=== PATIENT | male | born 1940 | race Caucasian/White ===

== ENCOUNTER → 2017-08-23 | Outpatient (CLI) | payer MEDICARE, BC, OTHER ==
[2017-08-23 17:31] LABS: BASO % 0.5 % (0.0-1.0); EOS # 0.1 10^3/uL (0.0-0.50); EOS % 1.2 % (0.0-3.0); HEMATOCRIT 49.2 % (42.0-52.0); IMMATURE GRANULOCYTE % 1.6 % (0-3.0); LYMPH # 1.9 10^3/uL (1.5-4.5); LYMPH % 25.8 % (24.0-44.0); MEAN CORPUSCULAR HEMOGLOBIN 31.6 pg (27.0-33.0); MEAN CORPUSCULAR HGB CONC 34.6 g/dl (32.0-36.5); MEAN CORPUSCULAR VOLUME 91.4 fl (80.0-96.0); MONO # 0.6 10^3/uL (0.0-0.8); MONO % 8.4 % (0.0-5.0); NEUTROPHILS # 4.7 10^3/uL (1.8-7.7); NEUTROPHILS % 62.5 % (36.0-66.0); PLATELET COUNT, AUTOMATED 197 10^3/uL (150-450); RED BLOOD COUNT 5.38 10^6/uL (4.30-6.10); RED CELL DISTRIBUTION WIDTH 14.2 % (11.5-14.5); WHITE BLOOD COUNT 7.5 10^3/uL (4.0-10.0)
[2017-08-23 18:49] LABS: ALBUMIN/GLOBULIN RATIO 1.43 (1.00-1.93); ALKALINE PHOSPHATASE 75 U/L (45-117); ALT/SGPT 20 U/L (12-78); ANION GAP 10 MEQ/L (8-16); AST/SGOT 10 U/L (7-37); BILIRUBIN,TOTAL 0.6 MG/DL (0.2-1.0); BLOOD UREA NITROGEN 17 MG/DL (7-18); CALCIUM LEVEL 9.1 MG/DL (8.8-10.2); CARBON DIOXIDE LEVEL 25 MEQ/L (21-32); CHLORIDE LEVEL 108 MEQ/L (98-107); CREATININE FOR GFR 1.22 MG/DL (0.70-1.30); FREE T4 1.45 NG/DL (0.76-1.46); GLOMERULAR FILTRATION RATE > 60.0 (>42); GLUCOSE, FASTING 88 MG/DL (70-100); POTASSIUM SERUM 4.5 MEQ/L (3.5-5.1); SODIUM LEVEL 143 MEQ/L (136-145); THYROID STIMULATING HORMONE 0.709 uIU/ML (0.358-3.740); TOTAL PROTEIN 6.8 GM/DL (6.4-8.2)
[2017-08-27 00:10] LABS: Lyme Disease IgG/IgM Antibodie <0.91 ISR (0.00-0.90); Lyme Disease IgM Ab Quantitati <0.80 index (0.00-0.79)
== END ==
LOC: M WUC 10:51
DX: J01.90 Acute sinusitis, unspecified (principal); R53.83 Other fatigue
CPT/HCPCS: 84443

== ENCOUNTER 2018-04-10 08:10 | Emergency (ER) | payer MEDICARE, BC, OTHER ==
[~2018-04-10] VITALS: Ht 188 cm; Wt 86.4 kg
[2018-04-10] MEDS ORDERED: NS 1,000 ML IV SCH (08:34)
[2018-04-10] MEDS ORDERED: ACETAMINOPHEN TAB 650MG DOSE (2X325MG) PO ONE (08:45)
[2018-04-10 09:21] LABS: BASO % 0.2 % (0.0-1.0); EOS % 0.1 % (0.0-3.0); HEMATOCRIT 48.1 % (42.0-52.0); HEMOGLOBIN 16.7 g/dl (13.5-17.5); LYMPH # 0.5 10^3/uL (1.5-4.5); LYMPH % 2.8 % (24.0-44.0); MEAN CORPUSCULAR HEMOGLOBIN 31.5 pg (27.0-33.0); MEAN CORPUSCULAR HGB CONC 34.7 g/dl (32.0-36.5); MEAN CORPUSCULAR VOLUME 90.6 fl (80.0-96.0); MONO # 1.3 10^3/uL (0.0-0.8); MONO % 7.3 % (0.0-5.0); NEUTROPHILS # 15.4 10^3/uL (1.8-7.7); NEUTROPHILS % 89.1 % (36.0-66.0); PLATELET COUNT, AUTOMATED 167 10^3/uL (150-450); RED BLOOD COUNT 5.31 10^6/uL (4.30-6.10); WHITE BLOOD COUNT 17.3 10^3/uL (4.0-10.0)
[2018-04-10 09:48] LABS: ALBUMIN 4.1 GM/DL (3.2-5.2); ALT/SGPT 17 U/L (12-78); BILIRUBIN,DIRECT 0.2 MG/DL (0.0-0.2); BILIRUBIN,TOTAL 0.8 MG/DL (0.2-1.0); BLOOD UREA NITROGEN 18 MG/DL (7-18); CALCIUM LEVEL 8.8 MG/DL (8.8-10.2); CARBON DIOXIDE LEVEL 25 MEQ/L (21-32); CHLORIDE LEVEL 109 MEQ/L (98-107); CK-MB VALUE MASS < 1.0 NG/ML (<3.6); CPK CREATINE PHOSPHOKINASE 58 U/L (39-308); GLOMERULAR FILTRATION RATE > 60.0 (>42); GLUCOSE, FASTING 118 MG/DL (70-100); MB/CK RELATIVE INDEX 1.72 (< OR =4); POTASSIUM SERUM 3.9 MEQ/L (3.5-5.1); SODIUM LEVEL 142 MEQ/L (136-145); THYROID STIMULATING HORMONE 0.561 uIU/ML (0.358-3.740); TOTAL PROTEIN 6.9 GM/DL (6.4-8.2); TROPONIN I < 0.02 NG/ML (< 0.10)
[2018-04-10] MEDS ORDERED: IBUPROFEN 600 MG TAB PO ONE (10:30)
--- NOTE | 2018-04-10 11:26 | REP ---
CT BRAIN WITHOUT CONTRAST: 04/10/2018. CLINICAL HISTORY: Altered mental status. FINDINGS: Noncontrast soft tissue and bone windows are reviewed for each slice level. There are no prior studies. Lateral ventricles are midline, symmetric, and proportionate to the mild diffuse cerebral atrophy. All of this is age appropriate. Third and fourth ventricles also proportionate. Basal ganglia symmetric. There is some heterogeneous low attenuation white matter change in the periventricular and deep subcortical white matter, consistent with chronic small vessel white matter ischemic change. The fuentes-white junction differentiation is maintained. The cortical stripe is preserved though somewhat atrophic. There is no vascular territory infarct, intracranial hemorrhage, mass, mass effect, or edema. No extra-axial fluid collection. Brainstem intact. Cerebellum shows atrophy. Basal cisterns intact. Mastoids are clear. Visualized sinuses show some minor mucosal thickening in some of the ethmoid air cells. The other visualized sinuses portions included are unremarkable. Skull base and calvarium without fracture or focal lesion. There are some minor calcifications in the carotid siphons, normal for age. IMPRESSION: 1. Some mild ventriculomegaly with proportionate atrophy, age appropriate. 2. Chronic small vessel white matter ischemic changes bilaterally with no acute infarct, hemorrhage, mass, or edema. No extra-axial fluid collection. 3. Minor ethmoid sinus mucosal thickening with remainder of sinuses, mastoids, skull base, and calvarium unremarkable. Electronically Signed by Keith Tovar MD 04/10/2018 11:29 A
--- NOTE | 2018-04-10 11:27 | REP ---
CHEST PA/LATERAL: 04/10/2018. COMPARISON: 08/23/2017 CLINICAL HISTORY: Weakness. The two views show the lung overton well inflated. Some fibrotic scarring infrahilar regions bilaterally, similar to previous study. The heart is not grossly enlarged, but the aorta is ectatic and tortuous, stable. Pulmonary artery symmetric. I see no effusion or dense consolidation. Airway intact. No widening of the mediastinum. There is no free air under the diaphragm. There is no compression deformity in the spine. Degenerative changes of the AC joints present. IMPRESSION: 1. Some basilar fibrotic changes bilaterally without definite dense consolidation pleural effusion, cardiomegaly, or edema. 2. Tortuous ectatic aorta, unchanged. No widened of mediastinum. Electronically Signed by Keith Tovar MD 04/10/2018 11:29 A
[2018-04-10] MEDS ORDERED: AZITHROMYCIN INJ 500 MG, VIAL MATE ADAPTER 1 EACH in D5W 250 ML IV ONE (11:30)
[2018-04-10] MEDS ORDERED: cefTRIAXone SOD 1 GM in D5W MINI-BAG PLUS 50 ML IV ONE (11:30)
[2018-04-10] MEDS ORDERED: AZIT-12 PO (12:06)
--- NOTE | 2018-04-10 12:11 | REP ---
CT CHEST WITHOUT CONTRAST: 04/10/2018. COMPARISON: Chest x-ray 04/10/2018, 08/23/2017. CLINICAL HISTORY: Fever, leukocytosis. FINDINGS: Noncontrast images with coronal and sagittal reconstructions provided. There are patchy nodular infiltrates in the perihilar left and right mid lung zone. These are poorly depicted on the radiograph in the areas of previous fibrosis. There is dependent atelectatic change. No pleural effusion. No dense consolidation with air bronchograms. I see no pleural thickening, calcified pleural plaque, apical scar, or pneumothorax. Heart not enlarged. Trace pericardial fluid or thickening. There are coronary artery calcifications evident. The aorta has a few calcifications at the arch but no aneurysm. No pathologic-sized mediastinal or hilar adenopathy. Small amount of fluid in the superior pericardial recess. No hilar, axillary, or supraclavicular mass. The bone windows show sternum, manubrium, clavicles, AC joints, scapula, and glenohumeral joints without fracture or destructive lesion. There is some arthritis in both AC joints. Visualized ribs and spine are without acute findings. Upper abdomen shows the liver grossly intact and without biliary dilatation or mass. There is no ascites. A calcified gallstone seen in the dependent gallbladder up to 2.8 cm. The spleen is unremarkable. There is no hiatal hernia. Adrenal glands show an 18 mm nodule on the left with negative CT attenuation values, consistent with benign adrenal adenoma. Left adrenal gland unremarkable. Upper poles kidneys intact. That portion of pancreas included also intact. Bowel loops unremarkable. IMPRESSION: 1. Patchy and nodular infiltrates perihilar left and right mid lung zone with a few other scattered nodules. These are not visible on the radiograph and are in areas of fibrotic change noted on previous radiographs. No effusion or dense consolidation with air bronchograms. Recommend followup after completion of treatment to evaluate the nodular components. 2. Tortuous calcified aorta. Some coronary calcifications, and a 2.8 cm gallstone visible. Electronically Signed by Keith Tovar MD 04/10/2018 01:45 P
[2018-04-10 13:51] VITALS: BP 111/62
--- NOTE | 2018-04-12 05:44 | ECGEPIP ---
Stationary ECG Study 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
== END 2018-04-10 13:53 | disposition left against medical advice (07) ==
LOC: EDBD 08:10 → M ED 08:10
DX: J18.9 Pneumonia, unspecified organism (principal); Z53.21 Procedure and treatment not carried out due to patient leaving prior to being seen by health care provider; H91.90 Unspecified hearing loss, unspecified ear; H26.9 Unspecified cataract; Q25.46 Tortuous aortic arch; I25.84 Coronary atherosclerosis due to calcified coronary lesion; K80.20 Calculus of gallbladder without cholecystitis without obstruction; R91.8 Other nonspecific abnormal finding of lung field
CPT/HCPCS: 70450; 71046; 71250; 80048; 80076; 81001; 82550; 82553; 84443; 84484; 85025; 87040; 87486; 87581; 87633; 87798; 93005; 93041; 94760; 96361; 96365; 96366; 96374; 99285; J0456; J0696

== ENCOUNTER → 2018-10-28 | Outpatient (CLI) | payer MEDICARE, BC, OTHER ==
[~2018-10-28] MED LIST: AZIT-12 PO
[2018-10-28 13:11] LABS: BASO # 0.1 10^3/uL (0.0-0.2); BASO % 0.6 % (0.0-1.0); EOS # 0.2 10^3/uL (0.0-0.5); EOS % 1.7 % (0.0-3.0); HEMOGLOBIN 16.4 g/dl (13.5-17.5); LYMPH # 1.2 10^3/uL (1.5-5.0); LYMPH % 12.9 % (24.0-44.0); MEAN CORPUSCULAR HEMOGLOBIN 31.1 pg (27.0-33.0); MEAN CORPUSCULAR HGB CONC 33.5 g/dl (32.0-36.5); MONO # 0.8 10^3/uL (0.0-0.8); MONO % 8.5 % (0.0-5.0); NEUTROPHILS # 7.1 10^3/uL (1.5-8.5); NEUTROPHILS % 75.9 % (36.0-66.0); PLATELET COUNT, AUTOMATED 196 10^3/uL (150-450); RED BLOOD COUNT 5.27 10^6/uL (4.30-6.10); WHITE BLOOD COUNT 9.4 10^3/uL (4.0-10.0)
[2018-10-28 13:16] LABS: ALT/SGPT 32 U/L (12-78); BILIRUBIN,TOTAL 0.7 MG/DL (0.2-1.0); BLOOD UREA NITROGEN 23 MG/DL (7-18); CALCIUM LEVEL 9.7 MG/DL (8.8-10.2); CARBON DIOXIDE LEVEL 26 MEQ/L (21-32); CHLORIDE LEVEL 111 MEQ/L (98-107); GLOMERULAR FILTRATION RATE > 60.0 (>42); GLUCOSE, FASTING 95 MG/DL (70-100); POTASSIUM SERUM 4.3 MEQ/L (3.5-5.1); SODIUM LEVEL 145 MEQ/L (136-145); TOTAL PROTEIN 6.3 GM/DL (6.4-8.2)
== END ==
LOC: M WUC 08:54
PROVIDERS: ATTEND Nurse Practitioner Family
DX: R30.0 Dysuria (principal)

== ENCOUNTER 2020-09-08 19:17 | Emergency (ER) | payer MEDICARE, BC, OTHER ==
[~2020-09-08] VITALS: Ht 182.9 cm; Wt 90.9 kg
[2020-09-08] MEDS ORDERED: PANTOPRAZOLE 40MG VIAL (C9113 PER 1) IV ONE (20:10)
[2020-09-08] MEDS ORDERED: ONDANSETRON 4MG/2ML VIAL IV ONE (20:10)
[2020-09-08 20:19] LABS: BASO % 0.4 % (0.0-1.0); EOS % 0.2 % (0.0-3.0); HEMATOCRIT 47.8 % (42.0-52.0); HEMOGLOBIN 16.3 g/dl (13.5-17.5); LYMPH # 1.4 10^3/uL (1.5-5.0); LYMPH % 14.9 % (24.0-44.0); MEAN CORPUSCULAR HEMOGLOBIN 32.5 pg (27.0-33.0); MEAN CORPUSCULAR HGB CONC 34.1 g/dl (32.0-36.5); MEAN CORPUSCULAR VOLUME 95.2 fl (80.0-96.0); MONO # 0.9 10^3/uL (0.0-0.8); MONO % 9.2 % (2.0-8.0); NEUTROPHILS # 6.9 10^3/uL (1.5-8.5); NEUTROPHILS % 74.7 % (36.0-66.0); PLATELET COUNT, AUTOMATED 183 10^3/uL (150-450); RED BLOOD COUNT 5.02 10^6/uL (4.30-6.10); WHITE BLOOD COUNT 9.2 10^3/uL (4.0-10.0)
[2020-09-08 20:44] LABS: ALBUMIN 4.4 GM/DL (3.2-5.2); BILIRUBIN,DIRECT 0.3 MG/DL (0.0-0.2); TOTAL PROTEIN 6.8 GM/DL (6.4-8.2)
[2020-09-08 21:14] LABS: RSV AMPLIFICATION NEGATIVE (NEGATIVE)
--- NOTE | 2020-09-08 21:41 | REPVR ---
PROCEDURE INFORMATION: Exam: XR Chest Exam date and time: 09/08/2020 8:51 PM Age: 79 years old Clinical indication: Cough TECHNIQUE: Imaging protocol: XR of the chest. Views: 1 view. COMPARISON: 1. CT Chest without contrast 04/10/2018 10:14 AM 2. CR Chest, 2 view PA, Lat 04/10/2018 8:45:34 AM 3. CR CHEST 2 VIEW 08/23/2017 11:08:56 AM FINDINGS: Lungs: There are linear densities in the lung bases, which are compatible with bibasilar atelectasis. No lung consolidation or pulmonary edema is noted. Pleural spaces: Unremarkable. No pleural effusion. No pneumothorax. Heart/Mediastinum: Unremarkable. No cardiomegaly. 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 IMPRESSION: No radiographic evidence for an acute cardiopulmonary process. Electronically signed by: Curt Hernandez On 09/08/2020 21:40:11 PM
[2020-09-08 22:00] VITALS: BP 157/92
--- NOTE | 2020-09-08 22:18 | ECGEPIP ---
[facility] - ED Test Date: 2020-09-08 Pat Name: ANGEL HANKINS Department: Room: - Gender: Male Location Man: EMILY : 1940 Requested By: STACEY Marti Order Number: [id number] Reading MD: Rachana Zhang Measurements Intervals [place] Rate: 78 P: 29 AK: 186 QRS: 38 QRSD: 90 T: 51 QT: 386 QTc: 440 Interpretive Statements Normal sinus rhythm ST & T wave abnormality, consider anterior ischemia Electronically Signed on 09-08-2020 22:17:54 EDT by Rachana Zhang
[2020-09-08] MEDS ORDERED: ONDA4TAB6 PO (22:37)
== END 2020-09-08 23:45 | disposition home or self-care (01) ==
LOC: M ED 19:17
DX: R11.10 Vomiting, unspecified (principal)
CPT/HCPCS: 71045; 80047; 80076; 83690; 84484; 85025; 87631; 93005; 93041; 96374; 96375; 99285; C9113; J2405

== ENCOUNTER 2020-12-14 14:02 | Emergency (ER) | payer MEDICARE, BC, OTHER ==
[~2020-12-14 14:02] MED LIST changes: +ONDA4TAB6 PO
[2020-12-14 14:04] VITALS: BP 106/80
--- OUTSIDE RECORDS SUMMARY | 2020-12-14 14:29 | CCD ---
Author Author [facility] Organization [facility] Address Unknown Phone Unavailable Support Name Relationship Address Phone NHI, (HCP) NOEL Next Of Kin [address] [place] [address] RE Next Of Kin Unknown Unavailable [employer] Next Of Kin [address] [place] [address] Kaia HANKINS Next Of Kin [address] [place] [address] Kaia HANKINS ECON [address] [place] [address] Unavailable Re-disclosure Warning The records that you are about to access may contain information from federally-assisted alcohol or drug abuse programs. If such information is present, then the following federally mandated warning applies: This information has been disclosed to you from records protected by federal confidentiality rules (42 CFR part 2). The federal rules prohibit you from making any further disclosure of this information unless further disclosure is expressly permitted by the written consent of the person to whom it pertains or as otherwise permitted by 42 CFR part 2. A general authorization for the release of medical or other information is NOT sufficient for this purpose. The Federal rules restrict any use of the information to criminally investigate or prosecute any alcohol or drug abuse patient.The records that you are about to access may contain highly sensitive health information, the redisclosure of which is protected by Article 27-F of the [facility] Public [facility] law. If you continue you may have access to information: Regarding HIV / AIDS; Provided by facilities licensed or operated by the [facility] Office of Mental Health; or Provided by the [facility] Office for People With Developmental Disabilities. If such information is present, then the following [facility] mandated warning applies: This information has been disclosed to you from confidential records which are protected by state law. State law prohibits you from making any further disclosure of this information without the specific written consent of the person to whom it pertains, or as otherwise permitted by law. Any unauthorized further disclosure in violation of state law may result in a fine or fpc sentence or both. A general authorization for the release of medical or other information is NOT sufficient authorization for further disc losure. Family History Family Member Name Family Member Gender Family Member Status Date o f Status Description Data Source(s) Unknown Unknown Problem MEDENT ([facility]) Unknown Unknown Problem [facility] ([facility] Unknown Unknown Problem [facility] ([facility] Immunizations Vaccine Date Status Description Data Source(s) COVID-19 VACCINE Moderna 04/29/2020 12:00:00 AM EST completed [facility] Vaccine Series Complete: YESThis Data wa s Submitted to [facility] Via [employer] COVID-19 VACCINE, MRNA-1273, LNP-S (MODERNA)/PF 04/29/2020 1 2:00:00 AM EST completed [facility] COVID-19 VACCINE Moderna 04/01/2020 12:00:00 AM EST completed [facility] Vaccine Series Complete: NOThis Data was Submitted to [facility] [employer] ([employer] COVID-19 VACCINE, MRNA-1273, LNP-S (MODERNA)/PF 04/01/2020 1 2:00:00 AM EST completed [facility] INFLUENZA VIRUS VACCINE QUADRIVALENT 2019- (6 MOS AN D UP) 11/14/2019 12:00:00 AM EDT completed [facility] Medications Medication Brand Name Start Date Product Form Dose Route Admi nistrative Instructions Pharmacy Instructions Status Indications Reaction Description Data Source(s) Ondansetron 4 MG Disintegrating Oral Tablet ONDANSETRON 09/09/2020 12:00:00 AM EDT tablet,disintegrating 16 DISSOLVE O NE TABLET ON TONGUE EVERY 6 TO 8 HOURS NEEDED FOR NAUSEA AND VOMITING DISSOLVE ONE TABLET ON TONGUE EVERY 6 TO 8 HOURS NEEDED FOR NAUSEA AND VOMITING SOLD: 09/09/2020 [facility] Insurance Providers Payer name Policy type / Coverage type Policy ID Covered republican ID Covered republican's relationship to delatorre Policy Delatorre Plan Information MEDICARE [id number] SP [id number] A [facility] [id number] SP [id number] MEDICARE [id number] SP [id number] A MEDICARE [id number] SP [id number] MEDICARE [id number] SP [id number] A UNITED HEALTHCARE [id number] SP [id number] [facility] EMPIRE [place] DIV [id number] SP [id number] UNITED HEALTHCARE [id number] SP [id number] [facility] [place] Medigap Part B [id number] Self [id number] Medicare Natl Gov't Servi Medicare Primary [id number] Self [id number] [facility] [place] Medigap Part B [id number] Self [id number] Medicare Natl Gov't Servi Medicare Primary [id number] Self [id number] Emp/United Healthcare Medigap Part B [id number] Self [id number] Medicare [place] Medicare Primary [id number] Self [id number] Emp/United Healthcare Medigap Part B [id number] Self [id number] Medicare [place]state Medicare Primary [id number] Self [id number] UNITED HEALTHCARE O [id number] S [id number] Emp/United Healthcare Medigap Part B [id number] [facility] Medicare Primary [id number] Self United [facility] Medigap Part B [id number] [facility] Medicare Primary [id number] Self UNITED HEALTHCARE [id number] SP [id number] Emp/United Healthcare Medigap Part B [id number] Self Self Pay P UNAVAILABLE S UNAVAILA BLE Emp/United Healthcare Medigap Part B [id number] Self [id number] Medicare [place] Medicare Primary [id number] Self [id number] Emp/United Healthcare Medigap Part B [id number] Self [id number] Medicare Upstate Medicare Primary [id number] Self [id number] [facility] O [id number] S [id number] MEDICARE C [id number] S [id number] A Problems, Conditions, and Diagnoses No Information Surgeries/Procedures No Information Results ID Date Data Source [id number] 09/08/2020 08:16:00 PM EDT [facility] Name Value Range Interpretation Code Description Data Nathalia rce(s) Supporting Document(s) SARS coronavirus 2 RNA [Presence] in Res piratory specimen by ERICA with probe detection NEGATIVE [facility] This lab was ordered by [facility] a nd reported by [facility]. Procedure Social History No Information
--- OUTSIDE RECORDS SUMMARY | 2020-12-14 15:31 | CCD ---
Author Author [facility] Organization [facility] Address Unknown Phone Unavailable Support Name Relationship Address Phone NHI, (HCP) NOEL Next Of Kin [address] [place] [address] RE Next Of Kin Unknown Unavailable [employer] Next Of Kin [address] [place] [address] Kaia HANKINS Next Of Kin [address] [place] [address] Kaia HANKINS ECON [address] [place] [address] Unavailable Re-disclosure Warning The records that you [...] is protected by Article 27-F of the [facility] Public [facility] law. If you continue you may have access to information: Regarding HIV / AIDS; Provided by facilities licensed or operated by the [facility] Office of Mental Health; or Provided by the [facility] Office for People With Developmental Disabilities. If such information is present, then the following [facility] mandated warning applies: This information has been [...] law may result in a fine or assisted sentence or both. A general authorization for [...] Complete: YESThis Data wa s Submitted to [facility] Via [employer]. COVID-19 VACCINE, MRNA-1273, LNP-S (MODERNA)/PF 04/29/2020 1 2:00:00 AM EST completed [facility] COVID-19 VACCINE Moderna 04/01/2020 12:00:00 AM EST completed [facility] Vaccine Series Complete: NOThis Data was Submitted to [facility] [employer]. COVID-19 VACCINE, MRNA-1273, LNP-S (MODERNA)/PF 04/01/2020 1 [...] to delatorre Policy Delatorre Plan Information MEDICARE [id number] SP [id number] A [facility] [id number] SP [id number] MEDICARE [id number] SP [id number] A MEDICARE [id number] SP [id number] MEDICARE [id number] SP [id number] A UNITED HEALTHCARE [id number] SP [id number] [facility] EMPIRE [place] DIV [id number] SP [id number] UNITED HEALTHCARE [id number] SP [id number] [facility] [place] Medigap Part B [id number] Self [id number] Medicare Natl Gov't Servi Medicare Primary [id number] Self [id number] [facility] Medigap Part B [id number] Self [id number] Medicare Natl Gov't Servi Medicare Primary [id number] Self [id number] Emp/United Healthcare Medigap Part B [id number] Self [id number] Medicare Upstate Medicare Primary [id number] Self [id number] Emp/United Healthcare Medigap Part B [id number] Self [id number] Medicare Upstate Medicare Primary [id number] Self [id number] UNITED HEALTHCARE O [id number] S [id number] Emp/United Healthcare Medigap Part B [id number] Self Medicare [facility] Medicare Primary [id number] Self [facility] Medigap Part B [id number] Self Medicare [facility] Medicare Primary [id number] Self UNITED HEALTHCARE [id number] SP [id number] Emp/United Healthcare Medigap Part B [id number] Self Self Pay P UNAVAILABLE S UNAVAILA BLE Emp/United Healthcare Medigap Part B [id number] Self [id number] Medicare [place] Medicare Primary [id number] Self [id number] Emp/United Healthcare Medigap Part B [id number] Self [id number] Medicare Upstate Medicare Primary [id number] Self [id number] [facility] O [id number] S [id number] MEDICARE C [id number] S [id number] A Problems, Conditions, and Diagnoses No Information Surgeries/Procedures No Information Results ID Date Data Source [id number] 09/08/2020 08:16:00 PM EDT [facility] Name Value Range Interpretation Code Description Data Nathalia rce(s) Supporting Document(s) SARS coronavirus 2 RNA [Presence] in Res piratory specimen by ERICA with probe detection NEGATIVE [facility]SD This lab was ordered by [facility] a nd reported by [facility]. Procedure Social History No Information
== END 2020-12-14 14:30 | disposition left against medical advice (07) ==
LOC: M ED 14:02
DX: Z53.21 Procedure and treatment not carried out due to patient leaving prior to being seen by health care provider (principal)

== ENCOUNTER 2020-12-20 09:11 | Inpatient (IN) | payer MEDICARE, BC, OTHER ==
[~2020-12-20] VITALS: Ht 188 cm; Wt 63.5 kg
[2020-12-20] MEDS: HEPARIN SOD (PORCINE) 5000UNITS/ML 1ML VIAL/SYRINGE SC SCH (01:06)
[2020-12-20] MEDS: NS 1,000 ML IV SCH (01:39)
[2020-12-20] MEDS ORDERED: NS 500 ML IV ONE ×2 (09:20→21:05)
[2020-12-20] MEDS ORDERED: ISOVUE-370 76% 100ML VIAL As Ordered ONE (09:27)
--- OUTSIDE RECORDS SUMMARY | 2020-12-20 09:39 | CCD ---
Author Author [facility] Organization [facility] Address Unknown Phone Unavailable Support Name Relationship Address Phone NHI, (HCP) NOEL Next Of Kin [address] [place] [address] RE Next Of Kin Unknown Unavailable [employer] Next Of Kin [address] [place] [address] Kaia HANKINS Next Of Kin [address] [place] [address] Kaia HANKINS ECON [address] [place] [address] Unavailable Re-disclosure Warning The records that you [...] by Article 27-F of the [facility] Public Health law. If you continue you may have access to information: Regarding HIV / AIDS; Provided by facilities licensed or operated by the [facility] Office of Mental Health; or Provided by the [facility] Office for People With Developmental Disabilities. If such information is present, then the following [facility] mandated warning applies: This information has [...] law may result in a fine or half-way sentence or both. A general authorization for [...] Data wa s Submitted to [facility] Via [employer] COVID-19 VACCINE, MRNA-1273, LNP-S (MODERNA)/PF 04/29/2020 1 2:00:00 AM EST completed [facility] COVID-19 VACCINE Moderna 04/01/2020 12:00:00 AM EST completed [facility] Vaccine Series Complete: NOThis Data was Submitted to [facility] [employer] COVID-19 VACCINE, MRNA-1273, LNP-S (MODERNA)/PF 04/01/2020 1 [...] type / Coverage type Policy ID Covered constitution party ID Covered constitution party's relationship to delatorre Policy Delatorre Plan Information MEDICARE [id number] SP [id number] A [facility] [id number] SP [id number] MEDICARE [id number] SP [id number] A MEDICARE [id number] SP [id number] MEDICARE [id number] SP [id number] A UNITED HEALTHCARE [id number] SP [id number] [facility] EMPIRE [place] DIV [id number] SP [id number] UNITED HEALTHCARE [id number] SP [id number] [facility] [place] Medigap Part B [id number] Self [id number] Medicare Natl Gov't Servi Medicare Primary [id number] .[id number] Self [id number] [facility] [place] Medigap Part B [id number] Self [id number] Medicare Natl Gov't Servi Medicare Primary [id number] Self [id number] Emp/United Healthcare Medigap Part B [id number] Self [id number] Medicare Upstate Medicare Primary [id number] Self [id number] Emp/United Healthcare Medigap Part B [id number] Self [id number] Medicare Upstate Medicare Primary [id number] Self [id number] UNITED HEALTHCARE O [id number] S [id number] Emp/United Healthcare Medigap Part B [id number] Self Medicare [facility] Medicare Primary [id number] Self [facility] Medigap Part B [id number] Self Medicare [facility] Medicare Primary [id number] Self UNITED HEALTHCARE [id number] SP [id number] Emp/United Healthcare Medigap Part B [id number] Self Self Pay P UNAVAILABLE S UNAVAILA BLE Emp/United Healthcare Medigap Part B [id number] Self [id number] Medicare [place] Medicare Primary [id number] Self [id number] Emp/United Healthcare Medigap Part B [id number] Self [id number] Medicare [place] Medicare Primary [id number] [facility] O [id number] S [id number] MEDICARE C [id number] S [id number] A Problems, Conditions, and Diagnoses No Information Surgeries/Procedures No Information Results ID Date Data Source [id number] 09/08/2020 08:16:00 PM EDT [facility] Name Value Range Interpretation Code Description Data Nathalia rce(s) Supporting Document(s) SARS coronavirus 2 RNA [Presence] in Res piratory specimen by ERICA with probe detection NEGATIVE [facility]MD This lab was ordered by [facility] a nd reported by [facility]. Procedure Social History No Information
[2020-12-20 09:51] LABS: BASO % 0.5 % (0.0-1.0); EOS % 0.1 % (0.0-3.0); HEMATOCRIT 47.3 % (42.0-52.0); HEMOGLOBIN 16.4 g/dl (13.5-17.5); LYMPH # 1.3 10^3/uL (1.5-5.0); LYMPH % 15.1 % (24.0-44.0); MEAN CORPUSCULAR HEMOGLOBIN 32.9 pg (27.0-33.0); MEAN CORPUSCULAR HGB CONC 34.7 g/dl (32.0-36.5); MEAN CORPUSCULAR VOLUME 94.8 fl (80.0-96.0); MONO # 0.8 10^3/uL (0.0-0.8); NEUTROPHILS # 6.6 10^3/uL (1.5-8.5); NEUTROPHILS % 73.8 % (36.0-66.0); PLATELET COUNT, AUTOMATED 185 10^3/uL (150-450); RED BLOOD COUNT 4.99 10^6/uL (4.30-6.10); WHITE BLOOD COUNT 8.9 10^3/uL (4.0-10.0)
[2020-12-20 10:02] LABS: INR 1.07; PARTIAL THROMBOPLASTIN TIME 27.3 SECONDS (25.9-37.0); PROTHROMBIN TIME 14.3 SECONDS (12.7-14.5)
--- NOTE | 2020-12-20 10:10 | REPVR ---
PROCEDURE INFORMATION: Exam: CT Head Without Contrast Exam date and time: 12/20/2020 9:27 AM Age: 80 years old Clinical indication: Speech disturbance; Additional info: CVA TECHNIQUE: Imaging protocol: Computed tomography of the head without contrast. Radiation optimization: All CT scans at this facility use at least one of these dose optimization techniques: automated exposure control; mA and/or kV adjustment per patient size (includes targeted exams where dose is matched to clinical indication); or iterative reconstruction. Other technique: STROKE PROTOCOL was implemented. COMPARISON: CT Head without contrast 04/10/2018 8:29 AM FINDINGS: Brain: There is no acute intracranial hemorrhage or mass effect. Mild diffuse volume loss is within the range of normal for patient age. There are small vessel ischemic changes within the periventricular and subcortical white matter, but the normal fuentes/white matter delineation is maintained. Cerebral ventricles: No ventriculomegaly. Paranasal sinuses: Visualized sinuses are unremarkable. No fluid levels. Mastoid air cells: Visualized mastoid air cells are well aerated. Bones/joints: Unremarkable. No acute fracture. Soft tissues: Unremarkable. IMPRESSION: No acute hemorrhage or edema. ASSESSMENT: ASPECTS ([place] Stroke Program Early CT Score) is 10. Electronically signed by: Cassi Parrish On 12/20/2020 10:09:42 AM
--- NOTE | 2020-12-20 10:13 | REPVR ---
PROCEDURE INFORMATION: Exam: CT Angiography Neck With Contrast Exam date and time: 12/20/2020 9:20 AM Age: 80 years old Clinical indication: Speech disturbance; Additional info: CVA - nursing interventions must not delay CT TECHNIQUE: Imaging protocol: Computed tomography angiography of the neck with contrast. 3D rendering (Not supervised by radiologist): MIP and/or 3D reconstructed images were created by the technologist. Radiation optimization: All CT scans at this facility use at least one of these dose optimization techniques: automated exposure control; mA and/or kV adjustment per patient size (includes targeted exams where dose is matched to clinical indication); or iterative reconstruction. Contrast material: ISOVUE 370; Contrast volume: 100 ml; Contrast route: INTRAVENOUS (IV); COMPARISON: CT Chest without contrast 04/10/2018 10:14 AM FINDINGS: Image quality is degraded by motion. Right common carotid artery: No stenosis. No dissection or occlusion. Right internal carotid artery: No stenosis of the extracranial segment. No dissection or occlusion. Right external carotid artery: No occlusion or stenosis of the origin. Left common carotid artery: No stenosis. No dissection or occlusion. Left internal carotid artery: No stenosis of the extracranial segment. No dissection or occlusion. Left external carotid artery: No occlusion or stenosis of the origin. Right vertebral artery: No stenosis. No dissection or occlusion. Left vertebral artery: No stenosis. No dissection or occlusion. Thyroid: There are hypodensities within the thyroid measuring up to 1.6 cm within the right lobe. Soft tissues: Normal. No significant soft tissue swelling. Bones/joints: No acute fracture. IMPRESSION: Motion degraded examination. No significant cervical arterial stenosis. COMMENTS: Consistent with the [employer] [place] [employer]'s Incidental Findings Committee white paper (J Am Kathy Radiol 2015): In patients aged 35 years and older with an incidental thyroid nodule equal to or greater than 1.[address], MRI or extrathyroidal US, further evaluation with dedicated thyroid US is recommended for patients with normal life expectancy and without comorbidities. For smaller nodules without suspicious features, no further evaluation or follow up is recommended. REFERENCES: NASCET CRITERIA. The degree of internal carotid artery stenosis is based on NASCET criteria. Normal is no stenosis. Mild is less than 50% stenosis. Moderate is 50-69% stenosis. Severe is 70% to 99% stenosis. Total occlusion is no detectable patent lumen. Electronically signed by: Cassi Parrish On 12/20/2020 10:13:03 AM
--- NOTE | 2020-12-20 10:17 | REP ---
INDICATION: Altered Mental Status. COMPARISON: None. TECHNIQUE: Single portable AP view of the chest was performed. FINDINGS: There is no acute infiltrate or pulmonary edema. Lungs are clear. The heart is not significantly enlarged. There is tortuosity of the thoracic aorta. The mediastinal silhouette is unchanged. The visualized osseous structures are intact. IMPRESSION: No acute pulmonary disease. <Electronically signed by Tj Caba > 12/20/20 1014
--- NOTE | 2020-12-20 10:18 | REPVR ---
PROCEDURE INFORMATION: Exam: CT Angiography Head With Contrast, Arteriography Exam date and time: 12/20/2020 9:20 AM Age: 80 years old Clinical indication: Speech disturbance; Additional info: CVA - nursing interventions must not delay CT TECHNIQUE: Imaging protocol: Computed tomography angiography of the head with contrast. Exam focused on the arteries. 3D rendering (Not supervised by radiologist): MIP and/or 3D reconstructed images were created by the technologist. Radiation optimization: All CT scans at this facility use at least one of these dose optimization techniques: automated exposure control; mA and/or kV adjustment per patient size (includes targeted exams where dose is matched to clinical indication); or iterative reconstruction. Contrast material: ISOVUE 370; Contrast volume: 100 ml; Contrast route: INTRAVENOUS (IV); COMPARISON: CT Head without contrast 04/10/2018 8:29 AM FINDINGS: ANTERIOR CIRCULATION: Right internal carotid artery: Unremarkable. Intracranial segment is patent with no significant stenosis. No aneurysm. Right middle cerebral artery: Unremarkable. No occlusion or significant stenosis. No aneurysm. Right anterior cerebral artery: Unremarkable. No occlusion or significant stenosis. No aneurysm. Left internal carotid artery: Unremarkable. Intracranial segment is patent with no significant stenosis. No aneurysm. Left middle cerebral artery: Unremarkable. No occlusion or significant stenosis. No aneurysm. Left anterior cerebral artery: Unremarkable. No occlusion or significant stenosis. No aneurysm. POSTERIOR CIRCULATION: Right vertebral artery: Unremarkable. No occlusion or significant stenosis. No aneurysm. Left vertebral artery: Unremarkable. No occlusion or significant stenosis. No aneurysm. Basilar artery: There is an incidental persistent primitive trigeminal artery, a normal anatomic variant. This is associated with a diminutive basilar artery proximally. Right posterior cerebral artery: Unremarkable. No occlusion or significant stenosis. No aneurysm. Left posterior cerebral artery: Unremarkable. No occlusion or significant stenosis. No aneurysm. Brain: No definite mass, mass effect, or midline shift. Cerebral ventricles: No ventriculomegaly. Bones/joints: Unremarkable. No acute fracture. Soft tissues: Unremarkable. IMPRESSION: No large vessel stenosis or occlusion. Electronically signed by: Cassi Parrish On 12/20/2020 10:18:27 AM
[2020-12-20 10:25] LABS: ACETAMINOPHEN LEVEL < 2.0 UG/ML (10.0-30.0); ALBUMIN 3.5 GM/DL (3.2-5.2); ALT/SGPT 30 U/L (12-78); BILIRUBIN,DIRECT 2.3 MG/DL (0.0-0.2); BLOOD UREA NITROGEN 33 MG/DL (7-18); CALCIUM LEVEL 9.7 MG/DL (8.8-10.2); CARBON DIOXIDE LEVEL 27 MEQ/L (21-32); CHLORIDE LEVEL 104 MEQ/L (98-107); CREATININE FOR GFR 1.22 MG/DL (0.70-1.30); ETHYL ALCOHOL (ETHANOL) < 0.003 % (0.000-0.010); GLOMERULAR FILTRATION RATE > 60.0 (>42); GLUCOSE, FASTING 125 MG/DL (70-100); POTASSIUM SERUM 3.2 MEQ/L (3.5-5.1); SALICYLATE LEVEL < 1.7 MG/DL (5.0-30.0); SODIUM LEVEL 142 MEQ/L (136-145); THYROID STIMULATING HORMONE 0.341 uIU/ML (0.358-3.740); TOTAL PROTEIN 6.3 GM/DL (6.4-8.2)
[2020-12-20] MEDS ORDERED: HOME MED LIST COMPLETE! XX SCH (10:30)
[2020-12-20] MEDS ORDERED: LIDOCAINE 2% 5ML JELLY UROJET TOP ONE (10:40)
[2020-12-20 10:50] LABS: MAGNESIUM LEVEL 2.6 MG/DL (1.8-2.4)
[2020-12-20 11:24] LABS: RSV AMPLIFICATION NEGATIVE (NEGATIVE)
[2020-12-20] MEDS ORDERED: NS 1,000 ML IV ONE (11:40)
--- NOTE | 2020-12-20 12:26 | REP ---
INDICATION: elev lfts. COMPARISON: None. TECHNIQUE: Standard helical technique after the intravenous administration of 100 cc Isovue 370 FINDINGS: Mild fibrotic changes are seen in the lung bases. There are no pleural or pericardial effusions. The liver, spleen, pancreas, adrenal glands, and kidneys are within normal limits. There is a stable nodule in each adrenal gland seen on prior CT of the chest of 04/10/2018. There is cholelithiasis also seen on that prior CT. The abdominal aorta and para-aortic regions are within normal limits. There is minimal calcific atherosclerotic change. There is no para-aortic adenopathy. The bowel loops and the mesenteries are within normal limits. There is no free fluid or free air. There is no mass or adenopathy. There is colonic diverticulosis. The urinary bladder is distended. Bone window technique throughout the examination shows spinal degenerative changes. IMPRESSION: There is no evidence of acute disease. There is a stable nodule in each adrenal gland and there is cholelithiasis status quo. There is colonic diverticulosis without evidence of diverticulitis. There is urinary bladder distension the etiology of which is uncertain. Other findings as described above. <Electronically signed by Porter Brice > 12/20/20 1528
--- NOTE | 2020-12-20 13:14 | REP ---
INDICATION: eelv lfts. COMPARISON: No prior right upper quadrant ultrasound examinations for comparison TECHNIQUE: Real-time sonographic evaluation of the right upper quadrant with Doppler FINDINGS: Multiple ultrasonographic images of the liver show the hepatic parenchymal echo texture to appear unremarkable. There are no definite focal masses. There is no intrahepatic ductal dilatation. The common bile duct measures between 4 and 5 mm in its greatest transverse dimension. Multiple ultrasonographic images of the gallbladder show multiple echogenic foci within the gallbladder lumen which casts acoustic shadows. There is no gallbladder wall thickening or pericholecystic edema. Images of the pancreatic region show no gross abnormality. The right kidney measures 11.2 x 5.4 x 5.6 cm.. IMPRESSION: Cholelithiasis and a sludge filled gallbladder Accredited by the [place] [employer] in General Ultrasound. <Electronically signed by Porter Brice > 12/20/20 0535
--- OUTSIDE RECORDS SUMMARY | 2020-12-20 14:42 | CCD ---
Author Author [facility] Organization [facility] Address Unknown Phone Unavailable Support Name Relationship Address Phone NHI, (HCP) NOEL Next Of Kin [address] [place] [address] RE Next Of Kin Unknown Unavailable [employer] Next Of Kin [address] [place] [address] Kaia HANKINS Next Of Kin [address] [place] [address] Kaia HANKINS ECON [address] [place] [address] Unavailable Re-disclosure Warning The records that you [...] is protected by Article 27-F of the [facility] Public Health law. If you continue you may have access to information: Regarding HIV / AIDS; Provided by facilities licensed or operated by the [facility] Office of Mental Health; or Provided by the [facility] Office for People With Developmental Disabilities. If such information is present, then the following [facility] mandated warning applies: This information has [...] law may result in a fine or longterm sentence or both. A general authorization for [...] Complete: YESThis Data wa s Submitted to [facility] [employer]. COVID-19 VACCINE, MRNA-1273, LNP-S (MODERNA)/PF 04/29/2020 1 2:00:00 AM EST completed [facility] COVID-19 VACCINE Moderna 04/01/2020 12:00:00 AM EST completed [facility] Vaccine Series Complete: NOThis Data was Submitted to [facility] [employer]. COVID-19 VACCINE, MRNA-1273, LNP-S (MODERNA)/PF 04/01/2020 1 [...] type / Coverage type Policy ID Covered libertarian ID Covered libertarian's relationship to delatorre Policy Delatorre Plan Information MEDICARE [id number] SP [id number] A [facility] [id number] SP [id number] MEDICARE [id number] SP [id number] A MEDICARE [id number] SP [id number] MEDICARE [id number] SP [id number] A UNITED HEALTHCARE [id number] SP [id number] [facility] EMPIRE [place] DIV [id number] SP [id number] UNITED HEALTHCARE [id number] SP [id number] United [employer] [place] Medigap Part B [id number] Self [id number] Medicare Natl Gov't Servi Medicare Primary [id number] Self [id number] United [employer] [place] Medigap Part B [id number] Self [id number] Medicare Natl Gov't Servi Medicare Primary [id number] Self [id number] Emp/United Healthcare Medigap Part B [id number] Self [id number] Medicare [place] Medicare Primary [id number] Self [id number] Emp/United Healthcare Medigap Part B [id number] Self [id number] Medicare [place] Medicare Primary [id number] Self [id number] UNITED HEALTHCARE O [id number] S [id number] Emp/United Healthcare Medigap Part B [id number] Self Medicare [facility] Medicare Primary [id number] Self United Healthcare/[place]amer Medigap Part B [id number] Self Medicare [facility] Medicare Primary [id number] Self UNITED HEALTHCARE [id number] SP [id number] Emp/United Healthcare Medigap Part B [id number] Self Self Pay P UNAVAILABLE S UNAVAILA BLE Emp/United Healthcare Medigap Part B [id number] Self [id number] Medicare [place] Medicare Primary [id number] Self [id number] Emp/United Healthcare Medigap Part B [id number] Self [id number] Medicare [place] Medicare Primary [id number] Self [id number] [facility] O [id number] S [id number] MEDICARE C [id number] S [id number] A Problems, Conditions, and Diagnoses No Information Surgeries/Procedures No Information Results ID Date Data Source [id number] 09/08/2020 08:16:00 PM EDT [facility] Name Value Range Interpretation Code Description Data Nathalia rce(s) Supporting Document(s) SARS coronavirus 2 RNA [Presence] in Res piratory specimen by ERICA with probe detection NEGATIVE [facility] This lab was ordered by [facility] a nd reported by [facility]. Procedure Social History No Information
[2020-12-20] MEDS ORDERED: POTASSIUM CHLORIDE 10MEQ SR TABLET PO ONE (15:00)
[2020-12-20] MEDS ORDERED: hydrOXYzine 10 MG TAB PO ONE ×2 (15:00→17:30)
--- NOTE | 2020-12-20 15:02 | HPEPDOC ---
[facility] Medical History & Physical Date of Admission Dec 20, 2020 Date of Service: Dec 20, 2020 Attending Physician: JAIME CANO DO History and Physical CHIEF COMPLAINT: Altered mental status HISTORY OF PRESENT ILLNESS: Patient is a 80-year-old male came into the emergency department altered mental status. Patient has apparently been confused since this morning. All the history is given to me by the patient's niece who was at bedside. Patient's niece states the patient has been becoming weaker and having difficulty getting around for the past week and a half. About 2 weeks ago, patient was in his usual state of health and was able to take care of his pushing her wheelchair. Over the past 1 and a 1/2 to 2 weeks he has been having difficulty getting around and has not been eating very much. Patient has lost about 20 pounds over the past month. Patient did stub his toe causing his toenail to be ripped off about 2 weeks ago according to the patient's niece. Patient this morning woke up and was confused and not able to answer questions. This caused the patient's niece to bring him into the emergency department. Patient did come into the emergency department a few days ago however, the wait was too long so they decided to leave without being seen as the patient could not sit in the waiting room for that long. Patient denies having any pain but was pointing to his abdomen later on in the interview stating that his abdomen hurt. Patient had not been complaining of any issues at home prior to this. Patient apparently been having diarrhea but we are unsure whether or not bloody or brown water. PAST MEDICAL HISTORY: Patient's niece denies any past medical history. Patient was going to see a primary medical doctor but was unable to make this appointment. PAST SURGICAL HISTORY: Denies any past surgical history SOCIAL HISTORY: According to the niece, patient used to smoke and used to drink alcohol but no longer does. Patient does not use illicit drugs. FAMILY HISTORY: Unaware of any family history. Unable to obtain from patient ALLERGIES: Please see below. REVIEW OF SYSTEMS: Unable to reliably obtain from the patient due to the patient's altered mental status. Patient did complain of abdominal pain all over but that was the only question the patient would answer when asked. HOME MEDICATIONS: Please see below. PHYSICAL EXAMINATION: VITAL SIGNS: Temperature 97.7, pulse 61, respiratory rate 20, blood pressure 135/91, pulse oximetry 97% on room air. General: Alert but not oriented male patient who was laying in bed with his niece at bedside. Patient was very weak and tired appearing. Patient was unable to answer questions appropriately. Patient did not appear to be in any acute distress Initially however, towards the end of the interview and examination, patient did become in acute distress pointing to his lower abdomen saying he needed to use the bathroom. Patient was unable to use the bathroom and patient's heart rate spiked up into the 150s before a Thurston catheter was placed which relieved the obstruction. HEENT: Normocephalic, atraumatic, moist mucous membranes. Neck: No lymphadenopathy or thyromegaly Cardiac: Regular rate and rhythm, no murmurs, normal S1, normal S2 Pulm: Clear to auscultation bilaterally. No wheezes, rhonchi, rales Abd: Nondistended, tender throughout the abdomen especially in the suprapubic area. Bladder can be palpated above the pubic symphysis. No rebound tenderness Ext: No edema bilateral lower extremities Neuro: Difficult to fully assess as the patient was having difficulty following commands however, the patient could move his extremities while I was examining him and the patient was trying to use the bathroom. Skin: Skin of the head, neck, upper and lower extremities was examined did not show any evidence of rash or wounds. LABORATORY DATA: See below. IMAGING: Chest x-ray performed on 12/20/2020 is reported to show no acute pulmonary disease. CT angio of the head performed with contrast on 12/20/2020 was reported to show no large vessel stenosis or occlusion. CT angio of the neck performed on 12/20/2020 was reported to show motion degraded examination. No significant cervical arterial stenosis. CT of the head performed without contrast on 12/20/2020 was reported to show no acute hemorrhage or edema. Gallbladder ultrasound from 12/20/2020 was reported to show cholelithiasis and a sludge-filled gallbladder. CT of the abdomen pelvis performed without contrast on 12/20/2020 was reported to show no evidence of acute disease. There is a stable nodule in each adrenal gland and there is cholelithiasis status quo. There is colonic diverticulosis without evidence of diverticulitis. There is urinary bladder distention the etiology of which is uncertain. MICROBIOLOGY: Please see below. ASSESSMENT: 80-year-old male who presented to the hospital with altered mental status that started today with progressive weakness and failure to thrive over the past 2 weeks. . PLAN: 1. Altered mental status. Etiology uncertain at this time. CT of the head CT angio of the head CT angio of the neck did not show any cause for the patient's altered mental status. Patient does appear to have either sinus arrhythmia or sinus rhythm with PVCs on his EKG that was performed in the emergency department. Patient has not been to a primary medical doctor in some time and the patient may have underlying atrial fibrillation as when the patient had his acute episode of tachycardia prior to his urinary bladder being drained, it appeared to be irregular however, it was difficult to discern the presence or absence of P waves due to the patient motion. MRI of the brain will be performed. Patient was much more comfortable after urinary bladder was relieved through a Thurston catheter. Patient's urine did appear dark and will be tested for possible urinary tract infection. Patient will receive a dose of IV Rocephin at this time. 2. Acute urinary retention. Patient's kidney function is within normal limits at this time. Patient had a distended bladder that drained 800 cc of dark urine once a Thurston catheter had been placed. An attempt was made to straight cath the patient however, this was unsuccessful. When the patient became acutely tachycardic and acutely in pain, Thurston catheter was easily placed by nursing staff. Patient was much more comfortable after urinary bladder was emptied. 3. Hypokalemia. Patient has received repletion for this and we will continue to monitor throughout the patient's hospitalization. 4. Hyperbilirubinemia. Patient had CT of the abdomen and pelvis and gallbladder ultrasound which is not suspicious of a stone or bile duct enlargement. We will continue to monitor the patient's bilirubin throughout his hospitalization. This may be contributing to his altered mental status however, the patient's ammonia level is within normal limits. 5. DVT prophylaxis: Heparin 6. CODE STATUS: Full code Disposition: Patient will be admitted to the PCU on telemetry. I expect the patient to be discharged after greater than or equal to 2 midnight stay. Vital Signs Vital Signs Date Time Temp Pulse Resp B/P (MAP) Pulse Ox O2 Delivery O2 Flow Rate FiO2 12/20/20 11:16 61 97 10/29/21 11:15 135/91 (106) 12/20/20 09:56 97.7 20 Room Air Laboratory Data Labs 24H Laboratory Tests 2 12/20/20 09:38: Immature Granulocyte % (Auto) 1.5, Neutrophils (%) (Auto) 73.8H, Lymphocytes (%) (Auto) 15.1L, Monocytes (%) (Auto) 9.0H, Eosinophils (%) (Auto) 0.1, Basophils (%) (Auto) 0.5, Neutrophils # (Auto) 6.6, Lymphocytes # (Auto) 1.3L, Monocytes # (Auto) 0.8, Eosinophils # (Auto) 0.0, Basophils # (Auto) 0.0, Nucleated Red Blood Cells % (auto) 0.2H, Prothrombin Time 14.3H, Prothromb Time International Ratio 1.07, Activated Partial Thromboplast Time 27.3, Anion Gap 11, Glomerular Filtration Rate > 60.0, Lactic Acid Level 2.3*H, Calcium Level 9.7, Magnesium Level 2.6H, Total Bilirubin 4.0H, Direct Bilirubin 2.3H, Aspartate Amino Transf (AST/SGOT) 18, Alanine Aminotransferase (ALT/SGPT) 30, Alkaline Phosphatase 120H, Ammonia < 10, Total Protein 6.3L, Albumin 3.5, Albumin/Globulin Ratio 1.3, Thyroid Stimulating Hormone (TSH) 0.341L, Salicylates Level < 1.7L, Acetaminophen Level < 2.0L, Ethyl Alcohol Level < 0.003, Coronavirus (COVID- 19)(PCR) NEGATIVE, Influenza Type A (RT-PCR) NEGATIVE, Influenza Type B (RT-PCR) NEGATIVE, Respiratory Syncytial Virus (PCR) NEGATIVE 12/20/20 09:39: POC Glucose (Misc Panel) 125H, POC Sodium (Misc Panel) 141, POC Potassium (Misc Panel) 2.9*L, POC Chloride (Misc Panel) 104, POC Total CO2 (Misc Panel) 24.0, POC Blood Urea Nitrogen (Misc Panel 31H, POC Ionized Calcium (Misc Panel) 4.4L, POC Creatinine (Misc Panel) 1.2, POC Hematocrit (Misc Panel) 45.0 12/20/20 10:31: POC Troponin I (Misc) 0.02 12/20/20 14:35: CBC/BMP Laboratory Tests 12/20/20 09:38 Microbiology Microbiology 12/20/20 Blood Culture, Received Pending 12/20/20 Blood Culture, Received Pending Home Medications No Active Prescriptions or Reported Meds Allergies Coded Allergies: No Known Allergies (Unverified , 12/19/14) A-FIB/CHADSVASC A-FIB History Current/History of A-Fib/PAF?: No JAIME CANO DO Dec 20, 2020 15:02
[2020-12-20] MEDS: cefTRIAXone SOD 1 GM in D5W MINI-BAG PLUS 50 ML IV SCH (15:05)
[2020-12-20 15:15] LABS: AMPHETAMINES LEVEL URINE NEGATIVE (NEGATIVE); BARBITURATES URINE NEGATIVE (NEGATIVE); BENZODIAZEPINES URINE NEGATIVE (NEGATIVE); CANNABINOIDS URINE NEGATIVE (NEGATIVE); COCAINE METABOLITE URINE NEGATIVE (NEGATIVE); METHADONE URINE NEGATIVE (NEGATIVE); OPIATES URINE NEGATIVE (NEGATIVE); PHENCYCLIDINE URINE NEGATIVE (NEGATIVE)
[2020-12-20 15:32] LABS: ALBUMIN 3.2 GM/DL (3.2-5.2); ALT/SGPT 28 U/L (12-78); BILIRUBIN,TOTAL 3.7 MG/DL (0.2-1.0); BLOOD UREA NITROGEN 31 MG/DL (7-18); CALCIUM LEVEL 9.4 MG/DL (8.8-10.2); CARBON DIOXIDE LEVEL 23 MEQ/L (21-32); CHLORIDE LEVEL 107 MEQ/L (98-107); CK-MB VALUE MASS < 1.0 NG/ML (<3.6); CPK CREATINE PHOSPHOKINASE 39 U/L (39-308); CREATININE FOR GFR 1.21 MG/DL (0.70-1.30); GLOMERULAR FILTRATION RATE > 60.0 (>42); GLUCOSE, FASTING 111 MG/DL (70-100); MAGNESIUM LEVEL 2.5 MG/DL (1.8-2.4); MB/CK RELATIVE INDEX 2.56 (< OR =4); POTASSIUM SERUM 3.4 MEQ/L (3.5-5.1); SODIUM LEVEL 144 MEQ/L (136-145); TROPONIN I < 0.02 NG/ML (< 0.10)
--- NOTE | 2020-12-20 18:01 | ECHO ---
ECHOCARDIOGRAM DATE OF PROCEDURE: 12/20/2020 Age: 80 Gender: Male Height: 75 inches Weight: 200 pounds Body Surface Area: 2.2 m2 PATIENT LOCATION: Inpatient, currently in the emergency room. REFERRING PROVIDER: Damaso Murrieta D.O. INDICATION: Abnormal EKG. MEASUREMENTS: 2D Measurements: RV - 3.8 cm LV - 4.2 cm Septum 0.9 cm Posterior wall 0.9 cm Aortic root 4.0 cm LA - 3.8 cm LVEF 70% Doppler Measurements: AV - Off angle by more than 10% LVOT - Off angle by more than 10% LVOT diameter - 2.2 cm MV-E 62, A 48, EA ratio 1.3 Early mitral deceleration time 180 msec PV - could not be visualized IVC - 2.0 cm COMMENTS: Normal sinus rhythm without intraventricular conduction disturbance. Occasional premature ventricular contractions (PVCs). Technically difficult study in light of the patient's body habitus and limited cooperation; however, some diagnostic information was still obtained. We were unable to image well from the parasternal projections. Imaging was chiefly performed from the apical and slightly from the subcostal projections. Pulse and continuous wave Doppler along with color flow Doppler was attempted. Normal left ventricular size, wall thickness and hyperkinetic wall motion. Normal appearing right heart chamber sizes and motion. Normal inferior vena cava (IVC) and collapse against an elevated central venous pressure. Mildly dilated aortic root. Very mild aortic valvular sclerosis without functional abnormality. Normal appearing mitral valvular apparatus without functional valvular abnormality. Image quality was limited, but no intracardiac mass was identified. No pericardial effusion.
--- NOTE | 2020-12-20 18:49 | REPVR ---
PROCEDURE INFORMATION: Exam: MR Head Without Contrast Exam date and time: 12/20/2020 6:09 PM Age: 80 years old Clinical indication: Altered mental status/memory loss TECHNIQUE: Imaging protocol: MR of the head without contrast. 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 Confluent foci of T2 lengthening are demonstrated in the periventricular and centrum semiovale white matter consistent with age-related small vessel gliosis. Age related rudl-ro-nutparbk parenchymal atrophy. There is iugv-hy-nvboonga diffuse cerebellar atrophy. No evidence of acute ischemia. Cerebral ventricles: Normal. No ventriculomegaly. Bones/joints: Unremarkable. Paranasal sinuses: Normal as visualized. No acute sinusitis. Mastoid air cells: Normal as visualized. No mastoid effusion. Orbital cavity: Unremarkable. Soft tissues: Unremarkable. IMPRESSION: 1. 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 2. Confluent foci of T2 lengthening are demonstrated in the periventricular and centrum semiovale white matter consistent with age-related small vessel gliosis. 3. Age related msdf-rg-xtmwztct parenchymal atrophy. 4. There is twbp-ps-tgymkqec diffuse cerebellar atrophy. 5. No acute intracranial findings. Electronically signed by: Vikram Cardenas On 12/20/2020 18:49:07 PM
--- NOTE | 2020-12-20 19:05 | ECGEPIP ---
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
[2020-12-20 22:34] LABS: MAGNESIUM LEVEL 2.5 MG/DL (1.8-2.4); POTASSIUM SERUM 3.2 MEQ/L (3.5-5.1); TROPONIN I < 0.02 NG/ML (< 0.10)
[2020-12-21] VITALS (16 sets, daily range): BP systolic 114–147; BP diastolic 68–89; O2SAT 96–98
[2020-12-21] MEDS: NS 1,000 ML IV SCH (00:35)
[2020-12-21] MEDS ORDERED: KCL 10MEQ/100ML SWI (KRUN) 10 MEQ in IV 1 EA IV ONE (05:35)
[2020-12-21] MEDS ORDERED: POTASSIUM CHLORIDE 10% LIQ 20 MEQ/15 ML UDC PO ONE (05:35)
[2020-12-21 06:25] LABS: HEMATOCRIT 38.3 % (42.0-52.0); MEAN CORPUSCULAR HGB CONC 34.5 g/dl (32.0-36.5); MEAN CORPUSCULAR VOLUME 95.8 fl (80.0-96.0); PLATELET COUNT, AUTOMATED 136 10^3/uL (150-450); WHITE BLOOD COUNT 9.2 10^3/uL (4.0-10.0)
[2020-12-21 06:41] LABS: HEMOGLOBIN 13.2 g/dl (13.5-17.5)
[2020-12-21 06:49] LABS: ALBUMIN 2.7 GM/DL (3.2-5.2); ALT/SGPT 23 U/L (12-78); BILIRUBIN,TOTAL 2.3 MG/DL (0.2-1.0); BLOOD UREA NITROGEN 25 MG/DL (7-18); CALCIUM LEVEL 8.4 MG/DL (8.8-10.2); CARBON DIOXIDE LEVEL 26 MEQ/L (21-32); CHLORIDE LEVEL 112 MEQ/L (98-107); CREATININE FOR GFR 0.92 MG/DL (0.70-1.30); GLOMERULAR FILTRATION RATE > 60.0 (>42); GLUCOSE, FASTING 90 MG/DL (70-100); MAGNESIUM LEVEL 2.5 MG/DL (1.8-2.4); POTASSIUM SERUM 2.9 MEQ/L (3.5-5.1); SODIUM LEVEL 146 MEQ/L (136-145); TOTAL PROTEIN 5.1 GM/DL (6.4-8.2)
[2020-12-21] MEDS: HEPARIN SOD (PORCINE) 5000UNITS/ML 1ML VIAL/SYRINGE SC SCH ×2 (09:45→21:44)
[2020-12-21] MEDS: KCL 20MEQ IN D5/0.45NS 1000ML 1,000 ML IV SCH ×2 (09:45→18:11)
--- NOTE | 2020-12-21 11:35 | IPNPDOC ---
Text Note Date of Service The patient was seen on 12/21/20. NOTE Subjective: Patient is a 80-year-old male who came to the emergency department with altered mental status. Patient began to be more confused on the morning that he came in but apparently has been decompensating over the past 1-1/2 to 2 weeks. Patient had MRI of the brain which not show any acute cause of the altered mental status. Patient does have urinary myoglobin but does not appear to have rhabdomyolysis based on creatinine kinase being normal. Patient is still altered this morning and is not really able to provide me much of a history. Patient does complain of some abdominal pain and does not want me palpating the area and did get upset when I was palpating his abdomen. Thurston catheter still draining dark urine. Review of systems: Unable to fully obtain due to the patient's confusion Physical exam: Vitals: See below General: Alert but not oriented male patient who was laying in bed when I walked in the room. Patient did not appear to be in any acute distress. HEENT: Normocephalic, atraumatic, moist mucous membranes. Neck: No lymphadenopathy or thyromegaly Cardiac: Regular rate and rhythm, no murmurs, normal S1, normal S2 Pulm: Clear to auscultation bilaterally. No wheezes, rhonchi, rales Abd: Nondistended, tender to palpation throughout the abdomen, normal bowel sounds Ext: No edema bilateral lower extremities Neuro: Difficult to assess as the patient had difficulty following commands. Patient was able to move all of his extremities. Labs: See below Imaging: MRI of the brain performed without contrast on 12/20/2020 was reported to show chronic infarct redemonstrated in the left cerebellar hemisphere. Confluent foci of T2 lengthening are demonstrated in the periventricular and centrum semiovale white matter consistent with age-related small vessel gliosis. Age-related mild to moderate parenchymal atrophy. There is mild to moderate diffuse cerebellar atrophy. No acute intracranial findings. Assessment/plan: 80-year-old male who presented to the hospital with altered mental status that became worse today with progressive weakness and failure to thrive over the past 2 weeks. 1. Altered mental status. Etiology uncertain at this time. CT of the head, CT angio of the head, CT angio of the neck, and brain MRI has not pinpointed a cause of the patient's altered mental status. Patient does have a urinary myoglobin but patient does not have evidence of rhabdomyolysis as the patient's creatinine kinase is within normal limits. I have contacted Dr. Landaverde of neurology who will see the patient. He recommended adding serum and urine porphyrins as the patient may have acute intermittent porphyria. These have been added. Dr. Landaverde will see the patient I appreciate his help treating the patient. 2. Acute urinary retention. Patient's kidney functions within normal limits. Patient had a distended bladder that drained 800 cc of dark urine once a Thurston catheter been placed. We will keep the Thurston catheter in for now. Patient was much more comfortable. Dark urine is still being drained into the Thurston bag. 3. Weight loss. Patient has he was abdomen pelvis did not show any mass. CT of the chest will be ordered as patient does have a history of smoking which may explain the patient's weight loss if he has a malignancy. We will continue to monitor. 4. Hypokalemia. Patient has received repletion for this and we will continue with IV fluids with potassium in it. 5. Hyperbilirubinemia. Patient had isolated hyperbilirubinemia which has improved with IV fluids. We will continue to monitor. DVT Prophylaxis: Heparin Disposition: Pending clinical improvement VSAnila, I+O VSAnila I+O Laboratory Tests 12/20/20 14:35 12/20/20 21:29 12/21/20 05:39 Vital Signs Date Time Temp Pulse Resp B/P (MAP) Pulse Ox O2 Delivery O2 Flow Rate FiO2 12/21/20 08:00 96.9 63 19 126/89 (101) 97 Room Air I&O- Last 24 Hours up to 6 AM 12/21/20 06:00 Intake Total 1720 ml Output Total 850 ml Balance 870 ml JEROME,ADAM Dec 21, 2020 11:35
[2020-12-21 14:03] LABS: BLOOD UREA NITROGEN 24 MG/DL (7-18); CALCIUM LEVEL 8.6 MG/DL (8.8-10.2); CARBON DIOXIDE LEVEL 28 MEQ/L (21-32); CHLORIDE LEVEL 113 MEQ/L (98-107); CREATININE FOR GFR 0.99 MG/DL (0.70-1.30); GLOMERULAR FILTRATION RATE > 60.0 (>42); GLUCOSE, FASTING 123 MG/DL (70-100); POTASSIUM SERUM 3.2 MEQ/L (3.5-5.1); SODIUM LEVEL 145 MEQ/L (136-145)
[2020-12-21 14:08] LABS: TOTAL PROTEIN 5.1 GM/DL (6.4-8.2)
[2020-12-21] MEDS ORDERED: ISOVUE-370 76% 100ML VIAL As Ordered ONE (14:08)
--- NOTE | 2020-12-21 15:24 | REP ---
INDICATION: altered mental status, weight loss. COMPARISON: CT chest without contrast, 04/10/2018. TECHNIQUE: Imaging protocol: Computed tomography of the chest with IV contrast. Contiguous 3 mm thick axial projection images were obtained through the chest. 2D sagittal and coronal reconstructions were performed. Radiation optimization: All CT scans at this facility use at least one of these dose optimization techniques: automated exposure control; mA and/or kV adjustment per patient size (includes targeted exams where dose is matched to clinical indication); or iterative reconstruction. CONTRAST: 75 cc Isovue 370 intravenous FINDINGS: Lower neck: Thyroid gland is normal. There is no supraclavicular lymphadenopathy. Mediastinum: No abnormal masses or lymphadenopathy. Heart/thoracic aorta/pulmonary arterial tree: The heart is enlarged. There is no pericardial effusion. There is calcific vascular disease of the thoracic aorta and coronary arteries. There is aneurysmal dilatation of the ascending thoracic aorta, measuring 4.2 cm in diameter (upper normal 4.0 cm). There is no evidence of thoracic aortic dissection. There is tortuosity of the descending thoracic aorta. There are no filling defects in the pulmonary arterial tree. Upper abdomen: There is calcific vascular disease of the abdominal aorta. There is a 12 mm in diameter gallstone. Thoracic esophagus: Normal. Chest wall and axilla: The breasts and soft tissues of the chest wall are unremarkable. There is no axillary lymphadenopathy. There is mild multilevel degenerative disc disease of the thoracic spine with mild dextroscoliosis. Lung parenchyma: There is mild posterior basilar subpleural reticulation and pleural thickening. The lungs are otherwise clear. There are no pulmonary nodules or masses. IMPRESSION: 1. Ascending thoracic aortic aneurysm. 2. Tortuosity of descending thoracic aorta. 3. Cardiomegaly. 4. There is no evidence of pulmonary emboli. 5. Calcific vascular disease of the thoracoabdominal aorta and coronary arteries. 6. Cholelithiasis. 7. Minimal posterior basilar chronic interstitial lung disease with associated pleural thickening. <Electronically signed by Darrick Vann > 12/21/20 [id number]
[2020-12-21] MEDS: cefTRIAXone SOD 1 GM in D5W MINI-BAG PLUS 50 ML IV SCH (15:47)
--- NOTE | 2020-12-21 19:58 | ECGEPIP ---
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
[2020-12-22 06:00] VITALS: BP 126/72
[2020-12-22 06:58] LABS: HEMATOCRIT 37.6 % (42.0-52.0); HEMOGLOBIN 12.9 g/dl (13.5-17.5); MEAN CORPUSCULAR HEMOGLOBIN 32.7 pg (27.0-33.0); MEAN CORPUSCULAR HGB CONC 34.3 g/dl (32.0-36.5); MEAN CORPUSCULAR VOLUME 95.4 fl (80.0-96.0); PLATELET COUNT, AUTOMATED 104 10^3/uL (150-450); RED BLOOD COUNT 3.94 10^6/uL (4.30-6.10)
[2020-12-22 07:30] LABS: ALBUMIN 2.5 GM/DL (3.2-5.2); ALT/SGPT 19 U/L (12-78); BILIRUBIN,TOTAL 1.6 MG/DL (0.2-1.0); BLOOD UREA NITROGEN 14 MG/DL (7-18); CALCIUM LEVEL 8.3 MG/DL (8.8-10.2); CARBON DIOXIDE LEVEL 27 MEQ/L (21-32); CHLORIDE LEVEL 110 MEQ/L (98-107); CREATININE FOR GFR 0.76 MG/DL (0.70-1.30); GLOMERULAR FILTRATION RATE > 60.0 (>42); GLUCOSE, FASTING 89 MG/DL (70-100); MAGNESIUM LEVEL 2.2 MG/DL (1.8-2.4); SODIUM LEVEL 142 MEQ/L (136-145); TOTAL PROTEIN 5.4 GM/DL (6.4-8.2)
[2020-12-22] MEDS ORDERED: MAG SULF 1GM/100ML (MAG RUN) 1 GM in IV 1 EA IV ONE (08:45)
[2020-12-22] MEDS: HEPARIN SOD (PORCINE) 5000UNITS/ML 1ML VIAL/SYRINGE SC SCH ×2 (10:45→21:19)
[2020-12-22] MEDS: POTASSIUM CHLORIDE 10MEQ SR TABLET PO SCH ×3 (10:45→14:36)
--- NOTE | 2020-12-22 10:46 | IPNPDOC ---
Text Note Date of Service The patient was seen on 12/22/20. NOTE Subjective: Patient is a 80-year-old male came to the emergency department a ltered mental status. Patient began to become more confused the morning that he came in but apparently have decompensated over the past 2 weeks prior to his admission. Patient had MRI of the brain which did not show any acute cause of his altered mental status. Patient does have urinary myoglobin but does not appear to have rhabdomyolysis based on creatinine kinase being normal. Patient is still altered this morning but is able to tell me his full name but is unable to tell me where he is and when I asked him the year he keeps repeating 1998. Patient is not really able to answer many more questions at this time. Patient's Thurston catheter is still draining urine but the urine color has become more yellow. Patient does complain of some pain in his belly. Review of systems: Unable to fully obtain due to patient's confusion Physical exam: Vitals: See below General: Alert and oriented to person but not place or time who was laying in bed when I walked in. Patient not appear to be in any acute distress. HEENT: Normocephalic, atraumatic, moist mucous membranes. Neck: No lymphadenopathy or thyromegaly Cardiac: Regular rate and rhythm, no murmurs, normal S1, normal S2 Pulm: Clear to auscultation bilaterally. No wheezes, rhonchi, rales Abd: Nondistended, patient was tender to palpation throughout the abdomen, normal bowel sounds Ext: No edema bilateral lower extremities Neuro: Difficult to assess as the patient with difficulty following commands. Patient was able to move all 4 extremities. Labs: See below Imaging: CT of the chest performed with contrast on 12/21/2020 was reported to show ascending thoracic aortic aneurysm. Tortuosity of descending thoracic aorta. Cardiomegaly. There is no evidence of pulmonary emboli. Calcific vascular disease in thoracoabdominal aorta and coronary arteries. Cholelithiasis. Minimal posterior basilar chronic interstitial lung disease with associated pleural thickening Assessment/plan: 80-year-old male presented to hospital with altered mental status that became worse with progressive weakness and failure to thrive for the past 2 weeks 1. Altered mental status. Etiology still uncertain at this time. CT of the head, CT angio of the head, CT Meera of the neck, and brain MRI have not pinpointed the cause of the patient's altered mental status. Patient does have urinary myoglobin but the patient does not have evidence of rhabdomyolysis as the patient's creatinine kinase is within normal limits. Dr. Landaverde of neurology will see the patient today. We are still awaiting urine porphyrins which may be the cause of the patient's altered mental status. 2. Acute urinary retention. Patient had Thurston catheter placed. Patient's kidney function is within normal limits. Patient did have 800 cc of dark urine drained once the Thurston catheter was placed. Keep Thurston catheter in place at this time. Urine has began to lighten up. 3. Weight loss. Patient had CT of abdomen and pelvis that did not show any mass. CT of the chest did not show any mass. We will continue to monitor the patient's weight and ensure has been added to the patient's tray. 4. Hypokalemia. We will continue to replete. 5. Hyperbilirubinemia. This continues to improve with IV fluid hydration. 6. Hypomagnesemia. Mag run ordered for today. DVT Prophylaxis: Heparin Disposition: Pending clinical improvement VS,Anila, I+O VSAnila, I+O Laboratory Tests 12/21/20 13:16 12/22/20 06:24 Vital Signs Date Time Temp Pulse Resp B/P (MAP) Pulse Ox O2 Delivery O2 Flow Rate FiO2 12/22/20 06:00 97.1 55 16 126/72 (90) 96 Room Air I&O- Last 24 Hours up to 6 AM 12/22/20 05:59 Intake Total 1835 ml Output Total 1125 ml Balance 710 ml JAIME CANO DO Dec 22, 2020 10:46
[2020-12-22 14:00] VITALS: BP 78/48
[2020-12-22] MEDS ORDERED: NS 1,000 ML IV ONE (14:10)
[2020-12-22] MEDS: cefTRIAXone SOD 1 GM in D5W MINI-BAG PLUS 50 ML IV SCH (14:37)
[2020-12-22 18:56] VITALS: BP 94/68
[2020-12-22] MEDS ORDERED: KCL 20MEQ in NS 1000ML 1,000 ML IV SCH (20:05)
[2020-12-22 22:00] VITALS: BP 114/76
[2020-12-23 06:00] VITALS: BP 131/85
[2020-12-23 06:24] LABS: HEMOGLOBIN 11.9 g/dl (13.5-17.5); MEAN CORPUSCULAR HEMOGLOBIN 33.1 pg (27.0-33.0); MEAN CORPUSCULAR VOLUME 94.7 fl (80.0-96.0); PLATELET COUNT, AUTOMATED 101 10^3/uL (150-450); RED BLOOD COUNT 3.59 10^6/uL (4.30-6.10); WHITE BLOOD COUNT 7.3 10^3/uL (4.0-10.0)
[2020-12-23 06:52] LABS: ALBUMIN 2.2 GM/DL (3.2-5.2); ALT/SGPT 14 U/L (12-78); BLOOD UREA NITROGEN 12 MG/DL (7-18); CALCIUM LEVEL 7.6 MG/DL (8.8-10.2); CARBON DIOXIDE LEVEL 23 MEQ/L (21-32); CHLORIDE LEVEL 115 MEQ/L (98-107); CREATININE FOR GFR 0.66 MG/DL (0.70-1.30); GLOMERULAR FILTRATION RATE > 60.0 (>42); GLUCOSE, FASTING 93 MG/DL (70-100); MAGNESIUM LEVEL 2.1 MG/DL (1.8-2.4); POTASSIUM SERUM 4.2 MEQ/L (3.5-5.1); SODIUM LEVEL 144 MEQ/L (136-145); TOTAL PROTEIN 4.6 GM/DL (6.4-8.2)
--- NOTE | 2020-12-23 07:20 | CR ---
CONSULTATION DATE: 12/22/2020 REFERRING PHYSICIAN: Damaso Shultz DO REASON FOR CONSULTATION: Altered mental status. HISTORY OF PRESENT ILLNESS: John Mccallum is a 80-year-old man who was brought to the emergency department for altered mental status. He became confused in the morning of admission. The patient's niece provided a history in the emergency department. The patient had been becoming weaker and difficulty getting around for the last 1-1/2 weeks. He was in his usual state of health until two weeks ago. He was able to take care of his pushing her wheelchair. Over the last 1-1/2 to 2 weeks, he had more difficulty getting around and was not eating much. He lost 20 lb over the last one month. He had an injury to his toenail two weeks ago. The patient himself is unable to provide any meaningful history when I saw him. He was lying in bed drowsy. He would wake up minimally and mumble a few things which I was completely unable to understand. There are no reports of seizures, headaches, falls, loss of consciousness, head injuries. DIAGNOSTIC STUDIES: MRI of brain showed moderate atrophy, mild small vessel ischemic disease of brain and old left cerebellar stroke without acute disease. CTA of head and neck were unremarkable. CT scan of chest showed 4.2 cm ascending aorta, mild cardiomegaly. CT scan of abdomen and pelvis showed bilateral adrenal nodules which are stable. CK was 39 with AST 13 and ALT 19. Urine testing showed positive myoglobin in urine and raised WBCs with negative esterase. PAST MEDICAL HISTORY: Family denies any past medical problems. He has not seen a physician recently. SOCIAL HISTORY: He is a former smoker. He does not drink alcohol anymore. There are no reports of illicit drugs. FAMILY HISTORY: Could not be obtained. REVIEW OF SYSTEMS: Could not be obtained. ALLERGIES: None. HOME MEDICATIONS: None. PHYSICAL EXAMINATION: VITAL SIGNS: Temperature 97.1, pulse 55, respiratory rate 16, blood pressure 126/72, 96% saturation on room air. HEART: Regular rate and rhythm. LUNGS: Clear to auscultation. ABDOMEN: Soft, nontender, nondistended. EXTREMITIES: No pedal edema. MUSCULOSKELETAL: No abnormalities. SKIN: No rash. NEUROLOGICAL: No signs of meningeal irritation. There is no tremor. Patient is drowsy and barely arousable. He hardly opens his eyes and tries to mumble a few words which are incomprehensible. He withdraws equally on both sides. Plantars downgoing. There is no Cierra sign in either arm. Sensory, cerebellar and gait testing could not be performed. ASSESSMENT: 1. Altered mental status due to unclear etiology. 2. There is concern for delirium and dementia. PLAN: 1. Check vitamin B1, vitamin B12, serum copper, serum and urinary porphyrins. His CK, AST and ALT are normal but his urine has tested for myoglobin. This should be retested as well to rule out a false positive. 2. Check thyroid microsomal and thyroglobulin antibodies to rule out Sasha's encephalopathy although his TSH is 0.34. 3. Avoid sedatives and hypnotics. 4. EEG to assess degree of encephalopathy.
[2020-12-23] MEDS: HEPARIN SOD (PORCINE) 5000UNITS/ML 1ML VIAL/SYRINGE SC SCH ×2 (08:57→20:27)
--- NOTE | 2020-12-23 11:39 | IPNPDOC ---
Text Note Date of Service The patient was seen on 12/23/20. NOTE Subjective: Patient is a 80-year-old male came to the emergency department al tered mental status. Patient apparently had become more confused in the morning of admission but had been decompensating over the past 2 weeks prior to his admission. MRI of the brain did not show any acute cause the altered mental status. Patient does have a urinary myoglobin but does not appear to have evidence of rhabdomyolysis as the patient's creatinine kinase has been normal. Patient is still altered this morning but is still able to tell me his full name but is unable to answer any other questions. Thurston catheter still draining dark urine. Patient's pain in his belly has mildly improved. Review of systems: Unable to fully obtain due to patient's confusion Physical exam: Vitals: See below General: Alert but not oriented to place or time patient who was laying in bed when I walked in. Patient not appear to be in any acute distress. HEENT: Normocephalic, atraumatic, moist mucous membranes. Neck: No lymphadenopathy or thyromegaly Cardiac: Regular rate and rhythm, no murmurs, normal S1, normal S2 Pulm: Clear to auscultation bilaterally. No wheezes, rhonchi, rales Abd: Nondistended, minimal tenderness to palpation throughout the abdomen, normal bowel sounds Ext: No edema bilateral lower extremities Neuro: Difficult to assess as the patient had difficulty following commands. Patient is able to move all 4 extremities. Labs: See below Imaging: No new imaging is been performed Assessment/plan: 80-year-old male presented to hospital with altered mental status that became w orse with progressive weakness and failure to thrive for the past 2 weeks. 1. Altered mental status. Etiology still uncertain at this time. Neurology saw the patient and stated that this may be worsening of delirium on top of dementia. Further testing has been ordered to include thyroid studies for possible Sasha's encephalopathy. Urinary myoglobin has been repeated and still positive. We are still awaiting perforin's to come back as this may be the cause of altered mental status. We will continue to monitor. 2. Acute urinary retention. Thurston catheter is placed. Kidney functions normal l imits. 800 cc of dark urine drained once Thurston catheter was placed. Keep Thurston in place at this time. Continue to monitor the urine. 3. Weight loss. CT of chest, abdomen, and pelvis did not show any mass. Continue to monitor and try to push the patient to eat. Ensure has been added the patient's tray. 4. Hypokalemia, resolved. Continue to monitor. 5. Hyperbilirubinemia, resolved. Continue to monitor. 6. Hypomagnesemia, resolved. Continue to monitor DVT Prophylaxis: Heparin Disposition: Pending clinical improvement, patient may need placement Late entry: I went up to speak with the patient's healthcare proxy who is the patient's niece. Patient's niece states that the patient was a heavy drinker and used to drink 100 proof vodka up until about 3 months ago. Patient appeared to be hallucinating while was in the room. Because of this, patient may have Warnicke's encephalopathy causing the patient altered mental status. Patient will be treated with IM thiamine at this time. VS,Fishbone, I+O VS, Fishbone, I+O Laboratory Tests 12/23/20 05:50 Vital Signs Date Time Temp Pulse Resp B/P (MAP) Pulse Ox O2 Delivery O2 Flow Rate FiO2 12/23/20 06:00 97.5 56 16 131/85 (100) 97 Room Air I&O- Last 24 Hours up to 6 AM 12/23/20 06:00 Intake Total 485 ml Output Total 675 ml Balance -190 ml JAIME CANO DO Dec 23, 2020 11:39
[2020-12-23 12:39] LABS: VITAMIN B12 LEVEL 616 PG/ML (247-911)
[2020-12-23 12:50] LABS: HEPATITIS B SURFACE ANTIGEN NEGATIVE (NEGATIVE)
[2020-12-23 12:52] LABS: THYROID PEROXIDASE ANTIBODY 37.9 U/ML (<60.0)
[2020-12-23 12:53] LABS: THYROGLOBULIN ANTIBODY < 15.0 U/ML (<60.0)
[2020-12-23 13:18] LABS: HEPATITIS C VIRUS ABY INDEX < 0.0 INDEX (<0.8)
[2020-12-23 14:00] VITALS: BP 121/85
[2020-12-23] MEDS: THIAMINE 200MG 2ML VIAL IM SCH (17:56)
[2020-12-23 22:00] VITALS: BP 156/107
[2020-12-24 07:15] LABS: HEMATOCRIT 32.5 % (42.0-52.0); HEMOGLOBIN 11.3 g/dl (13.5-17.5); MEAN CORPUSCULAR HEMOGLOBIN 33.2 pg (27.0-33.0); MEAN CORPUSCULAR HGB CONC 34.8 g/dl (32.0-36.5); MEAN CORPUSCULAR VOLUME 95.6 fl (80.0-96.0); PLATELET COUNT, AUTOMATED 107 10^3/uL (150-450); WHITE BLOOD COUNT 8.4 10^3/uL (4.0-10.0)
[2020-12-24 07:37] LABS: ALBUMIN 2.3 GM/DL (3.2-5.2); ALT/SGPT 16 U/L (12-78); BILIRUBIN,TOTAL 1.1 MG/DL (0.2-1.0); BLOOD UREA NITROGEN 12 MG/DL (7-18); CALCIUM LEVEL 8.1 MG/DL (8.8-10.2); CARBON DIOXIDE LEVEL 23 MEQ/L (21-32); CHLORIDE LEVEL 114 MEQ/L (98-107); CREATININE FOR GFR 0.75 MG/DL (0.70-1.30); GLOMERULAR FILTRATION RATE > 60.0 (>42); GLUCOSE, FASTING 71 MG/DL (70-100); MAGNESIUM LEVEL 1.9 MG/DL (1.8-2.4); POTASSIUM SERUM 4.2 MEQ/L (3.5-5.1); SODIUM LEVEL 144 MEQ/L (136-145); TOTAL PROTEIN 4.6 GM/DL (6.4-8.2)
[2020-12-24] MEDS: HEPARIN SOD (PORCINE) 5000UNITS/ML 1ML VIAL/SYRINGE SC SCH ×2 (09:00→22:09)
[2020-12-24] MEDS: THIAMINE 200MG 2ML VIAL IM SCH (09:40)
[2020-12-24 10:43] LABS: ALBUMIN 3.14 GM/DL (3.29-5.55); ALBUMIN % 61.5 % (55.8-66.1); ALPHA-1-GLOBULIN % 8.1 % (2.9-4.9); ALPHA-1-GLOBULINS 0.41 GM/DL (0.17-0.41); ALPHA-2-GLOBULINS 0.69 GM/DL (0.42-0.99); ALPHA-2-GLOBULINS % 13.6 % (7.1-11.8); BETA-1-GLOBULINS 0.24 GM/DL (0.28-0.60); BETA-1-GLOBULINS % 4.7 % (4.7-7.2); BETA-2-GLOBULINS 0.27 GM/DL (0.19-0.55); BETA-2-GLOBULINS % 5.2 % (3.2-6.5); GAMMA GLOBULIN % 6.9 % (11.1-18.8); GAMMA GLOBULINS 0.35 GM/DL (0.65-1.58)
[2020-12-24 14:00] VITALS: BP 91/63
[2020-12-24] MEDS ORDERED: TAMSULOSIN 0.4 MG CAP PO ONE (17:40)
--- NOTE | 2020-12-24 18:01 | IPNPDOC ---
Text Note Date of Service The patient was seen on 12/24/20. NOTE Subjective: Patient removed the Thurston catheter yesterday evening when he was agitated. In the morning patient somnolent not oriented in place or time. Objective: GENERAL APPEARANCE: Somnolent male HEENT: no scleral icterus, no JVD, EOMI CARDIOVASCULAR: S1S2 LUNGS: Diminished lung sounds bilaterally ABDOMEN: soft & not tender w palpation MUSCULOSKELETAL: no cyanosis, no swelling INTEGUMENT: no generalized pallor NEUROLOGICAL: cranial nerve function from 2-12 intact, speech not dysarthric Assessment and plan Patient is a 80-year-old male came to the emergency department altered mental status. Patient apparently had become more confused in the morning of admission but had been decompensating over the past 2 weeks prior to his admission. 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 Continue to monitor residual volume We will try to reinsert Thurston catheter Hypokalemia, resolved. Continue to monitor. Hyperbilirubinemia, resolved. Continue to monitor. Hypomagnesemia, resolved. Continue to monitor Deconditioning/failure to thrive/cachexia BMI 19, muscle wasting PT/OT Prognosis is poor. Will discuss with healthcare proxy the goal of treatment DVT Prophylaxis: Heparin VS,Fishbone, I+O VS, Fishbone, I+O Laboratory Tests 12/24/20 06:45 Vital Signs Date Time Temp Pulse Resp B/P (MAP) Pulse Ox O2 Delivery O2 Flow Rate FiO2 12/24/20 14:00 98.7 75 18 91/63 (72) 99 Room Air I&O- Last 24 Hours up to 6 AM 12/24/20 06:00 Intake Total 315 ml Output Total 650 ml Balance -335 ml LELE SONG DO Dec 24, 2020 18:01
[2020-12-24 22:00] VITALS: BP 78/49
[2020-12-25 06:00] VITALS: BP 83/47
[2020-12-25 06:34] LABS: HEMATOCRIT 32.3 % (42.0-52.0); MEAN CORPUSCULAR HEMOGLOBIN 32.6 pg (27.0-33.0); MEAN CORPUSCULAR HGB CONC 34.1 g/dl (32.0-36.5); MEAN CORPUSCULAR VOLUME 95.8 fl (80.0-96.0); PLATELET COUNT, AUTOMATED 103 10^3/uL (150-450); RED BLOOD COUNT 3.37 10^6/uL (4.30-6.10)
[2020-12-25 06:50] LABS: ALBUMIN 2.3 GM/DL (3.2-5.2); ALT/SGPT 20 U/L (12-78); BLOOD UREA NITROGEN 12 MG/DL (7-18); CALCIUM LEVEL 8.2 MG/DL (8.8-10.2); CARBON DIOXIDE LEVEL 26 MEQ/L (21-32); CHLORIDE LEVEL 113 MEQ/L (98-107); CREATININE FOR GFR 0.71 MG/DL (0.70-1.30); GLOMERULAR FILTRATION RATE > 60.0 (>42); GLUCOSE, FASTING 77 MG/DL (70-100); MAGNESIUM LEVEL 2.1 MG/DL (1.8-2.4); POTASSIUM SERUM 3.9 MEQ/L (3.5-5.1); SODIUM LEVEL 144 MEQ/L (136-145); TOTAL PROTEIN 4.6 GM/DL (6.4-8.2)
[2020-12-25] MEDS ORDERED: NS 1,000 ML IV ONE (08:25)
[2020-12-25] MEDS: MULTIVITAMINS/MINERALS THERAP 1 TAB PO SCH (08:49)
[2020-12-25] MEDS: THIAMINE 200MG 2ML VIAL IM SCH (08:49)
[2020-12-25] MEDS: FOLIC ACID 1 MG TAB PO SCH (08:49)
[2020-12-25] MEDS: HEPARIN SOD (PORCINE) 5000UNITS/ML 1ML VIAL/SYRINGE SC SCH ×2 (08:50→22:40)
[2020-12-25] MEDS ORDERED: TAMSULOSIN 0.4 MG CAP PO SCH (09:00)
--- NOTE | 2020-12-25 10:00 | EEG ---
ELECTROENCEPHALOGRAM DATE: 12/24/2020 REFERRING PHYSICIAN: Damaso Shultz DO DIAGNOSIS: Altered mental status. EEG#: [id number] HISTORY: The patient is a 80-year-old man who was admitted to [facility] due to altered mental status. This EEG was done to rule out epileptic potential and assess ____ of encephalopathy. He is currently on thiamine, Heparin, Tylenol, etc. TECHNICAL DESCRIPTION: This digital electroencephalogram (EEG) was recorded by 21 scalp, ear, and two electrocardiogram (EKG) electrodes and was reviewed in bipolar and referential montages following reformatting in 10-20 international electrode placement system. INTERPRETATION: The patient was noted to be in awake and drowsy states during this EEG. Resting and awake background rhythm consisted of 6-7 Hz theta activity measuring 15-40 microvolts in amplitude which was symmetric bilaterally. The patient remained drowsy throughout this EEG. Stage III sleep was identified throughout this recording which was symmetric bilaterally. Hyperventilation could not be performed. Photic stimulation remained unremarkable. EKG revealed normal sinus rhythm. No focal, lateralizing, or epileptiform abnormalities were seen. No relevant clinical activity was noted. CONCLUSION: This EEG in awake, drowsy and asleep states is abnormal due to presence of mild generalized slowing and disorganization of background consistent with mild nonspecific diffuse cerebral dysfunction such as seen in encephalopathy due to multiple potential causes including toxic, metabolic, medication related, infectious or multifocal structural brain abnormalities. No epileptiform abnormalities were seen. Clinical correlation is recommended.
[2020-12-25 14:00] VITALS: BP 86/57
[2020-12-25] MEDS ORDERED: MIRALAX *UNIT DOSE* 17GM PACKET PO PRN (14:50)
[2020-12-25] MEDS ORDERED: BISACODYL 5 MG TAB PO ONE (14:50)
[2020-12-25] MEDS ORDERED: D5W/0.45% SODIUM CHLORIDE 1,000 ML IV SCH (14:50)
[2020-12-25] MEDS ORDERED: D5W/0.45% SODIUM CHLORIDE 1,000 ML IV ONE ×4 (14:50→17:15)
--- NOTE | 2020-12-25 17:22 | IPNPDOC ---
Text Note Date of Service The patient was seen on 12/25/20. NOTE Subjective: Patient more alert in the morning, but not oriented in place and in time. He follows simple commands Objective: GENERAL APPEARANCE: Somnolent male HEENT: no scleral icterus, no JVD, EOMI CARDIOVASCULAR: S1S2 LUNGS: Diminished lung sounds bilaterally ABDOMEN: soft & not tender w palpation MUSCULOSKELETAL: no cyanosis, no swelling INTEGUMENT: no generalized pallor NEUROLOGICAL: cranial nerve function from 2-12 intact, speech not dysarthric Assessment and plan Patient is a 80-year-old male came to the emergency department altered mental status. Patient apparently had become more confused in the morning of admission but had been decompensating over the past 2 weeks prior to his admission. 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 Continue IV fluid Hypokalemia, resolved. Continue to monitor. Hyperbilirubinemia, resolved. Continue to monitor. Hypomagnesemia, resolved. Continue to monitor Deconditioning/failure to thrive/cachexia BMI 19, muscle wasting PT/OT Prognosis is poor. Will discuss with healthcare proxy the goal of treatment DVT Prophylaxis: Heparin VS,Fishbone, I+O VS, Fishbone, I+O Laboratory Tests 12/25/20 05:57 Vital Signs Date Time Temp Pulse Resp B/P (MAP) Pulse Ox O2 Delivery O2 Flow Rate FiO2 12/25/20 14:00 97.5 87 18 86/57 (67) 98 Room Air I&O- Last 24 Hours up to 6 AM 12/25/20 06:00 Intake Total 85 ml Output Total 650 ml Balance -565 ml LELE SONG DO Dec 25, 2020 17:22
[2020-12-25 18:44] LABS: BLOOD UREA NITROGEN 13 MG/DL (7-18); CALCIUM LEVEL 7.4 MG/DL (8.8-10.2); CARBON DIOXIDE LEVEL 21 MEQ/L (21-32); CHLORIDE LEVEL 112 MEQ/L (98-107); CREATININE FOR GFR 0.92 MG/DL (0.70-1.30); GLOMERULAR FILTRATION RATE > 60.0 (>42); GLUCOSE, FASTING 283 MG/DL (70-100); POTASSIUM SERUM 3.8 MEQ/L (3.5-5.1); SODIUM LEVEL 141 MEQ/L (136-145)
[2020-12-25] MEDS ORDERED: NS 0.45% 1,000 ML IV ONE (18:55)
--- NOTE | 2020-12-25 20:36 | REPVR ---
PROCEDURE INFORMATION: Exam: CT Abdomen And Pelvis Without Contrast Exam date and time: 12/25/2020 7:16 PM Age: 80 years old Clinical indication: Other: Oliguria TECHNIQUE: Imaging protocol: Computed tomography of the abdomen and pelvis without contrast. Radiation optimization: All CT scans at this facility use at least one of these dose optimization techniques: automated exposure control; mA and/or kV adjustment per patient size (includes targeted exams where dose is matched to clinical indication); or iterative reconstruction. COMPARISON: CT ABD PELVIS W/O CONTRAST 12/20/2020 11:51 AM FINDINGS: Lungs: Bibasilar atelectasis. Pleural spaces: Small bilateral pleural effusions versus pleural thickening. Heart: There is a pericardial effusion which measures 9 mm posteriorly. Liver: Calcified granulomata in the liver. Gallbladder and bile ducts: Cholelithiasis is noted. No gallbladder wall thickening or pericholecystic edema is seen. Pancreas: Normal. No ductal dilation. Spleen: The spleen is normal. The spleen is normal. Adrenal glands: Bilateral adrenal nodules are stable, as previously described. Kidneys and ureters: The kidneys are normal. Stomach and bowel: The stomach is normal. Diverticulosis coli is noted, with no inflammatory changes to indicate diverticulitis. No bowel obstruction. Appendix: A normal appendix is identified. Intraperitoneal space: There is no free intraperitoneal air visualized. There is no evidence of free intraperitoneal or pelvic fluid. Vasculature: There is a partially visualized 4.1 cm ascending aortic aneurysm again noted. Atherosclerotic vascular disease is noted. There is no evidence of an abdominal aortic aneurysm. Lymph nodes: No lymphadenopathy. Urinary bladder: The bladder is decompressed by a Thurston catheter but is otherwise normal. There is a small amount of intraluminal air consistent with instrumentation. Reproductive: Prostatomegaly. The prostate gland measures 5.3 cm in diameter. Bones/joints: Spinal and hip degenerative changes. IMPRESSION: 1. No renal calculi or obstruction. 2. Cholelithiasis, with no findings to indicate acute cholecystitis. 3. Diverticulosis coli. 4. Prostatomegaly. 5. Stable adrenal nodules. 6. Bibasilar atelectasis. 7. Small bilateral pleural effusions versus pleural thickening. 8. Pericardial effusion. Electronically signed by: Genesis Fernandez On 12/25/2020 20:35:31 PM
[2020-12-25 21:08] LABS: NT-PRO BNP 8745 PG/ML (<450)
[2020-12-25] MEDS: RAMELTEON 8 MG TAB (ROZEREM) PO PRN (22:10)
[2020-12-25 23:20] VITALS: BP 90/60
[2020-12-25 23:25] VITALS: BP 89/58
[2020-12-26] VITALS (11 sets, daily range): BP systolic 82–120; BP diastolic 50–70
--- NOTE | 2020-12-26 01:39 | IPNPDOC ---
Text Note Date of Service The patient was seen on 12/25/20. NOTE Notified patient with borderline blood pressure and CT abdomen/pelvis completed. BP 90/59, heart rate 81, temp 97.2. Patient to get D5 half-normal saline bolus due to an elevated lactic 4.[address] abdomen pelvis reviewed with bilateral pleural effusions and 9 mm posterior pericardial effusion which is new compared to echo of 12/[address] abdomen pelvis that was completed on 12/21. Patient seen at bedside in no distress. He is somewhat hyperactive with move ment and requires some redirection. Patient with reddish orange-colored urine to Thurston bag, staff reports patient has tugged on the catheter prior to mitten placement. He is on high level thiamine related to Wernicke's encephalopathy treatment. BNP elevated 8745. He does sound diminished but tolerating room air comfortably 94%. He does have 1+ pitting edema. Patient is not tachycardic RRR. Given CT findings will hold off on further IV fluids presently and give patient some time. Next of kin contacted and discussed care plan. Offered option for albumin given patient does have malnutrition and low protein and concern with further overload with further infusion. Patient's next of kin in agreement for albumin trial if needed. She did report that she had seen patient today and he had improved interaction compared to when she had brought him in for admission and the subjectively she reports improvement in his interaction. She was made aware patient is in guarded state as he has had some decompensation during this admission. At present, he remains full code. Patient has had improved urine output after the fluid boluses that were given today. 450 mL output. Since there is some evidence of developing hypervolemia and patient has had good output without elevated creatinine will give 25 g albumin and monitor. Recheck lactic. There was a question whether or not patient had UTI but urine culture with no growth. Patient has been afebrile without leukocytosis. Elevated lactic could be due to overload. During course of evening, nursing staff is able to sit patient up and he has been able to comfortably drink and eat tonight. Consider further interventions accordingly. WCTM VS,Fishbone, I+O VS, Fishbone, I+O Laboratory Tests 12/25/20 05:57 12/25/20 17:59 Vital Signs Date Time Temp Pulse Resp B/P (MAP) Pulse Ox O2 Delivery O2 Flow Rate FiO2 12/25/20 23:25 98.0 84 19 89/58 Room Air 12/25/20 23:20 94 I&O- Last 24 Hours up to 6 AM 12/26/20 06:00 Intake Total 6560 ml Output Total 1175 ml Balance 5385 ml HOME WANG NP Dec 26, 2020 01:39
[2020-12-26 07:22] LABS: HEMATOCRIT 27.6 % (42.0-52.0); HEMOGLOBIN 9.3 g/dl (13.5-17.5); MEAN CORPUSCULAR HEMOGLOBIN 32.9 pg (27.0-33.0); MEAN CORPUSCULAR HGB CONC 33.7 g/dl (32.0-36.5); MEAN CORPUSCULAR VOLUME 97.5 fl (80.0-96.0); RED BLOOD COUNT 2.83 10^6/uL (4.30-6.10); WHITE BLOOD COUNT 5.5 10^3/uL (4.0-10.0)
[2020-12-26 07:49] LABS: ALBUMIN 2.3 GM/DL (3.2-5.2); ALT/SGPT 20 U/L (12-78); BILIRUBIN,TOTAL 0.7 MG/DL (0.2-1.0); BLOOD UREA NITROGEN 8 MG/DL (7-18); CALCIUM LEVEL 7.9 MG/DL (8.8-10.2); CARBON DIOXIDE LEVEL 25 MEQ/L (21-32); CHLORIDE LEVEL 115 MEQ/L (98-107); CREATININE FOR GFR 0.88 MG/DL (0.70-1.30); GLOMERULAR FILTRATION RATE > 60.0 (>42); GLUCOSE, FASTING 86 MG/DL (70-100); MAGNESIUM LEVEL 2.2 MG/DL (1.8-2.4); POTASSIUM SERUM 4.1 MEQ/L (3.5-5.1); SODIUM LEVEL 146 MEQ/L (136-145); TOTAL PROTEIN 4.2 GM/DL (6.4-8.2)
[2020-12-26 08:30] LABS: PLATELET COUNT, AUTOMATED 92 10^3/uL (150-450)
[2020-12-26] MEDS ORDERED: FUROSEMIDE 40MG/4ML VIAL (J1940) IV SCH (09:00)
[2020-12-26] MEDS: HEPARIN SOD (PORCINE) 5000UNITS/ML 1ML VIAL/SYRINGE SC SCH ×2 (09:00→21:00)
[2020-12-26] MEDS: THIAMINE 200MG 2ML VIAL IM SCH (09:30)
[2020-12-26] MEDS: FOLIC ACID 1 MG TAB PO SCH (09:30)
[2020-12-26] MEDS: MULTIVITAMINS/MINERALS THERAP 1 TAB PO SCH (09:30)
[2020-12-26] MEDS: BISACODYL 5 MG TAB PO SCH (09:30)
[2020-12-26] MEDS: FUROSEMIDE 40MG/4ML VIAL (J1940) IV SCH ×3 (10:45→18:55)
[2020-12-26 14:09] LABS: COPROPORPHYRIN I URINE 90 ug/L (0-15); COPROPORPHYRIN III URINE 45 ug/L (0-49); HEPTACARBOXYLPORPHYRIN URINE <1 ug/L (0-2); HEXACARBOXYLPORPHYRIN URINE <1 ug/L (0-1); PENTACARBOXYLPORPHYRIN URINE 3 ug/L (0-2); UROPORPHYRIN URINE 11 ug/L (0-20)
[2020-12-26] MEDS: PIPERACILLIN/TAZOBACTAM SOD 4.5 GM in D5W MINI-BAG PLUS 50 ML IV SCH ×2 (14:31→21:16)
--- NOTE | 2020-12-26 18:33 | IPNPDOC ---
Text Note Date of Service The patient was seen on 12/26/20. NOTE Subjective: Patient alert in the morning, but not oriented in place and in t aurea. He continues to have low blood pressure around 90/60 Objective: GENERAL APPEARANCE: Somnolent male HEENT: no scleral icterus, no JVD, EOMI CARDIOVASCULAR: S1S2 LUNGS: Diminished lung sounds bilaterally ABDOMEN: soft & not tender w palpation MUSCULOSKELETAL: no cyanosis, no swelling INTEGUMENT: no generalized pallor NEUROLOGICAL: cranial nerve function from 2-12 intact, speech not dysarthric Assessment and plan Patient is a 80-year-old male came to the emergency department altered mental status. Patient apparently had become more confused in the morning of admission but had been decompensating over the past 2 weeks prior to his admission. Metabolic encephalopathy Most likely secondary to alcoholic encephalopathy/Wernicke's encephalopathy EEG was done, no epileptogenic activities Neurology team recommended to check vitamin B1 pending, vitamin B12 within normal limit, serum copper, serum and urinary porphyrins pending Thyroid peroxidase antibody negative Urinary retention/dehydration/hypotension Thurston placed Patient received IV hydration, oliguria resolved Hypotension Patient developed hypotension since yesterday patient does not have leukocytosis, procalcitonin negative, a.m. cortisol within normal limit, no fever Despite of IV fluid he has low blood pressure. I will start Zosyn IV empirically Await blood culture results Hypokalemia, resolved. Continue to monitor. Hyperbilirubinemia, resolved. Continue to monitor. Hypomagnesemia, resolved. Continue to monitor Deconditioning/failure to thrive/cachexia BMI 19, muscle wasting PT/OT Prognosis is poor. Will discuss with healthcare proxy the goal of treatment DVT Prophylaxis: Heparin VS,Fishbone, I+O VS, Fishbone, I+O Laboratory Tests 12/26/20 07:08 Vital Signs Date Time Temp Pulse Resp B/P (MAP) Pulse Ox O2 Delivery O2 Flow Rate FiO2 12/26/20 17:54 92/62 (72) 12/26/20 14:00 97.3 71 18 97 Room Air I&O- Last 24 Hours up to 6 AM 12/26/20 06:00 Intake Total 6610.0 ml Output Total 1375 ml Balance 5235.0 ml LELE SONG DO Dec 26, 2020 18:33
[2020-12-26] MEDS: RAMELTEON 8 MG TAB (ROZEREM) PO PRN (21:16)
[2020-12-27] MEDS: PIPERACILLIN/TAZOBACTAM SOD 4.5 GM in D5W MINI-BAG PLUS 50 ML IV SCH ×4 (01:50→20:25)
[2020-12-27 04:58] LABS: HEMATOCRIT 27.9 % (42.0-52.0); HEMOGLOBIN 9.4 g/dl (13.5-17.5); MEAN CORPUSCULAR HEMOGLOBIN 33.1 pg (27.0-33.0); MEAN CORPUSCULAR HGB CONC 33.7 g/dl (32.0-36.5); MEAN CORPUSCULAR VOLUME 98.2 fl (80.0-96.0); PLATELET COUNT, AUTOMATED 107 10^3/uL (150-450); RED BLOOD COUNT 2.84 10^6/uL (4.30-6.10); WHITE BLOOD COUNT 6.2 10^3/uL (4.0-10.0)
[2020-12-27 05:21] LABS: ALBUMIN 2.2 GM/DL (3.2-5.2); ALT/SGPT 21 U/L (12-78); BILIRUBIN,TOTAL 0.8 MG/DL (0.2-1.0); BLOOD UREA NITROGEN 8 MG/DL (7-18); CALCIUM LEVEL 8.1 MG/DL (8.8-10.2); CARBON DIOXIDE LEVEL 26 MEQ/L (21-32); CHLORIDE LEVEL 114 MEQ/L (98-107); CREATININE FOR GFR 1.04 MG/DL (0.70-1.30); GLOMERULAR FILTRATION RATE > 60.0 (>42); GLUCOSE, FASTING 86 MG/DL (70-100); MAGNESIUM LEVEL 2.1 MG/DL (1.8-2.4); POTASSIUM SERUM 3.6 MEQ/L (3.5-5.1); SODIUM LEVEL 145 MEQ/L (136-145); TOTAL PROTEIN 4.8 GM/DL (6.4-8.2)
[2020-12-27 06:00] VITALS: BP 99/60
[2020-12-27] MEDS: FUROSEMIDE 40MG/4ML VIAL (J1940) IV SCH ×2 (10:16→17:00)
[2020-12-27] MEDS: THIAMINE 200MG 2ML VIAL IM SCH (10:23)
[2020-12-27] MEDS: FOLIC ACID 1 MG TAB PO SCH (10:23)
[2020-12-27] MEDS: MULTIVITAMINS/MINERALS THERAP 1 TAB PO SCH (10:23)
[2020-12-27] MEDS: HEPARIN SOD (PORCINE) 5000UNITS/ML 1ML VIAL/SYRINGE SC SCH ×2 (10:23→20:27)
[2020-12-27] MEDS: BISACODYL 5 MG TAB PO SCH (10:23)
[2020-12-27] MEDS: ACETAMINOPHEN TAB 650MG DOSE (2X325MG) PO PRN (10:31)
[2020-12-27 14:00] VITALS: BP 100/74
--- NOTE | 2020-12-27 15:46 | IPNPDOC ---
Text Note Date of Service The patient was seen on 12/27/20. NOTE Subjective: Patient more alert in the morning, but not oriented in place and in time. Blood pressure improved Objective: GENERAL APPEARANCE: Somnolent male HEENT: no scleral icterus, no JVD, EOMI CARDIOVASCULAR: S1S2 LUNGS: Diminished lung sounds bilaterally ABDOMEN: soft & not tender w palpation MUSCULOSKELETAL: no cyanosis, no swelling INTEGUMENT: no generalized pallor NEUROLOGICAL: cranial nerve function from 2-12 intact, speech not dysarthric Assessment and plan Patient is a 80-year-old male came to the emergency department altered mental status. Patient apparently had become more confused in the morning of admission but had been decompensating over the past 2 weeks prior to his admission. Metabolic encephalopathy Most likely secondary to alcoholic encephalopathy/Wernicke's encephalopathy EEG was done, no epileptogenic activities Neurology team recommended to check vitamin B1 pending, vitamin B12 within normal limit, serum copper, serum and urinary porphyrins pending Thyroid peroxidase antibody negative Urinary retention/dehydration/hypotension Thurston placed Patient received IV hydration, oliguria resolved Hypotension Improved after I started Zosyn IV empirically patient does not have leukocytosis, procalcitonin negative, a.m. cortisol within normal limit, no fever Blood culture negative Hypokalemia, resolved. Continue to monitor. Hyperbilirubinemia, resolved. Continue to monitor. Hypomagnesemia, resolved. Continue to monitor Deconditioning/failure to thrive/cachexia BMI 19, muscle wasting PT/OT Family wants to take him home and they will provide 24/7 care DVT Prophylaxis: Heparin VS,Fishbone, I+O VS, Fishbone, I+O Laboratory Tests 12/27/20 04:33 Vital Signs Date Time Temp Pulse Resp B/P (MAP) Pulse Ox O2 Delivery O2 Flow Rate FiO2 12/27/20 14:00 97.6 71 18 100/74 (83) 97 Room Air I&O- Last 24 Hours up to 6 AM 12/27/20 06:00 Intake Total 650 ml Output Total 3450 ml Balance -2800 ml LELE SONG DO Dec 27, 2020 15:46
[2020-12-27 21:11] VITALS: BP 70/52
[2020-12-27] MEDS ORDERED: NS 1,000 ML IV ONE (21:30)
[2020-12-27 23:00] VITALS: BP 70/54
[2020-12-27] MEDS ORDERED: MIDODRINE 5 MG TAB PO ONE (23:55)
[2020-12-28] VITALS (7 sets, daily range): BP systolic 95–113; BP diastolic 58–70
[2020-12-28] MEDS ORDERED: NS 500 ML IV ONE
[2020-12-28 02:40] LABS: BASO % 0.3 % (0.0-1.0); EOS # 0.1 10^3/uL (0.0-0.5); EOS % 1.8 % (0.0-3.0); HEMATOCRIT 28.5 % (42.0-52.0); HEMOGLOBIN 9.6 g/dl (13.5-17.5); LYMPH % 14.7 % (24.0-44.0); MEAN CORPUSCULAR HEMOGLOBIN 32.9 pg (27.0-33.0); MEAN CORPUSCULAR HGB CONC 33.7 g/dl (32.0-36.5); MEAN CORPUSCULAR VOLUME 97.6 fl (80.0-96.0); MONO # 0.6 10^3/uL (0.0-0.8); MONO % 9.4 % (2.0-8.0); NEUTROPHILS # 4.6 10^3/uL (1.5-8.5); NEUTROPHILS % 71.3 % (36.0-66.0); PLATELET COUNT, AUTOMATED 118 10^3/uL (150-450); RED BLOOD COUNT 2.92 10^6/uL (4.30-6.10); WHITE BLOOD COUNT 6.5 10^3/uL (4.0-10.0)
[2020-12-28] MEDS: PIPERACILLIN/TAZOBACTAM SOD 4.5 GM in D5W MINI-BAG PLUS 50 ML IV SCH ×4 (02:57→20:27)
[2020-12-28 03:07] LABS: ALBUMIN 2.3 GM/DL (3.2-5.2); ALT/SGPT 22 U/L (12-78); BILIRUBIN,TOTAL 0.7 MG/DL (0.2-1.0); BLOOD UREA NITROGEN 11 MG/DL (7-18); CALCIUM LEVEL 7.9 MG/DL (8.8-10.2); CARBON DIOXIDE LEVEL 24 MEQ/L (21-32); CHLORIDE LEVEL 113 MEQ/L (98-107); CREATININE FOR GFR 1.09 MG/DL (0.70-1.30); FERRITIN 1020 NG/ML (26-388); GLOMERULAR FILTRATION RATE > 60.0 (>42); GLUCOSE, FASTING 95 MG/DL (70-100); IRON (FE) 34 UG/DL (65-175); PERCENT SATURATION 32.4 % (19.7-50.0); POTASSIUM SERUM 3.4 MEQ/L (3.5-5.1); SODIUM LEVEL 146 MEQ/L (136-145); TOTAL IRON BINDING CAPACITY 105 UG/DL (250-450); TOTAL PROTEIN 4.7 GM/DL (6.4-8.2)
--- NOTE | 2020-12-28 05:13 | IPNPDOC ---
Text Note Date of Service The patient was seen on 12/28/20. NOTE Pt seen after episode of hypotension. manual BP 70/52. Pt afebrile, no tachycardic. Denies complaints. Bolus, lactic ordered. Recheck Bp still low manually at 70/54. Lactic 2.1, Additional 500ml Bolus ordered. Pt at risk for overload. He is already on zosyn and has been having labile lower BPs passed few days. He does have 1+BLE. Upon exam in room pt alert, Ox1; he is pleasantly confused. He does appear improved clinically compared to last visit as far as interaction and following directions. He does not appear symptomatic of blood pressure. RN does endorse patient had 3 episodes of diarrhea today. Clear to auscultation, RRR, benign abdominal exam, 1+ bilateral lower extremity edema. Superficial bruising to arms Possible hypertension related to fluid losses today, however patient has been having notable labile pressures. Will send lab work given differential. Of note, patient has had hemoglobin drop 16.4 December 20 two 9.6 today. No overt bleeding. Occult stool negative. Will send anemia panel. ? Possibly dilutional given the fluids. Blood pressure improved 102/70 during exam. Continue to monitor. Adjust care plan accordingly. VS,Fishbone, I+O VS, Fishbone, I+O Laboratory Tests 12/27/20 04:33 Vital Signs Date Time Temp Pulse Resp B/P (MAP) Pulse Ox O2 Delivery O2 Flow Rate FiO2 12/27/20 23:00 70/54 (59) 12/27/20 22:00 97.0 77 17 95 Room Air I&O- Last 24 Hours up to 6 AM 12/28/20 06:00 Intake Total 690 ml Output Total 425 ml Balance 265 ml HOME WANG NP Dec 28, 2020 00:45
[2020-12-28] MEDS ORDERED: HYOSCYAMINE SULFATE 0.125 MG SUBL TABLET PO ONE (05:25)
[2020-12-28] MEDS ORDERED: POTASSIUM CHLORIDE 10MEQ SR TABLET PO ONE (08:00)
[2020-12-28] MEDS: MULTIVITAMINS/MINERALS THERAP 1 TAB PO SCH (08:39)
[2020-12-28] MEDS: FOLIC ACID 1 MG TAB PO SCH (08:39)
[2020-12-28] MEDS: HEPARIN SOD (PORCINE) 5000UNITS/ML 1ML VIAL/SYRINGE SC SCH ×2 (08:40→20:27)
[2020-12-28] MEDS: BISACODYL 5 MG TAB PO SCH (08:40)
[2020-12-28] MEDS: FUROSEMIDE 40MG/4ML VIAL (J1940) IV SCH ×2 (08:41→17:37)
[2020-12-28] MEDS ORDERED: PIPERACILLIN/TAZOBACTAM SOD 4.5 GM in D5W MINI-BAG PLUS 50 ML IV ONE (10:45)
[2020-12-28] MEDS: MIDODRINE 5 MG TAB PO SCH ×2 (11:19→17:37)
--- NOTE | 2020-12-28 14:19 | IPNPDOC ---
Text Note Date of Service The patient was seen on 12/28/20. NOTE Subjective: Patient developed hypotension overnight, he received 50 cc bolus. In the morning his blood pressure became stable. The nurse told me that most likely patient did not received Zosyn IV because of problem with port catheter connection. Objective: GENERAL APPEARANCE: NAD HEENT: no scleral icterus, no JVD, EOMI CARDIOVASCULAR: S1S2 LUNGS: Diminished lung sounds bilaterally ABDOMEN: soft & not tender w palpation MUSCULOSKELETAL: no cyanosis, no swelling INTEGUMENT: no generalized pallor NEUROLOGICAL: cranial nerve function from 2-12 intact, speech not dysarthric, not oriented in place and time Assessment and plan Patient is a 80-year-old male came to the emergency department altered mental status. Patient apparently had become more confused in the morning of admission but had been decompensating over the past 2 weeks prior to his admission. Metabolic encephalopathy Most likely secondary to alcoholic encephalopathy/Wernicke's encephalopathy EEG was done, no epileptogenic activities Neurology team recommended to check vitamin B1 pending, vitamin B12 within normal limit, serum copper pending, serum pending and urinary porphyrins elevated to 90. Urine porphyrins can be elevated due to toxicity of arsenic. I will check serum level of arsenic Thyroid peroxidase antibody negative Urinary retention/dehydration/hypotension Thurston placed Patient received IV hydration, oliguria resolved Hypotension Patient became normotensive today when we restarted Zosyn patient does not have leukocytosis, procalcitonin negative, a.m. cortisol within normal limit, no fever Blood culture negative Hypokalemia, resolved. Continue to monitor. Hyperbilirubinemia, resolved. Continue to monitor. Hypomagnesemia, resolved. Continue to monitor Deconditioning/failure to thrive/cachexia BMI 19, muscle wasting PT/OT Family wants to take him home and they will provide 24/7 care DVT Prophylaxis: Heparin VS,Fishbone, I+O VS, Fishbone, I+O Laboratory Tests 12/28/20 02:30 Vital Signs Date Time Temp Pulse Resp B/P (MAP) Pulse Ox O2 Delivery O2 Flow Rate FiO2 12/28/20 08:49 113/68 (83) 12/28/20 06:00 97.1 64 16 98 Room Air I&O- Last 24 Hours up to 6 AM 12/28/20 06:00 Intake Total 2190 ml Output Total 425 ml Balance 1765 ml LELE SONG DO Dec 28, 2020 14:19
[2020-12-28] MEDS: RAMELTEON 8 MG TAB (ROZEREM) PO PRN (20:27)
[2020-12-28] MEDS: HYOSCYAMINE SULFATE 0.125 MG SUBL TABLET PO PRN (20:28)
[2020-12-28] MEDS: ACETAMINOPHEN TAB 650MG DOSE (2X325MG) PO PRN (20:28)
[2020-12-29] MEDS: PIPERACILLIN/TAZOBACTAM SOD 4.5 GM in D5W MINI-BAG PLUS 50 ML IV SCH ×2 (02:23→07:57)
[2020-12-29 06:00] VITALS: BP 106/65
[2020-12-29 06:50] LABS: BASO % 0.5 % (0.0-1.0); EOS # 0.1 10^3/uL (0.0-0.5); EOS % 2.1 % (0.0-3.0); HEMATOCRIT 30.3 % (42.0-52.0); HEMOGLOBIN 10.2 g/dl (13.5-17.5); LYMPH # 1.1 10^3/uL (1.5-5.0); LYMPH % 18.8 % (24.0-44.0); MEAN CORPUSCULAR HEMOGLOBIN 32.6 pg (27.0-33.0); MEAN CORPUSCULAR HGB CONC 33.7 g/dl (32.0-36.5); MEAN CORPUSCULAR VOLUME 96.8 fl (80.0-96.0); MONO # 0.6 10^3/uL (0.0-0.8); MONO % 9.7 % (2.0-8.0); NEUTROPHILS # 3.8 10^3/uL (1.5-8.5); NEUTROPHILS % 65.6 % (36.0-66.0); PLATELET COUNT, AUTOMATED 172 10^3/uL (150-450); RED BLOOD COUNT 3.13 10^6/uL (4.30-6.10); WHITE BLOOD COUNT 5.8 10^3/uL (4.0-10.0)
[2020-12-29 07:27] LABS: CALCIUM LEVEL 8.1 MG/DL (8.8-10.2); CREATININE FOR GFR 1.28 MG/DL (0.70-1.30); GLOMERULAR FILTRATION RATE 57.9 (>42); POTASSIUM SERUM 3.8 MEQ/L (3.5-5.1)
[2020-12-29] MEDS: HEPARIN SOD (PORCINE) 5000UNITS/ML 1ML VIAL/SYRINGE SC SCH ×2 (07:56→21:27)
[2020-12-29] MEDS: MULTIVITAMINS/MINERALS THERAP 1 TAB PO SCH (07:57)
[2020-12-29] MEDS: FOLIC ACID 1 MG TAB PO SCH (07:57)
[2020-12-29] MEDS: MIDODRINE 5 MG TAB PO SCH ×3 (07:57→17:26)
[2020-12-29] MEDS: BISACODYL 5 MG TAB PO SCH (07:58)
[2020-12-29] MEDS: FUROSEMIDE 40MG/4ML VIAL (J1940) IV SCH ×2 (07:58→17:27)
[2020-12-29 07:59] VITALS: BP 108/66
[2020-12-29] MEDS ORDERED: LevoFLOXacin 500 MG TABLET PO ONE (11:00)
[2020-12-29] MEDS ORDERED: QUEtiapine FUMARATE 12.5 MG HALF-TAB PO ONE (12:45)
[2020-12-29] MEDS ORDERED: BISACODYL 5 MG TAB PO PRN (13:10)
[2020-12-29] MEDS: HYOSCYAMINE SULFATE 0.125 MG SUBL TABLET PO PRN (13:23)
[2020-12-29] MEDS: ACETAMINOPHEN TAB 650MG DOSE (2X325MG) PO PRN (13:25)
[2020-12-29 14:00] VITALS: BP 91/57
[2020-12-29 17:30] VITALS: BP 100/59
[2020-12-29] MEDS: RAMELTEON 8 MG TAB (ROZEREM) PO PRN (21:27)
[2020-12-29 22:00] VITALS: BP 96/52
[2020-12-30] MEDS: LevoFLOXacin 250 MG TABLET PO SCH (05:17)
[2020-12-30 06:00] VITALS: BP 98/67
[2020-12-30 06:14] LABS: BASO % 0.3 % (0.0-1.0); EOS # 0.1 10^3/uL (0.0-0.5); HEMATOCRIT 30.2 % (42.0-52.0); HEMOGLOBIN 10.1 g/dl (13.5-17.5); LYMPH # 1.2 10^3/uL (1.5-5.0); LYMPH % 19.6 % (24.0-44.0); MEAN CORPUSCULAR HEMOGLOBIN 32.5 pg (27.0-33.0); MEAN CORPUSCULAR HGB CONC 33.4 g/dl (32.0-36.5); MEAN CORPUSCULAR VOLUME 97.1 fl (80.0-96.0); MONO # 0.5 10^3/uL (0.0-0.8); NEUTROPHILS % 67.1 % (36.0-66.0); PLATELET COUNT, AUTOMATED 208 10^3/uL (150-450); RED BLOOD COUNT 3.11 10^6/uL (4.30-6.10)
[2020-12-30 06:35] LABS: CALCIUM LEVEL 8.5 MG/DL (8.8-10.2); CREATININE FOR GFR 1.37 MG/DL (0.70-1.30); GLOMERULAR FILTRATION RATE 53.5 (>42); POTASSIUM SERUM 3.6 MEQ/L (3.5-5.1)
[2020-12-30] MEDS: HEPARIN SOD (PORCINE) 5000UNITS/ML 1ML VIAL/SYRINGE SC SCH ×2 (09:01→20:16)
[2020-12-30] MEDS: QUEtiapine FUMARATE 12.5 MG HALF-TAB PO SCH (09:01)
[2020-12-30] MEDS: FOLIC ACID 1 MG TAB PO SCH (09:02)
[2020-12-30] MEDS: FUROSEMIDE 40MG/4ML VIAL (J1940) IV SCH (09:02)
[2020-12-30] MEDS: MULTIVITAMINS/MINERALS THERAP 1 TAB PO SCH (09:02)
[2020-12-30] MEDS: MIDODRINE 5 MG TAB PO SCH ×3 (09:03→17:16)
[2020-12-30 09:04] VITALS: BP 93/59
[2020-12-30 10:43] LABS: FOLATE 4.8 NG/ML (>5.4)
[2020-12-30 14:00] VITALS: BP 106/71
[2020-12-30] MEDS: HYOSCYAMINE SULFATE 0.125 MG SUBL TABLET PO PRN (14:08)
--- NOTE | 2020-12-30 15:28 | IPNPDOC ---
Text Note Date of Service The patient was seen on 12/29/20. NOTE Subjective: No any acute events overnight. Patient continues to be pleasantly confused Objective: GENERAL APPEARANCE: NAD HEENT: no scleral icterus, no JVD, EOMI CARDIOVASCULAR: S1S2 LUNGS: Diminished lung sounds bilaterally ABDOMEN: soft & not tender w palpation MUSCULOSKELETAL: no cyanosis, no swelling INTEGUMENT: no generalized pallor NEUROLOGICAL: cranial nerve function from 2-12 intact, speech not dysarthric, not oriented in place and time Assessment and plan Patient is a 80-year-old male came to the emergency department altered mental status. Patient apparently had become more confused in the morning of admission but had been decompensating over the past 2 weeks prior to his admission. Metabolic encephalopathy Most likely secondary to alcoholic encephalopathy/Wernicke's encephalopathy EEG was done, no epileptogenic activities Neurology team recommended to check vitamin B1 pending, vitamin B12 within normal limit, serum copper pending, serum pending and urinary porphyrins elevated to 90. Urine porphyrins can be elevated due to toxicity of arsenic. level of arsenic pending Thyroid peroxidase antibody negative Urinary retention/dehydration/hypotension Thurston placed Patient received IV hydration, oliguria resolved Hypotension Improved patient does not have leukocytosis, procalcitonin negative, a.m. cortisol within normal limit, no fever Blood culture negative Hypokalemia, resolved. Continue to monitor. Hyperbilirubinemia, resolved. Continue to monitor. Hypomagnesemia, resolved. Continue to monitor Deconditioning/failure to thrive/cachexia BMI 19, muscle wasting PT/OT Family wants to take him home and they will provide 24/7 care DVT Prophylaxis: Heparin VS,Fishbone, I+O VS, Fishbone, I+O Laboratory Tests 12/30/20 05:59 Vital Signs Date Time Temp Pulse Resp B/P (MAP) Pulse Ox O2 Delivery O2 Flow Rate FiO2 12/30/20 09:04 70 93/59 (70) 12/30/20 06:00 97.5 16 97 12/29/20 22:00 Room Air I&O- Last 24 Hours up to 6 AM 12/30/20 06:00 Intake Total 1596 ml Output Total 2450 ml Balance -854 ml LELE SONG DO Dec 30, 2020 15:28
--- NOTE | 2020-12-30 15:34 | IPNPDOC ---
Text Note Date of Service The patient was seen on 12/30/20. NOTE Subjective: No any acute events overnight. Patient is not oriented in time and place Objective: GENERAL APPEARANCE: NAD HEENT: no scleral icterus, no JVD, EOMI CARDIOVASCULAR: S1S2 LUNGS: Diminished lung sounds bilaterally ABDOMEN: soft & not tender w palpation MUSCULOSKELETAL: no cyanosis, no swelling INTEGUMENT: no generalized pallor NEUROLOGICAL: cranial nerve function from 2-12 intact, speech not dysarthric, not oriented in place and time Assessment and plan Patient is a 80-year-old male came to the emergency department altered mental status. Patient apparently had become more confused in the morning of admission but had been decompensating over the past 2 weeks prior to his admission. Metabolic encephalopathy Most likely secondary to alcoholic encephalopathy/Wernicke's encephalopathy EEG was done, no epileptogenic activities Neurology team recommended to check vitamin B1 pending, vitamin B12 within normal limit, serum copper pending, serum pending and urinary porphyrins elevated to 90. Urine porphyrins can be elevated due to toxicity of arsenic. level of arsenic pending Thyroid peroxidase antibody negative Urinary retention/dehydration/hypotension Thurston placed Patient received IV hydration, oliguria resolved Hypotension patient does not have leukocytosis, procalcitonin negative, a.m. cortisol within normal limit, no fever Blood culture negative Continue midodrine, continue levofloxacin empirically. Patient had traumatic catheterization before. Patient received Zosyn IV for 3 days Hypokalemia, resolved. Continue to monitor. Hyperbilirubinemia, resolved. Continue to monitor. Hypomagnesemia, resolved. Continue to monitor Deconditioning/failure to thrive/cachexia BMI 19, muscle wasting PT/OT Family wants to take him home and they will provide 24/ care DVT Prophylaxis: Heparin VS,Fishbone, I+O VS, Fishbone, I+O Laboratory Tests 12/30/20 05:59 Vital Signs Date Time Temp Pulse Resp B/P (MAP) Pulse Ox O2 Delivery O2 Flow Rate FiO2 12/30/20 09:04 70 93/59 (70) 12/30/20 06:00 97.5 16 97 12/29/20 22:00 Room Air I&O- Last 24 Hours up to 6 AM 12/30/20 06:00 Intake Total 1596 ml Output Total 2450 ml Balance -854 ml LELE SONG DO Dec 30, 2020 15:34
[2020-12-30 17:07] LABS: PORPHYRIN TOTAL PLASMA <0.1 ug/dL (0.0-1.0)
[2020-12-30] MEDS: RAMELTEON 8 MG TAB (ROZEREM) PO PRN (21:34)
[2020-12-30 22:00] VITALS: BP 101/68
[2020-12-31] MEDS: LevoFLOXacin 250 MG TABLET PO SCH (05:19)
[2020-12-31 06:00] VITALS: BP 113/58
[2020-12-31 06:28] LABS: BASO % 0.3 % (0.0-1.0); EOS # 0.1 10^3/uL (0.0-0.5); EOS % 1.7 % (0.0-3.0); HEMATOCRIT 28.5 % (42.0-52.0); HEMOGLOBIN 9.6 g/dl (13.5-17.5); MEAN CORPUSCULAR HEMOGLOBIN 33.1 pg (27.0-33.0); MEAN CORPUSCULAR HGB CONC 33.7 g/dl (32.0-36.5); MEAN CORPUSCULAR VOLUME 98.3 fl (80.0-96.0); MONO # 0.6 10^3/uL (0.0-0.8); MONO % 9.3 % (2.0-8.0); NEUTROPHILS # 4.2 10^3/uL (1.5-8.5); NEUTROPHILS % 69.4 % (36.0-66.0); PLATELET COUNT, AUTOMATED 241 10^3/uL (150-450); WHITE BLOOD COUNT 6.1 10^3/uL (4.0-10.0)
[2020-12-31 06:43] LABS: CALCIUM LEVEL 8.3 MG/DL (8.8-10.2); CREATININE FOR GFR 1.74 MG/DL (0.70-1.30); GLOMERULAR FILTRATION RATE 40.6 (>42); POTASSIUM SERUM 3.6 MEQ/L (3.5-5.1)
[2020-12-31] MEDS: QUEtiapine FUMARATE 12.5 MG HALF-TAB PO SCH (08:53)
[2020-12-31] MEDS: FOLIC ACID 1 MG TAB PO SCH (08:53)
[2020-12-31] MEDS: MULTIVITAMINS/MINERALS THERAP 1 TAB PO SCH (08:53)
[2020-12-31] MEDS: HEPARIN SOD (PORCINE) 5000UNITS/ML 1ML VIAL/SYRINGE SC SCH ×2 (08:53→21:11)
[2020-12-31] MEDS: MIDODRINE 5 MG TAB PO SCH ×5 (08:53→17:29)
--- NOTE | 2020-12-31 11:19 | REP ---
INDICATION: s/p fall Hit his head. COMPARISON: CT brain and CTA brain 12/20/2020 TECHNIQUE: Axial soft tissue and bone windows are provided with coronal reconstructions. FINDINGS: Lateral ventricles are midline symmetric and their size proportionate to the diffuse cerebral atrophy. All this is age-appropriate. Third and 4th ventricles likewise in proportion. Periventricular, deep central and subcortical white matter changes representing small vessel ischemic disease noted. Caba-white junction differentiation is maintained. There is no vascular territory infarct, intracranial hemorrhage, mass or mass effect. Few calcifications in the basal ganglia the left are normal in this age group. Posterior fossa shows no mass, infarct or hemorrhage. No posterior fossa bleed. Basal cisterns intact. Visualized mastoids and sinuses are clear. Bone windows of the skull base and calvarium show no fracture or focal lesion. IMPRESSION: Negative CT brain for intracranial hemorrhage, acute infarct, mass or mass effect. Ventricular size and cortical atrophy in proportion and appropriate for age. Nothing acute. <Electronically signed by Keith Tovar > 12/31/20 [id number]
[2020-12-31] MEDS: IRON POLYSAC (NIFEREX) 150 MG CAP PO SCH ×2 (11:43→21:10)
[2020-12-31] MEDS: HYOSCYAMINE SULFATE 0.125 MG SUBL TABLET PO PRN ×2 (12:29→21:39)
[2020-12-31] MEDS: ACETAMINOPHEN TAB 650MG DOSE (2X325MG) PO PRN (12:29)
[2020-12-31] MEDS ORDERED: QUEtiapine FUMARATE 12.5 MG HALF-TAB PO ONE (13:00)
--- NOTE | 2020-12-31 16:40 | IPNPDOC ---
Text Note Date of Service The patient was seen on 12/31/20. NOTE Subjective: Patient developed mechanical fall, hit his head. Extremities range of motion intact. Objective: GENERAL APPEARANCE: NAD HEENT: no scleral icterus, no JVD, EOMI CARDIOVASCULAR: S1S2 LUNGS: Diminished lung sounds bilaterally ABDOMEN: soft & not tender w palpation MUSCULOSKELETAL: no cyanosis, no swelling INTEGUMENT: no generalized pallor NEUROLOGICAL: cranial nerve function from 2-12 intact, speech not dysarthric, not oriented in place and time Assessment and plan Patient is a 80-year-old male came to the emergency department altered mental status. Patient apparently had become more confused in the morning of admission but had been decompensating over the past 2 weeks prior to his admission. Metabolic encephalopathy Most likely secondary to alcoholic encephalopathy/Wernicke's encephalopathy EEG was done, no epileptogenic activities Neurology team recommended to check vitamin B1 pending, vitamin B12 within nor mal limit, serum copper pending, serum pending and urinary porphyrins elevated to 90. Urine porphyrins can be elevated due to toxicity of arsenic. level of arsenic pending Thyroid peroxidase antibody negative Urinary retention/dehydration/hypotension Thurston placed Patient received IV hydration, oliguria resolved Hypotension patient does not have leukocytosis, procalcitonin negative, a.m. cortisol within normal limit, no fever Blood culture negative Continue midodrine, continue levofloxacin empirically. Patient had traumatic catheterization before. Patient received Zosyn IV for 3 days Hypokalemia, resolved. Continue to monitor. Hyperbilirubinemia, resolved. Continue to monitor. Hypomagnesemia, resolved. Continue to monitor Deconditioning/failure to thrive/cachexia BMI 19, muscle wasting PT/OT Family wants to take him home and they will provide 24/[address] head negative for stroke or acute bleed Continue to check for every 4 hours DVT Prophylaxis: Heparin Patient will be transferred to [facility] start VS,Fishbone, I+O VS, Fishbone, I+O Laboratory Tests 12/31/20 05:42 Vital Signs Date Time Temp Pulse Resp B/P (MAP) Pulse Ox O2 Delivery O2 Flow Rate FiO2 12/31/20 06:00 97.9 53 18 113/58 (76) 96 Room Air I&O- Last 24 Hours up to 6 AM 12/31/20 06:00 Intake Total 3020 ml Output Total 275 ml Balance 2745 ml LELE SONG DO Dec 31, 2020 16:40
[2020-12-31] MEDS: RAMELTEON 8 MG TAB (ROZEREM) PO PRN (21:10)
[2020-12-31 22:00] VITALS: BP_SYST 105; BP_DIAS 67; BP_DIAS 7
[2021-01-01] MEDS: LevoFLOXacin 250 MG TABLET PO SCH (05:38)
[2021-01-01 06:00] VITALS: BP 112/60
[2021-01-01] MEDS: QUEtiapine FUMARATE 12.5 MG HALF-TAB PO SCH (08:57)
[2021-01-01] MEDS: IRON POLYSAC (NIFEREX) 150 MG CAP PO SCH (08:57)
[2021-01-01] MEDS: HEPARIN SOD (PORCINE) 5000UNITS/ML 1ML VIAL/SYRINGE SC SCH (08:57)
[2021-01-01] MEDS: MULTIVITAMINS/MINERALS THERAP 1 TAB PO SCH (08:57)
[2021-01-01] MEDS: MIDODRINE 5 MG TAB PO SCH ×2 (09:00→12:05)
[2021-01-01] MEDS: FOLIC ACID 1 MG TAB PO SCH (09:01)
[2021-01-01] MEDS ORDERED: FOLI1TAB11 PO (11:16)
[2021-01-01] MEDS ORDERED: NIFE15CA PO (11:16)
[2021-01-01] MEDS ORDERED: MIDO5TA PO (11:16)
[2021-01-01] MEDS ORDERED: BISAC5TA PO (11:16)
--- NOTE | 2021-01-01 16:40 | DS.PDOC ---
Discharge Summary General Date of Admission Dec 20, 2020 at 14:07 Date of Discharge 01/01/21 Discharge Summary PROCEDURES PERFORMED DURING STAY: [None]. ADMITTING DIAGNOSES: Metabolic encephalopathy Urinary retention/dehydration/hypotension Hypotension Hypokalemia Hyperbilirubinemia Hypomagnesemia Deconditioning/failure to thrive/cachexia Mechanical fall DISCHARGE DIAGNOSES: Metabolic encephalopathy Urinary retention/dehydration/hypotension Hypotension Hypokalemia Hyperbilirubinemia Hypomagnesemia Deconditioning/failure to thrive/cachexia Mechanical fall Wernicke's encephalopathy COMPLICATIONS/CHIEF COMPLAINT: Altered Mental Status; Urinary Retention. HISTORY OF PRESENT ILLNESS: Patient is a 80-year-old male came to the emergency department altered mental status. Patient apparently had become more confused in the morning of admission but had been decompensating over the past 2 weeks prior to his admission. 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 Urine porphyrins can be elevated due to toxicity of arsenic. level of arsenic within normal Thyroid peroxidase antibody negative Urinary retention/dehydration/hypotension Thurston placed Patient received IV hydration, oliguria resolved Patient will need follow-up with urologist Hypotension patient not have leukocytosis, procalcitonin negative, a.m. cortisol within normal limit, no fever Blood culture negative Continue midodrine, continue levofloxacin empirically. Patient had traumatic catheterization before. Patient received Zosyn IV and p.o. levofloxacin Deconditioning/failure to thrive/cachexia BMI 19, muscle wasting Patient received treatment with PT/OT Family wants to take him home and they will provide 24/[address] head negative for stroke or acute bleed DISCHARGE MEDICATIONS: Please see below. ALLERGIES: Please see below. PHYSICAL EXAMINATION ON DISCHARGE: VITAL SIGNS: Please see below. GENERAL APPEARANCE: NAD HEENT: no scleral icterus, no JVD, EOMI CARDIOVASCULAR: S1S2 LUNGS: Diminished lung sounds bilaterally ABDOMEN: soft & not tender w palpation MUSCULOSKELETAL: no cyanosis, no swelling INTEGUMENT: no generalized pallor NEUROLOGICAL: cranial nerve function from 2-12 intact, speech not dysarthric, not oriented in place and time LABORATORY DATA: Please see below. IMAGING: PROCEDURE INFORMATION: Exam: MR Head Without Contrast Exam date and time: 12/20/2020 6:09 PM Age: 80 years old Clinical indication: Altered mental status/memory loss TECHNIQUE: Imaging protocol: MR of the head without contrast. 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 Confluent foci of T2 lengthening are demonstrated in the periventricular and centrum semiovale white matter consistent with age-related small vessel gliosis. Age related gldu-ru-icjhstia parenchymal atrophy. There is ubdp-qs-pbqamlxa diffuse cerebellar atrophy. No evidence of acute ischemia. Cerebral ventricles: Normal. No ventriculomegaly. Bones/joints: Unremarkable. Paranasal sinuses: Normal as visualized. No acute sinusitis. Mastoid air cells: Normal as visualized. No mastoid effusion. Orbital cavity: Unremarkable. Soft tissues: Unremarkable. IMPRESSION: 1. 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 2. Confluent foci of T2 lengthening are demonstrated in the periventricular and centrum semiovale white matter consistent with age-related small vessel gliosis. 3. Age related fxlk-ht-jeqotkfc parenchymal atrophy. 4. There is nxnq-yr-eucqrlwm diffuse cerebellar atrophy. 5. No acute intracranial findings. Electronically signed by: Vikram Delarosa On 12/20/2020 18:49:07 PM DD: VIKRAM DELAROSA MD 12/20/201808 DT: MICHELLE 12/20/201848 DS: EDILSON 12/20/201848 PROGNOSIS: Guarded ACTIVITY: [As tolerated]. DIET: Regular DISPOSITION: [address] [place] [address] Health Service. DISCHARGE INSTRUCTIONS: Follow-up with PCP and urologist DISCHARGE CONDITION: [Stable]. TIME SPENT ON DISCHARGE:40 minutes. Vital Signs/I&Os Vital Signs Date Time Temp Pulse Resp B/P (MAP) Pulse Ox O2 Delivery O2 Flow Rate FiO2 01/01/21 06:00 97.6 67 18 112/60 (77) 99 Room Air I&O- Last 24 Hours up to 6 AM 01/01/21 06:00 Intake Total 1440 ml Output Total 1200 ml Balance 240 ml Microbiology Microbiology 12/28/20 Blood Culture - Preliminary, Resulted No Growth after 72 hours. All specime... 12/28/20 Blood Culture - Preliminary, Resulted No Growth after 72 hours. All specime... 12/26/20 Urine Culture - Final, Complete 12/26/20 Stool Occult Blood ([place]) - Final, Complete 12/25/20 Blood Culture - Final, Complete NO GROWTH AFTER 5 DAYS 12/25/20 Blood Culture - Final, Complete NO GROWTH AFTER 5 DAYS Discharge Medications Scheduled Folic Acid (Folic Acid) 1 Mg Tablet, 1 MG PO DAILY Iron Ag,Ps/C/Fa6/B12/Zn/SA/Sto (Niferex Tablet) 1 Each Tablet, 150 MG PO BID Midodrine HCl (Midodrine HCl) 5 Mg Tablet, 5 MG PO 08,12,16 Scheduled PRN Bisacodyl (Bisacodyl) 5 Mg Tablet.dr, 10 MG PO DAILY PRN for CONSTIPATION Allergies Coded Allergies: No Known Allergies (Unverified , 12/19/14) LELE SONG DO Jan 01, 2021 16:40
[2021-01-01 17:08] LABS: VITAMIN B1 LEVEL WHOLE BLOOD 42.5 nmol/L (66.5-200.0)
== END 2021-01-01 15:40 | disposition home health service (06) | DRG 696 ==
LOC: M ED 09:11 → EDBD 09:11 → M ED INP 14:07 → M PCU 12-21 00:45 → M MSPAV 12-21 22:56
PROVIDERS: ADMIT Family Medicine; ATTEND Internal Medicine
DX: R33.9 Retention of urine, unspecified (principal); E51.2 Wernicke's encephalopathy; Z68.1 Body mass index [BMI] 19.9 or less, adult; E83.42 Hypomagnesemia; E86.0 Dehydration; E87.6 Hypokalemia; G31.2 Degeneration of nervous system due to alcohol; I95.9 Hypotension, unspecified; R62.7 Adult failure to thrive

== ENCOUNTER 2021-01-05 16:21 | Observation (INO) | payer MEDICARE, BC, OTHER ==
[~2021-01-05] VITALS: Ht 180.3 cm; Wt 69.9 kg
[~2021-01-05 16:21] MED LIST changes: +BISAC5TA PO; +FOLI1TAB11 PO; +MIDO5TA PO; +NIFE15CA PO
[2021-01-05 16:53] LABS: BASO # 0.1 10^3/uL (0.0-0.2); BASO % 0.8 % (0.0-1.0); EOS # 0.2 10^3/uL (0.0-0.5); EOS % 2.8 % (0.0-3.0); HEMATOCRIT 30.8 % (42.0-52.0); HEMOGLOBIN 9.8 g/dl (13.5-17.5); LYMPH # 1.3 10^3/uL (1.5-5.0); LYMPH % 20.1 % (24.0-44.0); MEAN CORPUSCULAR HEMOGLOBIN 33.2 pg (27.0-33.0); MEAN CORPUSCULAR HGB CONC 31.8 g/dl (32.0-36.5); MEAN CORPUSCULAR VOLUME 104.4 fl (80.0-96.0); MONO # 0.6 10^3/uL (0.0-0.8); MONO % 9.3 % (2.0-8.0); NEUTROPHILS # 4.2 10^3/uL (1.5-8.5); NEUTROPHILS % 65.9 % (36.0-66.0); PLATELET COUNT, AUTOMATED 302 10^3/uL (150-450); RED BLOOD COUNT 2.95 10^6/uL (4.30-6.10); WHITE BLOOD COUNT 6.4 10^3/uL (4.0-10.0)
--- OUTSIDE RECORDS SUMMARY | 2021-01-05 17:09 | CCD ---
Author Author [facility] Organization [facility] Address Unknown Phone Unavailable Support Name Relationship Address Phone NHI, (HCP) NOEL Next Of Kin [address] [place] [address] RE Next Of Kin Unknown Unavailable [employer] Next Of Kin [address] [place] [address] Kaia HANKINS Next Of Kin [address] [place] [address] Kaia HANKINS [address] [address] [place] [address] Unavailable Re-disclosure Warning The records that you [...] by Article 27-F of the [facility] Public Health law. If you continue you may have access to information: Regarding HIV / AIDS; Provided by facilities licensed or operated by the [facility] Office of Mental Health; or Provided by the [facility] Office for People With Developmental Disabilities. If such information is present, then the following [facility] mandated warning applies: This information has [...] law may result in a fine or fdc sentence or both. A general authorization for [...] Complete: YESThis Data wa s Submitted to [facility] Via [employer]. COVID-19 VACCINE, MRNA-1273, LNP-S (MODERNA)/PF 04/29/2020 1 2:00:00 AM EST completed [facility] COVID-19 VACCINE Moderna 04/01/2020 12:00:00 AM EST completed [facility] Vaccine Series Complete: NOThis Data was Submitted to [facility] Via [employer]. COVID-19 VACCINE, MRNA-1273, LNP-S (MODERNA)/PF 04/01/2020 1 2:00:00 AM EST completed [facility] INFLUENZA VIRUS VACCINE QUADRIVALENT 2019- (6 MOS AN D UP) 11/14/2019 12:00:00 AM EDT completed [facility] Medications Medication Brand Name Start Date Product Form Dose Route Admi nistrative Instructions Pharmacy Instructions Status Indications Reaction Description Data Source(s) 5 mg 01/01/2021 12:00:00 AM EST tablet 90 TAKE ONE TABLET BY MOUTH THREE TIMES A DAY 8AM NOON 4PM TAKE ONE TABLET BY MOUTH THREE TIMES A D AY 8AM NOON 4PM SOLD: 01/01/2021 [facility] 5 mg 01/01/2021 12:00:00 AM EST tablet,delayed release (DR/EC) 30 TAKE TWO TABLETS BY MOUTH EVERY DAY NEEDED FOR CONSTIPATION TAKE TWO TABLETS BY MOUTH EVERY DAY NEEDED FOR CONSTIPATION SOLD: 01/01/2021 [facility] 1 mg 01/01/2021 12:00:00 AM EST tablet 30 TAKE ONE TABLET BY MOUTH EVERY DAY TAKE ONE TABLET BY MOUTH EVERY DAY SOLD: 01/01/2021 [employer] Ondansetron 4 MG Disintegrating Oral Tablet ONDANSETRON [...] to delatorre Policy Delatorre Plan Information MEDICARE [id number] SP [id number] A [facility] [id number] SP [id number] MEDICARE [id number] SP [id number] A MEDICARE [id number] SP [id number] MEDICARE [id number] SP [id number] A [facility] [id number] SP [id number] [facility] [id number] SP [id number] [facility] [id number] SP [id number] [facility] [place] Medigap Part B [id number] Self [id number] Medicare Natl Gov't Servi Medicare Primary [id number] Self [id number] [facility] [place] Medigap Part B [id number] Self [id number] Medicare Natl Gov't Servi Medicare Primary [id number] Self [id number] [facility] [id number] Self [id number] Medicare [place] Medicare Primary [id number] Self [id number] Emp/[employer] Medigap Part B [id number] Self [id number] Medicare [place] Medicare Primary [id number] Self [id number] [employer] O [id number] S [id number] Emp/[employer] Medigap Part B [id number] Self Medicare [place] Medicare Primary [id number] Self [facility] Medigap Part B [id number] Self Medicare [place] Medicare Primary [id number] Self [employer] [id number] SP [id number] Emp/[employer] Medigap Part B [id number] Self Self Pay P UNAVAILABLE S UNAVAILA BLE Emp/[employer] Medigap Part B [id number] Self [id number] Medicare [place] Medicare Primary [id number] Self [id number] Emp/[employer] Medigap Part B [id number] Self [id number] Medicare [place] Medicare Primary [id number] Self [id number] [employer] O [id number] S [id number] MEDICARE C [id number] S [id number] A Problems, Conditions, and Diagnoses No Information Surgeries/Procedures No Information Results ID Date Data Source [id number] 12/20/2020 09:38:00 AM EDT [facility] Name Value Range Interpretation Code Description Data Nathalia rce(s) Supporting Document(s) SARS coronavirus 2 RNA [Presence] in Res piratory specimen by ERICA with probe detection NEGATIVE [facility] This lab was ordered by [facility] a nd reported by [facility]. ID Date Data Source [id number] 09/08/2020 08:16:00 PM EDT [facility] Name Value Range Interpretation Code Description Data Nathalia rce(s) Supporting Document(s) SARS coronavirus 2 RNA [Presence] in Res piratory specimen by ERICA with probe detection NEGATIVE [facility] This lab was ordered by [facility] a nd reported by [facility]. Procedure Social History No Information
[2021-01-05 17:30] LABS: ALBUMIN 2.5 GM/DL (3.2-5.2); ALT/SGPT 26 U/L (12-78); BILIRUBIN,DIRECT < 0.1 MG/DL (0.0-0.2); BILIRUBIN,TOTAL 0.5 MG/DL (0.2-1.0); BLOOD UREA NITROGEN 29 MG/DL (7-18); CALCIUM LEVEL 8.7 MG/DL (8.8-10.2); CARBON DIOXIDE LEVEL 23 MEQ/L (21-32); CHLORIDE LEVEL 121 MEQ/L (98-107); CK-MB VALUE MASS 1.3 NG/ML (<3.6); CPK CREATINE PHOSPHOKINASE 89 U/L (39-308); CREATININE FOR GFR 1.12 MG/DL (0.70-1.30); GLOMERULAR FILTRATION RATE > 60.0 (>42); GLUCOSE, FASTING 123 MG/DL (70-100); LIPASE 316 U/L (73-393); MB/CK RELATIVE INDEX 1.46 (< OR =4); POTASSIUM SERUM 4.4 MEQ/L (3.5-5.1); SODIUM LEVEL 150 MEQ/L (136-145); TOTAL PROTEIN 5.7 GM/DL (6.4-8.2); TROPONIN I < 0.02 NG/ML (< 0.10)
[2021-01-05] MEDS ORDERED: ISOVUE-370 76% 100ML VIAL As Ordered ONE (17:36)
[2021-01-05 17:46] LABS: RSV AMPLIFICATION NEGATIVE (NEGATIVE)
--- NOTE | 2021-01-05 18:26 | REPVR ---
PROCEDURE INFORMATION: Exam: CT Head Without Contrast Exam date and time: 01/05/2021 5:39 PM Age: 80 years old Clinical indication: Altered mental status/memory loss TECHNIQUE: Imaging protocol: Computed tomography of the head without contrast. Radiation optimization: All CT scans at this facility use at least one of these dose optimization techniques: automated exposure control; mA and/or kV adjustment per patient size (includes targeted exams where dose is matched to clinical indication); or iterative reconstruction. COMPARISON: CT Head without contrast 12/31/2020 10:58 AM FINDINGS: Brain: There is jrmb-qd-yjbfjehi diffuse cerebellar atrophy. There is mild age related parenchymal volume loss. Mild white matter changes are demonstrated in the subcortical, centrum semiovale and periventricular white matter consistent with chronic age related small vessel ischemic changes. Cerebral ventricles: The degree of ventricular dilatation is normal for age and/or degree of atrophy present. Paranasal sinuses: Visualized sinuses are unremarkable. No fluid levels. Mastoid air cells: Visualized mastoid air cells are well aerated. Bones/joints: Unremarkable. No acute fracture. Soft tissues: Unremarkable. IMPRESSION: 1. There is ikdr-ve-hbnzuhiu diffuse cerebellar atrophy. 2. There is mild age related parenchymal volume loss. Mild white matter changes are demonstrated in the subcortical, centrum semiovale and periventricular white matter consistent with chronic age related small vessel ischemic changes. 3. The degree of ventricular dilatation is normal for age and/or degree of atrophy present. 4. No acute intracranial findings. No significant interval change comparison to the prior study of 12/31/2020. Electronically signed by: Vikram Cardenas On 01/05/2021 18:25:23 PM
--- NOTE | 2021-01-05 18:30 | REPVR ---
PROCEDURE INFORMATION: Exam: CTA Chest With Contrast Exam date and time: 01/05/2021 5:39 PM Age: 80 years old Clinical indication: Other: Syncope TECHNIQUE: Imaging protocol: Computed tomographic angiography of the chest with contrast. 3D rendering (Not supervised by radiologist): MIP and/or 3D reconstructed images were created by the technologist. Radiation optimization: All CT scans at this facility use at least one of these dose optimization techniques: automated exposure control; mA and/or kV adjustment per patient size (includes targeted exams where dose is matched to clinical indication); or iterative reconstruction. Contrast material: ISOVUE 370; Contrast volume: 100 ml; Contrast route: INTRAVENOUS (IV); COMPARISON: CT Chest with contrast 12/21/2020 2:11 PM FINDINGS: Pulmonary arteries: There are no pulmonary emboli. 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 maximally. There is no dissection or saccular component. Thoracic aorta is also diffusely ectatic. Lungs: Bibasilar atelectasis. Lungs otherwise clear. Pleural spaces: Unremarkable. No pneumothorax. No pleural effusion. Heart: There is moderate atherosclerotic calcification of the coronary arteries. Lymph nodes: Unremarkable. No enlarged lymph nodes. Bones/joints: The spine demonstrates mild degenerative changes. Soft tissues: Unremarkable. IMPRESSION: 1. There is fusiform dilatation of the supravalvular ascending thoracic aorta which measures 4.1 cm. maximally. There is no dissection or saccular component. Thoracic aorta is also diffusely ectatic. 2. There are no pulmonary emboli. 3. No acute pulmonary parenchymal abnormalities. Electronically signed by: Vikram Cardenas On 01/05/2021 18:30:23 PM
--- NOTE | 2021-01-05 18:39 | REPVR ---
PROCEDURE INFORMATION: Exam: CT Abdomen And Pelvis With Contrast Exam date and time: 01/05/2021 5:39 PM Age: 80 years old Clinical indication: Other: Syncope TECHNIQUE: Imaging protocol: Computed tomography of the abdomen and pelvis with contrast. Radiation optimization: All CT scans at this facility use at least one of these dose optimization techniques: automated exposure control; mA and/or kV adjustment per patient size (includes targeted exams where dose is matched to clinical indication); or iterative reconstruction. Contrast material: ISOVUE 370; Contrast volume: 100 ml; Contrast route: INTRAVENOUS (IV); COMPARISON: CT ABD PELVIS W/O CONTRAST 12/25/2020 7:09 PM FINDINGS: Heart: Small pericardial effusion. Liver: Metallic density posterior aspect of the right lobe of the liver. Liver otherwise unremarkable. Gallbladder and bile ducts: There are gallstones present. There is minimal thickening of the gallbladder wall. No pericholecystic fluid demonstrated. Clinical correlation to exclude cholecystitis suggested. Pancreas: Normal. No ductal dilation. Spleen: Normal. No splenomegaly. Adrenal glands: 1.5 cm left adrenal nodule may represent a lipid poor adenoma. Further evaluation with opposed phase MRI could be obtained if clinically desired however the finding has not changed in comparison to the prior study of 12/25/2020, and 12/20/2020. There is a focal hypodense mass in the right adrenal gland measuring 1.3 x 2 cm., consistent in appearance and density with a benign adrenal adenoma. Kidneys and ureters: Normal. No hydronephrosis. Stomach and bowel: There is gastric distention with retained secretions. Clinical correlation to exclude gastroparesis or gastric outlet obstruction suggested. Mild diverticulosis is present in the left colon. No diverticulitis. Appendix: No evidence of appendicitis. Intraperitoneal space: Unremarkable. No free air. No significant fluid collection. Vasculature: The aortoiliac vessels demonstrate mild atherosclerotic calcification. Lymph nodes: Unremarkable. No enlarged lymph nodes. Urinary bladder: Thurston catheter within the urinary bladder. Air in the urinary bladder likely postprocedural. Reproductive: The prostate gland demonstrates moderate hyperplasia. Bones/joints: Mild central spinal stenosis L4-L5. Soft tissues: Left inguinal hernia without incarceration. IMPRESSION: 1. There are gallstones present. There is minimal thickening of the gallbladder wall. No pericholecystic fluid demonstrated. Clinical correlation to exclude cholecystitis suggested. 2. There is gastric distention with retained secretions. Clinical correlation to exclude gastroparesis or gastric outlet obstruction suggested. 3. 1.5 cm left adrenal nodule may represent a lipid poor adenoma. Further evaluation with opposed phase MRI could be obtained if clinically desired however the finding has not changed in comparison to the prior study of 12/25/2020, and 12/20/2020. 4. There is a focal hypodense mass in the right adrenal gland measuring 1.3 x 2 cm., consistent in appearance and density with a benign adrenal adenoma. 5. Moderate prostatic hyperplasia. 6. Mild diverticulosis is present in the left colon. No diverticulitis. Electronically signed by: Vikram Cardenas On 01/05/2021 18:39:40 PM
--- NOTE | 2021-01-05 19:56 | REPVR ---
PROCEDURE INFORMATION: Exam: CT Head Without Contrast Exam date and time: 01/05/2021 7:46 PM Age: 80 years old Clinical indication: Injury or trauma; Blunt trauma (contusions or hematomas); Injury details: Fall - after receiving contrast earlier TECHNIQUE: Imaging protocol: Computed tomography of the head without contrast. Radiation optimization: All CT scans at this facility use at least one of these dose optimization techniques: automated exposure control; mA and/or kV adjustment per patient size (includes targeted exams where dose is matched to clinical indication); or iterative reconstruction. COMPARISON: CT Head without contrast 01/05/2021 5:33 PM FINDINGS: Brain: Othd-ow-zqkajuvy diffuse cerebellar atrophy. There is mild age related parenchymal volume loss. Mild white matter changes are demonstrated in the subcortical, centrum semiovale and periventricular white matter consistent with chronic age related small vessel ischemic changes. Cerebral ventricles: The degree of ventricular dilatation is normal for age and/or degree of atrophy present. Paranasal sinuses: Small retention cyst left maxillary sinus. Mastoid air cells: Visualized mastoid air cells are well aerated. Bones/joints: Unremarkable. No acute fracture. Soft tissues: Unremarkable. IMPRESSION: 1. Oxet-hn-jqyilwox diffuse cerebellar atrophy. 2. There is mild age related parenchymal volume loss. Mild white matter changes are demonstrated in the subcortical, centrum semiovale and periventricular white matter consistent with chronic age related small vessel ischemic changes. 3. The degree of ventricular dilatation is normal for age and/or degree of atrophy present. 4. No acute intracranial findings. Electronically signed by: Vikram aCrdenas On 01/05/2021 19:56:13 PM
--- NOTE | 2021-01-05 20:02 | REPVR ---
PROCEDURE INFORMATION: Exam: CT Cervical Spine Without Contrast Exam date and time: 01/05/2021 7:46 PM Age: 80 years old Clinical indication: Injury or trauma; Fall; Blunt trauma TECHNIQUE: Imaging protocol: Computed tomography images of the cervical spine without contrast. Radiation optimization: All CT scans at this facility use at least one of these dose optimization techniques: automated exposure control; mA and/or kV adjustment per patient size (includes targeted exams where dose is matched to clinical indication); or iterative reconstruction. COMPARISON: CT ANGIO NECK 12/20/2020 9:28 AM FINDINGS: Bones/joints: No acute fracture. Normal alignment. Discs/Spinal canal/Neural foramina: Disc space narrowing at C4-C5 through C6-C7 with intervertebral osteophytes. There are degenerative changes demonstrated in the atlantoaxial joint at C1-C2 with osteophytes and joint space narrowing. The transverse ligament is normal. Moderate to severe foraminal narrowing on the left and mild foraminal narrowing on the right at C4, moderate foraminal narrowing on the right and moderate to severe foraminal narrowing on the left at C5, moderate bilateral foraminal narrowing at C6. Disc osteophyte complexes at C5-C6 and C6-C7 with mild cord impingement at C5-C6 and moderate right adeola cord impingement at C6-C7. Thyroid: Hypoattenuating nodule in the right lobe of the thyroid gland measures 1.6 x 1.2 x 1.3 cm. No suspicious features. Follow-up not mandatory considering patient age according to ACR guidelines. Lungs: Lung apices are normal. Soft tissues: See "Discs/Spinal canal/Neural foramina" finding. IMPRESSION: 1. Hypoattenuating nodule in the right lobe of the thyroid gland measures 1.6 x 1.2 x 1.3 cm. No suspicious features. Follow-up not mandatory considering patient age according to ACR guidelines. 2. Degenerative spondylosis. No acute findings. COMMENTS: Consistent with the [employer] [employer]'s Incidental Findings Committee white paper (J Am Kathy Radiol 2015): In patients aged 35 years and older with an incidental thyroid nodule equal to or greater than 1.[address], MRI or extrathyroidal US, further evaluation with dedicated thyroid US is recommended for patients with normal life expectancy and without comorbidities. For smaller nodules without suspicious features, no further evaluation or follow up is recommended. Electronically signed by: Vikram Cardenas On 01/05/2021 20:02:01 PM
--- NOTE | 2021-01-05 20:17 | ECGEPIP ---
[facility] - ED Test Date: 2021-01-05 Pat Name: ANGEL HANKINS Department: Room: - Gender: Male Route Inspector: WILLIAMS : 1940 Requested By: AGAPITO Madden Order Number: [id number] Reading MD: Agapito Butterfield Measurements Intervals [place] Rate: 80 P: MA: QRS: -40 QRSD: 92 T: 198 QT: 434 QTc: 500 Interpretive Statements Atrial fibrillation with premature ventricular or aberrantly conducted complexes Left axis deviation Low voltage QRS Cannot rule out Anterior infarct , age undetermined T wave abnormality, consider inferolateral ischemia Prolonged QTc interval Baseline artifact Previous tracing was sinus bradycardia on 12-20-20 Electronically Signed on 01-05-2021 20:17:41 EST by Agapito Butterfield
[2021-01-05 20:36] VITALS: BP 116/68
[2021-01-05] MEDS ORDERED: MIDO5TA PO (20:49)
[2021-01-05] MEDS ORDERED: BISA5TAB73 PO (20:49)
[2021-01-05] MEDS ORDERED: FOLI1TAB11 PO (20:49)
[2021-01-05] MEDS ORDERED: NIFE15CA PO (20:49)
[2021-01-05] MEDS ORDERED: HOME MED LIST COMPLETE! XX SCH (20:50)
[2021-01-05] MEDS ORDERED: MOM 30ML SUSPENSION UDC PO PRN (21:10)
[2021-01-05] MEDS ORDERED: ACETAMINOPHEN TAB 650MG DOSE (2X325MG) PO PRN (21:10)
[2021-01-05] MEDS ORDERED: HEPARIN SOD (PORCINE) 5000UNITS/ML 1ML VIAL/SYRINGE SC SCH (21:10)
[2021-01-05] MEDS ORDERED: MAALOX 30 ML SUSP *UDC PO PRN (21:10)
--- OUTSIDE RECORDS SUMMARY | 2021-01-05 21:17 | CCD ---
Author Author [facility] Organization [facility] Address Unknown Phone Unavailable Support Name Relationship Address Phone NHI, (HCP) NOEL Next Of Kin [address] [place] [address] RE Next Of Kin Unknown Unavailable [employer] Next Of Kin [address] [place] [address] Kaia HANKINS Next Of Kin [address] [place] [address] Kaia HANKINS ECON [address] [place] [address] Unavailable Re-disclosure Warning The records that you [...] is protected by Article 27-F of the [facility] Public Health law. If you continue you may have access to information: Regarding HIV / AIDS; Provided by facilities licensed or operated by the [facility] Office of Mental Health; or Provided by the [facility] Office for People With Developmental Disabilities. If such information is present, then the following [facility] mandated warning applies: This information has [...] law may result in a fine or care home sentence or both. A general authorization for [...] Complete: YESThis Data wa s Submitted to [facility] [employer]. COVID-19 VACCINE, MRNA-1273, LNP-S (MODERNA)/PF 04/29/2020 1 2:00:00 AM EST completed [facility] COVID-19 VACCINE Moderna 04/01/2020 12:00:00 AM EST completed [facility] Vaccine Series Complete: NOThis Data was Submitted to [facility] [employer]. COVID-19 VACCINE, MRNA-1273, LNP-S (MODERNA)/PF 04/01/2020 1 [...] TABLET BY MOUTH EVERY DAY SOLD: 01/01/2021 [facility] Ondansetron 4 MG Disintegrating Oral Tablet ONDANSETRON 09/09/2020 12:00:00 AM EDT tablet,disintegrating 16 DISSOLVE O NE TABLET ON TONGUE EVERY 6 TO 8 HOURS NEEDED FOR NAUSEA AND VOMITING DISSOLVE ONE TABLET ON TONGUE EVERY 6 TO 8 HOURS NEEDED FOR NAUSEA AND VOMITING SOLD: 09/09/2020 [facility] Insurance Providers Payer name Policy type / Coverage type Policy ID Covered green party ID Covered green party's relationship to delatorre Policy Delatorre Plan Information MEDICARE [id number] SP [id number] A [facility] DIV [id number] SP [id number] MEDICARE [id number] SP [id number] A MEDICARE [id number] SP [id number] MEDICARE [id number] SP [id number] A [facility] [id number] SP [id number] [facility] DIV [id number] SP [id number] [facility] [id number] SP [id number] [facility] Holt Medigap Part B [id number] Self [id number] Medicare Natl Gov't Servi Medicare Primary [id number] Self [id number] [facility] Holt Medigap Part B [id number] Self [id number] Medicare Natl Gov't Servi Medicare Primary [id number] Self [id number] [facility] [id number] Self [id number] Medicare [place] Medicare Primary [id number] Self [id number] Emp/United [employer] Medigap Part B [id number] Self [id number] Medicare [place] Medicare Primary [id number] Self [id number] UNITED [employer]ARE O [id number] S [id number] Emp/United [employer] Medigap Part B [id number] Self Medicare [place] Medicare Primary [id number] Self [facility] Medigap Part B [id number] Self Medicare [place] Medicare Primary [id number] Self [employer] [id number] SP [id number] Emp/[employer] Medigap Part B [id number] Self Self Pay P UNAVAILABLE S UNAVAILA BLE Emp/[employer] Medigap Part B [id number] Self [id number] Medicare [place] Medicare Primary [id number] Self [id number] Emp/[employer] Medigap Part B [id number] Self [id number] Medicare [place] Medicare Primary [id number] Self [id number] [employer]ARE O [id number] S [id number] MEDICARE C [id number] S [id number] A Problems, Conditions, and Diagnoses No Information Surgeries/Procedures No Information Results ID Date Data Source [id number] 12/20/2020 09:38:00 AM EDT [facility] Name Value Range Interpretation Code Description Data Nathalia rce(s) Supporting Document(s) SARS coronavirus 2 RNA [Presence] in Res piratory specimen by ERICA with probe detection NEGATIVE [facility] This lab was ordered by [facility] a nd reported by [facility]. ID Date Data Source [id number] 09/08/2020 08:16:00 PM EDT [facility] Name Value Range Interpretation Code Description Data Nathalia rce(s) Supporting Document(s) SARS coronavirus 2 RNA [Presence] in Res piratory specimen by ERICA with probe detection NEGATIVE [facility] This lab was ordered by [facility] a nd reported by [facility]. Procedure Social History No Information
--- NOTE | 2021-01-05 21:35 | HPEPDOC ---
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 He was discharged from [facility] on 01/01/21. He is brought to ER after family reports him having a syncopal episode. In the ER he was able to ambulate with assistance. EKG showing rate controlled afib, new onset. Patients initial CT head was negative for bleed or acute ischemic CVA. Given his hx of prior aortic aneurysm, CTA chest and abdo/pelvis was performed. No acute vascular pathology was seen. While there was concern for gastric outlet obstruction on CT, patient has not abdominal distension, and does not complain of abdominal pain, or n/v. I was informed by ER MD that patient had fallen off the bed in the ER, and will be taken for a repeat CT head and CT C spine. The patient is poorly oriented but alert. States that he lives at the hospital. Denies fall, despite an obviously witnessed fall in ER. Also noted to be hypernatremic to 154. 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 no illicit drug use ALLERGIES: Please see below. REVIEW OF SYSTEMS: CONSTITUTIONAL: patient denies fevers, chills HEENT: patient denies blurred vision, loss of vision, headache,. CARDIOVASCULAR: patient denies chest pain, palpitations. RESPIRATORY: patient denies shortness of breath, cough, hemoptysis. GASTROINTESTINAL: patient denies abdominal pain, n/v/d, blood in stool. GENITOURINARY: patient denies dysuria, discharge. SKIN: patient denies rashes. MUSCULOSKELETAL: patient denies joint pain, neck pain. NEUROLOGICAL: patient denies focal weakness, numbness, seizures. PSYCHIATRIC: patient denies SI/HI. ENDOCRINE: patient denies polyuria, heat intolerance, cold intolerance. HEMATOLOGIC/LYMPHATIC: patient denies easy bruising. HOME MEDICATIONS: Please see below. PHYSICAL EXAMINATION: VITAL SIGNS: please see below General: NAD, comfortable HEENT: PERRLA, EOMI, sclerae clear Neck: supple, normal ROM, no JVD Respiratory: lungs CTAB, no wheeze, no rales, no crackles CVS: RRR, normal S1, S2, no murmurs Abdo: soft, no masses, no hepatosplenomegaly, BS+, no rebound tenderness Extremities: no edema, pulses 2+ MSK: no joint deformities, normal ROM Neuro: no focal neuro deficits, moving all 4 extremities, CN2-12 intact. Strength 5/5 in all 4 extremities. No nystagmus. ROM in L leg limited due reported pain in L mid thigh, L hip. Psych: calm, cooperative, AAO x 1 LABORATORY DATA: See below. IMAGING: CT head non contrast (01/05/21): IMPRESSION: 1. Ldwe-fg-[id number] diffuse cerebellar atrophy. 2. There is mild age related parenchymal volume loss. Mild white matter changes are demonstrated in the subcortical, centrum semiovale and periventricular white matter consistent with chronic age related small vessel ischemic changes. 3. The degree of ventricular dilatation is normal for age and/or degree of atrophy present. 4. No acute intracranial findings. CT C spine non contrast (12/26/20): 1. Hypoattenuating nodule in the right lobe of the thyroid gland measures 1.6 x 1.2 x 1.3 cm. No suspicious features. Follow-up not mandatory considering patient age according to ACR guidelines. 2. Degenerative spondylosis. No acute findings. CT head wo contrast (01/05/21): 1. There is iwod-ek-fyangbey diffuse cerebellar atrophy. 2. There is mild age related parenchymal volume loss. Mild white matter changes are demonstrated in the subcortical, centrum semiovale and periventricular white matter consistent with chronic age related small vessel ischemic changes. 3. The degree of ventricular dilatation is normal for age and/or degree of atrophy present. 4. No acute intracranial findings. No significant interval change comparison to the prior study of 12/31/2020. CTA chest (01/05/21): 1. There is fusiform dilatation of the supravalvular ascending thoracic aorta which measures 4.1 cm. maximally. There is no dissection or saccular component. Thoracic aorta is also diffusely ectatic. 2. There are no pulmonary emboli. 3. No acute pulmonary parenchymal abnormalities. CT abdo pelvis w IV contrast (01/05/21): 1. There are gallstones present. There is minimal thickening of the gallbladder wall. No pericholecystic fluid demonstrated. Clinical correlation to exclude cholecystitis suggested. 2. There is gastric distention with retained secretions. Clinical correlation to exclude gastroparesis or gastric outlet obstruction suggested. 3. 1.5 cm left adrenal nodule may represent a lipid poor adenoma. Further evaluation with opposed phase MRI could be obtained if clinically desired however the finding has not changed in comparison to the prior study of 12/25/2020, and 12/20/2020. 4. There is a focal hypodense mass in the right adrenal gland measuring 1.3 x 2 cm., consistent in appearance and density with a benign adrenal adenoma. 5. Moderate prostatic hyperplasia. 6. Mild diverticulosis is present in the left colon. No diverticulitis. MICROBIOLOGY: Please see below. 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 Was DC home on 01/01/21. Returns after a syncopal episode at home. EKG showing new onset afib. UA suggestive of UTI. orthostat PLAN: Syncope/fall -Negative initial CT head. Repeat CT head and C spine pending s/p fall in ER - EKG showing atrial fibrillation, normal rate. Suspect new onset. No prior documentation of afib, or EKG evidence. -Recent echo 12/20/20: LVEF 80%. No wall motion abnormalitites. Slight AV sclerosis. 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 BG wnl. - sitter ordered AMS/Metabolic encephalopathy likely 2/2 Wernickes -Was consulted by neurology on prior admission -Serum copper level wnl. -B12 wnl. Urine porphyrins were elevated to 90, but serum arsenic was negative -thyroid peroxidase Ab negative, thyroglobulin Ab negative. No evidence for Hashimotos. -noted to have low serum Vit B1 (42.5) and low serum folate 4.8 -EEG was performed and did not identify wave form abnormalities. -Will start patient on high dose IV thiamine (500 mg IV q8h x 3 days) and PO folate replacement. New-onset atrial fibrillation - rate is controlled at time of EKG, VS report of tachy rate to 138 - Recent echo 12/20/20: LVEF 80%. No wall motion abnormalitites. Slight AV sclerosis. - it is possibly to be responsible for syncope? - thyroid panel wnl, see below - given hx of hypotension will avoid start BB at this time. Takes midodrine, but is normotensive in ER. Will hold, unless develops hypotension. - continue to monitor on telemetry - while patient's medical history is not entirely clear, his age places him at 2 points on [id number] score - will start on eliquis 5 mg BID (weight> 60 kg, age 80, Cr 1.12) Hx of hypotension - on midodrine, from prior admission, will hold for now - normotensive in ER - check orthostats L leg pain - vague pain location, reports pain on flexion of hip at L mid thigh - obtain pelvis, femur and L knee XRs. UTI - has flores - LE+, Pyuria (unchanged from UA 12/26) - urine culture from 12/26/20 negative - follow up repeat cultures - start ceftriaxone acute hypernatremia - free water deficit 2.7L - start d5w at 150 cc/hr - possible 2/2 midodrine? held - check urine lytes Urinary retention -Had flores placed on last admission -UA suggest of UTI, will f/u urine Cx. Ascending thoracic aneurysm -CT showing 4.1 fusiform dilatation -No dissection, no saccular component Bilateral adrenal nodules -Stable on imaging -Outpatient MR imaging, PCP f/u Failure to thrive/protein calorie malnutrition -Hx of 20lb weight loss -BMI 19 DVT ppx: started eliquis. Dispo: pending clinical improvement. Admission expected to span > 2 midnights. Vital Signs Vital Signs Date Time Temp Pulse Resp B/P (MAP) Pulse Ox O2 Delivery O2 Flow Rate FiO2 01/05/21 20:15 69 122/64 (83) 98 01/05/21 20:00 Room Air 01/05/21 19:41 18 01/05/21 16:32 97.9 Laboratory Data Labs 24H Laboratory Tests 2 01/05/21 16:41: Immature Granulocyte % (Auto) 1.1, Neutrophils (%) (Auto) 65.9, Lymphocytes (%) (Auto) 20.1L, Monocytes (%) (Auto) 9.3H, Eosinophils (%) (Auto) 2.8, Basophils (%) (Auto) 0.8, Neutrophils # (Auto) 4.2, Lymphocytes # (Auto) 1.3L, Monocytes # (Auto) 0.6, Eosinophils # (Auto) 0.2, Basophils # (Auto) 0.1, Nucleated Red Blood Cells % (auto) 0.0, Anion Gap 6L, Glomerular Filtration Rate > 60.0, Calcium Level 8.7L, Total Bilirubin 0.5, Direct Bilirubin < 0.1, Aspartate Amino Transf (AST/SGOT) 32, Alanine Aminotransferase (ALT/SGPT) 26, Alkaline Phosphatase 116, Total Creatine Kinase 89, Creatine Kinase MB 1.3, Creatine Kinase MB Relative Index 1.46, Troponin I < 0.02, Total Protein 5.7L, Albumin 2.5L, Albumin/Globulin Ratio 0.8, Lipase 316, Thyroid Stimulating Hormone (TSH) 2.830 01/05/21 16:49: Bedside Glucose (Misc Panel) 115H 01/05/21 16:54: Coronavirus (COVID-19)(PCR) NEGATIVE, Influenza Type A (RT-PCR) NEGATIVE, Influenza Type B (RT-PCR) NEGATIVE, Respiratory Syncytial Virus (PCR) NEGATIVE 01/05/21 17:01: Urine Color YELLOW, Urine Appearance CLOUDYH, Urine pH 5.0, Urine Specific [place] 1.019, Urine Protein 2+H, Urine Glucose (UA) NEGATIVE, Urine Ketones NEGATIVE, Urine Blood 2+H, Urine Nitrite NEGATIVE, Urine Bilirubin NEGATIVE, Urine Urobilinogen 0.2, Urine Leukocyte Esterase 1+H, Urine WBC (Auto) 33H, Urine RBC (Auto) 116H, Urine Hyaline Casts (Auto) 0, Urine Bacteria (Auto) 1+H, Urine Squamous Epithelial Cells 0, Urine Mucus (Auto) SMALL, Urine Yeast-Like Cells (Auto) LARGEH, Urine Sperm (Auto) CBC/BMP Laboratory Tests 01/05/21 16:41 Microbiology Microbiology 01/05/21 Blood Culture, Received Pending 01/05/21 Urine Culture, Received Pending 01/05/21 Blood Culture, Received Pending Home Medications Scheduled Folic Acid (Folic Acid) 1 Mg Tablet, 1 MG PO DAILY Iron Ag,Ps/C/Fa6/B12/Zn/SA/Sto (Niferex Tablet) 1 Each Tablet, 1 TAB PO BID Midodrine HCl (Midodrine HCl) 5 Mg Tablet, 5 MG PO TID 0800, 1200, 1600 Scheduled PRN Bisacodyl (Bisacodyl) 5 Mg Tablet.dr, 10 MG PO DAILY PRN for CONSTIPATION Allergies Coded Allergies: No Known Allergies (Unverified , 12/19/14) A-FIB/CHADSVASC A-FIB History Current/History of A-Fib/PAF?: Yes Current PO Anticoag Therapy: Yes BELLO SRINIVASAN MD Jan 05, 2021 21:35
[2021-01-05] MEDS ORDERED: cefTRIAXone SOD 1 GM in D5W MINI-BAG PLUS 50 ML IV SCH (22:00)
[2021-01-05] MEDS: APIXABAN 5 MG TAB (ELIQUIS) PO SCH (23:16)
[2021-01-05] MEDS: cefTRIAXone SOD 1 GM in D5W MINI-BAG PLUS 50 ML IV SCH (23:30)
[2021-01-05 23:37] LABS: BASO % 0.9 % (0.0-1.0); EOS # 0.2 10^3/uL (0.0-0.5); EOS % 3.8 % (0.0-3.0); HEMATOCRIT 26.6 % (42.0-52.0); HEMOGLOBIN 8.4 g/dl (13.5-17.5); LYMPH # 0.9 10^3/uL (1.5-5.0); LYMPH % 22.1 % (24.0-44.0); MEAN CORPUSCULAR HEMOGLOBIN 32.7 pg (27.0-33.0); MEAN CORPUSCULAR HGB CONC 31.6 g/dl (32.0-36.5); MEAN CORPUSCULAR VOLUME 103.5 fl (80.0-96.0); MONO # 0.5 10^3/uL (0.0-0.8); MONO % 11.3 % (2.0-8.0); NEUTROPHILS # 2.6 10^3/uL (1.5-8.5); NEUTROPHILS % 60.5 % (36.0-66.0); PLATELET COUNT, AUTOMATED 272 10^3/uL (150-450); RED BLOOD COUNT 2.57 10^6/uL (4.30-6.10); WHITE BLOOD COUNT 4.3 10^3/uL (4.0-10.0)
[2021-01-05 23:58] LABS: ALBUMIN 2.2 GM/DL (3.2-5.2); ALT/SGPT 21 U/L (12-78); BILIRUBIN,TOTAL 0.5 MG/DL (0.2-1.0); BLOOD UREA NITROGEN 27 MG/DL (7-18); CALCIUM LEVEL 8.2 MG/DL (8.8-10.2); CARBON DIOXIDE LEVEL 23 MEQ/L (21-32); CHLORIDE LEVEL 126 MEQ/L (98-107); CREATININE FOR GFR 1.08 MG/DL (0.70-1.30); GLOMERULAR FILTRATION RATE > 60.0 (>42); GLUCOSE, FASTING 86 MG/DL (70-100); MAGNESIUM LEVEL 2.3 MG/DL (1.8-2.4); POTASSIUM SERUM 3.8 MEQ/L (3.5-5.1); SODIUM LEVEL 154 MEQ/L (136-145); TOTAL PROTEIN 4.9 GM/DL (6.4-8.2)
[2021-01-06] MEDS: THIAMINE INJection 500 MG in NS 100 ML IV SCH ×4 (00:13→21:16)
[2021-01-06] MEDS: D5W 1,000 ML IV SCH ×3 (01:42→11:26)
--- NOTE | 2021-01-06 01:57 | REPVR ---
PROCEDURE INFORMATION: Exam: XR Bilateral Hips Exam date and time: 01/06/2021 1:24 AM Age: 80 years old Clinical indication: Hip pain; Bilateral; Additional info: L hip pain TECHNIQUE: Imaging protocol: XR bilateral hips. Views: 2 views of hips with pelvis when performed. COMPARISON: CT ABD/PEL W/IV CONTRAST ONLY 01/05/2021 5:33 PM FINDINGS: Bones/joints: Unremarkable. No acute fracture. Soft tissues: Unremarkable. Organs: Contrast material opacifies urinary bladder. Thurston balloon catheter in place. IMPRESSION: No acute fractures. Electronically signed by: Herberth Truong On 01/06/2021 01:57:33 AM
--- NOTE | 2021-01-06 01:58 | REPVR ---
PROCEDURE INFORMATION: Exam: XR Left Knee Exam date and time: 01/06/2021 1:24 AM Age: 80 years old Clinical indication: Pain; Knee; Left; Additional info: L hip pain TECHNIQUE: Imaging protocol: XR Left knee. Views: 4 or more views. COMPARISON: No relevant prior studies available. FINDINGS: Bones/joints: Mild degenerative changes involving patellofemoral compartment. Soft tissues: Normal. IMPRESSION: No acute fractures. Electronically signed by: Herberth Truong On 01/06/2021 01:58:23 AM
--- NOTE | 2021-01-06 01:59 | REPVR ---
PROCEDURE INFORMATION: Exam: XR Left Femur Exam date and time: 01/06/2021 1:24 AM Age: 80 years old Clinical indication: Pain; Thigh; Left; Additional info: L hip pain TECHNIQUE: Imaging protocol: XR Left femur. Views: 2 views. COMPARISON: CR Knee, complete LEFT 01/06/2021 1:13 AM FINDINGS: Bones/joints: Unremarkable. No acute fracture. Soft tissues: Unremarkable. IMPRESSION: No acute findings. Electronically signed by: Herberth Truong On 01/06/2021 01:59:08 AM
[2021-01-06 02:00] VITALS: BP_SYST 110; BP_SYST 114; BP_SYST 116; BP_DIAS 65; BP_DIAS 68
[2021-01-06 06:00] VITALS: BP 103/57
[2021-01-06] MEDS: FOLIC ACID 1 MG TAB PO SCH (08:49)
[2021-01-06] MEDS ORDERED: MIDODRINE 5 MG TAB PO SCH (09:00)
[2021-01-06] MEDS ORDERED: CARVedilol 6.25 MG TAB PO SCH (09:00)
[2021-01-06] MEDS ORDERED: NS 0.45% 1,000 ML IV ONE (09:20)
[2021-01-06 11:11] LABS: BLOOD UREA NITROGEN 20 MG/DL (7-18); CALCIUM LEVEL 8.5 MG/DL (8.8-10.2); CARBON DIOXIDE LEVEL 20 MEQ/L (21-32); CHLORIDE LEVEL 118 MEQ/L (98-107); CREATININE FOR GFR 1.16 MG/DL (0.70-1.30); GLOMERULAR FILTRATION RATE > 60.0 (>42); GLUCOSE, FASTING 97 MG/DL (70-100); POTASSIUM SERUM 3.3 MEQ/L (3.5-5.1); SODIUM LEVEL 148 MEQ/L (136-145)
[2021-01-06] MEDS: APIXABAN 5 MG TAB (ELIQUIS) PO SCH ×2 (11:26→21:15)
[2021-01-06 11:43] VITALS: BP_SYST 127; BP_SYST 142; BP_SYST 148; BP_DIAS 82; BP_DIAS 86
[2021-01-06] MEDS ORDERED: POTASSIUM CHLORIDE 10MEQ SR TABLET PO ONE (12:00)
--- NOTE | 2021-01-06 12:22 | REP ---
INDICATION: L-5th metatarsal pain COMPARISON: None. TECHNIQUE: AP, lateral, bilateral oblique views left foot. FINDINGS: Generalized age-related degenerative changes along with mild hallux valgus deformity. No evidence for acute or healed fracture. No periosteal reaction. Surrounding soft tissues are unremarkable. Lateral view demonstrates small calcaneal heel spur. IMPRESSION: . No acute fracture or dislocation. <Electronically signed by Amadou Nieves > 01/06/21 [id number]
[2021-01-06 14:00] VITALS: BP 119/66
[2021-01-06 14:56] LABS: BLOOD UREA NITROGEN 22 MG/DL (7-18); CARBON DIOXIDE LEVEL 24 MEQ/L (21-32); CHLORIDE LEVEL 118 MEQ/L (98-107); CREATININE FOR GFR 1.07 MG/DL (0.70-1.30); GLOMERULAR FILTRATION RATE > 60.0 (>42); GLUCOSE, FASTING 105 MG/DL (70-100); SODIUM LEVEL 147 MEQ/L (136-145)
--- NOTE | 2021-01-06 18:34 | IPNPDOC ---
Text Note Date of Service The patient was seen on 01/06/21. NOTE Subjective: No acute events overnight, patient is unable to provide any history and while he is cooperative thinks he is at work. Does not recall syncopal event. His only complaint today is pain in his left 5th metatarsal. He otherwise denies any chest pain, pressure, abominal pain, nausea, vomiting. Objective: General: NAD, comfortable HEENT: PERRLA, EOMI, sclerae clear Neck: supple, normal ROM, no JVD Respiratory: lungs CTAB, no wheeze, no rales, no crackles CVS: RRR, normal S1, S2, no murmurs Abdo: soft, no masses, no hepatosplenomegaly, BS+, no rebound tenderness Extremities: no edema, pulses 2+ MSK: no joint deformities, normal ROM Neuro: no focal neuro deficits, moving all 4 extremities, CN2-12 intact. Strength 5/5 in all 4 extremities. No nystagmus. ROM in L leg limited due to reported pain in L mid thigh, L hip. Psych: calm, cooperative, AAO x 1. Oriented to person, , thought year was 192, thought he was actively at work, doesn't know month or president. IMAGING: CT head non contrast (01/05/21): IMPRESSION: 1. Rtff-vl-xnmwdehq diffuse cerebellar atrophy. 2. There is mild age related parenchymal volume loss. Mild white matter changes are demonstrated in the subcortical, centrum semiovale and periventricular white matter consistent with chronic age related small vessel ischemic changes. 3. The degree of ventricular dilatation is normal for age and/or degree of atrophy present. 4. No acute intracranial findings. CT C spine non contrast (12/26/20): 1. Hypoattenuating nodule in the right lobe of the thyroid gland measures 1.6 x 1.2 x 1.3 cm. No suspicious features. Follow-up not mandatory considering patient age according to ACR guidelines. 2. Degenerative spondylosis. No acute findings. CT head wo contrast (01/05/21): 1. There is wzuc-xa-tvrkxkea diffuse cerebellar atrophy. 2. There is mild age related parenchymal volume loss. Mild white matter changes are demonstrated in the subcortical, centrum semiovale and periventricular white matter consistent with chronic age related small vessel ischemic changes. 3. The degree of ventricular dilatation is normal for age and/or degree of atrophy present. 4. No acute intracranial findings. No significant interval change comparison to the prior study of 12/31/2020. CTA chest (01/05/21): 1. There is fusiform dilatation of the supravalvular ascending thoracic aorta which measures 4.1 cm. maximally. There is no dissection or saccular component. Thoracic aorta is also diffusely ectatic. 2. There are no pulmonary emboli. 3. No acute pulmonary parenchymal abnormalities. CT abdo pelvis w IV contrast (01/05/21): 1. There are gallstones present. There is minimal thickening of the gallbladder wall. No pericholecystic fluid demonstrated. Clinical correlation to exclude cholecystitis suggested. 2. There is gastric distention with retained secretions. Clinical correlation to exclude gastroparesis or gastric outlet obstruction suggested. 3. 1.5 cm left adrenal nodule may represent a lipid poor adenoma. Further evaluation with opposed phase MRI could be obtained if clinically desired however the finding has not changed in comparison to the prior study of 12/25/2020, and 12/20/2020. 4. There is a focal hypodense mass in the right adrenal gland measuring 1.3 x 2 cm., consistent in appearance and density with a benign adrenal adenoma. 5. Moderate prostatic hyperplasia. 6. Mild diverticulosis is present in the left colon. No diverticulitis. 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 Was DC home on 01/01/21. Returns after a syncopal episode at home. EKG showing new onset afib. UA suggestive of UTI. Plan: #. Syncope/fall - Head CT negative - EKG showing atrial fibrillation, normal rate. Suspect new onset. No prior documentation of afib or EKG evidence. -Echo from 12/20/20 showing LVEF 80%. No wall motion abnormalitites. Slight AV sclerosis. -orthostats negative, has hx of hypotension, on midodrine; holding midodrine. -PT and OT ordered. 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 -Start high dose IV thiamine and folate replacement. BG wnl. -Sitter ordered -Duplex carotid U/S ordered #. AMS/Metabolic encephalopathy likely 2/2 Wernickes -Was consulted by neurology on prior admission -Serum copper level wnl. -B12 wnl. Urine porphyrins were elevated to 90, but serum arsenic was negative -thyroid peroxidase Ab negative, thyroglobulin Ab negative. No evidence for Hashimotos. -noted to have low serum Vit B1 (42.5) and low serum folate 4.8 -EEG was performed and did not identify wave form abnormalities. -Will start patient on high dose IV thiamine (500 mg IV q8h x 3 days) and PO folate replacement. #. New-onset atrial fibrillation - Rate currently controlled without further medical intervention - Recent echo 12/20/20: LVEF 80%. No wall motion abnormalitites. Slight AV sclerosis. - Possible cause of syncope? - thyroid panel wnl, see below - given hx of hypotension will avoid start BB at this time. Takes midodrine, but is normotensive in ER. Will hold, unless develops hypotension. - continue to monitor on telemetry - while patient's medical history is not entirely clear, his age places him at 2 points on [id number] score. Need to speak with family in AM to discuss - will start on eliquis 5 mg BID (weight> 60 kg, age 80, Cr 1.12) #. UTI - has flores - LE+, Pyuria (unchanged from UA 12/26) - urine culture from 12/26/20 negative - follow up repeat cultures - start ceftriaxone #. Hx of hypotension - Was previously on midodrine, from prior admission, will hold for now - normotensive in ER - check orthostats #. L-leg pain - vague pain location, reports pain on flexion of hip at L mid thigh - obtain pelvis, femur and L knee XRs. #. acute hypernatremia - free water deficit 2.7L - Continue D5W at 75ml/hr - possible 2/2 midodrine? held - urine lytes WNL Urinary retention -Had flores placed on last admission -UA suggest of UTI, will f/u urine Cx. Ascending thoracic aneurysm -CT showing 4.1 fusiform dilatation -No dissection, no saccular component Bilateral adrenal nodules -Stable on imaging -Outpatient MR imaging, PCP f/u Failure to thrive/protein calorie malnutrition -Hx of 20lb weight loss -BMI 19 DVT ppx: started eliquis. Dispo: Pending clinical improvement. VS,Fishbone, I+O VS, Fishbone, I+O Laboratory Tests 01/05/21 23:25 01/06/21 10:31 01/06/21 14:05 Vital Signs Date Time Temp Pulse Resp B/P (MAP) Pulse Ox O2 Delivery O2 Flow Rate FiO2 01/06/21 14:00 95.8 88 18 119/66 (83) 94 Room Air I&O- Last 24 Hours up to 6 AM 01/06/21 06:00 Intake Total 1700 ml Output Total 600 ml Balance 1100 ml GME ATTESTATION GME ATTESTATION My faculty preceptor for this patient encounter was physically present during the encounter and was fully available. All aspects of the patient interview, examination, medical decision making process, and medical care plan development were reviewed and approved by the faculty preceptor. The faculty preceptor is aware and concurs with the plan as stated in the body of this note and will attest to such by his/her cosignature. ATTENDING NOTE I personally examined Mr. Mccallum, and thoroughly discussed his lab findings and imaging and management with the resident team, and I agree with the above findings, assessment and plan. DAGO MATHEW DO Jan 06, 2021 18:34 GILBERTO MEMBRENO MD Jan 07, 2021 09:53
[2021-01-06 18:37] LABS: BLOOD UREA NITROGEN 23 MG/DL (7-18); CALCIUM LEVEL 8.2 MG/DL (8.8-10.2); CARBON DIOXIDE LEVEL 23 MEQ/L (21-32); CHLORIDE LEVEL 118 MEQ/L (98-107); CREATININE FOR GFR 1.13 MG/DL (0.70-1.30); GLOMERULAR FILTRATION RATE > 60.0 (>42); GLUCOSE, FASTING 96 MG/DL (70-100); SODIUM LEVEL 147 MEQ/L (136-145)
[2021-01-06] MEDS ORDERED: RAMELTEON 8 MG TAB (ROZEREM) PO PRN (21:50)
[2021-01-06 22:00] VITALS: BP 115/72
[2021-01-06] MEDS: cefTRIAXone SOD 1 GM in D5W MINI-BAG PLUS 50 ML IV SCH (23:54)
[2021-01-07] MEDS: D5W 1,000 ML IV SCH (04:09)
[2021-01-07] MEDS: THIAMINE INJection 500 MG in NS 100 ML IV SCH ×2 (05:25→16:00)
[2021-01-07 06:00] VITALS: BP 104/63
[2021-01-07 06:43] LABS: HEMATOCRIT 24.4 % (42.0-52.0); HEMOGLOBIN 7.8 g/dl (13.5-17.5); MEAN CORPUSCULAR HEMOGLOBIN 32.6 pg (27.0-33.0); MEAN CORPUSCULAR VOLUME 102.1 fl (80.0-96.0); PLATELET COUNT, AUTOMATED 227 10^3/uL (150-450); RED BLOOD COUNT 2.39 10^6/uL (4.30-6.10); WHITE BLOOD COUNT 4.1 10^3/uL (4.0-10.0)
[2021-01-07 06:56] LABS: BLOOD UREA NITROGEN 19 MG/DL (7-18); CALCIUM LEVEL 8.1 MG/DL (8.8-10.2); CARBON DIOXIDE LEVEL 24 MEQ/L (21-32); CHLORIDE LEVEL 118 MEQ/L (98-107); CREATININE FOR GFR 1.08 MG/DL (0.70-1.30); GLOMERULAR FILTRATION RATE > 60.0 (>42); GLUCOSE, FASTING 90 MG/DL (70-100); SODIUM LEVEL 146 MEQ/L (136-145)
[2021-01-07] MEDS: FOLIC ACID 1 MG TAB PO SCH (10:07)
[2021-01-07] MEDS ORDERED: VITA100T89 PO (11:40)
[2021-01-07] MEDS ORDERED: ELIQ5TAB PO (11:40)
[2021-01-07] MEDS ORDERED: ASPI81CH33 PO (12:05)
[2021-01-07 13:40] VITALS: BP 93/47
[2021-01-07 13:55] VITALS: BP 118/67
[2021-01-07 14:40] VITALS: BP 117/68
[2021-01-07 15:40] VITALS: BP 113/67
[2021-01-07 16:40] VITALS: BP 120/66
--- NOTE | 2021-01-07 19:37 | DS.PDOC ---
Discharge Summary General Date of Admission Jan 05, 2021 at 21:08 Date of Discharge 01/07/21 Attending Physician: MARIA ELENA BUTLER MD Specialist/Consultants Involve: STALIN WEBB D.O. Discharge Summary PROCEDURES PERFORMED DURING STAY: None. ADMITTING/DISCHARGE DIAGNOSES: syncope Paroxysmal A. 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 He was discharged from [facility] on 01/01/21. He is brought to ER after family reports him having a syncopal episode. In the ER he was able to ambulate with assistance. EKG showing rate controlled afib, new onset. Patients initial CT head was negative for bleed or acute ischemic CVA. Given his hx of prior aortic aneurysm, CTA chest and abdo/pelvis was performed. No acute vascular pathology was seen. While there was concern for gastric outlet obstruction on CT, patient has not abdominal distension, and does not complain of abdominal pain, or n/v. I was informed by ER MD that patient had fallen off the bed in the ER, and will be taken for a repeat CT head and CT C spine. The patient is poorly oriented but alert. States that he lives at the hospital. Denies fall, despite an obviously witnessed fall in ER. Also noted to be hypernatremic to 154. Patient was admitted and started on D5 half-normal saline with improvement of his sodium to about 146. His work-up for syncope was complete and appeared to be from orthostatic hypotension which was corrected with volume repletion. Patient was also found to be in new onset atrial fibrillation with a Chadvasc score of 2 and was started on Eliquis, but did not require any rate control. Overnight the patient's hemoglobin dropped to 7.8 and he required a unit of blood. The Eliquis was stopped as a result. I spoke with his healthcare proxy, Michelle Mccallum about the initiation of Eliquis and the possible dangers of the medication including his risk for head bleed with falls and the possibility of a worsening GI bleed. We also discussed the possible risk of him having a stroke, however she decided that it would likely be best for now to have him off of Eliquis in light of his recent fall and the possibility of a GI bleed. We also discussed the in the future if he was more stable he may be able to restart Eliquis as an outpatient. In light of his suspected Wernicke's encephalopathy he also received 3 total days of IV high-dose thiamine. Following his blood transfusion there were no other medical problems to address and he was deemed stable for ARU. DISCHARGE MEDICATIONS: Please see below. ALLERGIES: Please see below. PHYSICAL EXAMINATION ON DISCHARGE: VITAL SIGNS: Please see below. LABORATORY DATA: Please see below. IMAGING: CT head non contrast (01/05/21): IMPRESSION: 1. Daek-sd-ebrllzlp diffuse cerebellar atrophy. 2. There is mild age related parenchymal volume loss. Mild white matter changes are demonstrated in the subcortical, centrum semiovale and periventricular white matter consistent with chronic age related small vessel ischemic changes. 3. The degree of ventricular dilatation is normal for age and/or degree of atrophy present. 4. No acute intracranial findings. CT C spine non contrast (12/26/20): 1. Hypoattenuating nodule in the right lobe of the thyroid gland measures 1.6 x 1.2 x 1.3 cm. No suspicious features. Follow-up not mandatory considering patient age according to ACR guidelines. 2. Degenerative spondylosis. No acute findings. CT head wo contrast (01/05/21): 1. There is cwro-pa-rpxzmnoq diffuse cerebellar atrophy. 2. There is mild age related parenchymal volume loss. Mild white matter changes are demonstrated in the subcortical, centrum semiovale and periventricular white matter consistent with chronic age related small vessel ischemic changes. 3. The degree of ventricular dilatation is normal for age and/or degree of atrophy present. 4. No acute intracranial findings. No significant interval change comparison to the prior study of 12/31/2020. CTA chest (01/05/21): 1. There is fusiform dilatation of the supravalvular ascending thoracic aorta which measures 4.1 cm. maximally. There is no dissection or saccular component. Thoracic aorta is also diffusely ectatic. 2. There are no pulmonary emboli. 3. No acute pulmonary parenchymal abnormalities. CT abdo pelvis w IV contrast (01/05/21): 1. There are gallstones present. There is minimal thickening of the gallbladder wall. No pericholecystic fluid demonstrated. Clinical correlation to exclude cholecystitis suggested. 2. There is gastric distention with retained secretions. Clinical correlation to exclude gastroparesis or gastric outlet obstruction suggested. 3. 1.5 cm left adrenal nodule may represent a lipid poor adenoma. Further evaluation with opposed phase MRI could be obtained if clinically desired however the finding has not changed in comparison to the prior study of 12/25/2020, and 12/20/2020. 4. There is a focal hypodense mass in the right adrenal gland measuring 1.3 x 2 cm., consistent in appearance and density with a benign adrenal adenoma. 5. Moderate prostatic hyperplasia. 6. Mild diverticulosis is present in the left colon. No diverticulitis. ACTIVITY: Per PT DIET: As tolerated DISCHARGE PLAN: ARU DISCHARGE INSTRUCTIONS: 1. Please follow-up with PCP within 7 days. Please call to confirm/schedule appointment. Please comply with treatment plan and medications and return to the ER if you experience any problems. DISCHARGE CONDITION: TIME SPENT ON DISCHARGE: 33 minutes. Vital Signs/I&Os Vital Signs Date Time Temp Pulse Resp B/P (MAP) Pulse Ox O2 Delivery O2 Flow Rate FiO2 01/07/21 16:40 98.3 70 17 120/66 Room Air 01/07/21 15:40 96 I&O- Last 24 Hours up to 6 AM 01/07/21 06:00 Intake Total 3815 ml Output Total 2700 ml Balance 1115 ml Laboratory Data Labs 24H Laboratory Tests 2 01/07/21 00:21: Bedside Glucose (Misc Panel) 99 01/07/21 05:46: Nucleated Red Blood Cells % (auto) 0.0, Anion Gap 4L, Glomerular Filtration Rate > 60.0, Calcium Level 8.1L 01/07/21 06:53: Bedside Glucose (Misc Panel) 160H 01/07/21 11:46: Bedside Glucose (Misc Panel) 126H 01/07/21 16:30: Bedside Glucose (Misc Panel) 109 CBC/BMP Laboratory Tests 01/07/21 05:46 FSBS Laboratory Tests Test 01/07/21 00:21 01/07/21 06:53 01/07/21 11:46 01/07/21 16:30 Range/Units Bedside Glucose (Misc Panel) 99 160 126 109 83-110 MG/DL Microbiology Microbiology 01/05/21 Blood Culture - Preliminary, Resulted No Growth after 48 hours. All Specime... 01/05/21 Urine Culture - Final, Complete Yeast Like Organism 01/05/21 Blood Culture - Preliminary, Resulted No Growth after 48 hours. All Specime... Discharge Medications Scheduled Aspirin (Aspirin) 81 Mg Tab.chew, 1 TAB PO DAILY for pain Iron Ag,Ps/C/Fa6/B12/Zn/SA/Sto (Niferex Tablet) 1 Each Tablet, 1 TAB PO BID, (Reported) Thiamine Mononitrate (Vit B1) (Vitamin B-1) 100 Mg Tablet, 1 TAB PO DAILY Scheduled PRN Bisacodyl (Bisacodyl) 5 Mg Tablet.dr, 10 MG PO DAILY PRN for CONSTIPATION, (Rep orted) Allergies Coded Allergies: No Known Allergies (Unverified , 12/19/14) GME ATTESTATION GME ATTESTATION My faculty preceptor for this patient encounter was physically present during the encounter and was fully available. All aspects of the patient interview, examination, medical decision making process, and medical care plan development were reviewed and approved by the faculty preceptor. The faculty preceptor is aw are and concurs with the plan as stated in the body of this note and will attest to such by his/her cosignature. ATTENDING NOTE I, Maria Elena Butler, have independently examined this patient and performed my own physical exam, as well as reviewed the documentation and edited where necessary with the resident. For medical students we have performed the physical exam tog ether and discussed medical decision making and I have verified the history. I have discussed in detail with the resident / student the findings and plan of treatment as documented by the resident / student and edited their note. I agree with their findings and treatment plan and have edited their documentation. I will continue to follow the patient during this hospital stay. Time spent on discharge 20 minutes DAGO MATHEW DO Jan 07, 2021 19:37 MARIA ELENA BUTLER MD Jan 08, 2021 18:32
== END 2021-01-07 17:30 ==
LOC: EDBD 16:21 → M ED 16:21 → M ED INP 21:08 → ENRESERV 21:45 → M MSPAV 22:38
PROVIDERS: ADMIT Family Medicine; ATTEND Internal Medicine
DX: R55 Syncope and collapse (principal); R41.82 Altered mental status, unspecified; E87.0 Hyperosmolality and hypernatremia; I48.0 Paroxysmal atrial fibrillation; E51.2 Wernicke's encephalopathy; R62.7 Adult failure to thrive; R33.9 Retention of urine, unspecified; E46 Unspecified protein-calorie malnutrition
CPT/HCPCS: 36415; 70450; 71275; 72125; 73521; 73552; 73564; 73630; 74177; 80048; 80053; 80076; 81001; 82550; 82553; 82570; 83690; 83735; 83935; 84300; 84443; 84484; 85025; 85027; 86850; 86900; 86901; 86920; 87040; 87088; 87631; 93005; 93041; 94760; 97112; 97116; 97161; 97165; 97530; 97535; 99285; G0378; J0696; J3411; P9016; Q9967

== ENCOUNTER 2021-01-07 11:23 | Inpatient (IN) | payer MEDICARE, BC, OTHER ==
[~2021-01-07] VITALS: Ht 180.3 cm; Wt 76.0 kg
[~2021-01-07 11:23] MED LIST changes: +BISA5TAB73 PO
[2021-01-07] MEDS ORDERED: VITA100T89 PO (11:40)
[2021-01-07] MEDS ORDERED: ELIQ5TAB PO (11:40)
[2021-01-07] MEDS ORDERED: ASPI81CH33 PO (12:05)
[2021-01-07] MEDS ORDERED: SIMETHICONE 80MG CHEW TAB PO PRN (15:30)
[2021-01-07] MEDS ORDERED: MAALOX 30 ML SUSP *UDC PO PRN (15:30)
[2021-01-07] MEDS: SUCRALFATE 1 GM TAB PO SCH ×2 (17:30→20:31)
[2021-01-07 17:33] VITALS: BP 116/68
[2021-01-07] MEDS ORDERED: HOME MED LIST COMPLETE! XX SCH (18:05)
[2021-01-07 20:00] VITALS: BP 113/71
[2021-01-07] MEDS: SENNA 8.6 MG TAB (SENOKOT) PO SCH (20:30)
[2021-01-07] MEDS: GABAPENTIN 100 MG CAP PO SCH (20:30)
[2021-01-07] MEDS: DOCUSATE SODIUM 100MG CAPSULE PO SCH (20:30)
[2021-01-07] MEDS: QUEtiapine FUMARATE 12.5 MG HALF-TAB PO PRN (20:30)
[2021-01-07] MEDS: REMEDY PHYTOPLEX Z-GUARD PASTE 113GM TUBE (FROM STOREROOM PRODUCT) TOP SCH (20:31)
[2021-01-07] MEDS: PANTOPRAZOLE 40MG TAB (PROTONIX) PO SCH (20:31)
[2021-01-08 06:00] VITALS: BP 109/72
[2021-01-08] MEDS: DOCUSATE SODIUM 100MG CAPSULE PO SCH ×2 (09:35→20:59)
[2021-01-08] MEDS: ASPIRIN 81MG ENTERIC TABLET PO SCH (09:35)
[2021-01-08] MEDS: SUCRALFATE 1 GM TAB PO SCH ×4 (09:35→20:59)
[2021-01-08] MEDS: NEPHRO-VIT TAB (NEPHROCAPS) PO SCH (09:36)
[2021-01-08] MEDS: PANTOPRAZOLE 40MG TAB (PROTONIX) PO SCH ×2 (09:36→20:59)
[2021-01-08] MEDS: THIAMINE 200MG 2ML VIAL IM SCH (09:36)
[2021-01-08] MEDS: GABAPENTIN 100 MG CAP PO SCH ×3 (09:36→20:59)
[2021-01-08] MEDS: REMEDY PHYTOPLEX Z-GUARD PASTE 113GM TUBE (FROM STOREROOM PRODUCT) TOP SCH ×3 (09:46→21:09)
[2021-01-08 10:37] LABS: BASO # 0.1 10^3/uL (0.0-0.2); BASO % 1.1 % (0.0-1.0); EOS # 0.2 10^3/uL (0.0-0.5); HEMATOCRIT 32.8 % (42.0-52.0); LYMPH # 1.2 10^3/uL (1.5-5.0); MEAN CORPUSCULAR HEMOGLOBIN 32.4 pg (27.0-33.0); MEAN CORPUSCULAR VOLUME 101.2 fl (80.0-96.0); MONO # 0.4 10^3/uL (0.0-0.8); MONO % 9.3 % (2.0-8.0); NEUTROPHILS # 2.7 10^3/uL (1.5-8.5); NEUTROPHILS % 57.9 % (36.0-66.0); PLATELET COUNT, AUTOMATED 279 10^3/uL (150-450); RED BLOOD COUNT 3.24 10^6/uL (4.30-6.10); WHITE BLOOD COUNT 4.7 10^3/uL (4.0-10.0)
[2021-01-08 10:38] LABS: HEMOGLOBIN 10.5 g/dl (13.5-17.5)
[2021-01-08 11:07] LABS: ALBUMIN 2.5 GM/DL (3.2-5.2); ALT/SGPT 21 U/L (12-78); BILIRUBIN,TOTAL 0.5 MG/DL (0.2-1.0); BLOOD UREA NITROGEN 19 MG/DL (7-18); CALCIUM LEVEL 9.1 MG/DL (8.8-10.2); CARBON DIOXIDE LEVEL 24 MEQ/L (21-32); CHLORIDE LEVEL 114 MEQ/L (98-107); CREATININE FOR GFR 1.14 MG/DL (0.70-1.30); GLOMERULAR FILTRATION RATE > 60.0 (>42); GLUCOSE, FASTING 112 MG/DL (70-100); POTASSIUM SERUM 3.8 MEQ/L (3.5-5.1); SODIUM LEVEL 145 MEQ/L (136-145); TOTAL PROTEIN 6.1 GM/DL (6.4-8.2)
[2021-01-08 14:00] VITALS: BP 117/68
[2021-01-08 16:08] LABS: URIC ACID 5.5 MG/DL (3.5-7.2)
[2021-01-08] MEDS: DICLOFENAC EPOLAMINE 1.3 % PATCH TOP SCH (17:54)
[2021-01-08 20:00] VITALS: BP 131/76
[2021-01-08] MEDS: SENNA 8.6 MG TAB (SENOKOT) PO SCH (20:59)
[2021-01-08] MEDS: predniSONE 5 MG TAB PO SCH (20:59)
[2021-01-09 06:00] VITALS: BP 120/53
[2021-01-09] MEDS: DICLOFENAC EPOLAMINE 1.3 % PATCH TOP SCH ×2 (06:18→17:58)
[2021-01-09] MEDS: NEPHRO-VIT TAB (NEPHROCAPS) PO SCH (09:27)
[2021-01-09] MEDS: predniSONE 5 MG TAB PO SCH ×2 (09:27→21:28)
[2021-01-09] MEDS: ASPIRIN 81MG ENTERIC TABLET PO SCH (09:27)
[2021-01-09] MEDS: SUCRALFATE 1 GM TAB PO SCH ×4 (09:27→21:27)
[2021-01-09] MEDS: PANTOPRAZOLE 40MG TAB (PROTONIX) PO SCH ×2 (09:27→21:27)
[2021-01-09] MEDS: GABAPENTIN 100 MG CAP PO SCH ×3 (09:27→21:27)
[2021-01-09] MEDS: DOCUSATE SODIUM 100MG CAPSULE PO SCH ×2 (09:27→21:27)
[2021-01-09] MEDS: THIAMINE 200MG 2ML VIAL IM SCH (09:28)
[2021-01-09] MEDS: REMEDY PHYTOPLEX Z-GUARD PASTE 113GM TUBE (FROM STOREROOM PRODUCT) TOP SCH ×3 (09:28→21:28)
[2021-01-09 14:00] VITALS: BP 145/88
[2021-01-09 15:10] VITALS: BP 122/79
[2021-01-09] MEDS: FLUCONAZOLE 100 MG TAB PO SCH (17:14)
[2021-01-09 20:00] VITALS: BP 143/71
[2021-01-09] MEDS: RAMELTEON 8 MG TAB (ROZEREM) PO PRN (21:27)
[2021-01-09] MEDS: SENNA 8.6 MG TAB (SENOKOT) PO SCH (21:28)
[2021-01-10 06:00] VITALS: BP 112/58
[2021-01-10] MEDS: DICLOFENAC EPOLAMINE 1.3 % PATCH TOP SCH ×2 (06:26→17:56)
[2021-01-10 07:03] LABS: BASO % 0.2 % (0.0-1.0); EOS % 0.2 % (0.0-3.0); HEMATOCRIT 29.9 % (42.0-52.0); HEMOGLOBIN 9.7 g/dl (13.5-17.5); LYMPH % 19.6 % (24.0-44.0); MEAN CORPUSCULAR HEMOGLOBIN 32.6 pg (27.0-33.0); MEAN CORPUSCULAR HGB CONC 32.4 g/dl (32.0-36.5); MEAN CORPUSCULAR VOLUME 100.3 fl (80.0-96.0); MONO # 0.4 10^3/uL (0.0-0.8); MONO % 8.6 % (2.0-8.0); NEUTROPHILS # 3.4 10^3/uL (1.5-8.5); PLATELET COUNT, AUTOMATED 228 10^3/uL (150-450); RED BLOOD COUNT 2.98 10^6/uL (4.30-6.10); WHITE BLOOD COUNT 4.9 10^3/uL (4.0-10.0)
[2021-01-10 07:30] LABS: BLOOD UREA NITROGEN 27 MG/DL (7-18); CALCIUM LEVEL 8.7 MG/DL (8.8-10.2); CARBON DIOXIDE LEVEL 26 MEQ/L (21-32); CHLORIDE LEVEL 116 MEQ/L (98-107); CREATININE FOR GFR 1.03 MG/DL (0.70-1.30); GLOMERULAR FILTRATION RATE > 60.0 (>42); GLUCOSE, FASTING 123 MG/DL (70-100); SODIUM LEVEL 147 MEQ/L (136-145)
[2021-01-10] MEDS: SUCRALFATE 1 GM TAB PO SCH ×4 (07:30→20:24)
[2021-01-10 07:31] LABS: POTASSIUM SERUM 4.6 MEQ/L (3.5-5.1)
[2021-01-10] MEDS: PYRIDOSTIGMINE 60MG TABLET PO SCH ×3 (09:00→20:24)
[2021-01-10] MEDS: DOCUSATE SODIUM 100MG CAPSULE PO SCH ×2 (09:57→20:23)
[2021-01-10] MEDS: ASPIRIN 81MG ENTERIC TABLET PO SCH (09:57)
[2021-01-10] MEDS: NEPHRO-VIT TAB (NEPHROCAPS) PO SCH (09:58)
[2021-01-10] MEDS: predniSONE 5 MG TAB PO SCH ×2 (09:58→20:23)
[2021-01-10] MEDS: GABAPENTIN 100 MG CAP PO SCH ×3 (09:58→20:23)
[2021-01-10] MEDS: PANTOPRAZOLE 40MG TAB (PROTONIX) PO SCH ×2 (09:58→20:23)
[2021-01-10] MEDS: FLUCONAZOLE 100 MG TAB PO SCH (09:58)
[2021-01-10] MEDS: THIAMINE 200MG 2ML VIAL IM SCH (09:59)
[2021-01-10] MEDS: REMEDY PHYTOPLEX Z-GUARD PASTE 113GM TUBE (FROM STOREROOM PRODUCT) TOP SCH ×3 (10:00→20:27)
[2021-01-10 16:16] VITALS: BP 119/74
[2021-01-10 20:00] VITALS: BP 107/66
[2021-01-10] MEDS: SENNA 8.6 MG TAB (SENOKOT) PO SCH (20:23)
[2021-01-10] MEDS: RAMELTEON 8 MG TAB (ROZEREM) PO PRN (20:23)
[2021-01-11] MEDS: DICLOFENAC EPOLAMINE 1.3 % PATCH TOP SCH ×2 (05:51→17:00)
[2021-01-11 06:00] VITALS: BP 108/64
[2021-01-11] MEDS: ASPIRIN 81MG ENTERIC TABLET PO SCH (08:07)
[2021-01-11] MEDS: SUCRALFATE 1 GM TAB PO SCH ×4 (08:07→21:08)
[2021-01-11] MEDS: GABAPENTIN 100 MG CAP PO SCH ×3 (08:07→21:08)
[2021-01-11] MEDS: PYRIDOSTIGMINE 60MG TABLET PO SCH ×3 (08:07→21:08)
[2021-01-11] MEDS: predniSONE 5 MG TAB PO SCH ×2 (08:07→21:08)
[2021-01-11] MEDS: DOCUSATE SODIUM 100MG CAPSULE PO SCH ×2 (08:07→21:08)
[2021-01-11] MEDS: THIAMINE 200MG 2ML VIAL IM SCH (08:08)
[2021-01-11] MEDS: NEPHRO-VIT TAB (NEPHROCAPS) PO SCH (08:08)
[2021-01-11] MEDS: FLUCONAZOLE 100 MG TAB PO SCH (08:08)
[2021-01-11] MEDS: PANTOPRAZOLE 40MG TAB (PROTONIX) PO SCH ×2 (08:08→21:07)
[2021-01-11] MEDS: REMEDY PHYTOPLEX Z-GUARD PASTE 113GM TUBE (FROM STOREROOM PRODUCT) TOP SCH ×3 (08:08→21:08)
[2021-01-11 14:00] VITALS: BP 127/73
[2021-01-11 20:00] VITALS: BP 107/63
[2021-01-11] MEDS: SENNA 8.6 MG TAB (SENOKOT) PO SCH (21:07)
[2021-01-11] MEDS: RAMELTEON 8 MG TAB (ROZEREM) PO PRN (21:08)
[2021-01-11] MEDS: TAMSULOSIN 0.4 MG CAP PO SCH (21:08)
[2021-01-12] MEDS: QUEtiapine FUMARATE 12.5 MG HALF-TAB PO PRN (00:07)
[2021-01-12 06:00] VITALS: BP 107/61
[2021-01-12] MEDS: DICLOFENAC EPOLAMINE 1.3 % PATCH TOP SCH ×2 (06:07→17:13)
[2021-01-12] MEDS: SUCRALFATE 1 GM TAB PO SCH ×4 (08:44→20:04)
[2021-01-12] MEDS: PANTOPRAZOLE 40MG TAB (PROTONIX) PO SCH ×2 (08:44→20:04)
[2021-01-12] MEDS: THIAMINE 200MG 2ML VIAL IM SCH (08:44)
[2021-01-12] MEDS: predniSONE 5 MG TAB PO SCH ×2 (08:44→20:04)
[2021-01-12] MEDS: NEPHRO-VIT TAB (NEPHROCAPS) PO SCH (08:44)
[2021-01-12] MEDS: ASPIRIN 81MG ENTERIC TABLET PO SCH (08:44)
[2021-01-12] MEDS: GABAPENTIN 100 MG CAP PO SCH ×3 (08:44→20:04)
[2021-01-12] MEDS: FLUCONAZOLE 100 MG TAB PO SCH (08:44)
[2021-01-12] MEDS: DOCUSATE SODIUM 100MG CAPSULE PO SCH ×2 (08:45→20:05)
[2021-01-12] MEDS: PYRIDOSTIGMINE 60MG TABLET PO SCH ×3 (08:45→20:04)
[2021-01-12] MEDS: REMEDY PHYTOPLEX Z-GUARD PASTE 113GM TUBE (FROM STOREROOM PRODUCT) TOP SCH ×3 (08:57→20:05)
[2021-01-12 14:00] VITALS: BP 110/63
[2021-01-12 20:00] VITALS: BP 97/58
[2021-01-12] MEDS: TAMSULOSIN 0.4 MG CAP PO SCH (20:04)
[2021-01-12] MEDS: RAMELTEON 8 MG TAB (ROZEREM) PO PRN (20:04)
[2021-01-12] MEDS: SENNA 8.6 MG TAB (SENOKOT) PO SCH (20:05)
[2021-01-13] MEDS: DICLOFENAC EPOLAMINE 1.3 % PATCH TOP SCH ×2 (05:07→17:49)
[2021-01-13 06:00] VITALS: BP 114/70
[2021-01-13] MEDS: ASPIRIN 81MG ENTERIC TABLET PO SCH (08:04)
[2021-01-13] MEDS: NEPHRO-VIT TAB (NEPHROCAPS) PO SCH (08:04)
[2021-01-13] MEDS: GABAPENTIN 100 MG CAP PO SCH ×3 (08:04→20:49)
[2021-01-13] MEDS: PANTOPRAZOLE 40MG TAB (PROTONIX) PO SCH ×2 (08:04→20:48)
[2021-01-13] MEDS: FLUCONAZOLE 100 MG TAB PO SCH (08:04)
[2021-01-13] MEDS: SUCRALFATE 1 GM TAB PO SCH ×4 (08:04→20:48)
[2021-01-13] MEDS: predniSONE 5 MG TAB PO SCH ×2 (08:04→20:49)
[2021-01-13] MEDS: THIAMINE 200MG 2ML VIAL IM SCH (08:05)
[2021-01-13] MEDS: REMEDY PHYTOPLEX Z-GUARD PASTE 113GM TUBE (FROM STOREROOM PRODUCT) TOP SCH ×3 (08:06→20:49)
[2021-01-13] MEDS: PYRIDOSTIGMINE 60MG TABLET PO SCH ×3 (08:07→20:48)
[2021-01-13] MEDS: DOCUSATE SODIUM 100MG CAPSULE PO SCH ×2 (08:07→20:48)
[2021-01-13 11:25] VITALS: BP 142/71
[2021-01-13 13:27] LABS: BASO # 0.1 10^3/uL (0.0-0.2); BASO % 0.8 % (0.0-1.0); EOS # 0.1 10^3/uL (0.0-0.5); EOS % 1.2 % (0.0-3.0); HEMATOCRIT 31.5 % (42.0-52.0); HEMOGLOBIN 10.2 g/dl (13.5-17.5); LYMPH % 13.9 % (24.0-44.0); MEAN CORPUSCULAR HGB CONC 32.4 g/dl (32.0-36.5); MEAN CORPUSCULAR VOLUME 101.9 fl (80.0-96.0); MONO # 0.7 10^3/uL (0.0-0.8); MONO % 9.2 % (2.0-8.0); NEUTROPHILS # 5.2 10^3/uL (1.5-8.5); NEUTROPHILS % 71.2 % (36.0-66.0); PLATELET COUNT, AUTOMATED 232 10^3/uL (150-450); RED BLOOD COUNT 3.09 10^6/uL (4.30-6.10); WHITE BLOOD COUNT 7.3 10^3/uL (4.0-10.0)
[2021-01-13 13:52] LABS: CALCIUM LEVEL 8.7 MG/DL (8.8-10.2); CREATININE FOR GFR 1.25 MG/DL (0.70-1.30); GLOMERULAR FILTRATION RATE 59.5 (>42); POTASSIUM SERUM 4.2 MEQ/L (3.5-5.1)
[2021-01-13 14:00] VITALS: BP 104/59
[2021-01-13] MEDS: QUEtiapine FUMARATE 12.5 MG HALF-TAB PO PRN (15:51)
[2021-01-13 20:00] VITALS: BP 127/71
[2021-01-13] MEDS: RAMELTEON 8 MG TAB (ROZEREM) PO PRN (20:46)
[2021-01-13] MEDS: TAMSULOSIN 0.4 MG CAP PO SCH (20:48)
[2021-01-13] MEDS: SENNA 8.6 MG TAB (SENOKOT) PO SCH (20:49)
[2021-01-14 06:00] VITALS: BP 112/59
[2021-01-14] MEDS: DICLOFENAC EPOLAMINE 1.3 % PATCH TOP SCH ×2 (06:05→17:18)
[2021-01-14] MEDS: predniSONE 5 MG TAB PO SCH (07:47)
[2021-01-14] MEDS: SUCRALFATE 1 GM TAB PO SCH ×4 (07:47→20:39)
[2021-01-14] MEDS: DOCUSATE SODIUM 100MG CAPSULE PO SCH ×2 (07:47→20:39)
[2021-01-14] MEDS: FLUCONAZOLE 100 MG TAB PO SCH (07:48)
[2021-01-14] MEDS: ASPIRIN 81MG ENTERIC TABLET PO SCH (07:48)
[2021-01-14] MEDS: GABAPENTIN 100 MG CAP PO SCH (07:48)
[2021-01-14] MEDS: NEPHRO-VIT TAB (NEPHROCAPS) PO SCH (07:48)
[2021-01-14] MEDS: PANTOPRAZOLE 40MG TAB (PROTONIX) PO SCH ×2 (07:49→20:39)
[2021-01-14] MEDS: QUEtiapine FUMARATE 12.5 MG HALF-TAB PO PRN ×2 (07:49→23:02)
[2021-01-14] MEDS: PYRIDOSTIGMINE 60MG TABLET PO SCH ×3 (07:50→20:40)
[2021-01-14] MEDS: THIAMINE 200MG 2ML VIAL IM SCH (07:50)
[2021-01-14 08:25] VITALS: BP 124/62
[2021-01-14 08:30] VITALS: BP 118/56
[2021-01-14 08:35] VITALS: BP 104/63
[2021-01-14] MEDS: REMEDY PHYTOPLEX Z-GUARD PASTE 113GM TUBE (FROM STOREROOM PRODUCT) TOP SCH ×3 (09:00→21:00)
[2021-01-14] MEDS ORDERED: PILL CUTTER 1 EACH XX PRN (10:45)
[2021-01-14 14:00] VITALS: BP 99/58
[2021-01-14] MEDS: SENNA 8.6 MG TAB (SENOKOT) PO SCH (20:39)
[2021-01-14] MEDS: RAMELTEON 8 MG TAB (ROZEREM) PO PRN (20:39)
[2021-01-14 21:00] VITALS: BP 121/66
[2021-01-14] MEDS ORDERED: predniSONE 5 MG TAB PO SCH (21:00)
[2021-01-15] MEDS: DICLOFENAC EPOLAMINE 1.3 % PATCH TOP SCH ×2 (05:27→17:07)
[2021-01-15 06:00] VITALS: BP 126/69
[2021-01-15 08:14] LABS: BASO # 0.1 10^3/uL (0.0-0.2); BASO % 0.8 % (0.0-1.0); EOS # 0.3 10^3/uL (0.0-0.5); EOS % 4.8 % (0.0-3.0); HEMATOCRIT 32.2 % (42.0-52.0); HEMOGLOBIN 10.3 g/dl (13.5-17.5); LYMPH # 1.4 10^3/uL (1.5-5.0); MEAN CORPUSCULAR HEMOGLOBIN 32.7 pg (27.0-33.0); MEAN CORPUSCULAR VOLUME 102.2 fl (80.0-96.0); MONO # 0.7 10^3/uL (0.0-0.8); MONO % 10.9 % (2.0-8.0); NEUTROPHILS # 3.8 10^3/uL (1.5-8.5); NEUTROPHILS % 57.9 % (36.0-66.0); PLATELET COUNT, AUTOMATED 210 10^3/uL (150-450); RED BLOOD COUNT 3.15 10^6/uL (4.30-6.10); WHITE BLOOD COUNT 6.5 10^3/uL (4.0-10.0)
[2021-01-15] MEDS: SUCRALFATE 1 GM TAB PO SCH ×4 (08:28→20:24)
[2021-01-15] MEDS: NEPHRO-VIT TAB (NEPHROCAPS) PO SCH (08:28)
[2021-01-15] MEDS: ASPIRIN 81MG ENTERIC TABLET PO SCH (08:28)
[2021-01-15] MEDS: predniSONE 5 MG TAB PO SCH (08:28)
[2021-01-15] MEDS: PANTOPRAZOLE 40MG TAB (PROTONIX) PO SCH ×2 (08:28→20:24)
[2021-01-15] MEDS: DOCUSATE SODIUM 100MG CAPSULE PO SCH ×2 (08:28→20:25)
[2021-01-15] MEDS: THIAMINE 200MG 2ML VIAL IM SCH (08:29)
[2021-01-15] MEDS: PYRIDOSTIGMINE 60MG TABLET PO SCH ×3 (08:29→20:25)
[2021-01-15] MEDS: FLUCONAZOLE 100 MG TAB PO SCH (08:30)
[2021-01-15] MEDS: REMEDY PHYTOPLEX Z-GUARD PASTE 113GM TUBE (FROM STOREROOM PRODUCT) TOP SCH ×3 (08:30→20:26)
[2021-01-15 08:39] LABS: BLOOD UREA NITROGEN 22 MG/DL (7-18); CALCIUM LEVEL 9.1 MG/DL (8.8-10.2); CARBON DIOXIDE LEVEL 26 MEQ/L (21-32); CHLORIDE LEVEL 112 MEQ/L (98-107); CREATININE FOR GFR 1.11 MG/DL (0.70-1.30); GLOMERULAR FILTRATION RATE > 60.0 (>42); GLUCOSE, FASTING 110 MG/DL (70-100); POTASSIUM SERUM 4.1 MEQ/L (3.5-5.1); SODIUM LEVEL 147 MEQ/L (136-145)
[2021-01-15 14:00] VITALS: BP 110/60
[2021-01-15 20:00] VITALS: BP 112/63
[2021-01-15] MEDS: SENNA 8.6 MG TAB (SENOKOT) PO SCH (20:25)
[2021-01-15] MEDS: QUEtiapine FUMARATE 12.5 MG HALF-TAB PO PRN (20:25)
[2021-01-16] MEDS: DICLOFENAC EPOLAMINE 1.3 % PATCH TOP SCH ×2 (05:52→18:00)
[2021-01-16 06:00] VITALS: BP 120/65
[2021-01-16] MEDS: SUCRALFATE 1 GM TAB PO SCH ×4 (07:30→20:50)
[2021-01-16] MEDS: DOCUSATE SODIUM 100MG CAPSULE PO SCH ×2 (09:04→20:50)
[2021-01-16] MEDS: THIAMINE 200MG 2ML VIAL IM SCH (09:04)
[2021-01-16] MEDS: ASPIRIN 81MG ENTERIC TABLET PO SCH (09:04)
[2021-01-16] MEDS: NEPHRO-VIT TAB (NEPHROCAPS) PO SCH (09:04)
[2021-01-16] MEDS: PANTOPRAZOLE 40MG TAB (PROTONIX) PO SCH ×2 (09:04→20:50)
[2021-01-16] MEDS: predniSONE 5 MG TAB PO SCH (09:04)
[2021-01-16] MEDS: PYRIDOSTIGMINE 60MG TABLET PO SCH ×3 (09:08→20:50)
[2021-01-16] MEDS: REMEDY PHYTOPLEX Z-GUARD PASTE 113GM TUBE (FROM STOREROOM PRODUCT) TOP SCH ×3 (09:08→20:51)
[2021-01-16] MEDS: QUEtiapine FUMARATE 12.5 MG HALF-TAB PO PRN (15:20)
[2021-01-16 20:00] VITALS: BP 129/77
[2021-01-16] MEDS: RAMELTEON 8 MG TAB (ROZEREM) PO PRN (20:50)
[2021-01-16] MEDS: SENNA 8.6 MG TAB (SENOKOT) PO SCH (20:52)
[2021-01-17] MEDS: DICLOFENAC EPOLAMINE 1.3 % PATCH TOP SCH ×2 (05:22→07:45)
[2021-01-17 06:00] VITALS: BP 108/60
[2021-01-17] MEDS: SUCRALFATE 1 GM TAB PO SCH ×4 (07:42→20:09)
[2021-01-17] MEDS: NEPHRO-VIT TAB (NEPHROCAPS) PO SCH (07:42)
[2021-01-17] MEDS: ASPIRIN 81MG ENTERIC TABLET PO SCH (07:43)
[2021-01-17] MEDS: DOCUSATE SODIUM 100MG CAPSULE PO SCH ×2 (07:43→20:10)
[2021-01-17] MEDS: PANTOPRAZOLE 40MG TAB (PROTONIX) PO SCH ×2 (07:43→20:09)
[2021-01-17] MEDS: predniSONE 5 MG TAB PO SCH (07:43)
[2021-01-17] MEDS: PYRIDOSTIGMINE 60MG TABLET PO SCH ×3 (07:43→20:10)
[2021-01-17] MEDS: THIAMINE 200MG 2ML VIAL IM SCH (07:44)
[2021-01-17] MEDS: REMEDY PHYTOPLEX Z-GUARD PASTE 113GM TUBE (FROM STOREROOM PRODUCT) TOP SCH ×3 (07:44→20:10)
[2021-01-17 14:00] VITALS: BP 119/61
[2021-01-17 20:00] VITALS: BP 135/73
[2021-01-17] MEDS: COMBIVENT RESPIMAT 100-20MCG INHALER 4GM INH SCH (20:00)
[2021-01-17] MEDS: RAMELTEON 8 MG TAB (ROZEREM) PO PRN (20:09)
[2021-01-17] MEDS: SENNA 8.6 MG TAB (SENOKOT) PO SCH (20:10)
[2021-01-18] MEDS: DICLOFENAC EPOLAMINE 1.3 % PATCH TOP SCH ×2 (05:41→16:57)
[2021-01-18 06:00] VITALS: BP 112/58
[2021-01-18 06:54] LABS: HEMATOCRIT 30.3 % (42.0-52.0); HEMOGLOBIN 9.6 g/dl (13.5-17.5); MEAN CORPUSCULAR HEMOGLOBIN 32.9 pg (27.0-33.0); MEAN CORPUSCULAR HGB CONC 31.7 g/dl (32.0-36.5); MEAN CORPUSCULAR VOLUME 103.8 fl (80.0-96.0); PLATELET COUNT, AUTOMATED 193 10^3/uL (150-450); RED BLOOD COUNT 2.92 10^6/uL (4.30-6.10); WHITE BLOOD COUNT 6.3 10^3/uL (4.0-10.0)
[2021-01-18] MEDS: COMBIVENT RESPIMAT 100-20MCG INHALER 4GM INH SCH ×3 (07:20→20:00)
[2021-01-18] MEDS: PANTOPRAZOLE 40MG TAB (PROTONIX) PO SCH ×2 (08:39→21:33)
[2021-01-18] MEDS: PYRIDOSTIGMINE 60MG TABLET PO SCH ×3 (08:39→21:32)
[2021-01-18] MEDS: SUCRALFATE 1 GM TAB PO SCH ×4 (08:39→21:33)
[2021-01-18] MEDS: NEPHRO-VIT TAB (NEPHROCAPS) PO SCH (08:39)
[2021-01-18] MEDS: ASPIRIN 81MG ENTERIC TABLET PO SCH (08:39)
[2021-01-18] MEDS: predniSONE 5 MG TAB PO SCH (08:39)
[2021-01-18] MEDS: DOCUSATE SODIUM 100MG CAPSULE PO SCH ×2 (08:40→21:33)
[2021-01-18] MEDS: THIAMINE 200MG 2ML VIAL IM SCH (08:40)
[2021-01-18] MEDS: REMEDY PHYTOPLEX Z-GUARD PASTE 113GM TUBE (FROM STOREROOM PRODUCT) TOP SCH ×3 (08:41→21:33)
[2021-01-18] MEDS: QUEtiapine FUMARATE 12.5 MG HALF-TAB PO PRN ×2 (08:43→16:56)
[2021-01-18 13:46] VITALS: BP 121/61
[2021-01-18 20:00] VITALS: BP 116/70
[2021-01-18] MEDS: SENNA 8.6 MG TAB (SENOKOT) PO SCH (21:00)
[2021-01-18] MEDS: RAMELTEON 8 MG TAB (ROZEREM) PO PRN (21:33)
[2021-01-19 06:00] VITALS: BP 121/72
[2021-01-19] MEDS: SUCRALFATE 1 GM TAB PO SCH ×4 (06:40→20:12)
[2021-01-19] MEDS: DICLOFENAC EPOLAMINE 1.3 % PATCH TOP SCH ×2 (06:40→17:29)
[2021-01-19] MEDS: PYRIDOSTIGMINE 60MG TABLET PO SCH ×3 (07:15→20:12)
[2021-01-19] MEDS: ASPIRIN 81MG ENTERIC TABLET PO SCH (07:15)
[2021-01-19] MEDS: PANTOPRAZOLE 40MG TAB (PROTONIX) PO SCH ×2 (07:15→20:12)
[2021-01-19] MEDS: NEPHRO-VIT TAB (NEPHROCAPS) PO SCH (07:15)
[2021-01-19] MEDS: DOCUSATE SODIUM 100MG CAPSULE PO SCH ×2 (07:16→20:12)
[2021-01-19] MEDS: THIAMINE 200MG 2ML VIAL IM SCH (07:16)
[2021-01-19] MEDS: REMEDY PHYTOPLEX Z-GUARD PASTE 113GM TUBE (FROM STOREROOM PRODUCT) TOP SCH ×3 (07:17→20:12)
[2021-01-19] MEDS: COMBIVENT RESPIMAT 100-20MCG INHALER 4GM INH SCH ×3 (07:23→17:59)
[2021-01-19] MEDS ORDERED: ENOXAPARIN 40MG/0.4ML SYRINGE (J1650 PER 10MG) SC SCH (09:00)
[2021-01-19] MEDS: QUEtiapine FUMARATE 12.5 MG HALF-TAB PO PRN ×2 (12:28→20:11)
[2021-01-19 14:00] VITALS: BP 105/55
[2021-01-19 20:00] VITALS: BP 111/68
[2021-01-19] MEDS: RAMELTEON 8 MG TAB (ROZEREM) PO PRN (20:11)
[2021-01-19] MEDS: SENNA 8.6 MG TAB (SENOKOT) PO SCH (20:12)
[2021-01-20] MEDS: DICLOFENAC EPOLAMINE 1.3 % PATCH TOP SCH ×2 (05:34→17:14)
[2021-01-20 06:00] VITALS: BP 113/73
[2021-01-20] MEDS: COMBIVENT RESPIMAT 100-20MCG INHALER 4GM INH SCH ×3 (07:29→20:13)
[2021-01-20] MEDS: DOCUSATE SODIUM 100MG CAPSULE PO SCH ×2 (09:59→20:23)
[2021-01-20] MEDS: SUCRALFATE 1 GM TAB PO SCH ×4 (09:59→20:23)
[2021-01-20] MEDS: QUEtiapine FUMARATE 12.5 MG HALF-TAB PO PRN ×2 (09:59→20:23)
[2021-01-20] MEDS: NEPHRO-VIT TAB (NEPHROCAPS) PO SCH (09:59)
[2021-01-20] MEDS: PANTOPRAZOLE 40MG TAB (PROTONIX) PO SCH ×2 (09:59→20:23)
[2021-01-20] MEDS: ASPIRIN 81MG ENTERIC TABLET PO SCH (09:59)
[2021-01-20] MEDS: PYRIDOSTIGMINE 60MG TABLET PO SCH ×3 (10:00→20:23)
[2021-01-20] MEDS: THIAMINE 200MG 2ML VIAL IM SCH (10:00)
[2021-01-20] MEDS: REMEDY PHYTOPLEX Z-GUARD PASTE 113GM TUBE (FROM STOREROOM PRODUCT) TOP SCH ×3 (10:00→20:24)
[2021-01-20] MEDS: guaiFENesin 200 MG TAB PO SCH ×3 (10:02→20:22)
[2021-01-20 10:25] LABS: BASO # 0.1 10^3/uL (0.0-0.2); BASO % 0.8 % (0.0-1.0); EOS # 0.3 10^3/uL (0.0-0.5); EOS % 4.3 % (0.0-3.0); HEMATOCRIT 34.6 % (42.0-52.0); LYMPH # 1.3 10^3/uL (1.5-5.0); LYMPH % 19.8 % (24.0-44.0); MEAN CORPUSCULAR HEMOGLOBIN 32.8 pg (27.0-33.0); MEAN CORPUSCULAR HGB CONC 31.8 g/dl (32.0-36.5); MEAN CORPUSCULAR VOLUME 103.3 fl (80.0-96.0); MONO # 0.8 10^3/uL (0.0-0.8); MONO % 11.4 % (2.0-8.0); NEUTROPHILS # 4.1 10^3/uL (1.5-8.5); NEUTROPHILS % 61.9 % (36.0-66.0); PLATELET COUNT, AUTOMATED 230 10^3/uL (150-450); RED BLOOD COUNT 3.35 10^6/uL (4.30-6.10); WHITE BLOOD COUNT 6.6 10^3/uL (4.0-10.0)
[2021-01-20 10:52] LABS: BLOOD UREA NITROGEN 26 MG/DL (7-18); CARBON DIOXIDE LEVEL 25 MEQ/L (21-32); CHLORIDE LEVEL 114 MEQ/L (98-107); CREATININE FOR GFR 1.07 MG/DL (0.70-1.30); GLOMERULAR FILTRATION RATE > 60.0 (>42); GLUCOSE, FASTING 88 MG/DL (70-100); POTASSIUM SERUM 4.2 MEQ/L (3.5-5.1); SODIUM LEVEL 144 MEQ/L (136-145)
[2021-01-20] MEDS ORDERED: ASPI81CH33 PO (13:28)
[2021-01-20] MEDS ORDERED: VITA100T89 PO (13:28)
[2021-01-20] MEDS ORDERED: PYRI60TA2 PO (13:28)
[2021-01-20 14:00] VITALS: BP 117/70
[2021-01-20 20:00] VITALS: BP 124/78
[2021-01-20] MEDS: SENNA 8.6 MG TAB (SENOKOT) PO SCH (20:24)
[2021-01-21] MEDS: RAMELTEON 8 MG TAB (ROZEREM) PO PRN (00:31)
[2021-01-21] MEDS: ACETAMINOPHEN TAB 650MG DOSE (2X325MG) PO PRN ×2 (03:43→08:21)
[2021-01-21] MEDS: DICLOFENAC EPOLAMINE 1.3 % PATCH TOP SCH (05:01)
[2021-01-21 06:00] VITALS: BP 127/71
[2021-01-21] MEDS: COMBIVENT RESPIMAT 100-20MCG INHALER 4GM INH SCH (07:36)
[2021-01-21] MEDS: QUEtiapine FUMARATE 12.5 MG HALF-TAB PO PRN (08:20)
[2021-01-21] MEDS: guaiFENesin 200 MG TAB PO SCH (08:20)
[2021-01-21] MEDS: SUCRALFATE 1 GM TAB PO SCH (08:20)
[2021-01-21] MEDS: DOCUSATE SODIUM 100MG CAPSULE PO SCH (08:20)
[2021-01-21] MEDS: PYRIDOSTIGMINE 60MG TABLET PO SCH (08:20)
[2021-01-21] MEDS: PANTOPRAZOLE 40MG TAB (PROTONIX) PO SCH (08:20)
[2021-01-21] MEDS: NEPHRO-VIT TAB (NEPHROCAPS) PO SCH (08:20)
[2021-01-21] MEDS: ASPIRIN 81MG ENTERIC TABLET PO SCH (08:20)
[2021-01-21] MEDS: REMEDY PHYTOPLEX Z-GUARD PASTE 113GM TUBE (FROM STOREROOM PRODUCT) TOP SCH (08:21)
[2021-01-21] MEDS: THIAMINE 200MG 2ML VIAL IM SCH (08:22)
== END 2021-01-21 12:05 | disposition home health service (06) | DRG 640 ==
LOC: M PM&R 17:33
PROVIDERS: ADMIT Physical Medicine & Rehabilitation; ATTEND Physical Medicine & Rehabilitation
DX: E51.2 Wernicke's encephalopathy (principal); G93.41 Metabolic encephalopathy; E46 Unspecified protein-calorie malnutrition; N39.0 Urinary tract infection, site not specified; F03.90 Unspecified dementia, unspecified severity, without behavioral disturbance, psychotic disturbance, mood disturbance, and anxiety; I71.2 Thoracic aortic aneurysm, without rupture; I48.91 Unspecified atrial fibrillation; F10.10 Alcohol abuse, uncomplicated; Z79.82 Long term (current) use of aspirin; Z68.21 Body mass index [BMI] 21.0-21.9, adult; Z79.899 Other long term (current) drug therapy; R33.9 Retention of urine, unspecified; Z98.41 Cataract extraction status, right eye; Z98.42 Cataract extraction status, left eye; E86.0 Dehydration; E04.1 Nontoxic single thyroid nodule

== ENCOUNTER 2021-01-21 22:30 | Emergency (ER) | payer MEDICARE, BC, OTHER ==
[~2021-01-21] VITALS: Ht 182.9 cm; Wt 79.5 kg
[~2021-01-21 22:30] MED LIST changes: +ASPI81CH33 PO; +ELIQ5TAB PO; +PYRI60TA2 PO; +VITA100T89 PO
[2021-01-21] MEDS ORDERED: LIDOCAINE 2% 5ML JELLY UROJET As Ordered ONE (22:54)
[2021-01-21] MEDS ORDERED: LIDOCAINE 2% 5ML JELLY UROJET TOP ONE (23:00)
[2021-01-21 23:06] VITALS: BP 166/81
[2021-01-23] MEDS ORDERED: ELIQ5TAB PO (04:10)
[2021-01-23] MEDS ORDERED: PYRI60TA2 PO (04:10)
[2021-01-23] MEDS ORDERED: NIFE15CA PO (04:10)
[2021-01-23] MEDS ORDERED: B-1100TA2 PO (04:10)
[2021-01-23] MEDS ORDERED: ASPI1CHW3 PO (04:10)
== END 2021-01-22 01:44 | disposition home or self-care (01) ==
LOC: M ED 22:30
DX: T83.091A Other mechanical complication of indwelling urethral catheter, initial encounter (principal); Y92.9 Unspecified place or not applicable; Y93.9 Activity, unspecified; Y99.9 Unspecified external cause status

== ENCOUNTER 2021-01-22 08:22 | Emergency (ER) | payer MEDICARE, BC, OTHER, MEDICAID ==
[~2021-01-22] VITALS: Ht 182.9 cm; Wt 72.7 kg
[2021-01-22 10:37] LABS: BASO # 0.1 10^3/uL (0.0-0.2); BASO % 0.7 % (0.0-1.0); EOS # 0.2 10^3/uL (0.0-0.5); EOS % 1.8 % (0.0-3.0); HEMATOCRIT 33.6 % (42.0-52.0); HEMOGLOBIN 10.6 g/dl (13.5-17.5); LYMPH # 1.3 10^3/uL (1.5-5.0); MEAN CORPUSCULAR HEMOGLOBIN 32.7 pg (27.0-33.0); MEAN CORPUSCULAR HGB CONC 31.5 g/dl (32.0-36.5); MEAN CORPUSCULAR VOLUME 103.7 fl (80.0-96.0); MONO # 0.8 10^3/uL (0.0-0.8); MONO % 9.9 % (2.0-8.0); NEUTROPHILS # 5.7 10^3/uL (1.5-8.5); NEUTROPHILS % 70.5 % (36.0-66.0); PLATELET COUNT, AUTOMATED 265 10^3/uL (150-450); RED BLOOD COUNT 3.24 10^6/uL (4.30-6.10); WHITE BLOOD COUNT 8.2 10^3/uL (4.0-10.0)
[2021-01-22 10:46] LABS: AMPHETAMINES LEVEL URINE NEGATIVE (NEGATIVE); BARBITURATES URINE NEGATIVE (NEGATIVE); BENZODIAZEPINES URINE NEGATIVE (NEGATIVE); CANNABINOIDS URINE NEGATIVE (NEGATIVE); COCAINE METABOLITE URINE NEGATIVE (NEGATIVE); METHADONE URINE NEGATIVE (NEGATIVE); OPIATES URINE NEGATIVE (NEGATIVE); PHENCYCLIDINE URINE NEGATIVE (NEGATIVE)
[2021-01-22 11:05] LABS: ACETAMINOPHEN LEVEL < 2.0 UG/ML (10.0-30.0); BLOOD UREA NITROGEN 35 MG/DL (7-18); CALCIUM LEVEL 8.7 MG/DL (8.8-10.2); CARBON DIOXIDE LEVEL 24 MEQ/L (21-32); CHLORIDE LEVEL 118 MEQ/L (98-107); CREATININE FOR GFR 1.34 MG/DL (0.70-1.30); ETHYL ALCOHOL (ETHANOL) < 0.003 % (0.000-0.010); GLOMERULAR FILTRATION RATE 54.9 (>42); GLUCOSE, FASTING 114 MG/DL (70-100); MAGNESIUM LEVEL 2.5 MG/DL (1.8-2.4); SALICYLATE LEVEL < 1.7 MG/DL (5.0-30.0); SODIUM LEVEL 150 MEQ/L (136-145)
[2021-01-22 13:37] VITALS: BP 132/76
[2021-01-23] MEDS ORDERED: ELIQ5TAB PO (04:10)
[2021-01-23] MEDS ORDERED: NIFE15CA PO (04:10)
[2021-01-23] MEDS ORDERED: B-1100TA2 PO (04:10)
[2021-01-23] MEDS ORDERED: ASPI1CHW3 PO (04:10)
[2021-01-23] MEDS ORDERED: PYRI60TA2 PO (04:10)
== END 2021-01-22 13:41 | disposition home or self-care (01) ==
LOC: EDBD 08:22 → M ED 08:22
DX: R31.0 Gross hematuria (principal); T83.091A Other mechanical complication of indwelling urethral catheter, initial encounter; I95.9 Hypotension, unspecified; F03.90 Unspecified dementia, unspecified severity, without behavioral disturbance, psychotic disturbance, mood disturbance, and anxiety; G93.41 Metabolic encephalopathy; Z79.899 Other long term (current) drug therapy

== ENCOUNTER 2021-01-22 23:34 | Inpatient (IN) | payer MEDICARE, BC, OTHER ==
[~2021-01-22] VITALS: Ht 180.3 cm; Wt 74.1 kg
--- OUTSIDE RECORDS SUMMARY | 2021-01-22 23:39 | CCD ---
Author Author [facility] Organization [facility] Address Unknown Phone Unavailable Support Name Relationship Address Phone NHI, (HCP) NOEL Next Of Kin [address] [place] [address] RE Next Of Kin Unknown Unavailable [employer] Next Of Kin [address] [place] [address] Kaia HANKINS Next Of Kin [address] [place] [address] Kaia HANKINS E[address] [address] [place] [address] Unavailable Re-disclosure Warning The records that you [...] is protected by Article 27-F of the [facility] Public Health law. If you continue you may have access to information: Regarding HIV / AIDS; Provided by facilities licensed or operated by the [facility] Office of Mental Health; or Provided by the [facility] Office for People With Developmental Disabilities. If such information is present, then the following [facility] mandated warning applies: This information has [...] law may result in a fine or detention sentence or both. A general authorization for [...] Complete: YESThis Data wa s Submitted to [facility] Via [employer]. COVID-19 VACCINE, MRNA-1273, LNP-S (MODERNA)/PF 04/29/2020 1 2:00:00 AM EST completed [facility] COVID-19 VACCINE Moderna 04/01/2020 12:00:00 AM EST completed [facility] Vaccine Series Complete: NOThis Data was Submitted to [facility] Via [employer]. COVID-19 VACCINE, MRNA-1273, LNP-S (MODERNA)/PF 04/01/2020 1 2:00:00 AM EST completed [facility] Medications Medication Brand Name [...] TABLET BY MOUTH EVERY DAY SOLD: 01/01/2021 [facility] Ondansetron 4 MG Disintegrating Oral Tablet ONDANSETRON 09/09/2020 12:00:00 AM EDT tablet,disintegrating 16 DISSOLVE O NE TABLET ON TONGUE EVERY 6 TO 8 HOURS NEEDED FOR NAUSEA AND VOMITING DISSOLVE ONE TABLET ON TONGUE EVERY 6 TO 8 HOURS NEEDED FOR NAUSEA AND VOMITING SOLD: 09/09/2020 [facility] Insurance Providers Payer name Policy type / Coverage type Policy ID Covered alliance party ID Covered alliance party's relationship to delatorre Policy Delatorre Plan Information MEDICARE [id number] SP [id number] A [facility] DIV [id number] SP [id number] MEDICARE [id number] SP [id number] A MEDICARE [id number] SP [id number] MEDICARE [id number] SP [id number] A [facility] [id number] SP [id number] [facility] DIV [id number] SP [id number] [facility] [id number] SP [id number] [facility] Sylvia Medigap Part B [id number] Self [id number] Medicare Natl Gov't Servi Medicare Primary [id number] Self [id number] [facility] Medigap Part B [id number] Self [id number] Medicare Natl Gov't Servi Medicare Primary [id number] Self [id number] [facility] Medigap Part B [id number] Self [id number] Medicare [place] Medicare Primary [id number] Self [id number] Emp/[facility] Medigap Part B [id number] Self [id number] Medicare [place] Medicare Primary [id number] Self [id number] [employer] O [id number] S [id number] Emp/[employer] [facility] Medigap Part B [id number] Self Medicare [place] Medicare Primary [id number] Self [facility] Medigap Part B [id number] Self Medicare [place] Medicare Primary [id number] Self [facility] [id number] SP [id number] Emp/[employer] [facility] Medigap Part B [id number] Self Self Pay P UNAVAILABLE S UNAVAILA BLE Emp/[employer] Medigap Part B [id number] Self [id number] Medicare [place] Medicare Primary [id number] Self [id number] Emp/[employer] Medigap Part B [id number] Self [id number] Medicare [place] Medicare Primary [id number] Self [id number] [employer] O [id number] S [id number] MEDICARE [id number] S [id number] A Problems, Conditions, and Diagnoses No Information Surgeries/Procedures No Information Results ID Date Data Source [id number] 01/05/2021 04:54:00 PM EST [facility] Name Value Range Interpretation Code Description Data Nathalia rce(s) Supporting Document(s) SARS coronavirus 2 RNA [Presence] in Res piratory specimen by ERICA with probe detection NEGATIVE [facility] This lab was ordered by [facility] a nd reported by [facility]. ID Date Data Source [id number] 12/20/2020 09:38:00 AM EDT [facility] Name Value Range Interpretation Code Description Data Nathalia rce(s) Supporting Document(s) SARS coronavirus 2 RNA [Presence] in Res piratory specimen by ERICA with probe detection NEGATIVE [facility] This lab was ordered by [facility] a nd reported by [facility]. ID Date Data Source [id number] 09/08/2020 08:16:00 PM EDT [facility] Name Value Range Interpretation Code Description Data Nathalia rce(s) Supporting Document(s) SARS coronavirus 2 RNA [Presence] in Res piratory specimen by ERICA with probe detection NEGATIVE [facility] This lab was ordered by [facility] a nd reported by [facility]. Procedure Social History No Information
[2021-01-23 00:36] LABS: BASO # 0.1 10^3/uL (0.0-0.2); BASO % 0.8 % (0.0-1.0); EOS # 0.2 10^3/uL (0.0-0.5); EOS % 3.6 % (0.0-3.0); HEMATOCRIT 30.4 % (42.0-52.0); HEMOGLOBIN 9.6 g/dl (13.5-17.5); LYMPH # 0.9 10^3/uL (1.5-5.0); LYMPH % 14.6 % (24.0-44.0); MEAN CORPUSCULAR HGB CONC 31.6 g/dl (32.0-36.5); MEAN CORPUSCULAR VOLUME 104.5 fl (80.0-96.0); MONO # 0.8 10^3/uL (0.0-0.8); MONO % 12.4 % (2.0-8.0); NEUTROPHILS # 4.2 10^3/uL (1.5-8.5); NEUTROPHILS % 66.2 % (36.0-66.0); PLATELET COUNT, AUTOMATED 232 10^3/uL (150-450); RED BLOOD COUNT 2.91 10^6/uL (4.30-6.10); WHITE BLOOD COUNT 6.4 10^3/uL (4.0-10.0)
--- NOTE | 2021-01-23 00:53 | REPVR ---
PROCEDURE INFORMATION: Exam: CT Head Without Contrast Exam date and time: 01/22/2021 11:56 PM Age: 80 years old Clinical indication: Injury or trauma; Fall; Blunt trauma (contusions or hematomas) TECHNIQUE: Imaging protocol: Computed tomography of the head without contrast. Radiation optimization: All CT scans at this facility use at least one of these dose optimization techniques: automated exposure control; mA and/or kV adjustment per patient size (includes targeted exams where dose is matched to clinical indication); or iterative reconstruction. COMPARISON: CT Head without contrast 01/22/2021 10:30 AM FINDINGS: Brain: There is mild cerebral volume loss. Changes of chronic white matter microvascular disease are present. No signs of a recent infarction or hemorrhage. No midline shift or mass effect. Cerebral ventricles: No ventriculomegaly. Paranasal sinuses: Visualized sinuses are clear. Mastoid air cells: Mastoid air cells are clear. Bones/joints: Unremarkable. No acute fracture. Soft tissues: Unremarkable. IMPRESSION: Mild cerebral volume loss and chronic white matter changes. No acute intracranial abnormality. Electronically signed by: Claus Lynn On 01/23/2021 00:52:52 AM
--- OUTSIDE RECORDS SUMMARY | 2021-01-23 00:54 | CCD ---
Author Author [facility] Organization [facility] Address Unknown Phone Unavailable Support Name Relationship Address Phone NIH, (HCP) NOEL Next Of Kin [address] [place] [address] RE Next Of Kin Unknown Unavailable [employer] Next Of Kin [address] [place] [address] Kaia HANKINS Next Of Kin [address] [place] [address] Kaia HANKINS ECON [address] [place] [address] Unavailable Re-disclosure Warning The records that you [...] by Article 27-F of the [facility] Public Health law. If you continue you may have access to information: Regarding HIV / AIDS; Provided by facilities licensed or operated by the [facility] Office of Mental Health; or Provided by the [facility] Office for People With Developmental Disabilities. If such information is present, then the following [facility] mandated warning applies: This information has [...] law may result in a fine or intermediate sentence or both. A general authorization for [...] Complete: YESThis Data wa s Submitted to [facility] Via [employer]. COVID-19 VACCINE, MRNA-1273, LNP-S (MODERNA)/PF 04/29/2020 1 2:00:00 AM EST completed [facility] [employer] COVID-19 VACCINE Moderna 04/01/2020 12:00:00 AM EST completed [facility] Vaccine Series Complete: NOThis Data was Submitted to [facility] Via [employer]. COVID-19 VACCINE, MRNA-1273, LNP-S (MODERNA)/PF 04/01/2020 1 [...] to delatorre Policy Delatorre Plan Information MEDICARE [id number] SP [id number] A [facility] DIV [id number] SP [id number] MEDICARE [id number] SP [id number] A MEDICARE [id number] SP [id number] MEDICARE [id number] SP [id number] A [facility] [id number] SP [id number] [facility] DIV [id number] SP [id number] [facility] [id number] SP [id number] [facility] Medigap Part B [id number] Self [id number] Medicare Natl Gov't Servi Medicare Primary [id number] Self [id number] [facility] Medigap Part B [id number] Self [id number] Medicare Natl Gov't Servi Medicare Primary [id number] Self [id number] [facility] Medigap Part B [id number] Self [id number] Medicare [place] Medicare Primary [id number] Self [id number] Emp/[facility] Medigap Part B [id number] Self [id number] Medicare [place] Medicare Primary [id number] Self [id number] [employer] O [id number] S [id number] Emp/[facility] Medigap Part B [id number] Self Medicare [place] Medicare Primary [id number] Self [facility] Medigap Part B [id number] Self Medicare [place] Medicare Primary [id number] Self [employer] [facility] [id number] SP [id number] Emp/[facility] Medigap Part B [id number] Self Self Pay P UNAVAILABLE S UNAVAILA BLE Emp/[employer] [facility] Medigap Part B [id number] Self [id number] Medicare [place] Medicare Primary [id number] Self [id number] Emp/[employer] [facility] Medigap Part B [id number] Self [id number] Medicare [place] Medicare Primary [id number] Self [id number] [employer] O [id number] S [id number] MEDICARE [id number] S [id number] A Problems, Conditions, and Diagnoses No Information Surgeries/Procedures No Information Results ID Date Data Source [id number] 01/05/2021 04:54:00 PM EST [facility] Name Value Range Interpretation Code Description Data Nathalia rce(s) Supporting Document(s) SARS coronavirus 2 RNA [Presence] in Res piratory specimen by ERICA with probe detection NEGATIVE [facility] This lab was ordered by [facility] a nd reported by [facility]. ID Date Data Source [id number] 12/20/2020 09:38:00 AM EDT [facility] Name Value Range Interpretation Code Description Data Nathalia rce(s) Supporting Document(s) SARS coronavirus 2 RNA [Presence] in Res piratory specimen by ERICA with probe detection NEGATIVE [facility] This lab was ordered by [facility] a nd reported by [facility]. ID Date Data Source [id number] 09/08/2020 08:16:00 PM EDT [facility] Name Value Range Interpretation Code Description Data Nathalia rce(s) Supporting Document(s) SARS coronavirus 2 RNA [Presence] in Res piratory specimen by ERICA with probe detection NEGATIVE [facility] This lab was ordered by [facility] a nd reported by [facility]. Procedure Social History No Information
--- NOTE | 2021-01-23 01:00 | REPVR ---
PROCEDURE INFORMATION: Exam: CT Cervical Spine Without Contrast Exam date and time: 01/22/2021 11:56 PM Age: 80 years old Clinical indication: Injury or trauma; Fall; Blunt trauma TECHNIQUE: Imaging protocol: Computed tomography images of the cervical spine without contrast. Radiation optimization: All CT scans at this facility use at least one of these dose optimization techniques: automated exposure control; mA and/or kV adjustment per patient size (includes targeted exams where dose is matched to clinical indication); or iterative reconstruction. COMPARISON: CT Spine,cervical w/o contrast 01/05/2021 7:42 PM FINDINGS: Bones/joints: No acute fracture. Normal alignment. Discs/Spinal canal/Neural foramina: Advanced discogenic degenerative changes. Multilevel facet DJD. No spinal stenosis. Lungs: Lung apices are normal. Soft tissues: Unremarkable. IMPRESSION: 1. No acute fracture. Normal alignment. 2. Advanced degenerative spondylosis. Electronically signed by: Claus Lynn On 01/23/2021 01:00:08 AM
[2021-01-23 01:06] LABS: ALBUMIN 2.9 GM/DL (3.2-5.2); ALT/SGPT 30 U/L (12-78); BILIRUBIN,DIRECT 0.2 MG/DL (0.0-0.2); BILIRUBIN,TOTAL 0.3 MG/DL (0.2-1.0); LIPASE 80 U/L (73-393); NT-PRO BNP 159 PG/ML (<450); TOTAL PROTEIN 5.5 GM/DL (6.4-8.2)
--- NOTE | 2021-01-23 01:06 | REPVR ---
PROCEDURE INFORMATION: Exam: CT Maxillofacial Without Contrast Exam date and time: 01/22/2021 11:56 PM Age: 80 years old Clinical indication: Injury or trauma; Fall; Blunt trauma (contusions or hematomas); Nose TECHNIQUE: Imaging protocol: Computed tomography images of the face without contrast. Radiation optimization: All CT scans at this facility use at least one of these dose optimization techniques: automated exposure control; mA and/or kV adjustment per patient size (includes targeted exams where dose is matched to clinical indication); or iterative reconstruction. COMPARISON: CT Head without contrast 01/22/2021 10:30 AM FINDINGS: Orbits: Orbits are normal. Globes are unremarkable. Bones/joints: No acute fracture. Paranasal sinuses: Clear. No sinus fluid. Soft tissues: Unremarkable. IMPRESSION: No acute findings. Electronically signed by: Claus Lynn On 01/23/2021 01:05:43 AM
[2021-01-23] MEDS ORDERED: NS 1,000 ML IV ONE (01:20)
[2021-01-23] MEDS ORDERED: ISOVUE-370 76% 100ML VIAL As Ordered ONE (01:21)
--- NOTE | 2021-01-23 01:51 | REPVR ---
PROCEDURE INFORMATION: Exam: CT Abdomen And Pelvis With Contrast Exam date and time: 01/23/2021 1:29 AM Age: 80 years old Clinical indication: Other: Pain to palpation TECHNIQUE: Imaging protocol: Computed tomography of the abdomen and pelvis with contrast. Radiation optimization: All CT scans at this facility use at least one of these dose optimization techniques: automated exposure control; mA and/or kV adjustment per patient size (includes targeted exams where dose is matched to clinical indication); or iterative reconstruction. Contrast material: ISOVUE 370; Contrast volume: 100 ml; Contrast route: INTRAVENOUS (IV); COMPARISON: CT ABD/PEL W/IV CONTRAST ONLY 01/05/2021 5:33 PM FINDINGS: Heart: Mild cardiomegaly. Three-vessel coronary artery atherosclerotic disease. Trace pericardial effusion. Liver: Unremarkable. No mass. Gallbladder and bile ducts: 1.8 cm calculus in the gallbladder. Gallbladder is mildly distended. No gallbladder wall thickening or biliary duct dilation. Pancreas: Normal. No ductal dilation. Spleen: Normal. No splenomegaly. Adrenal glands: 1.8 cm right adrenal nodule is unchanged. 1.7 cm left adrenal nodule is unchanged. Kidneys and ureters: Unremarkable. No calculi or hydronephrosis. Stomach and bowel: There is colonic diverticulosis without evidence of diverticulitis. Mild intraluminal fluid and mucosal enhancement in the small bowel. No wall thickening or other inflammatory changes. No bowel obstruction. Appendix: No evidence of appendicitis. Intraperitoneal space: No free air. No significant fluid collection. Vasculature: There is a subsegmental pulmonary embolism in the right lower lobe. No aortic aneurysm or dissection. Lymph nodes: Unremarkable. No enlarged lymph nodes. Urinary bladder: Mild urinary bladder wall thickening. No bladder masses or calculi. Reproductive: Prostate gland is mildly enlarged. Bones/joints: Unremarkable. No acute fracture. Soft tissues: Unremarkable. IMPRESSION: 1. Right lower lobe pulmonary embolism. 2. Colonic diverticulosis without evidence of diverticulitis. 3. Urinary bladder wall thickening suggesting cystitis. 4. Mild mucosal enhancement and intraluminal fluid in the small bowel is nonspecific but may indicate a viral enteritis. No bowel obstruction. 5. Cholelithiasis. No secondary signs of acute cholecystitis or biliary duct dilation. 6. Table bilateral adrenal nodules. Electronically signed by: Claus Lynn On 01/23/2021 01:50:55 AM
[2021-01-23 01:58] LABS: ETHYL ALCOHOL (ETHANOL) < 0.003 % (0.000-0.010)
--- NOTE | 2021-01-23 02:40 | REPVR ---
PROCEDURE INFORMATION: Exam: XR Left Hip Exam date and time: 01/23/2021 2:19 AM Age: 80 years old Clinical indication: Hip pain; Left hip; Additional info: Fall TECHNIQUE: Imaging protocol: XR Left hip. Views: 2 or 3 views hip with pelvis when performed. COMPARISON: CT ABD/PEL W/IV CONTRAST ONLY 01/23/2021 1:16 AM FINDINGS: Bones/joints: Unremarkable. No acute fracture. Normal alignment. Joint spaces are unremarkable. Soft tissues: Unremarkable. IMPRESSION: No acute findings. Electronically signed by: Claus Lynn On 01/23/2021 02:39:07 AM
--- NOTE | 2021-01-23 02:42 | REPVR ---
PROCEDURE INFORMATION: Exam: XR Left Knee Exam date and time: 01/23/2021 2:19 AM Age: 80 years old Clinical indication: Pain; Knee; Left; Additional info: Fall TECHNIQUE: Imaging protocol: XR Left knee. Views: 4 or more views. COMPARISON: CR Knee, complete LEFT 01/06/2021 1:13 AM FINDINGS: Bones/joints: Joint spaces are normal. No fracture or malalignment. Soft tissues: Normal. IMPRESSION: No fracture or malalignment. Electronically signed by: Claus Lynn On 01/23/2021 02:42:03 AM
[2021-01-23] MEDS ORDERED: ACETAMINOPHEN TAB 650MG DOSE (2X325MG) PO PRN (03:05)
[2021-01-23] MEDS ORDERED: cefTRIAXone SOD 1 GM in D5W MINI-BAG PLUS 50 ML IV ONE (03:05)
--- OUTSIDE RECORDS SUMMARY | 2021-01-23 03:19 | CCD ---
Author Author [facility] Organization [facility] Address Unknown Phone Unavailable Support Name Relationship Address Phone NHI, (HCP) NOEL Next Of Kin [address] [place] [address] RE Next Of Kin Unknown Unavailable [employer] Next Of Kin [address] [place] [address] Kaia HANKINS Next Of Kin [address] [place] [address] Kaia HANKINS ECON [address] [place] [address] Unavailable Re-disclosure Warning The records that you [...] is protected by Article 27-F of the [facility] Public Health law. If you continue you may have access to information: Regarding HIV / AIDS; Provided by facilities licensed or operated by the [facility] Office of Mental Health; or Provided by the [facility] Office for People With Developmental Disabilities. If such information is present, then the following [facility] mandated warning applies: This information has [...] law may result in a fine or shelter sentence or both. A general authorization for [...] Complete: YESThis Data wa s Submitted to [facility] Via [employer]. COVID-19 VACCINE, MRNA-1273, LNP-S (MODERNA)/PF 04/29/2020 1 2:00:00 AM EST completed [employer] [facility] COVID-19 VACCINE Moderna 04/01/2020 12:00:00 AM EST completed [facility] Vaccine Series Complete: NOThis Data was Submitted to [facility] [employer]. COVID-19 VACCINE, MRNA-1273, LNP-S (MODERNA)/PF 04/01/2020 1 [...] to delatorre Policy Delatorre Plan Information MEDICARE [id number] SP [id number] A [facility] DIV [id number] SP [id number] MEDICARE [id number] SP [id number] A MEDICARE [id number] SP [id number] MEDICARE [id number] SP [id number] A [facility] [id number] SP [id number] [facility] DIV [id number] SP [id number] [facility] [id number] SP [id number] [facility] Medigap Part B [id number] Self [id number] Medicare Natl Gov't Servi Medicare Primary [id number] Self [id number] [facility] Medigap Part B [id number] Self [id number] Medicare Natl Gov't Servi Medicare Primary [id number] Self [id number] [facility] Medigap Part B [id number] Self [id number] Medicare [place] Medicare Primary [id number] Self [id number] Emp/[facility] Medigap Part B [id number] Self [id number] Medicare [place] Medicare Primary [id number] Self [id number] [employer] O [id number] S [id number] Emp/[facility] Medigap Part B [id number] Self Medicare [place] Medicare Primary [id number] Self [facility] Medigap Part B [id number] Self Medicare [place] Medicare Primary [id number] Self [facility] [id number] SP [id number] Emp/[facility] Medigap Part B [id number] Self Self Pay P UNAVAILABLE S UNAVAILA BLE Emp/[facility] Medigap Part B [id number] Self [id number] Medicare [place] Medicare Primary [id number] Self [id number] Emp/[facility] Medigap Part B [id number] Self [id number] Medicare [place] Medicare Primary [id number] Self [id number] [employer] O [id number] S [id number] MEDICARE [id number] S [id number] A Problems, Conditions, and Diagnoses No Information Surgeries/Procedures No Information Results ID Date Data Source [id number] 01/05/2021 04:54:00 PM EST [facility] Name Value Range Interpretation Code Description Data Nathalia rce(s) Supporting Document(s) SARS coronavirus 2 RNA [Presence] in Res piratory specimen by ERICA with probe detection NEGATIVE [facility] This lab was ordered by [facility] a nd reported by [facility]. ID Date Data Source [id number] 12/20/2020 09:38:00 AM EDT [facility] Name Value Range Interpretation Code Description Data Nathalia rce(s) Supporting Document(s) SARS coronavirus 2 RNA [Presence] in Res piratory specimen by ERICA with probe detection NEGATIVE [facility] This lab was ordered by [facility] a nd reported by [facility]. ID Date Data Source [id number] 09/08/2020 08:16:00 PM EDT [facility] Name Value Range Interpretation Code Description Data Nathalia rce(s) Supporting Document(s) SARS coronavirus 2 RNA [Presence] in Res piratory specimen by ERICA with probe detection NEGATIVE [facility] This lab was ordered by [facility] a nd reported by [facility]. Procedure Social History No Information
--- NOTE | 2021-01-23 03:31 | HPEPDOC ---
General Date of Admission Jan 23, 2021 at 03:02 Date of Service: Jan 23, 2021 Chief Complaint The patient is a 80-year-old male admitted with a reason for visit of Pulmonary Emboli,Wernickes Encephalopathy. History of Present Illness John Mccallum is a 80 yo M with past medical history of Wernicke's encephalopathy, afib, Urinary retention (s/p chronic indwelling Flores), Failure to thrive and Protein calorie malnutrition who arrives post fall. Patient known to service as he has recently been admitted -01/01 for confusion, hypotension and urinary retention; 01/07 -01/20 for fall and deconditioning as well as seen in ED January 21 and last night January 22 related to episodes of trauma to Flores. Reportedly, patient was outside of home and on ground-EMS called. Patient was reportedly alert at time of discovery however it is unknown if he had any episode of loss of consciousness. Patient himself is a poor historian alert and oriented only to self. There is a question if patient is more confused than his baseline (baseline being new disorientation in November with Wernicke's encephalopathy diagnosis). Patient does confabulate; unable to say his year, the current date, or describe for members or why he is in the hospital. CT head, C-spine nonacute. No focal neurological weakness. Pt denies barnes, sinus congestion, sore throat, productive cough, palpitations, chest pain, n/v/d, abdominal pain, focal weakness or sensory changes. When asked if patient short of breath he responds "sometimes". Pt tolerating RA 93% during exam. Reportedly, upon arrival to ED, patient did describe some abdominal discomfort. Underwent CT abdomen pelvis with contrast to have right lower lobe PE, which is new. Patient was recently diagnosed with new onset A. fib during his previous admission; not on OAC per family request. Today patient with bradycardia heart rate 50s; EKG to be reviewed. Family notified given the presence of PE and unknown extent of PE as unable to perform CT chest presently. Healthcare proxy was able to assist with HPI: Reportedly patient's healthcare proxy assists daily with patient and his (both require home assistance). Patient's healthcare proxy (Niece) manages medications. She reported that "they had just been tucked into bed" tonight and she reports she "had just left 5 minutes ago" when received a call from patient's stating patient had become upset and left outside of the house. Per family members who live next door to patient and assist with notification/needs -the patient was reporting some shortness of breath and EMS called. Patient will be admitted for further evaluation management of presenting concerns. Home Medications Scheduled Apixaban (Eliquis) 5 Mg Tablet, 5 MG PO BID, (Reported) Aspirin (Aspirin) 81 Mg Tab.chew, 81 MG PO DAILY, (Reported) Iron Ag,Ps/C/Fa6/B12/Zn/SA/Sto (Niferex Tablet) 1 Each Tablet, 1 TAB PO BID, (Reported) Pyridostigmine [place] (Pyridostigmine [place]) 60 Mg Tablet, 15 MG PO TID, (Reported) Thiamine HCl (Vitamin B-1) 100 Mg Tablet, 100 MG PO DAILY, (Reported) Allergies Coded Allergies: No Known Allergies (Unverified , 12/19/14) Past Medical History Medical History Warnicke's cephalopathy, A. fib, urinary retention, history of EtOH abuse Surgical History Hernia repair Family History Significant Family History: No pertinent family hx Social History * Smoker: Denies Alcohol: other (hx etoh ) Recent Travel/Sick Contacts: Denies: Recent travel, Recent sick contacts Psychosocial History: Dementia Lives with . Niece (HCP) assists with ADLs and medication management. A-FIB/CHADSVASC A-FIB History Current/History of A-Fib/PAF?: Yes Current PO Anticoag Therapy: No Review of Systems Other systems Poor historian, unable to obtain Physical Examination General Exam: Positive: Alert, Cooperative, No Acute Distress, Other (Disheveled appearance) Eye Exam: Positive: PERRLA, Conjunctiva & lids normal, EOMI; Negative: Sclera icteric ENT Exam: Positive: Mucous membr. moist/pink, Pharynx Normal Neck Exam: Positive: Supple; Negative: JVD, thyromegaly Chest Exam: Positive: Clear to auscultation, Normal air movement Heart Exam: Positive: Bradycardic, Irregular Rhythm, Normal S1, Normal S2; Negative: Murmurs, Rubs Telemetry: Positive: Bradycardia Abdomen Exam: Positive: Normal bowel sounds, Soft; Negative: Tenderness, Hepatospenomegaly Extremity Exam: Positive: Normal pulses; Negative: Clubbing, Cyanosis, Edema Skin Exam: Positive: Nl turgor and temperature, Other skin issue (Generalized ecchymosis superficial); Negative: Breakdown, Lesion Neuro Exam: Positive: Normal Speech; Negative: Normal Gait Psych Exam: Positive: Mental status NL, Mood NL; Negative: Memory Intact, Oriented x 3 (Oriented x1) Vital Signs Vital Signs Date Time Temp Pulse Resp B/P (MAP) Pulse Ox O2 Delivery O2 Flow Rate FiO2 01/23/21 01:14 96.0 58 20 126/74 (91) 97 Room Air Laboratory Data Labs 24H Laboratory Tests 2 01/23/21 00:30: Immature Granulocyte % (Auto) 2.4, Neutrophils (%) (Auto) 66.2H, Lymphocytes (%) (Auto) 14.6L, Monocytes (%) (Auto) 12.4H, Eosinophils (%) (Auto) 3.6H, Basophils (%) (Auto) 0.8, Neutrophils # (Auto) 4.2, Lymphocytes # (Auto) 0.9L, Monocytes # (Auto) 0.8, Eosinophils # (Auto) 0.2, Basophils # (Auto) 0.1, Nucleated Red Blood Cells % (auto) 0.0, Total Bilirubin 0.3, Direct Bilirubin 0.2, Aspartate Amino Transf (AST/SGOT) 17, Alanine Aminotransferase (ALT/SGPT) 30, Alkaline Phosphatase 98, SM-Fak-C-Type Natriuretic Peptide 159, Total Protein 5.5L, Albumin 2.9L, Albumin/Globulin Ratio 1.1, Lipase 80, Ethyl Alcohol Level < 0.003 01/23/21 00:53: POC Glucose (Misc Panel) 98, POC Sodium (Misc Panel) 149H, POC Potassium (Misc Panel) 3.6, POC Chloride (Misc Panel) 115H, POC Total CO2 (Misc Panel) 21.0L, POC Blood Urea Nitrogen (Misc Panel 32H, POC Ionized Calcium (Misc Panel) 4.8, POC Creatinine (Misc Panel) 1.3, POC Hematocrit (Misc Panel) 26.0L 01/23/21 00:59: POC Troponin I (Misc) 0.01 01/23/21 02:38: 01/23/21 02:43: Urine Color YELLOW, Urine Appearance HAZY, Urine pH 6.0, Urine Specific [place] 1.025, Urine Protein 1+H, Urine Glucose (UA) NEGATIVE, Urine Ketones NEGATIVE, Urine Blood 2+H, Urine Nitrite NEGATIVE, Urine Bilirubin NEGATIVE, Urine Urobilinogen 2.0H, Urine Leukocyte Esterase 1+H, Urine WBC (Auto) 9H, Urine RBC (Auto) 51H, Urine Hyaline Casts (Auto) 0, Urine Bacteria (Auto) NEGATIVE, Urine Squamous Epithelial Cells 0, Urine Mucus (Auto) SMALL, Urine Sperm (Auto) CBC/BMP Laboratory Tests 01/23/21 00:30 Microbiology Microbiology 01/23/21 Urine Culture, Received Pending Assessment/Plan 1. ?Syncope / Fall: Per staff/EMS notation patient had been on ground upon arrival and he did have dirt on face. If had fallen or syncopized several factors could be at play including orthostatic hypotension, possibly component of Wernicke's encephalopathy / confusion as noted with previous fall or possible symptomatic bradycardia syncopal episode dyspnea on exertion. - c/w PT and OT, orthostatic VS and address below 2. Encephalopathy in pt with cystitis and underlying Wernickes: Acute on chronic in nature. Family number did not mention increased confusion; but mentioned shortness of breath with patient activity with him being outside. Patient with indwelling Flores and recent trauma cystitis could be chronic - Neurology was consulted during November admission regarding patient encephalopathy - c/w Thiamine supplementation; he received high dose supplementation 2 weeks ago -We will cover empirically for UTI; follow-up urine culture 3. New PE RLL as noted on CTa/p with contrast: This could explain dyspnea on exertion that was reported by family member. -Given contrast CT,will have to wait [address] chest with contrast -Initiate patient on heparin drip. -Per note review patient had new onset A. fib recently and given his risk bene fit with frequent falls opted for Asa for anticoagulation only as opposed to additional OAC. Given presentation of PE discussed with patient's healthcare proxy who confirmed okay for heparin drip presently and further discussions regarding goals of care and risk benefit for long-term OAC to be had (of note, med rec shows Eliquis twice daily however healthcare proxy who manages medications confirmed patient has not been on a blood thinner), 4. New-onset Bradycardia in setting or recent Atrial fibrillation -Telemetry monitoring -hold any rate controlling agents (of note, pt on home pyridostimine which can lower HR as side effect- held presently ) -Pending CT chest for consideration of repeat echo last completed November 2020 - c/w ASA 81 -Consider differential 5. Hx of hypotension / Orthostatic hypotension - Has previously been on Midodrine - BP normotensive currently -Anticipate benefit of orthostatic vital signs prior to discharge 6. Left knee/leg pain - Imaging nonacute fracture; pt has reports discomfort to leg last admission - plan for s/s care 7. CT finding: Possible viral enteritis. Pt denies abdominal complaint, or diarrhea. Afebrile and no leukocytosis. Consider further GI w/u if pt symptomatic 8 Urinary retention - Patient has a flores placed on prior admission - New Flores placed 01/23/[address] Mccallum; continue follow-up with urology -As mentioned above, will treat empirically for UTI given UA findings 9. Ascending thoracic aneurysm -Previous CT showing 4.1 fusiform dilatation; CT 01/23 report "no aortic aneurysm or dissection" - Will have outpatient follow-up with vascular surgery for serial imaging 10. Bilateral adrenal nodules - Appear to be stable on imaging - Recommend outpatient follow-up for repeat imaging as needed 11. Failure to thrive/protein calorie malnutrition -Continue to encourage p.o. intake DVT prophylaxis: Heparin drip CODE Status: DNR/DNI; MOLST on file per patient's healthcare proxy Michellearabella Mccallum (patient's niece). Discussed patient with risks and benefits with current care plan and the presence of PE is an acute finding given extent of PE to still be determined (CT Chest to be obtained). Healthcare proxy verbalized understanding patient is acutely ill and this is a progressive decline with so many admissions short-term. Patient increased risk of mortality given his risk factors and further decompensation with overall clinical course the past 3 months (deconditioning/FTT). Healthcare proxy reports that she has been working with case management for continued support for patient at home. She verbalizes a greement to further goals of care discussion with risk/benefits through course of stay. Dispo planning: Home pending clinical course; anticipate 2 midnights Plan / VTE VTE Prophylaxis Ordered?: Yes HOME WANG NP Jan 23, 2021 03:28
[2021-01-23] MEDS ORDERED: HEPARIN DRIP 25,000 UNITS in IV 1 EA IV SCH (04:05)
[2021-01-23] MEDS ORDERED: HEPARIN SOD (PORCINE) 5000UNITS/ML 1ML VIAL/SYRINGE IV ONE (04:05)
[2021-01-23] MEDS ORDERED: HEPARIN SOD (PORCINE) 5000UNITS/ML 1ML VIAL/SYRINGE IV PRN (04:05)
[2021-01-23] MEDS ORDERED: B-1100TA2 PO (04:10)
[2021-01-23] MEDS ORDERED: PYRI60TA2 PO (04:10)
[2021-01-23] MEDS ORDERED: ASPI1CHW3 PO (04:10)
[2021-01-23] MEDS ORDERED: NIFE15CA PO (04:10)
[2021-01-23] MEDS ORDERED: HOME MED LIST COMPLETE! XX SCH (04:10)
[2021-01-23] MEDS ORDERED: ELIQ5TAB PO (04:10)
[2021-01-23 04:15] LABS: FERRITIN 591 NG/ML (26-388); IRON (FE) 41 UG/DL (65-175); PERCENT SATURATION 18.3 % (19.7-50.0); TOTAL IRON BINDING CAPACITY 224 UG/DL (250-450)
[2021-01-23 04:50] LABS: BASO # 0.1 10^3/uL (0.0-0.2); BASO % 0.9 % (0.0-1.0); EOS # 0.2 10^3/uL (0.0-0.5); EOS % 3.1 % (0.0-3.0); HEMATOCRIT 29.5 % (42.0-52.0); HEMOGLOBIN 9.1 g/dl (13.5-17.5); LYMPH # 1.3 10^3/uL (1.5-5.0); LYMPH % 20.5 % (24.0-44.0); MEAN CORPUSCULAR HEMOGLOBIN 32.6 pg (27.0-33.0); MEAN CORPUSCULAR HGB CONC 30.8 g/dl (32.0-36.5); MEAN CORPUSCULAR VOLUME 105.7 fl (80.0-96.0); MONO # 0.9 10^3/uL (0.0-0.8); MONO % 13.1 % (2.0-8.0); PLATELET COUNT, AUTOMATED 217 10^3/uL (150-450); RED BLOOD COUNT 2.79 10^6/uL (4.30-6.10); WHITE BLOOD COUNT 6.6 10^3/uL (4.0-10.0)
[2021-01-23 05:04] LABS: INR 1.09; PARTIAL THROMBOPLASTIN TIME 32.8 SECONDS (25.9-37.0); PROTHROMBIN TIME 14.5 SECONDS (12.7-14.5)
[2021-01-23 05:11] LABS: BLOOD UREA NITROGEN 30 MG/DL (7-18); CARBON DIOXIDE LEVEL 23 MEQ/L (21-32); CHLORIDE LEVEL 118 MEQ/L (98-107); CREATININE FOR GFR 1.11 MG/DL (0.70-1.30); GLOMERULAR FILTRATION RATE > 60.0 (>42); GLUCOSE, FASTING 89 MG/DL (70-100); POTASSIUM SERUM 3.6 MEQ/L (3.5-5.1); SODIUM LEVEL 149 MEQ/L (136-145)
[2021-01-23 09:19] LABS: VITAMIN B12 LEVEL 236 PG/ML (247-911)
[2021-01-23] MEDS: THIAMINE 100 MG TAB PO SCH (09:19)
[2021-01-23] MEDS: ASPIRIN 81 MG CHEW TABLET PO SCH (09:19)
--- NOTE | 2021-01-23 13:55 | REP ---
INDICATION: DVT ? has PE. COMPARISON: 01/08/2021. TECHNIQUE: Real time compression and duplex Doppler interrogation of the bilateral lower extremity deep venous system is performed. Compression ultrasound is performed of the bilateral peroneal and posterior tibial veins. FINDINGS: Bilaterally, the common femoral, superficial femoral and popliteal veins are fully compressible with transducer pressure and demonstrate normal spontaneous and phasic flow, without evidence of deep venous thrombosis. The right calf veins could not be visualized. There is occlusive thrombus in the proximal left posterior tibial vein. IMPRESSION: No evidence of deep venous thrombosis of the bilateral lower extremity femoral popliteal venous system. Occlusive thrombus is seen in the proximal left posterior tibial vein. <Electronically signed by Tj Caba > 01/23/21 [id number]
[2021-01-23 16:24] VITALS: BP 129/77
[2021-01-23] MEDS: IRON POLYSAC (NIFEREX) 150 MG CAP PO SCH ×2 (16:29→21:04)
[2021-01-23] MEDS: ENOXAPARIN 80MG/0.8ML SYRINGE (J1650 PER 10MG) SC SCH (16:32)
--- NOTE | 2021-01-23 16:43 | IPNPDOC ---
Subjective Date Seen The patient was seen on 01/23/21. Subjective Chief Complaint/HPI Seen at bedside. Awake alert but confused. Starts talking about some topic and then forgets what he was saying then again starts repeating the topic. He is most concered at this time about his wallet as he does not have any money to pay . He was asking me if he can pay by credit card. I tried to explain that he was in the hospital he seemed to understand but after a minute he is back to asking about his wallet which was in his pant pocket. Unable to have any meaningful conversation with the patient. He then asker whether we called his and his neighbor or not. He does not seem to grasp or retain information. As per nurses getting out of bed. Cannot remember instructions. Objective Physical Examination General Exam: Positive: Alert, Cooperative, No Acute Distress Eye Exam: Positive: PERRLA, Conjunctiva & lids normal, EOMI; Negative: Sclera icteric ENT Exam: Positive: Mucous membr. moist/pink, Pharynx Normal Neck Exam: Positive: Supple; Negative: JVD, thyromegaly Chest Exam: Positive: Clear to auscultation, Normal air movement Heart Exam: Positive: Bradycardic, Regular Rhythm, Normal S1, Normal S2; Negative: Murmurs, Rubs Telemetry: Positive: Bradycardia Abdomen Exam: Positive: Normal bowel sounds, Soft; Negative: Tenderness, Hepatospenomegaly Extremity Exam: Positive: Normal pulses; Negative: Clubbing, Cyanosis, Edema Skin Exam: Positive: Nl turgor and temperature; Negative: Breakdown, Lesion Neuro Exam: Positive: Normal Speech; Negative: Normal Gait Psych Exam: Positive: Mental status NL, Mood NL; Negative: Memory Intact, Oriented x 3 (Oriented x1) Assessment /Plan Assessment 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 Continue thiamine will need sitter. Pulmonary embolism incidentally noted during CT abd for abdominal pain will give lovenox I do not think he is a good candidate for jail anticoagulation will check doppler of the lower ex Anemia B 12 is low will replace by im continue iron Plan/VTE VTE Prophylaxis Ordered?: Yes VS, I&O, 24H, Fishbone Vital Signs/I&O Vital Signs Date Time Temp Pulse Resp B/P (MAP) Pulse Ox O2 Delivery O2 Flow Rate FiO2 12/2/21 16:24 97.1 68 18 129/77 (94) 96 Room Air I&O- Last 24 Hours up to 6 AM 01/23/21 07:00 Intake Total 1066 ml Output Total 500 ml Balance 566 ml Laboratory Data 24H LABS Laboratory Tests 2 01/23/21 00:30: Immature Granulocyte % (Auto) 2.4, Neutrophils (%) (Auto) 66.2H, Lymphocytes (%) (Auto) 14.6L, Monocytes (%) (Auto) 12.4H, Eosinophils (%) (Auto) 3.6H, Basophils (%) (Auto) 0.8, Neutrophils # (Auto) 4.2, Lymphocytes # (Auto) 0.9L, Monocytes # (Auto) 0.8, Eosinophils # (Auto) 0.2, Basophils # (Auto) 0.1, Nucleated Red Blood Cells % (auto) 0.0, Iron Level 41L, Total Iron Binding Capacity 224L, Transferrin % Saturation 18.3L, Ferritin 591H, Total Bilirubin 0.3, Direct Bilirubin 0.2, Aspartate Amino Transf (AST/SGOT) 17, Alanine Aminotransferase (ALT/SGPT) 30, Alkaline Phosphatase 98, EV-Nxe-J-Type Natriuretic Peptide 159, Total Protein 5.5L, Albumin 2.9L, Albumin/Globulin Ratio 1.1, Lipase 80, Ethyl Alcohol Level < 0.003 01/23/21 00:53: POC Glucose (Misc Panel) 98, POC Sodium (Misc Panel) 149H, POC Potassium (Misc Panel) 3.6, POC Chloride (Misc Panel) 115H, POC Total CO2 (Misc Panel) 21.0L, POC Blood Urea Nitrogen (Misc Panel 32H, POC Ionized Calcium (Misc Panel) 4.8, POC Creatinine (Misc Panel) 1.3, POC Hematocrit (Misc Panel) 26.0L 01/23/21 00:59: POC Troponin I (Misc) 0.01 01/23/21 02:38: Coronavirus (COVID-19)(PCR) NEGATIVE 01/23/21 02:43: Urine Color YELLOW, Urine Appearance HAZY, Urine pH 6.0, Urine Specific [place] 1.025, Urine Protein 1+H, Urine Glucose (UA) NEGATIVE, Urine Ketones NEGATIVE, Urine Blood 2+H, Urine Nitrite NEGATIVE, Urine Bilirubin NEGATIVE, Urine Urobilinogen 2.0H, Urine Leukocyte Esterase 1+H, Urine WBC (Auto) 9H, Urine RBC (Auto) 51H, Urine Hyaline Casts (Auto) 0, Urine Bacteria (Auto) NEGATIVE, Urine Squamous Epithelial Cells 0, Urine Mucus (Auto) SMALL, Urine Sperm (Auto) 01/23/21 04:35: Immature Granulocyte % (Auto) 1.4, Neutrophils (%) (Auto) 61.0, Lymphocytes (%) (Auto) 20.5L, Monocytes (%) (Auto) 13.1H, Eosinophils (%) (Auto) 3.1H, Basophils (%) (Auto) 0.9, Neutrophils # (Auto) 4.0, Lymphocytes # (Auto) 1.3L, Monocytes # (Auto) 0.9H, Eosinophils # (Auto) 0.2, Basophils # (Auto) 0.1, Nucleated Red Blood Cells % (auto) 0.0, Prothrombin Time 14.5H, Prothromb Time International Ratio 1.09, Activated Partial Thromboplast Time 32.8, Anion Gap 8, Glomerular Filtration Rate > 60.0, Calcium Level 8.0L, Total Creatine Kinase 54, Vitamin B12 Level 236L, Thyroid Stimulating Hormone (TSH) 2.010 01/23/21 09:50: Activated Partial Thromboplast Time 110.1H 01/23/21 15:56: Activated Partial Thromboplast Time 84.3H CBC/BMP Laboratory Tests 01/23/21 00:30 01/23/21 04:35 Microbiology Microbiology 01/23/21 Urine Culture, Received Pending Payton Lai MD Jan 23, 2021 16:43
--- NOTE | 2021-01-23 18:47 | ECGEPIP ---
[facility] Test Date: 2021-01-23 Pat Name: ANGEL HANKINS Department: Room: [place] [address] Gender: Male Professional Services Consultant: divya : 1940 Requested By: HOME Dickson Order Number: [id number] Reading MD: Agapito Butterfield Measurements Intervals [place] Rate: 57 P: 5 CO: 168 QRS: -19 QRSD: 82 T: 149 QT: 458 QTc: 445 Interpretive Statements Sinus bradycardia T wave abnormality, consider anterolateral ischemia Baseline artifact QTc normalized from tracing done 01-05-21 Electronically Signed on 01-23-2021 18:47:28 EST by Agapito Butterfield
[2021-01-23 19:15] VITALS: BP 128/70
--- NOTE | 2021-01-23 20:27 | ECGEPIP ---
[facility] - ED Test Date: 2021-01-23 Pat Name: ANGEL HANKINS Department: Room: [place] [address] Gender: Male Rn Oncology Research: ER : 1940 Requested By: TAY Reveles PA-C Order Number: [id number] Reading MD: Trav Borrego Measurements Intervals [place] Rate: 50 P: 29 OR: 196 QRS: -30 QRSD: 82 T: 219 QT: 484 QTc: 441 Interpretive Statements Sinus bradycardia Left axis deviation T wave abnormality, consider anterolateral ischemia SIMILAR TO PRIOR ON SAME DATE Electronically Signed on 01-23-2021 20:27:02 EST by Trav Borrego
[2021-01-23] MEDS ORDERED: traZODone 25MG PER 1/2 TABLET PO PRN (20:40)
[2021-01-23] MEDS ORDERED: OLANZapine INTRAMUSCULAR 10MG VIAL IM PRN (20:40)
[2021-01-23] MEDS: RAMELTEON 8 MG TAB (ROZEREM) PO PRN (21:01)
[2021-01-23] MEDS: CYANOCOBALAMIN 1,000MCG/ML VIAL (J3420) IM SCH (21:04)
[2021-01-24] MEDS ORDERED: ISOVUE-370 76% 100ML VIAL As Ordered ONE ×2 (02:13→08:33)
[2021-01-24] MEDS: ENOXAPARIN 80MG/0.8ML SYRINGE (J1650 PER 10MG) SC SCH ×2 (02:20→15:36)
[2021-01-24] MEDS ORDERED: QUEtiapine FUMARATE 12.5 MG HALF-TAB PO ONE (04:05)
[2021-01-24] MEDS: cefTRIAXone SOD 1 GM in D5W MINI-BAG PLUS 50 ML IV SCH (05:34)
[2021-01-24 06:00] VITALS: BP 104/54
[2021-01-24 06:16] LABS: BASO % 0.9 % (0.0-1.0); EOS # 0.2 10^3/uL (0.0-0.5); EOS % 3.3 % (0.0-3.0); HEMATOCRIT 27.6 % (42.0-52.0); HEMOGLOBIN 8.8 g/dl (13.5-17.5); LYMPH # 1.1 10^3/uL (1.5-5.0); LYMPH % 24.1 % (24.0-44.0); MEAN CORPUSCULAR HEMOGLOBIN 32.7 pg (27.0-33.0); MEAN CORPUSCULAR HGB CONC 31.9 g/dl (32.0-36.5); MEAN CORPUSCULAR VOLUME 102.6 fl (80.0-96.0); MONO # 0.5 10^3/uL (0.0-0.8); MONO % 11.2 % (2.0-8.0); NEUTROPHILS # 2.7 10^3/uL (1.5-8.5); NEUTROPHILS % 59.6 % (36.0-66.0); PLATELET COUNT, AUTOMATED 213 10^3/uL (150-450); RED BLOOD COUNT 2.69 10^6/uL (4.30-6.10); WHITE BLOOD COUNT 4.6 10^3/uL (4.0-10.0)
[2021-01-24 06:36] LABS: BLOOD UREA NITROGEN 22 MG/DL (7-18); CALCIUM LEVEL 8.6 MG/DL (8.8-10.2); CARBON DIOXIDE LEVEL 23 MEQ/L (21-32); CHLORIDE LEVEL 119 MEQ/L (98-107); CREATININE FOR GFR 1.04 MG/DL (0.70-1.30); GLOMERULAR FILTRATION RATE > 60.0 (>42); GLUCOSE, FASTING 91 MG/DL (70-100); POTASSIUM SERUM 3.5 MEQ/L (3.5-5.1); SODIUM LEVEL 148 MEQ/L (136-145)
[2021-01-24] MEDS: QUEtiapine FUMARATE 12.5 MG HALF-TAB PO SCH ×2 (08:01→16:00)
[2021-01-24] MEDS: ASPIRIN 81 MG CHEW TABLET PO SCH (08:01)
[2021-01-24] MEDS: THIAMINE 100 MG TAB PO SCH (08:01)
[2021-01-24] MEDS: CYANOCOBALAMIN 1,000MCG/ML VIAL (J3420) IM SCH (08:01)
[2021-01-24] MEDS: IRON POLYSAC (NIFEREX) 150 MG CAP PO SCH ×2 (08:01→20:46)
--- NOTE | 2021-01-24 09:36 | REP ---
INDICATION: 24h from contrast for cta/p; pt +RLL PE COMPARISON: 01/05/2021 TECHNIQUE: CT angiography of the chest attention pulmonary arteries after the intravenous administration of 100 cc Isovue 370 FINDINGS: There is suboptimal visualization of the pulmonary arterial vascular to such a degree that pulmonary emboli cannot be ruled out. There is no change in the thoracic aorta. No pleural effusions have developed. There is a mild pericardial effusion status quo. The imaged upper abdomen is unchanged from the abdominal and pelvic CT obtained yesterday. There is no change in the imaged osseous structures. Evaluation of the lung over[place] shows stable patchy bibasilar opacities, significant respiratory motion artifact, and lung field hypoexpansion. No new patchy opacities seem to have developed. IMPRESSION: 1. Pulmonary embolism cannot be ruled out as described above. A follow-up exam is recommended. 2. Lung field findings likely consistent with subsegmental atelectatic changes. Follow-up is recommended. 3. Other findings as described above. <Electronically signed by Porter Brice > 01/24/21 [id number]
--- NOTE | 2021-01-24 14:08 | IPNPDOC ---
Subjective Date Seen The patient was seen on 01/24/21. Subjective Chief Complaint/HPI Patient has been impulsive sometimes agitated overnight. Tried to walk out of the room. Impulsive would try to get out of bed suddenly. Does not remember to call staff prior to getting out of bed. Staff has been sitting in front of his door all night. He received trazodone and Rozerem last night without much effect so he was given Seroquel at 4 AM . This morning he is mostly sleepy. He did wake up for breakfast and his medications but then went back to sleep. Objective Physical Examination General Exam: Positive: Alert, Cooperative, No Acute Distress Eye Exam: Positive: PERRLA, Conjunctiva & lids normal, EOMI; Negative: Sclera icteric ENT Exam: Positive: Mucous membr. moist/pink, Pharynx Normal Neck Exam: Positive: Supple; Negative: JVD, thyromegaly Chest Exam: Positive: Clear to auscultation, Normal air movement Heart Exam: Positive: Bradycardic, Regular Rhythm, Normal S1, Normal S2; Negative: Murmurs, Rubs Telemetry: Positive: Bradycardia Abdomen Exam: Positive: Normal bowel sounds, Soft; Negative: Tenderness, Hepatospenomegaly Extremity Exam: Positive: Normal pulses; Negative: Clubbing, Cyanosis, Edema Skin Exam: Positive: Nl turgor and temperature; Negative: Breakdown, Lesion Neuro Exam: Positive: Normal Speech; Negative: Normal Gait Psych Exam: Positive: Mental status NL, Mood NL; Negative: Memory Intact, Oriented x 3 (Oriented x1) Assessment /Plan Assessment 80 yo M with past medical history of Wernicke's encephalopathy, afib, Urinary retention (s/p chronic indwelling Flores), Failure to thrive and Protein calorie malnutrition who arrives to the ED post fall. Patient known to service as he has recently been admitted -01/01 for confusion, hypotension and urinary retention; 01/07 -01/20 for fall and deconditioning as well as seen in ED January 21 and January 22 related to episodes of trauma to Flores. Reportedly, patient was upset and walked out of the house and then found by family member was outside of home and on ground-EMS called. Patient was reportedly alert at time of discovery however it is unknown if he had any episode of loss of consciousness. Work-up in the ED showed a pulmonary embolism and a DVT. Patient was admitted for DVT and PE and evaluation for possible syncope Syncope versus mechanical fall Patient does not remember Patient was found on the ground outside by EMS at that time he was awake and alert and talking. Telemetry did not show any arrhythmia. Does show sinus bradycardia when asleep He does have history of orthostatic hypotension and is on pyridostigmine. Cognitive impairment Due to Wernicke Korsakoff encephalopathy Seems to be at his baseline mental status Possible cystitis Patient has a few WBCs in his urine so we have empirically started him on ceftriaxone Patient has a chronic Flores If urine cultures is negative will discontinue antibiotic DVT in left lower extremity in the posterior tibial vein and Possible PE in the RLL CT angio could not confirm or rule out PE because of suboptimal examination We will continue the patient on Lovenox for the DVT Sinus bradycardia This could be medication related. History of recent paroxysmal A. fib Family had declined long-term anticoagulation in the prior admission. Urinary retention Patient has a flores placed on prior admission New Flores placed 01/23/[address] Mccallum; continue follow-up with urology Ascending thoracic aneurysm Previous CT showing 4.1 fusiform dilatation; CT 01/23 report "no aortic aneurysm or dissection" Bilateral adrenal nodules Appear to be stable on imaging Failure to thrive/protein calorie malnutrition Continue to encourage p.o. intake Vit b12 def will replace im x 3 days then po. Plan/VTE VTE Prophylaxis Ordered?: Yes VS, I&O, 24H, Fishbone Vital Signs/I&O Vital Signs Date Time Temp Pulse Resp B/P (MAP) Pulse Ox O2 Delivery O2 Flow Rate FiO2 01/24/21 06:00 99.6 64 18 104/54 (71) 96 Room Air I&O- Last 24 Hours up to 6 AM 01/24/21 06:00 Intake Total 546 ml Output Total 1175 ml Balance -629 ml Laboratory Data 24H LABS Laboratory Tests 2 01/23/21 15:56: Activated Partial Thromboplast Time 84.3H 01/23/21 22:02: Activated Partial Thromboplast Time 43.4H 01/24/21 06:00: Immature Granulocyte % (Auto) 0.9, Neutrophils (%) (Auto) 59.6, Lymphocytes (%) (Auto) 24.1, Monocytes (%) (Auto) 11.2H, Eosinophils (%) (Auto) 3.3H, Basophils (%) (Auto) 0.9, Neutrophils # (Auto) 2.7, Lymphocytes # (Auto) 1.1L, Monocytes # (Auto) 0.5, Eosinophils # (Auto) 0.2, Basophils # (Auto) 0.0, Nucleated Red Blood Cells % (auto) 0.0, Anion Gap 6L, Glomerular Filtration Rate > 60.0, Calcium Level 8.6L CBC/BMP Laboratory Tests 01/24/21 06:00 Microbiology Microbiology 01/23/21 Urine Culture, Received Pending Payton Lai MD Jan 24, 2021 14:08
[2021-01-24 15:32] VITALS: BP 107/57
[2021-01-24] MEDS: RAMELTEON 8 MG TAB (ROZEREM) PO PRN (21:52)
[2021-01-24 22:00] VITALS: BP_SYST 135; BP_SYST 144; BP_DIAS 75; BP_DIAS 80
[2021-01-24] MEDS ORDERED: MORPHINE 2 MG/ML 1ML VIAL (J2270) IV ONE (22:05)
--- NOTE | 2021-01-24 23:05 | IPNPDOC ---
Text Note Date of Service The patient was seen on 01/24/21. NOTE Notified patient with chest pain episode. Associated shortness of breath and pressure to anterior chest when he started to get out of bed. This is after administration of iron p.o. by 1 hr. Of note, patient is being treated for PE; CT chest completed today and he does have concurrent DVT per chart review. Stat EKG, Trop, morphine x1 per CP protocol Patient seen in bed in no acute distress. Tolerating room air 97%, respiratory rate is increased 30 shallow breaths, heart rate 72, BP 144/75 He reports 5/10 pain, although poor historian given his dementia/ Wernicke Kor sakoff regarding if the movement had made the cp worse. He is repositioned in bed and cries out, c/o generalized pain and soreness to upper back/ neck. He had CT c spine completed at admission since he had fallen at home which was nonacute. He reports he has cp that comes and goes; he points to anterior mid chest and above epigastric area. He describes discomfort with deep breathing. He denies re flux sensation. He does have diminished bases, s1,s2, irregularly irregular rhythm. He reports improvement in pain post morphine. EKG without acute ischemic changes. Of note, last Bm reported over 24 hours ago. His abdomen does appear more rounded compared to admission. He denies abdominal pain at present, but with exam normoactive BS and notable generalized tenderness to palpation. his CT a/p did mention possible viral enteritis. Monitor pt, tele, trend trop. Repeat EKG with any acute changes. Symptom management/supportive care. Pt likely with referred pain on top of the discomfort related to PE. Again, his mentation challenges HPI. Consider further cardiac work-up accordingly. Will obtain KUB to ensure no acute abdominal process developing. WCTM Update: Shortly after exam, pt sleeping peacefully in bed. VS,Fishbone, I+O VS, Fishbone, I+O Laboratory Tests 01/24/21 06:00 Vital Signs Date Time Temp Pulse Resp B/P (MAP) Pulse Ox O2 Delivery O2 Flow Rate FiO2 01/24/21 15:32 98.2 52 16 107/57 (74) 95 Room Air I&O- Last 24 Hours up to 6 AM 01/24/21 06:00 Intake Total 546 ml Output Total 1175 ml Balance -629 ml LASIOWSKI,HOME A. NET REPAIRER Jan 24, 2021 22:13
[2021-01-25] MEDS: ENOXAPARIN 80MG/0.8ML SYRINGE (J1650 PER 10MG) SC SCH (02:29)
[2021-01-25 06:00] VITALS: BP 124/74
[2021-01-25 06:44] LABS: BASO % 0.8 % (0.0-1.0); EOS # 0.2 10^3/uL (0.0-0.5); EOS % 3.4 % (0.0-3.0); HEMATOCRIT 28.7 % (42.0-52.0); HEMOGLOBIN 9.2 g/dl (13.5-17.5); LYMPH # 1.3 10^3/uL (1.5-5.0); LYMPH % 27.3 % (24.0-44.0); MEAN CORPUSCULAR HEMOGLOBIN 32.5 pg (27.0-33.0); MEAN CORPUSCULAR HGB CONC 32.1 g/dl (32.0-36.5); MEAN CORPUSCULAR VOLUME 101.4 fl (80.0-96.0); MONO # 0.5 10^3/uL (0.0-0.8); MONO % 11.1 % (2.0-8.0); NEUTROPHILS # 2.7 10^3/uL (1.5-8.5); NEUTROPHILS % 55.9 % (36.0-66.0); PLATELET COUNT, AUTOMATED 217 10^3/uL (150-450); RED BLOOD COUNT 2.83 10^6/uL (4.30-6.10); WHITE BLOOD COUNT 4.8 10^3/uL (4.0-10.0)
[2021-01-25] MEDS: cefTRIAXone SOD 1 GM in D5W MINI-BAG PLUS 50 ML IV SCH (07:04)
[2021-01-25 07:08] LABS: BLOOD UREA NITROGEN 17 MG/DL (7-18); CALCIUM LEVEL 8.9 MG/DL (8.8-10.2); CARBON DIOXIDE LEVEL 23 MEQ/L (21-32); CHLORIDE LEVEL 115 MEQ/L (98-107); CREATININE FOR GFR 0.96 MG/DL (0.70-1.30); GLOMERULAR FILTRATION RATE > 60.0 (>42); GLUCOSE, FASTING 81 MG/DL (70-100); POTASSIUM SERUM 3.9 MEQ/L (3.5-5.1); SODIUM LEVEL 145 MEQ/L (136-145)
[2021-01-25] MEDS: CYANOCOBALAMIN 1,000MCG/ML VIAL (J3420) IM SCH (07:59)
[2021-01-25] MEDS: QUEtiapine FUMARATE 12.5 MG HALF-TAB PO SCH ×2 (07:59→16:10)
[2021-01-25] MEDS: THIAMINE 100 MG TAB PO SCH (07:59)
[2021-01-25] MEDS: IRON POLYSAC (NIFEREX) 150 MG CAP PO SCH ×2 (07:59→21:50)
[2021-01-25] MEDS: ASPIRIN 81 MG CHEW TABLET PO SCH (07:59)
--- NOTE | 2021-01-25 08:15 | REP ---
INDICATION: epigastric and abd rust, bloating, enteritits on CT. COMPARISON: Comparison CT study January 23, 2021. TECHNIQUE: Supine portable KUB. FINDINGS: The bowel gas pattern is unremarkable with air and stool in a nondistended colon. No small or large bowel dilation is seen. Psoas margins there is no evidence of mass, organomegaly, or pathologic calcification. EKG electrodes are noted. Are symmetric. IMPRESSION: No evidence of obstruction or enteritis on plain radiograph. <Electronically signed by Yahir Mejia > 01/25/21 [id number]
--- NOTE | 2021-01-25 13:22 | IPNPDOC ---
Subjective Date Seen The patient was seen on 01/25/21. Subjective Chief Complaint/HPI No complaints this morning. He is anxious to go home. He knows that he is in the hospital in [place] but could not tell the name of the hospital. He knows where he lives. When explained that he was in [place] then he said that he knows [place] has often comes here. No chest pain this morning. No cough or phlegm. Niece came to visit the patient and she says patient is at his baseline mental status. I have spoken with niece Oracio and Sammie vera about plans for discharge home tomorrow and they are agreeable to the plan. No events on telemetry overnight. Objective Physical Examination General Exam: Positive: Alert, Cooperative, No Acute Distress Eye Exam: Positive: PERRLA, Conjunctiva & lids normal, EOMI; Negative: Sclera icteric ENT Exam: Positive: Mucous membr. moist/pink, Pharynx Normal Neck Exam: Positive: Supple; Negative: JVD, thyromegaly Chest Exam: Positive: Clear to auscultation, Normal air movement Heart Exam: Positive: Bradycardic, Regular Rhythm, Normal S1, Normal S2; Negative: Murmurs, Rubs Telemetry: Positive: Bradycardia Abdomen Exam: Positive: Normal bowel sounds, Soft; Negative: Tenderness, Hepatospenomegaly Extremity Exam: Positive: Normal pulses; Negative: Clubbing, Cyanosis, Edema Skin Exam: Positive: Nl turgor and temperature; Negative: Breakdown, Lesion Neuro Exam: Positive: Normal Speech; Negative: Normal Gait Psych Exam: Positive: Mental status NL, Mood NL; Negative: Memory Intact, Oriented x 3 (Oriented x1) Assessment /Plan Assessment 80 yo M with past medical history of Wernicke's encephalopathy, afib, Urinary retention (s/p chronic indwelling Flores), Failure to thrive and Protein calorie malnutrition who arrives to the ED post fall. Patient known to service as he has recently been admitted -01/01 for confusion, hypotension and urinary retention; 01/07 -01/20 for fall and deconditioning as well as seen in ED January 21 and January 22 related to episodes of trauma to Flores. Reportedly, patient was upset and walked out of the house and then found by family member was outside of home and on ground-EMS called. Patient was reportedly alert at time of discovery however it is unknown if he had any episode of loss of consciousness. Work-up in the ED showed a pulmonary embolism and a DVT. Patient was admitted for DVT and PE and evaluation for possible syncope Syncope versus mechanical fall Patient does not remember Patient was found on the ground outside by EMS at that time he was awake and alert and talking. Telemetry did not show any arrhythmia. he does have sinus parmjit in 48 to 55 range when asleep. He does have history of orthostatic hypotension and is on pyridostigmine. Cognitive impairment Due to Wernicke Korsakoff encephalopathy Seems to be at his baseline mental status Possible cystitis Patient has a few WBCs in his urine so we have empirically started him on ceftriaxone Patient has a chronic Flores If urine cultures is negative will discontinue antibiotic DVT in left lower extremity in the posterior tibial vein and Possible PE in the RLL CT angio chest could not confirm or rule out PE because of suboptimal examination Will change Lovenox to Eliquis. History of recent paroxysmal A. fib Now in sinus rhythm. Family now has got Eliquis at home Urinary retention Patient has a flores placed on prior admission New Flores placed 01/23/[address] Mccallum; continue follow-up with urology Ascending thoracic aneurysm Previous CT showing 4.1 fusiform dilatation; CT 01/23 report "no aortic aneurysm or dissection" Bilateral adrenal nodules Appear to be stable on imaging Failure to thrive/protein calorie malnutrition Continue to encourage p.o. intake Vit b12 def will replace im x 3 days then po. Plan/VTE VTE Prophylaxis Ordered?: Yes VS, I&O, 24H, Fishbone Vital Signs/I&O Vital Signs Date Time Temp Pulse Resp B/P (MAP) Pulse Ox O2 Delivery O2 Flow Rate FiO2 01/25/21 06:00 98.3 68 16 124/74 (91) 93 Room Air I&O- Last 24 Hours up to 6 AM 01/25/21 06:00 Intake Total 1010 ml Output Total 600 ml Balance 410 ml Laboratory Data 24H LABS Laboratory Tests 2 01/24/21 22:22: Troponin I High Sensitivity 18.0 01/25/21 06:19: Immature Granulocyte % (Auto) 1.5, Neutrophils (%) (Auto) 55.9, Lymphocytes (%) (Auto) 27.3, Monocytes (%) (Auto) 11.1H, Eosinophils (%) (Auto) 3.4H, Basophils (%) (Auto) 0.8, Neutrophils # (Auto) 2.7, Lymphocytes # (Auto) 1.3L, Monocytes # (Auto) 0.5, Eosinophils # (Auto) 0.2, Basophils # (Auto) 0.0, Nucleated Red Blood Cells % (auto) 0.0, Anion Gap 7L, Glomerular Filtration Rate > 60.0, Calcium Level 8.9 CBC/BMP Laboratory Tests 01/25/21 06:19 Microbiology Microbiology 01/23/21 Urine Culture, Received Pending Payton Lai MD Jan 25, 2021 13:22
[2021-01-25 14:00] VITALS: BP 132/74
[2021-01-25] MEDS: CYANOCOBALAMIN 500 MCG TAB PO SCH (16:11)
--- NOTE | 2021-01-25 19:56 | ECGEPIP ---
[facility] Test Date: 2021-01-24 Pat Name: ANGEL HANKINS Department: Room: [place] [address] Gender: Male Production Support Developer: DONNA : 1940 Requested By: HOME Dickson Order Number: [id number] Reading MD: Agapito Butterfield Measurements Intervals [place] Rate: 67 P: 36 [place]: 174 QRS: -32 QRSD: 82 T: 129 QT: 390 QTc: 412 Interpretive Statements Sinus rhythm with occasional premature ventricular complexes and premature atrial complexes Left axis deviation T wave abnormality, consider lateral ischemia Similar to tracing done 01-23-21 Electronically Signed on 01-25-2021 19:55:26 EST by Agapito Butterfield
[2021-01-25] MEDS: RAMELTEON 8 MG TAB (ROZEREM) PO PRN (21:50)
[2021-01-25] MEDS: APIXABAN 5 MG TAB (ELIQUIS) PO SCH (21:50)
[2021-01-25 22:00] VITALS: BP 130/81
[2021-01-26 06:00] VITALS: BP 119/72
[2021-01-26 06:54] LABS: BASO % 0.8 % (0.0-1.0); EOS # 0.2 10^3/uL (0.0-0.5); EOS % 3.8 % (0.0-3.0); HEMATOCRIT 29.2 % (42.0-52.0); HEMOGLOBIN 9.3 g/dl (13.5-17.5); LYMPH # 1.2 10^3/uL (1.5-5.0); LYMPH % 24.9 % (24.0-44.0); MEAN CORPUSCULAR HEMOGLOBIN 32.5 pg (27.0-33.0); MEAN CORPUSCULAR HGB CONC 31.8 g/dl (32.0-36.5); MEAN CORPUSCULAR VOLUME 102.1 fl (80.0-96.0); MONO # 0.7 10^3/uL (0.0-0.8); MONO % 13.5 % (2.0-8.0); NEUTROPHILS # 2.8 10^3/uL (1.5-8.5); NEUTROPHILS % 55.6 % (36.0-66.0); PLATELET COUNT, AUTOMATED 236 10^3/uL (150-450); RED BLOOD COUNT 2.86 10^6/uL (4.30-6.10)
[2021-01-26 07:09] LABS: BLOOD UREA NITROGEN 21 MG/DL (7-18); CALCIUM LEVEL 8.3 MG/DL (8.8-10.2); CARBON DIOXIDE LEVEL 24 MEQ/L (21-32); CHLORIDE LEVEL 117 MEQ/L (98-107); CREATININE FOR GFR 1.16 MG/DL (0.70-1.30); GLOMERULAR FILTRATION RATE > 60.0 (>42); GLUCOSE, FASTING 88 MG/DL (70-100); POTASSIUM SERUM 4.1 MEQ/L (3.5-5.1); SODIUM LEVEL 148 MEQ/L (136-145)
[2021-01-26] MEDS ORDERED: ELIQ5TAB PO (08:13)
[2021-01-26] MEDS ORDERED: QUET1TAB17 PO (08:13)
[2021-01-26] MEDS ORDERED: VITA500T40 PO (08:13)
[2021-01-26] MEDS: APIXABAN 5 MG TAB (ELIQUIS) PO SCH (09:08)
[2021-01-26] MEDS: CYANOCOBALAMIN 500 MCG TAB PO SCH (09:08)
[2021-01-26] MEDS: ASPIRIN 81 MG CHEW TABLET PO SCH (09:08)
[2021-01-26] MEDS: QUEtiapine FUMARATE 12.5 MG HALF-TAB PO SCH (09:08)
[2021-01-26] MEDS: IRON POLYSAC (NIFEREX) 150 MG CAP PO SCH (09:08)
[2021-01-26] MEDS: THIAMINE 100 MG TAB PO SCH (09:08)
--- NOTE | 2021-01-26 11:51 | DS.PDOC ---
Discharge Summary General Date of Admission Jan 23, 2021 at 03:02 Date of Discharge 01/26/21 Discharge Summary PROCEDURES PERFORMED DURING STAY: [None]. DISCHARGE DIAGNOSES: Syncope and fall Orthostatic hypotension Left leg DVT RLL pulmonary embolism. Wernicke - korsacoff dementia. Vitamin B-12 deficiency Paroxysmal A. fib Urinary retention has chronic Flores Ascending thoracic aortic dilatation Failure to thrive/protein calorie malnutrition Bilateral adrenal nodules COMPLICATIONS/CHIEF COMPLAINT: Pulmonary Emboli,Wernickes Encephalopathy. HOSPITAL COURSE: 80 yo M with past medical history of Wernicke's encephalopathy, afib, Urinary retention (s/p chronic indwelling Flores), Failure to thrive and Protein calorie malnutrition who arrives to the ED post fall. Patient known to service as he has recently been admitted -01/01 for confusion, hypotension and urinary retention; 01/07 -01/20 for fall and deconditioning as well as seen in ED January 21 and January 22 related to episodes of trauma to Flores. Reportedly, patient was upset and walked out of the house and then found by family member was outside of home and on ground-EMS called. Patient was reportedly alert at time of discovery however it is unknown if he had any episode of loss of consciousness. Work-up in the ED showed a pulmonary embolism and a DVT. Patient was admitted for DVT and PE and evaluation for possible syncope. Patient was found to have a DVT and a PE. Patient was evaluated by PT and physical strength esteban he is okay but his main issue is cognitive. Family wants to take him home and they're going to arrange for someone to stay overnight for a few days till home services start. I did explain to family that home services only are going to be only 2 or 3 hours maybe 3 or 4 times a week. I feel with patient's mental condition and with history of also having dementia if they are to remain at home they will need 24x 7 care either by family or through chrome plater helper. I did explain everything to ninéstor Narayanan who is aware of the situation and said that she is not working at this time and will be there to watch the patient 24x7. Syncope versus mechanical fall Likely orthostatic hypotension with fall. Patient does not remember Patient was found on the ground outside by EMS at that time he was awake and alert and talking. Telemetry did not show any arrhythmia. he does have sinus parmjit in 48 to 55 range when asleep. He does have history of orthostatic hypotension and is on pyridostigmine. 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 DVT in left lower extremity in the posterior tibial vein and Possible PE in the RLL CT angio chest could not confirm or rule out PE because of suboptimal examination continue Eliquis. History of recent paroxysmal A. fib Now in sinus rhythm. Family now has got Eliquis at home Urinary retention Patient has a flores placed on prior admission New Flores placed 01/23/[address] Mccallum; continue follow-up with urology Ascending thoracic aneurysm Previous CT showing 4.1 fusiform dilatation; CT 01/23 report "no aortic aneurysm or dissection" Bilateral adrenal nodules Appear to be stable on imaging Failure to thrive/protein calorie malnutrition Continue to encourage p.o. intake Vit b12 def will replace im x 3 days then po. DISCHARGE MEDICATIONS: Please see below. ALLERGIES: Please see below. PHYSICAL EXAMINATION ON DISCHARGE: VITAL SIGNS: Please see below. General Exam: Positive: Alert, Cooperative, No Acute Distress Eye Exam: Positive: PERRLA, Conjunctiva & lids normal, EOMI; Negative: Sclera icteric ENT Exam: Positive: Mucous membr. moist/pink, Pharynx Normal Neck Exam: Positive: Supple; Negative: JVD, thyromegaly Chest Exam: Positive: Clear to auscultation, Normal air movement Heart Exam: Positive: Bradycardic, Regular Rhythm, Normal S1, Normal S2; Negative: Murmurs, Rubs Telemetry: Positive: Bradycardia Abdomen Exam: Positive: Normal bowel sounds, Soft; Negative: Tenderness, Hepatosplenomegaly Extremity Exam: Positive: Normal pulses; Negative: Clubbing, Cyanosis, Edema Skin Exam: Positive: Nl turgor and temperature; Negative: Breakdown, Lesion Neuro Exam: Positive: Normal Speech; Negative: Normal Gait Psych Exam: Positive: Mental status NL, Mood NL; Negative: Memory Intact, Oriented x 3 (Oriented x1) LABORATORY DATA: Please see below. ACTIVITY: [As tolerated]. DIET: Regular DISCHARGE PLAN: Home with family DISCHARGE INSTRUCTIONS: PMD in 2 weeks DISCHARGE CONDITION: [Stable]. TIME SPENT ON DISCHARGE: 35 minutes. Vital Signs/I&Os Vital Signs Date Time Temp Pulse Resp B/P (MAP) Pulse Ox O2 Delivery O2 Flow Rate FiO2 01/26/21 06:00 98.7 51 19 119/72 (88) 95 Room Air I&O- Last 24 Hours up to 6 AM 01/26/21 06:00 Intake Total 1050 ml Output Total 2365 ml Balance -1315 ml Laboratory Data Labs 24H Laboratory Tests 2 01/26/21 05:50: Immature Granulocyte % (Auto) 1.4, Neutrophils (%) (Auto) 55.6, Lymphocytes (%) (Auto) 24.9, Monocytes (%) (Auto) 13.5H, Eosinophils (%) (Auto) 3.8H, Basophils (%) (Auto) 0.8, Neutrophils # (Auto) 2.8, Lymphocytes # (Auto) 1.2L, Monocytes # (Auto) 0.7, Eosinophils # (Auto) 0.2, Basophils # (Auto) 0.0, Nucleated Red Blood Cells % (auto) 0.0 01/26/21 05:51: Anion Gap 7L, Glomerular Filtration Rate > 60.0, Calcium Level 8.3L 01/26/21 08:36: Lab Scanned Report Miscellaneous Lab CBC/BMP Laboratory Tests 01/26/21 05:50 01/26/21 05:51 Microbiology Microbiology 01/23/21 Urine Culture - Preliminary, Resulted Staphylococcus Epidermidis Discharge Medications Scheduled Apixaban (Eliquis) 5 Mg Tablet, 5 MG PO BID 2 tabs twice a day for 4 days then 1 tab twice a day to continue. Cyanocobalamin (Vitamin B-12) (Vitamin B-12) 500 Mcg Tablet, 500 MCG PO DAILY Iron Ag,Ps/C/Fa6/B12/Zn/SA/Sto (Niferex Tablet) 1 Each Tablet, 1 TAB PO BID, (Reported) Pyridostigmine [place]wick (Pyridostigmine [place]wick) 60 Mg Tablet, 15 MG PO TID, (Reported) Quetiapine Fumarate (Quetiapine Fumarate) 25 Mg Tablet, 12.5 MG PO BID@0900,1600 Thiamine HCl (Vitamin B-1) 100 Mg Tablet, 100 MG PO DAILY, (Reported) Allergies Coded Allergies: No Known Allergies (Unverified , 12/19/14) Payton Lai MD Jan 26, 2021 11:51
--- NOTE | 2021-01-26 16:25 | ECHO ---
ECHOCARDIOGRAM DATE OF PROCEDURE: 01/25/2021 Age: 80 Gender: Male Height: 71 inches Weight: 163 pounds. REFERRING PHYSICIAN: Payton Lai MD PATIENT LOCATION: [place] [address] REASON FOR THE ECHOCARDIOGRAM: Abnormal electrocardiogram (EKG), chest pain. MEASUREMENTS: 2-D measurements: IVS 1.0 cm LV 4.9 cm LVPW 1.1 cm LA 3.9 cm Aorta 4.5 cm IVC 1.8 cm Doppler measurement: Peak velocity across the aortic valve 1.3 m/s Peak velocity across the LVOT is 0.95 m/s Mitral E 0.60, mitral A is 0.93 with ratio of 0.6 2-D COMMENTS: \ 1. Normal left ventricular size, wall thickness and normal global left ventricular systolic function. The estimated left ventricular systolic ejection fraction is 60 to 65%. 2. Normal left atrium. Normal right atrium and right ventricle. 3. The atrial septum appears to be normal without evidence of defect or shunt. 4. Moderately enlarged aortic root at 4.5 cm. 5. A small pericardial effusion was noted. No evidence of cardiac tamponade. 6. Mildly calcified aortic valve with normal leaflet excursion. Normal mitral valve and tricuspid valve. The pulmonic valve and proximal pulmonary artery branches were not well visualized. 7. The inferior vena cava was normal in size. Central venous pressure is most likely normal. DOPPLER: No significant valvular regurgitation or stenosis noted. Abnormal relaxation pattern was noted across the mitral valve leaflets, as well as the mitral annulus consistent with features of grade 1 left ventricular diastolic dysfunction. IMPRESSION: 1. Normal global left ventricular systolic function. There are some features of grade 1 left ventricular diastolic dysfunction manifested by abnormal reluxation 2. Aortic valve sclerosis without stenosis or aortic regurgitation. 3. Small pericardial effusion was noted. No evidence of cardiac tamponade. 4. Moderate enlarged aortic root 4.5 cm.
== END 2021-01-26 13:23 | disposition home or self-care (01) | DRG 299 ==
LOC: M ED 23:34 → M ED INP 01-23 03:02 → ENRESERV 01-23 15:12 → M MSPAV 01-23 16:07
PROVIDERS: ADMIT Family Medicine; ATTEND Internal Medicine Nephrology
DX: I82.442 Acute embolism and thrombosis of left tibial vein (principal); I26.99 Other pulmonary embolism without acute cor pulmonale; E46 Unspecified protein-calorie malnutrition; E51.2 Wernicke's encephalopathy; I48.0 Paroxysmal atrial fibrillation; E53.8 Deficiency of other specified B group vitamins; I95.1 Orthostatic hypotension; I71.2 Thoracic aortic aneurysm, without rupture; F10.26 Alcohol dependence with alcohol-induced persisting amnestic disorder; E27.8 Other specified disorders of adrenal gland; Z66 Do not resuscitate; R33.9 Retention of urine, unspecified; A08.4 Viral intestinal infection, unspecified; R00.1 Bradycardia, unspecified

== ENCOUNTER 2021-01-29 16:04 | Emergency (ER) | payer MEDICARE, BC, OTHER ==
[~2021-01-29] VITALS: Ht 182.9 cm; Wt 167.0 kg
[~2021-01-29 16:04] MED LIST changes: +ASPI1CHW3 PO; +B-1100TA2 PO; +QUET1TAB17 PO; +VITA500T40 PO
[2021-01-29 16:05] VITALS: BP 140/89
[2021-01-29] MEDS ORDERED: LIDOCAINE 2% 5ML JELLY UROJET TOP ONE (17:10)
--- OUTSIDE RECORDS SUMMARY | 2021-01-29 18:31 | CCD ---
Author Author [employer] Organization [employer] Address Unknown Phone Unavailable Care Team Providers Care Adhesive Sprayer Name Role Phone Unavailable Unavailable Problems Condition Name Condition Details Condition Category Status Onset Date Resolution Date Last Treatment Date Treating Clinician Comments Wernicke's encephalopathy Wernicke's encephalopathy Diagnosis Active Sophie Hutchinson Allergies, Adverse Reactions, Alerts Allergy Name Allergy Type Status Severity Reaction(s) Onset Date Inacti ve Date Treating Clinician Comments Unknown None Active Unknown None Unknown No Known Allergies For This Patient Medications Ordered Medication Name Filled Medication Name Start Date Stop Da te Current Medication? Ordering Clinician Indication Dosage Frequency Signature (SIG) Comments Components pyridostigmine bromide 60 mg tablet pyridostigmine bromide 6 0 mg tablet 2021-01-22 2021-01-23 Yes Arnie Rivera Unknown Unknown aspirin 81 mg chewable tablet aspirin 81 mg chewable tablet 20202021-01-23 Yes Arnie Rivera Unknown Unknown Niferex (Sumalate-Quatrefolic) 150 mg iron-60 mg-1 mg tablet Niferex (Sumalate- Quatrefolic) 150 mg iron-60 mg-1 mg tablet 2021-01-22 2021-01-23 Yes Arnie Rivera Unknown Unknown Vitamin B-1 100 mg tablet Vitamin B-1 100 mg tablet 2021-01-222020-02 Yes Arnie Rivera Unknown Unknown Niferex (Sumalate-Quatrefolic) 150 mg iron-60 mg-1 mg tablet Niferex (Sumalate- Quatrefolic) 150 mg iron-60 mg-1 mg tablet 2021-01-23 2021-01-23 Yes Arnie Rivera Unknown Unknown pyridostigmine bromide 60 mg tablet pyridostigmine bromide 6 0 mg tablet 2021-01-23 2021-01-23 Yes Arnie Rivrea Unknown Unknown Vitamin B-1 100 mg tablet Vitamin B-1 100 mg tablet 2021-01-232020-02- Yes Arnie Rivera Unknown Unknown aspirin 81 mg chewable tablet aspirin 81 mg chewable tablet 20202021-01-23 Yes Arnie Rivera Unknown Unknown Procedures This patient has no known procedures. Results This patient has no known results.
--- OUTSIDE RECORDS SUMMARY | 2021-01-29 18:31 | CCD ---
Author Author [facility] Organization [employer] Address Unknown Phone Unavailable Care Team Providers Care Foreman/Pile Driving [employer] Name Role Phone Unavailable Unavailable Problems Condition [...] pyridostigmine bromide 6 0 mg tablet 2021-01-22 Yes Arnie Rivera Unknown Unknown aspirin 81 mg chewable tablet aspirin 81 mg chewable tablet 1 Yes Arnie Rivera Unknown Unknown Niferex (Sumalate-Quatrefolic) 150 mg iron-60 mg-1 mg tablet Niferex (Sumalate- Quatrefolic) 150 mg iron-60 mg-1 mg tablet 2021-01-22 Yes Arnie Rivera Unknown Unknown Vitamin B-1 100 mg tablet Vitamin B-1 100 mg tablet 2021-01-22 Yes Arnie Rivera Unknown Unknown Procedures This patient has no known procedures. Results This patient has no known results.
--- OUTSIDE RECORDS SUMMARY | 2021-01-29 18:31 | CCD ---
Author Author [facility] Organization [facility] Address Unknown Phone Unavailable Care Team Providers Care Perinatal Specialist Name Role Phone Kaia Rivera MD Unavailable Unavailable Kaia Rivera MD Unavailable Unavailable Kaia Rivera MD Unavailable Unavailable Kaia Rivera MD Unavailable Unavailable Kaia Rivera MD Unavailable Unavailable Kaia Rivera MD Unavailable Unavailable Kaia Rivera MD Unavailable Unavailable Kaia Rivera MD Unavailable Unavailable Kaia Rivera MD Unavailable Unavailable Kaia Rivera MD Unavailable Unavailable Kaia Rivera MD Unavailable Unavailable Kaia Rivera MD Unavailable Unavailable Kaia Rivera MD Unavailable Unavailable Kaia Rivera MD Unavailable Unavailable Kaia Rivera MD Unavailable Unavailable Kaia Rivera MD Unavailable Unavailable Kaia Rivera MD Unavailable Unavailable Kaia Rivera MD Unavailable Unavailable Kaia Rivera MD Unavailable Unavailable Kaia Rivera MD Unavailable Unavailable Kaia Rivera MD Unavailable Unavailable Kaia Rivera MD Unavailable Unavailable Kaia Rivera MD Unavailable Unavailable Kaia Rivera MD Unavailable Unavailable Kaia Rivera MD Unavailable Unavailable Kaia Rivera MD Unavailable Unavailable Kaia Rivera MD Unavailable Unavailable Kaia Rivera MD Unavailable Unavailable Kaia Rivera MD Unavailable Unavailable Kaia Rivera MD Unavailable Unavailable Kaia Rivera MD Unavailable Unavailable Kaia Rivera MD Unavailable Unavailable Kaia Rivera MD Unavailable Unavailable Kaia Rivera MD Unavailable Unavailable Nicole, D Arnie MD Unavailable Unavailable Nicole, D Arnie MD Unavailable Unavailable Nicole, D Arnie MD Unavailable Unavailable Nicole, D Arnie MD Unavailable Unavailable Nicole, D Arnie MD Unavailable Unavailable Nicole, D Arnie MD Unavailable Unavailable Nicole, D Arnie MD Unavailable Unavailable [place], D Arnie MD Unavailable Unavailable [place], D Arnie MD Unavailable Unavailable [place], D Arnie MD Unavailable Unavailable [place], D Arnie MD Unavailable Unavailable Nicole, D Arnie MD Unavailable Unavailable [place], D Arnie MD Unavailable Unavailable [place], D Arnie MD Unavailable Unavailable [place], D Arnie MD Unavailable Unavailable Nicole, D Arnie MD Unavailable Unavailable Nicole, D Arnie MD Unavailable Unavailable Nicole, D Arnie MD Unavailable Unavailable Nicole, D Arnie MD Unavailable Unavailable [place], D Arnie MD Unavailable Unavailable [place], D Arnie MD Unavailable Unavailable Nicole, D Arnie MD Unavailable Unavailable Re-disclosure Warning The records that you [...] is protected by Article 27-F of the [facility] Public Health law. If you continue you may have access to information: Regarding HIV / AIDS; Provided by facilities licensed or operated by the [facility] Office of Mental Health; or Provided by the [facility] Office for People With Developmental Disabilities. If such information is present, then the following [facility] mandated warning applies: This information has [...] NOT sufficient authorization for further disc losure. Allergies and Adverse Reactions Type Description Substance Reaction Status Data Source(s ) No Known Allergies NO KNOWN MEDICATION ALLERGIES NO KNOWN MEDICA TION ALLERGIES NDOC ([facility]) Family History Family Member Name Family Member Gender Family Member Status Date o f Status Description Data Source(s) Unknown Unknown Problem MEDENT ([facility]) Unknown Unknown Problem [facility] ([facility] Unknown Unknown Problem [facility] ([facility] Encounters Encounter Providers Location Date Indications Data Source(s ) O Attender: Arnie Rivera MD 01/22/2021 09:20:00 PM EST NDOC ([facility]) Patient discharged. Immunizations Vaccine Date Status Description Data Source(s) COVID-19 VACCINE Moderna 04/29/2020 12:00:00 AM EST completed [facility] Vaccine Series Complete: YESThis Data wa s Submitted to [facility] Via [employer]. COVID-19 VACCINE, MRNA-1273, LNP-S (MODERNA)/PF 04/29/2020 1 2:00:00 AM EST completed [facility] COVID-19 VACCINE Moderna 04/01/2020 12:00:00 AM EST completed [facility] Vaccine Series Complete: NOThis Data was Submitted to [facility] Via [employer]. COVID-19 VACCINE, MRNA-1273, LNP-S (MODERNA)/PF 04/01/2020 1 2:00:00 AM EST completed [facility] Medications Medication Brand Name Start Date Product Form Dose Route Admi nistrative Instructions Pharmacy Instructions Status Indications Reaction Description Data Source(s) 500 mcg 01/26/2021 12:00:00 AM EST tablet 30 TAKE ONE TABLET BY MOUTH EVERY DAY TAKE ONE TABLET BY MOUTH EVERY DAY SOLD: 01/26/2021 [facility] 25 mg 01/26/2021 12:00:00 AM EST tablet 15 TAKE 1/2 TABLET BY MOUTH TWO TIMES A DAY 9:00AM AND 4:00PM TAKE 1/2 TABLET BY MOUTH TWO TIMES A DAY 9:00AM AND 4:00PM SOLD: 01/26/2021 [facility] 60 mg 01/21/2021 12:00:00 AM EST tablet 30 TAKE 1/4 TABLET BY MOUTH THREE TIMES A DAY TAKE 1/4 TABLET BY MOUTH THREE TIMES A DAY SOLD: 01/22/2021 [facility] 100 mg 01/07/2021 12:00:00 AM EST tablet 30 TAKE ONE TABLET BY MOUTH EVERY DAY TAKE ONE TABLET BY MOUTH EVERY DAY SOLD: 01/22/2021 [facility] 81 mg 01/07/2021 12:00:00 AM EST tablet,chewable 30 CHEW ONE TABLET BY MOUTH EVERY DAY CHEW ONE TABLET BY MOUTH EVERY DAY SOLD: 01/22/2021 [facility] 5 mg 01/07/2021 12:00:00 AM EST tablet 60 TAKE ONE TABLET BY MOUTH TWICE A DAY TAKE ONE TABLET BY MOUTH TWICE A DAY SOLD: 01/22/2021 [facility] 150 mg iron- 60 mg-1 mg 01/02/2021 12:00:00 AM EST tablet 30 TAKE ONE TABLET BY MOUTH TWICE A DAY TAKE ONE TABLET BY MOUTH TWICE A DAY SOLD: 01/22/2021 [facility] 5 mg 01/01/2021 12:00:00 AM EST tablet [...] relationship to delatorre Policy Delatorre Plan Information [facility] [id number] SP [id number] MEDICARE [id number] SP [id number] A MEDICARE [id number] SP [id number] A MEDICARE [id number] SP [id number] MEDICARE [id number] SP [id number] A [facility] [id number] SP [id number] UNITED HEALTHCARE [id number] SP [id number] UNITED HEALTHCARE [id number] SP [id number] United [employer] Medigap Part B [id number] Self [id number] Medicare Natl Gov't Servi Medicare Primary [id number] Self [id number] United [employer] Startex Medigap Part B [id number] Self [id number] Medicare Natl Gov't Servi Medicare Primary [id number] Self [id number] Emp/United Healthcare Medigap Part B [id number] Self [id number] Medicare [place] Medicare Primary [id number] Self [id number] Emp/United Healthcare Medigap Part B [id number] Self [id number] Medicare [place] Medicare Primary [id number] Self [id number] UNITED HEALTHCARE O [id number] S [id number] Emp/United Healthcare Medigap Part B [id number] Self Medicare [place] Medicare Primary [id number] Self United Healthcare/Startex Medigap Part B [id number] Self Medicare [place] Medicare Primary [id number] Self UNITED HEALTHCARE [id number] SP [id number] [facility] [id number] SP [id number] Emp/United Healthcare Medigap Part B [id number] Self MEDICARE [id number] SP [id number] Self Pay P UNAVAILABLE S UNAVAILA BLE Emp/United Healthcare Medigap Part B [id number] Self [id number] Medicare [place] Medicare Primary [id number] Self [id number] Emp/United Healthcare Medigap Part B [id number] Self [id number] Medicare [place]state Medicare Primary [id number] Self [id number] [facility] O [id number] S [id number] MEDICARE C [id number] S [id number] A Problems, Conditions, and Diagnoses Code Display Name Description Problem Type Effective Dates Data Source(s) E51.2 Wernicke's encephalopathy Wernicke's encephalopathy Di agnosis 01/25/2021 12:58:00 AM EST NDOC ([facility]) Surgeries/Procedures No Information Results ID Date Data Source [id number] 01/23/2021 02:38:00 AM EST [facility] Name Value Range Interpretation Code Description Data Nathalia rce(s) Supporting Document(s) SARS coronavirus 2 RNA [Presence] in Res piratory specimen by ERICA with probe detection NEGATIVE [facility] This lab was ordered by [facility] a nd reported by [facility]. ID Date Data Source [id number] 01/05/2021 04:54:00 PM EST [facility] Name Value Range Interpretation Code Description Data Nathalia rce(s) Supporting Document(s) SARS coronavirus 2 RNA [Presence] in Res piratory specimen by ERICA with probe detection NEGATIVE [facility] This lab was ordered by [facility] a nd reported by [facility]. ID Date Data Source [id number] 12/20/2020 09:38:00 AM EDT [facility] Name Value Range Interpretation Code Description Data Nathalia rce(s) Supporting Document(s) SARS coronavirus 2 RNA [Presence] in Res piratory specimen by ERICA with probe detection NEGATIVE [facility] This lab was ordered by [facility] a nd reported by [facility]. ID Date Data Source [id number] 09/08/2020 08:16:00 PM EDT [facility] Name Value Range Interpretation Code Description Data Nathalia rce(s) Supporting Document(s) SARS coronavirus 2 RNA [Presence] in Res piratory specimen by ERICA with probe detection NEGATIVE [facility] This lab was ordered by [facility] a nd reported by [facility]. Procedure Social History No Information
--- OUTSIDE RECORDS SUMMARY | 2021-01-29 18:31 | CCD ---
Author Author [employer] Organization [employer] Address Unknown Phone Unavailable Care Team Providers Care Drafter Civil Name Role Phone Unavailable Unavailable Problems Condition [...] 0 mg tablet 2021-01-23 2021-01-23 Yes Arnie Rivera Unknown Unknown Vitamin B-1 100 mg tablet Vitamin B-1 100 mg tablet 2021-01-232020-02- Yes Arnie Rivera Unknown Unknown aspirin 81 mg chewable tablet aspirin 81 mg chewable tablet 20202021-01-23 Yes Arnie Rivera Unknown Unknown Procedures This patient has no known procedures. Results This patient has no known results.
[2021-01-30] MEDS ORDERED: MIDO5TA PO (09:33)
[2021-01-30] MEDS ORDERED: FOLI1TAB11 PO (09:33)
[2021-01-30] MEDS ORDERED: BISAC5TA PO (09:33)
[2021-01-30] MEDS ORDERED: ELIQ5TAB PO (16:38)
[2021-01-30] MEDS ORDERED: PYRI60TA2 PO (16:44)
== END 2021-01-29 18:39 | disposition home or self-care (01) ==
LOC: M ED 16:04
DX: R33.9 Retention of urine, unspecified (principal); N40.1 Benign prostatic hyperplasia with lower urinary tract symptoms; Z79.899 Other long term (current) drug therapy; Z79.01 Long term (current) use of anticoagulants

== ENCOUNTER 2021-01-30 08:07 | Inpatient (IN) | payer MEDICARE, BC, OTHER ==
--- OUTSIDE RECORDS SUMMARY | 2021-01-30 08:12 | CCD ---
Author Author [facility] Organization [facility] Address Unknown Phone Unavailable Care Team Providers Care Pharmacy Operations Manager Name Role Phone Kaia Rivera MD Unavailable Unavailable Kaia Rivera MD Unavailable Unavailable Kaia Rivera MD Unavailable Unavailable Kaia Rivera MD Unavailable Unavailable Kaia Rivera MD Unavailable Unavailable Kaia Rivera MD Unavailable Unavailable Kaia Rivera MD Unavailable Unavailable Kiaa Rivera MD Unavailable Unavailable Kaia Rivera MD [...] Unavailable Nicole, D Arnie MD Unavailable Unavailable [place], D Arnie MD Unavailable Unavailable [place], D Arnie MD Unavailable Unavailable [place], D Arnie MD Unavailable Unavailable [place], D Arnie MD Unavailable Unavailable Nicole, D Arnie MD Unavailable Unavailable [place], D Arnie MD Unavailable Unavailable [place], D Arnie MD Unavailable Unavailable [place], D Arnie MD Unavailable Unavailable Nicole, D Arnie MD Unavailable Unavailable Nicole, D Arnie MD Unavailable Unavailable Nicole, D Arnie MD Unavailable Unavailable Nicole, D Arnie MD Unavailable Unavailable [place], D Arnie MD Unavailable Unavailable [place], D Arnie MD Unavailable Unavailable Nicole, D [...] is protected by Article 27-F of the [facility] Public Health law. If you continue you may have access to information: Regarding HIV / AIDS; Provided by facilities licensed or operated by the [facility] Office of Mental Health; or Provided by the [facility] Office for People With Developmental Disabilities. If such information is present, then the following [facility] mandated warning applies: This information has [...] law may result in a fine or halfway sentence or both. A general authorization for the release of medical or other information is NOT sufficient authorization for further disc losure. Allergies and Adverse Reactions Type Description Substance Reaction Status Data Source(s ) No Known Allergies NO KNOWN MEDICATION ALLERGIES NO KNOWN MEDICA TION ALLERGIES NDOC ([facility]) Family History Family Member Name Family Member Gender Family Member Status Date o f Status Description Data Source(s) Unknown Unknown Problem MEDENT ([facility]) Unknown Unknown Problem [facility] ([facility] Unknown Unknown Problem [facility] ([facility] Encounters Encounter Providers Location Date Indications Data Source(s ) O Attender: Arnie Rivera MD 01/22/2021 09:20:00 PM EST NDOC ([facility]) Patient discharged. Immunizations Vaccine Date Status Description Data Source(s) COVID-19 VACCINE Moderna 04/29/2020 12:00:00 AM EST completed [facility] Vaccine Series Complete: YESThis Data wa s Submitted to [facility] Via [employer]. COVID-19 VACCINE, MRNA-1273, LNP-S (MODERNA)/PF 04/29/2020 1 2:00:00 AM EST completed [facility] COVID-19 VACCINE Moderna 04/01/2020 12:00:00 AM EST completed [facility] Vaccine Series Complete: NOThis Data was Submitted to [facility] Via [employer]. COVID-19 VACCINE, MRNA-1273, LNP-S (MODERNA)/PF 04/01/2020 1 [...] Covered libertarian ID Covered libertarian's relationship to dealtorre Policy Delatorre Plan Information [facility] [id number] SP [id number] MEDICARE [id number] SP [id number] A MEDICARE [id number] SP [id number] A MEDICARE [id number] SP [id number] MEDICARE [id number] SP [id number] [facility] [id number] SP [id number] UNITED HEALTHCARE [id number] SP [id number] UNITED HEALTHCARE [id number] SP [id number] [facility] Medigap Part B [id number] Self [id number] Medicare Natl Gov't Servi Medicare Primary [id number] Self [id number] [facility] Medigap Part B [id number] Self [id number] Medicare Natl Gov't Servi Medicare Primary [id number] Self [id number] Emp/United Healthcare Medigap Part B [id number] Self [id number] Medicare [place]state Medicare Primary [id number] Self [id number] Emp/United Healthcare Medigap Part B [id number] Self [id number] Medicare [place] Medicare Primary [id number] Self [id number] UNITED HEALTHCARE O [id number] S [id number] Emp/United Healthcare Medigap Part B [id number] Self Medicare [place] Medicare Primary [id number] Self United [facility]/[place] Medigap Part B [id number] Self Medicare [place] Medicare Primary [id number] Self UNITED HEALTHCARE [id number] SP [id number] [facility] [id number] SP [id number] Emp/United Healthcare Medigap Part B [id number] Self MEDICARE [id number] SP [id number] Self Pay P UNAVAILABLE S UNAVAILA BLE Emp/United Healthcare Medigap Part B [id number] Self [id number] Medicare [place] Medicare Primary [id number] Self [id number] Emp/United Healthcare Medigap Part B [id number] Self [id number] Medicare [place] Medicare Primary [id number] Self [id number] [facility] O [id number] S [id number] MEDICARE C [id number] S [id number] A Problems, Conditions, and Diagnoses Code Display Name Description Problem Type Effective Dates Data Source(s) E51.2 Wernicke's encephalopathy Wernicke's encephalopathy Di agnosis 01/25/2021 12:58:00 AM EST NDOC ([facility]) Surgeries/Procedures No Information Results ID Date Data Source [id number] 01/23/2021 02:38:00 AM EST [facility] Name Value Range Interpretation Code Description Data Nathalia rce(s) Supporting Document(s) SARS coronavirus 2 RNA [Presence] in Res piratory specimen by ERICA with probe detection NEGATIVE [facility] This lab was ordered by [facility] a nd reported by [facility]. ID Date Data Source [id number] 01/05/2021 04:54:00 PM EST [facility] Name Value Range Interpretation Code Description Data Nathalia rce(s) Supporting Document(s) SARS coronavirus 2 RNA [Presence] in Res piratory specimen by ERICA with probe detection NEGATIVE [facility] This lab was ordered by [facility] a nd reported by [facility]. ID Date Data Source [id number] 12/20/2020 09:38:00 AM EDT [facility] Name Value Range Interpretation Code Description Data Nathalia rce(s) Supporting Document(s) SARS coronavirus 2 RNA [Presence] in Res piratory specimen by ERICA with probe detection NEGATIVE [facility] This lab was ordered by [facility] a nd reported by [facility]. ID Date Data Source [id number] 09/08/2020 08:16:00 PM EDT [facility] Name Value Range Interpretation Code Description Data Nathalia rce(s) Supporting Document(s) SARS coronavirus 2 RNA [Presence] in Res piratory specimen by ERICA with probe detection NEGATIVE [facility] This lab was ordered by [facility] a nd reported by [facility]. Procedure Social History No Information
[2021-01-30] MEDS ORDERED: BISAC5TA PO (09:33)
[2021-01-30] MEDS ORDERED: MIDO5TA PO (09:33)
[2021-01-30] MEDS ORDERED: FOLI1TAB11 PO (09:33)
--- NOTE | 2021-01-30 10:30 | REP ---
INDICATION: Altered Mental Status COMPARISON: 01/22/2021 TECHNIQUE: Axial noncontrast images from the skull base to the thoracic inlet with coronal reformations. This CT examination was performed using the following dose reduction techniques: Automated exposure control, adjustment of mA and/or kv according to the patient's size, and use of iterative reconstruction technique. FINDINGS: Atrophy with periventricular leukomalacia and microvascular ischemic changes are appreciated. The ventricles and sulci are symmetric. Caba-white differentiation is maintained. There is no evidence for acute intracranial hemorrhage, mass/mass effect, pathology or infarction. No extra-axial fluid collection. Calvarium is intact. Paranasal sinuses and mastoid air cells are clear. IMPRESSION: Atrophy and microvascular ischemic changes. No acute intracranial hemorrhage, infarction, or mass/mass effect. <Electronically signed by Amadou Nieves > 01/30/21 1029
--- NOTE | 2021-01-30 10:31 | REP ---
INDICATION: Altered Mental Status COMPARISON: 01/17/2021 TECHNIQUE: Portable AP view of the chest FINDINGS: The mediastinum and cardiac silhouette are stable and within normal limits for portable technique. The lung overton are clear without acute consolidation, effusion, or pneumothorax. Skeletal structures are intact. IMPRESSION: No acute cardiopulmonary process appreciated. <Electronically signed by Amadou Nieves > 01/30/21 1027
--- OUTSIDE RECORDS SUMMARY | 2021-01-30 11:26 | CCD ---
Author Author [facility] Organization [facility] Address Unknown Phone Unavailable Care Team Providers Care Antique Furniture Reproducer Name Role Phone Kaia Rivera MD Unavailable [...] Unavailable Kaia Rivera MD Unavailable Unavailable Kaia Rivear MD Unavailable Unavailable Kaia Rivera MD Unavailable [...] Unavailable Nicole, D Arnie MD Unavailable Unavailable [place], D Arnie MD Unavailable Unavailable [place], D Arnie MD Unavailable Unavailable [place], D Arnie MD Unavailable Unavailable [place], D Arnie MD Unavailable Unavailable Nicole, D Arnie MD Unavailable Unavailable [place], D Arnie MD Unavailable Unavailable [place], D Arnie MD Unavailable Unavailable [place], D Arnie MD Unavailable Unavailable Nicole, D Arnie MD Unavailable Unavailable Nicole, D Arnie MD Unavailable Unavailable Nicole, D Arnie MD Unavailable Unavailable Nicole, D Arnie MD Unavailable Unavailable [place], D Arnie MD Unavailable Unavailable [place], D Arnie MD Unavailable Unavailable Nicole, D [...] is protected by Article 27-F of the [facility] Public Health law. If you continue you may have access to information: Regarding HIV / AIDS; Provided by facilities licensed or operated by the [facility] Office of Mental Health; or Provided by the [facility] Office for People With Developmental Disabilities. If such information is present, then the following [facility] mandated warning applies: This information has been [...] law may result in a fine or penitentiary sentence or both. A general authorization for the release of medical or other information is NOT sufficient authorization for further disc losure. Allergies and Adverse Reactions Type Description Substance Reaction Status Data Source(s ) No Known Allergies NO KNOWN MEDICATION ALLERGIES NO KNOWN MEDICA TION ALLERGIES NDOC ([facility]) Family History Family Member Name Family Member Gender Family Member Status Date o f Status Description Data Source(s) Unknown Unknown Problem MEDENT ([facility]) Unknown Unknown Problem MEDENT ([facility] Unknown Unknown Problem MEDENT ([facility] Encounters Encounter Providers Location Date Indications Data Source(s ) O Attender: Arnie Rivera MD 01/22/2021 09:20:00 PM EST NDOC ([facility]) Patient discharged. Immunizations Vaccine Date Status Description Data Source(s) COVID-19 VACCINE Moderna 04/29/2020 12:00:00 AM EST completed [facility] Vaccine Series Complete: YESThis Data wa s Submitted to [facility] Via QBE. COVID-19 VACCINE, MRNA-1273, LNP-S (MODERNA)/PF 04/29/2020 1 2:00:00 AM EST completed [facility] COVID-19 VACCINE Moderna 04/01/2020 12:00:00 AM EST completed [facility] Vaccine Series Complete: NOThis Data was Submitted to [facility] Via QBE. COVID-19 VACCINE, MRNA-1273, LNP-S (MODERNA)/PF 04/01/2020 1 [...] relationship to delatorre Policy Delatorre Plan Information [facility] SANDR[facility] [id number] SP [id number] MEDICARE [id number] SP [id number] A MEDICARE [id number] SP [id number] A MEDICARE [id number] SP [id number] MEDICARE [id number] SP [id number] A [facility] [id number] SP [id number] UNITED HEALTHCARE [id number] SP [id number] UNITED HEALTHCARE [id number] SP [id number] United Healthcare [employer] Medigap Part B [id number] Self [id number] Medicare Natl Gov't Servi Medicare Primary [id number] Self [id number] United Healthcare [employer] Medigap Part B [id number] Self [id number] Medicare Natl Gov't Servi Medicare Primary [id number] Self [id number] Emp/United Healthcare Medigap Part B [id number] Self [id number] Medicare [place] Medicare Primary [id number] Self [id number] Emp/United Healthcare Medigap Part B [id number] Self [id number] Medicare [place] Medicare Primary [id number] Self [id number] UNITED HEALTHCARE O [id number] S [id number] Emp/United Healthcare Medigap Part B [id number] Self Medicare [place] Medicare Primary [id number] Self United Healthcare/[facility] Medigap Part B [id number] Self Medicare [place] Medicare Primary [id number] Self UNITED HEALTHCARE [id number] SP [id number] [facility] [id number] SP [id number] Emp/United Healthcare Medigap Part B [id number] Self MEDICARE [id number] SP [id number] Self Pay P UNAVAILABLE S UNAVAILA BLE Emp/United Healthcare Medigap Part B [id number] Self [id number] Medicare [place] Medicare Primary [id number] Self [id number] Emp/United Healthcare Medigap Part B [id number] Self [id number] Medicare [place] Medicare Primary [id number] Self [id number] [facility] O [id number] S [id number] MEDICARE C [id number] S [id number] A Problems, Conditions, and Diagnoses Code Display Name Description Problem Type Effective Dates Data Source(s) E51.2 Wernicke's encephalopathy Wernicke's encephalopathy Di agnosis 01/25/2021 12:58:00 AM EST NDOC ([facility]) Surgeries/Procedures No Information Results ID Date Data Source [id number] 01/23/2021 02:38:00 AM EST [facility] Name Value Range Interpretation Code Description Data Nathalia rce(s) Supporting Document(s) SARS coronavirus 2 RNA [Presence] in Res piratory specimen by ERICA with probe detection NEGATIVE [facility] This lab was ordered by [facility] a nd reported by [facility]. ID Date Data Source [id number] 01/05/2021 04:54:00 PM EST [facility] Name Value Range Interpretation Code Description Data Nathalia rce(s) Supporting Document(s) SARS coronavirus 2 RNA [Presence] in Res piratory specimen by ERICA with probe detection NEGATIVE [facility] This lab was ordered by [facility] a nd reported by [facility]. ID Date Data Source [id number] 12/20/2020 09:38:00 AM EDT [facility] Name Value Range Interpretation Code Description Data Nathalia rce(s) Supporting Document(s) SARS coronavirus 2 RNA [Presence] in Res piratory specimen by ERICA with probe detection NEGATIVE [facility] This lab was ordered by [facility] a nd reported by [facility]. ID Date Data Source [id number] 09/08/2020 08:16:00 PM EDT [facility] Name Value Range Interpretation Code Description Data Nathalia rce(s) Supporting Document(s) SARS coronavirus 2 RNA [Presence] in Res piratory specimen by ERICA with probe detection NEGATIVE [facility] This lab was ordered by [facility] a nd reported by [facility]. Procedure Social History No Information
[2021-01-30 12:24] LABS: BASO % 0.5 % (0.0-1.0); EOS # 0.1 10^3/uL (0.0-0.5); EOS % 2.2 % (0.0-3.0); HEMATOCRIT 32.4 % (42.0-52.0); HEMOGLOBIN 10.5 g/dl (13.5-17.5); LYMPH # 1.3 10^3/uL (1.5-5.0); MEAN CORPUSCULAR HEMOGLOBIN 32.4 pg (27.0-33.0); MEAN CORPUSCULAR HGB CONC 32.4 g/dl (32.0-36.5); MONO # 0.6 10^3/uL (0.0-0.8); MONO % 10.1 % (2.0-8.0); NEUTROPHILS # 3.8 10^3/uL (1.5-8.5); NEUTROPHILS % 64.2 % (36.0-66.0); PLATELET COUNT, AUTOMATED 232 10^3/uL (150-450); RED BLOOD COUNT 3.24 10^6/uL (4.30-6.10)
[2021-01-30 12:33] LABS: INR 1.22; PARTIAL THROMBOPLASTIN TIME 36.9 SECONDS (25.9-37.0); PROTHROMBIN TIME 15.8 SECONDS (12.7-14.5)
[2021-01-30 12:47] LABS: OSMOLALITY SERUM 301 MOSM/KG (280-301)
[2021-01-30 12:53] LABS: ALBUMIN 3.2 GM/DL (3.2-5.2); ALT/SGPT 27 U/L (12-78); BILIRUBIN,DIRECT 0.2 MG/DL (0.0-0.2); BILIRUBIN,TOTAL 0.6 MG/DL (0.2-1.0); BLOOD UREA NITROGEN 19 MG/DL (7-18); CALCIUM LEVEL 9.1 MG/DL (8.8-10.2); CARBON DIOXIDE LEVEL 24 MEQ/L (21-32); CHLORIDE LEVEL 115 MEQ/L (98-107); CREATININE FOR GFR 1.14 MG/DL (0.70-1.30); ETHYL ALCOHOL (ETHANOL) 0.005 % (0.000-0.010); GLOMERULAR FILTRATION RATE > 60.0 (>42); GLUCOSE, FASTING 91 MG/DL (70-100); POTASSIUM SERUM 3.8 MEQ/L (3.5-5.1); SODIUM LEVEL 146 MEQ/L (136-145); TOTAL PROTEIN 5.7 GM/DL (6.4-8.2)
[2021-01-30 13:07] LABS: RSV AMPLIFICATION NEGATIVE (NEGATIVE)
--- OUTSIDE RECORDS SUMMARY | 2021-01-30 15:53 | CCD ---
Author Author [facility] Organization [facility] Address Unknown Phone Unavailable Care Team Providers Care Networks Computer Consultant Name Role Phone Kaia Rivera MD Unavailable [...] Unavailable Nicole, D Arnie MD Unavailable Unavailable Adah, D Arnie MD Unavailable Unavailable Adah, D Arnie MD Unavailable Unavailable Adah, D Arnie MD Unavailable Unavailable [place]ah, D Arnie MD Unavailable Unavailable Nicole, D Arnie MD Unavailable Unavailable Adah, D Arnie MD Unavailable Unavailable Adah, D Arnie MD Unavailable Unavailable Adah, D Arnie MD Unavailable Unavailable Nicole, D Arnie MD Unavailable Unavailable Nicole, D Arnie MD Unavailable Unavailable Nicole, D Arnie MD Unavailable Unavailable Nicole, D Arnie MD Unavailable Unavailable [place]ah, D Arnie MD Unavailable Unavailable Adah, D Arnie MD Unavailable Unavailable Nicole, D [...] is protected by Article 27-F of the [facility] Public Health law. If you continue you may have access to information: Regarding HIV / AIDS; Provided by facilities licensed or operated by the [facility] Office of Mental Health; or Provided by the [facility] Office for People With Developmental Disabilities. If such information is present, then the following [facility] mandated warning applies: This information [...] law may result in a fine or senior living sentence or both. A general authorization for the release of medical or other information is NOT sufficient authorization for further disc losure. Allergies and Adverse Reactions Type Description Substance Reaction Status Data Source(s ) No Known Allergies NO KNOWN MEDICATION ALLERGIES NO KNOWN MEDICA TION ALLERGIES NDOC ([facility]) Family History Family Member Name Family Member Gender Family Member Status Date o f Status Description Data Source(s) Unknown Unknown Problem MEDENT ([facility]) Unknown Unknown Problem MEDENT ([facility] Unknown Unknown Problem MEDENT ([facility] Encounters Encounter Providers Location Date Indications Data Source(s ) O Attender: Arnie Rivera MD 01/22/2021 09:20:00 PM EST NDOC ([facility]) Patient discharged. Immunizations Vaccine Date Status Description Data Source(s) COVID-19 VACCINE Moderna 04/29/2020 12:00:00 AM EST completed [facility] Vaccine Series Complete: YESThis Data wa s Submitted to [facility] Via TextMaster. COVID-19 VACCINE, MRNA-1273, LNP-S (MODERNA)/PF 04/29/2020 1 2:00:00 AM EST completed [facility] COVID-19 VACCINE Moderna 04/01/2020 12:00:00 AM EST completed [facility] Vaccine Series Complete: NOThis Data was Submitted to [facility] Via [employer]Master. COVID-19 VACCINE, MRNA-1273, LNP-S (MODERNA)/PF 04/01/2020 1 [...] to delatorre Policy Delatorre Plan Information [facility] SAN[facility] [id number] SP [id number] MEDICARE [id number] SP [id number] A MEDICARE [id number] SP [id number] A MEDICARE [id number] SP [id number] A MEDICARE [id number] SP [id number] UNITED HEALTHCARE [id number] SP [id number] UNITED HEALTHCARE [id number] SP [id number] [facility] [id number] SP [id number] MEDICARE C [id number] S [id number] A [facility] [place] Medigap Part B [id number] Self [id number] Medicare Natl Gov't Servi Medicare Primary [id number] Self [id number] [facility] [place] Medigap Part B [id number] Self [id number] Medicare Natl Gov't Servi Medicare Primary [id number] Self [id number] Emp/United Healthcare Medigap Part B [id number] Self [id number] Medicare [place] Medicare Primary [id number] Self [id number] Emp/United Healthcare Medigap Part B [id number] Self [id number] Medicare [place] Medicare Primary [id number] Self [id number] UNITED HEALTHCARE O [id number] S [id number] Emp/United Healthcare Medigap Part B [id number] Self Medicare [place] Medicare Primary [id number] Self [facility] Medigap Part B [id number] Self Medicare [place] Medicare Primary [id number] Self UNITED HEALTHCARE [id number] SP [id number] UNITED HEALTHCARE [id number] SP [id number] Emp/United Healthcare Medigap Part B [id number] Self MEDICARE [id number] SP [id number] UNITED HEALTHCARE [id number] SP [id number] Self Pay P UNAVAILABLE S UNAVAILA BLE Emp/United Healthcare Medigap Part B [id number] Self [id number] Medicare [place] Medicare Primary [id number] Self [id number] Emp/United Healthcare Medigap Part B [id number] Self [id number] Medicare [place] Medicare Primary [id number] Self [id number] UNITED HEALTHCARE O [id number] S [id number] Problems, Conditions, and Diagnoses Code Display Name Description Problem Type Effective Dates Data Source(s) E51.2 Wernicke's encephalopathy Wernicke's encephalopathy Di agnosis 01/25/2021 12:58:00 AM EST NDOC ([facility]) Surgeries/Procedures No Information Results ID Date Data Source [id number] 01/23/2021 02:38:00 AM EST [facility] Name Value Range Interpretation Code Description Data Nathalia rce(s) Supporting Document(s) SARS coronavirus 2 RNA [Presence] in Res piratory specimen by ERICA with probe detection NEGATIVE [facility] This lab was ordered by [facility] a nd reported by [facility]. ID Date Data Source [id number] 01/05/2021 04:54:00 PM EST [facility] Name Value Range Interpretation Code Description Data Nathalia rce(s) Supporting Document(s) SARS coronavirus 2 RNA [Presence] in Res piratory specimen by ERICA with probe detection NEGATIVE [facility] This lab was ordered by [facility] a nd reported by [facility]. ID Date Data Source [id number] 12/20/2020 09:38:00 AM EDT [facility] Name Value Range Interpretation Code Description Data Nathalia rce(s) Supporting Document(s) SARS coronavirus 2 RNA [Presence] in Res piratory specimen by ERICA with probe detection NEGATIVE [facility] This lab was ordered by [facility] a nd reported by [facility]. ID Date Data Source [id number] 09/08/2020 08:16:00 PM EDT [facility] Name Value Range Interpretation Code Description Data Nathalia rce(s) Supporting Document(s) SARS coronavirus 2 RNA [Presence] in Res piratory specimen by ERICA with probe detection NEGATIVE [facility] This lab was ordered by [facility] a nd reported by [facility]. Procedure Social History No Information
[2021-01-30] MEDS ORDERED: ELIQ5TAB PO (16:38)
[2021-01-30] MEDS ORDERED: PYRI60TA2 PO (16:44)
[2021-01-30] MEDS ORDERED: HOME MED LIST COMPLETE! XX SCH (16:45)
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
[2021-01-30] MEDS: QUEtiapine FUMARATE 12.5 MG HALF-TAB PO SCH (18:20)
--- NOTE | 2021-01-30 19:07 | ECGEPIP ---
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
[2021-01-30] MEDS ORDERED: IRON POLYSAC (NIFEREX) 150 MG CAP PO SCH (21:00)
[2021-01-30] MEDS ORDERED: PILL CUTTER 1 EACH XX PRN (21:15)
[2021-01-30] MEDS: OLANZapine INTRAMUSCULAR 10MG VIAL IM PRN (21:24)
[2021-01-30] MEDS: IRON POLYSAC (NIFEREX) 150 MG CAP PO SCH (21:24)
[2021-01-30] MEDS: PYRIDOSTIGMINE 60MG TABLET PO SCH (21:24)
[2021-01-30 21:26] VITALS: BP 100/82
[2021-01-31 00:34] LABS: HEMATOCRIT 28.8 % (42.0-52.0); HEMOGLOBIN 9.3 g/dl (13.5-17.5)
[2021-01-31 05:34] LABS: BASO # 0.1 10^3/uL (0.0-0.2); BASO % 1.3 % (0.0-1.0); EOS # 0.3 10^3/uL (0.0-0.5); EOS % 6.3 % (0.0-3.0); HEMATOCRIT 28.8 % (42.0-52.0); HEMOGLOBIN 9.4 g/dl (13.5-17.5); LYMPH # 1.4 10^3/uL (1.5-5.0); LYMPH % 30.4 % (24.0-44.0); MEAN CORPUSCULAR HGB CONC 32.6 g/dl (32.0-36.5); MEAN CORPUSCULAR VOLUME 101.1 fl (80.0-96.0); MONO # 0.6 10^3/uL (0.0-0.8); MONO % 12.7 % (2.0-8.0); NEUTROPHILS # 2.2 10^3/uL (1.5-8.5); NEUTROPHILS % 48.4 % (36.0-66.0); PLATELET COUNT, AUTOMATED 212 10^3/uL (150-450); RED BLOOD COUNT 2.85 10^6/uL (4.30-6.10); WHITE BLOOD COUNT 4.6 10^3/uL (4.0-10.0)
[2021-01-31 05:43] VITALS: BP 117/68
[2021-01-31 05:58] LABS: CALCIUM LEVEL 8.9 MG/DL (8.8-10.2); CREATININE FOR GFR 1.26 MG/DL (0.70-1.30); GLOMERULAR FILTRATION RATE 58.9 (>42); POTASSIUM SERUM 3.9 MEQ/L (3.5-5.1)
[2021-01-31] MEDS: CYANOCOBALAMIN 500 MCG TAB PO SCH (08:39)
[2021-01-31] MEDS: THIAMINE 100 MG TAB PO SCH (08:39)
[2021-01-31] MEDS: FOLIC ACID 1 MG TAB PO SCH (08:39)
[2021-01-31] MEDS: MIDODRINE 5 MG TAB PO SCH ×3 (08:39→15:52)
[2021-01-31] MEDS: IRON POLYSAC (NIFEREX) 150 MG CAP PO SCH ×2 (08:39→20:16)
[2021-01-31] MEDS: PYRIDOSTIGMINE 60MG TABLET PO SCH ×3 (08:39→20:16)
[2021-01-31] MEDS: QUEtiapine FUMARATE 12.5 MG HALF-TAB PO SCH ×3 (08:41→15:52)
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
[2021-01-31] MEDS: HALOPERIDOL 5MG/ML VIAL (J1630 PER 1) IV PRN ×2 (12:02→20:15)
[2021-01-31 14:00] VITALS: BP 137/72
[2021-01-31] MEDS: OLANZapine INTRAMUSCULAR 10MG VIAL IM PRN ×2 (15:09→23:53)
[2021-01-31 22:00] VITALS: BP 109/62
[2021-02-01 03:04] VITALS: BP 112/73
[2021-02-01 03:53] LABS: BASO # 0.1 10^3/uL (0.0-0.2); BASO % 0.6 % (0.0-1.0); EOS # 0.2 10^3/uL (0.0-0.5); EOS % 2.6 % (0.0-3.0); HEMATOCRIT 28.9 % (42.0-52.0); HEMOGLOBIN 9.4 g/dl (13.5-17.5); LYMPH # 0.8 10^3/uL (1.5-5.0); LYMPH % 9.8 % (24.0-44.0); MEAN CORPUSCULAR HEMOGLOBIN 32.8 pg (27.0-33.0); MEAN CORPUSCULAR HGB CONC 32.5 g/dl (32.0-36.5); MEAN CORPUSCULAR VOLUME 100.7 fl (80.0-96.0); MONO # 0.8 10^3/uL (0.0-0.8); MONO % 9.9 % (2.0-8.0); NEUTROPHILS # 6.5 10^3/uL (1.5-8.5); NEUTROPHILS % 76.5 % (36.0-66.0); PLATELET COUNT, AUTOMATED 215 10^3/uL (150-450); RED BLOOD COUNT 2.87 10^6/uL (4.30-6.10); WHITE BLOOD COUNT 8.5 10^3/uL (4.0-10.0)
[2021-02-01 04:17] LABS: CALCIUM LEVEL 8.4 MG/DL (8.8-10.2); CREATININE FOR GFR 1.25 MG/DL (0.70-1.30); GLOMERULAR FILTRATION RATE 59.5 (>42); POTASSIUM SERUM 3.9 MEQ/L (3.5-5.1)
[2021-02-01 04:21] LABS: MB/CK RELATIVE INDEX 2.08 (< OR =4)
[2021-02-01 06:11] VITALS: BP 112/71
[2021-02-01] MEDS ORDERED: PHENAZOPYRIDINE 100 MG TAB PO SCH (09:00)
[2021-02-01] MEDS: THIAMINE 100 MG TAB PO SCH (09:30)
[2021-02-01] MEDS: CYANOCOBALAMIN 500 MCG TAB PO SCH (09:30)
[2021-02-01] MEDS: MIDODRINE 5 MG TAB PO SCH ×3 (09:30→16:07)
[2021-02-01] MEDS: FOLIC ACID 1 MG TAB PO SCH (09:30)
[2021-02-01] MEDS: IRON POLYSAC (NIFEREX) 150 MG CAP PO SCH ×2 (09:30→21:00)
[2021-02-01] MEDS: QUEtiapine FUMARATE 12.5 MG HALF-TAB PO SCH ×2 (09:30→16:07)
[2021-02-01] MEDS: PYRIDOSTIGMINE 60MG TABLET PO SCH ×3 (09:30→21:00)
[2021-02-01] MEDS: NS 0.45% 1,000 ML IV SCH ×2 (09:58→21:12)
--- NOTE | 2021-02-01 10:47 | REP ---
INDICATION: cough. COMPARISON: Portable chest, 01/30/2021. TECHNIQUE: AP portable chest image was obtained. FINDINGS: There is atelectasis or pneumonia in the right lung base. The left lung is clear. There is cardiomegaly and aortic ectasia consistent with benign essential hypertension. The upper abdominal bowel gas pattern is normal. There is dextroscoliosis of the thoracolumbar spine. IMPRESSION: 1. Atelectasis or pneumonia in the right lung base. 2. Findings consistent with hypertension. <Electronically signed by Darrick Vann > 02/01/21 [id number]
[2021-02-01] MEDS: HALOPERIDOL 5MG/ML VIAL (J1630 PER 1) IV PRN (12:05)
[2021-02-01 14:00] VITALS: BP 116/68
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
[2021-02-01 15:09] LABS: BLOOD UREA NITROGEN 18 MG/DL (7-18); C REACTIVE PROTEIN QUANTITATIV 2.45 MG/DL (0.00-0.30); CALCIUM LEVEL 8.9 MG/DL (8.8-10.2); CARBON DIOXIDE LEVEL 25 MEQ/L (21-32); CHLORIDE LEVEL 113 MEQ/L (98-107); CREATININE FOR GFR 1.23 MG/DL (0.70-1.30); GLOMERULAR FILTRATION RATE > 60.0 (>42); GLUCOSE, FASTING 97 MG/DL (70-100); POTASSIUM SERUM 3.9 MEQ/L (3.5-5.1); SODIUM LEVEL 145 MEQ/L (136-145)
[2021-02-02 06:00] VITALS: BP 110/73
--- NOTE | 2021-02-02 07:57 | ECGEPIP ---
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
[2021-02-02] MEDS: THIAMINE 100 MG TAB PO SCH (08:16)
[2021-02-02] MEDS: FOLIC ACID 1 MG TAB PO SCH (08:16)
[2021-02-02] MEDS: IRON POLYSAC (NIFEREX) 150 MG CAP PO SCH ×2 (08:16→20:07)
[2021-02-02] MEDS: CYANOCOBALAMIN 500 MCG TAB PO SCH (08:16)
[2021-02-02] MEDS: MIDODRINE 5 MG TAB PO SCH ×3 (08:16→16:01)
[2021-02-02] MEDS: PYRIDOSTIGMINE 60MG TABLET PO SCH ×3 (08:17→20:08)
[2021-02-02] MEDS: QUEtiapine FUMARATE 12.5 MG HALF-TAB PO SCH ×2 (08:17→16:01)
[2021-02-02 08:24] LABS: BASO % 0.8 % (0.0-1.0); EOS # 0.1 10^3/uL (0.0-0.5); EOS % 1.6 % (0.0-3.0); HEMATOCRIT 30.4 % (42.0-52.0); HEMOGLOBIN 9.9 g/dl (13.5-17.5); LYMPH # 0.8 10^3/uL (1.5-5.0); LYMPH % 15.3 % (24.0-44.0); MEAN CORPUSCULAR HEMOGLOBIN 32.9 pg (27.0-33.0); MEAN CORPUSCULAR HGB CONC 32.6 g/dl (32.0-36.5); MONO # 0.6 10^3/uL (0.0-0.8); MONO % 12.3 % (2.0-8.0); NEUTROPHILS # 3.5 10^3/uL (1.5-8.5); NEUTROPHILS % 69.6 % (36.0-66.0); PLATELET COUNT, AUTOMATED 193 10^3/uL (150-450); RED BLOOD COUNT 3.01 10^6/uL (4.30-6.10)
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
[2021-02-02 08:44] LABS: CALCIUM LEVEL 8.4 MG/DL (8.8-10.2); CREATININE FOR GFR 1.25 MG/DL (0.70-1.30); GLOMERULAR FILTRATION RATE 59.5 (>42); POTASSIUM SERUM 3.8 MEQ/L (3.5-5.1)
[2021-02-02] MEDS: APIXABAN 5 MG TAB (ELIQUIS) PO SCH ×2 (10:27→20:07)
[2021-02-02 14:00] VITALS: BP 113/56
[2021-02-02] MEDS: ACETAMINOPHEN TAB 650MG DOSE (2X325MG) PO PRN (20:08)
[2021-02-02] MEDS ORDERED: QUEtiapine FUMARATE 12.5 MG HALF-TAB PO ONE (21:05)
[2021-02-02 22:00] VITALS: BP 103/51
[2021-02-03 06:00] VITALS: BP 107/60
[2021-02-03] MEDS: ACETAMINOPHEN TAB 650MG DOSE (2X325MG) PO PRN ×2 (06:53→19:51)
[2021-02-03 07:45] LABS: BASO % 0.9 % (0.0-1.0); EOS # 0.2 10^3/uL (0.0-0.5); EOS % 3.6 % (0.0-3.0); HEMATOCRIT 27.6 % (42.0-52.0); LYMPH % 22.7 % (24.0-44.0); MEAN CORPUSCULAR HEMOGLOBIN 32.6 pg (27.0-33.0); MEAN CORPUSCULAR HGB CONC 32.6 g/dl (32.0-36.5); MONO # 0.7 10^3/uL (0.0-0.8); MONO % 15.8 % (2.0-8.0); NEUTROPHILS # 2.6 10^3/uL (1.5-8.5); NEUTROPHILS % 56.6 % (36.0-66.0); PLATELET COUNT, AUTOMATED 193 10^3/uL (150-450); RED BLOOD COUNT 2.76 10^6/uL (4.30-6.10); WHITE BLOOD COUNT 4.5 10^3/uL (4.0-10.0)
[2021-02-03] MEDS: FOLIC ACID 1 MG TAB PO SCH (08:03)
[2021-02-03] MEDS: MIDODRINE 5 MG TAB PO SCH ×3 (08:03→15:52)
[2021-02-03] MEDS: CYANOCOBALAMIN 500 MCG TAB PO SCH (08:03)
[2021-02-03] MEDS: IRON POLYSAC (NIFEREX) 150 MG CAP PO SCH ×2 (08:03→19:50)
[2021-02-03] MEDS: QUEtiapine FUMARATE 12.5 MG HALF-TAB PO SCH ×2 (08:03→15:52)
[2021-02-03] MEDS: THIAMINE 100 MG TAB PO SCH (08:03)
[2021-02-03 08:04] LABS: BLOOD UREA NITROGEN 22 MG/DL (7-18); CARBON DIOXIDE LEVEL 24 MEQ/L (21-32); CHLORIDE LEVEL 113 MEQ/L (98-107); CREATININE FOR GFR 1.19 MG/DL (0.70-1.30); GLOMERULAR FILTRATION RATE > 60.0 (>42); GLUCOSE, FASTING 101 MG/DL (70-100); POTASSIUM SERUM 3.9 MEQ/L (3.5-5.1); SODIUM LEVEL 144 MEQ/L (136-145)
[2021-02-03] MEDS: PYRIDOSTIGMINE 60MG TABLET PO SCH ×3 (08:04→19:51)
[2021-02-03] MEDS: APIXABAN 5 MG TAB (ELIQUIS) PO SCH ×2 (08:06→19:50)
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
[2021-02-03] MEDS: HALOPERIDOL 5MG/ML VIAL (J1630 PER 1) IV PRN (14:07)
[2021-02-03] MEDS ORDERED: QUEtiapine FUMARATE 12.5 MG HALF-TAB PO ONE (19:40)
[2021-02-04 06:07] VITALS: BP 106/60
--- NOTE | 2021-02-04 07:56 | IPNPDOC ---
Date Seen The patient was seen on 02/04/21. Progress Note Semielectric hospital bed -The patient has a medical condition that requires positioning of his body in ways not feasible with an ordinary bed to alleviate the pain and patient requires frequent changes in body position and has an immediate need for a change in body position. VS, I&O, 24H, Fishbone Vital Signs/I&O Vital Signs Date Time Temp Pulse Resp B/P (MAP) Pulse Ox O2 Delivery O2 Flow Rate FiO2 02/04/21 06:07 98.4 54 18 106/60 (75) 97 Room Air I&O- Last 24 Hours up to 6 AM 02/04/21 06:00 Intake Total 1170 ml Output Total 1700 ml Balance -530 ml Laboratory Data Microbiology Microbiology 01/30/21 Blood Culture - Preliminary, Resulted No Growth after 72 hours. All specime... 01/30/21 Blood Culture - Preliminary, Resulted No Growth after 72 hours. All specime... MARIUSZ JORDAN MD Feb 04, 2021 07:56
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
[2021-02-04] MEDS: CYANOCOBALAMIN 500 MCG TAB PO SCH (08:28)
[2021-02-04] MEDS: QUEtiapine FUMARATE 25 MG TAB PO SCH ×2 (08:28→15:00)
[2021-02-04] MEDS: THIAMINE 100 MG TAB PO SCH (08:28)
[2021-02-04] MEDS: FOLIC ACID 1 MG TAB PO SCH (08:28)
[2021-02-04] MEDS: IRON POLYSAC (NIFEREX) 150 MG CAP PO SCH (08:28)
[2021-02-04] MEDS: PYRIDOSTIGMINE 60MG TABLET PO SCH ×2 (08:29→15:00)
[2021-02-04] MEDS: MIDODRINE 5 MG TAB PO SCH ×3 (08:29→15:00)
[2021-02-04] MEDS: APIXABAN 5 MG TAB (ELIQUIS) PO SCH (08:29)
[2021-02-04 10:30] LABS: BASO % 0.4 % (0.0-1.0); EOS # 0.2 10^3/uL (0.0-0.5); HEMATOCRIT 29.4 % (42.0-52.0); HEMOGLOBIN 9.3 g/dl (13.5-17.5); LYMPH # 1.2 10^3/uL (1.5-5.0); LYMPH % 22.6 % (24.0-44.0); MEAN CORPUSCULAR HEMOGLOBIN 32.3 pg (27.0-33.0); MEAN CORPUSCULAR HGB CONC 31.6 g/dl (32.0-36.5); MEAN CORPUSCULAR VOLUME 102.1 fl (80.0-96.0); MONO # 0.6 10^3/uL (0.0-0.8); NEUTROPHILS # 3.3 10^3/uL (1.5-8.5); NEUTROPHILS % 62.6 % (36.0-66.0); PLATELET COUNT, AUTOMATED 243 10^3/uL (150-450); RED BLOOD COUNT 2.88 10^6/uL (4.30-6.10); WHITE BLOOD COUNT 5.3 10^3/uL (4.0-10.0)
[2021-02-04 10:47] LABS: BLOOD UREA NITROGEN 22 MG/DL (7-18); CALCIUM LEVEL 8.9 MG/DL (8.8-10.2); CARBON DIOXIDE LEVEL 26 MEQ/L (21-32); CHLORIDE LEVEL 110 MEQ/L (98-107); CREATININE FOR GFR 1.15 MG/DL (0.70-1.30); GLOMERULAR FILTRATION RATE > 60.0 (>42); GLUCOSE, FASTING 96 MG/DL (70-100); POTASSIUM SERUM 4.1 MEQ/L (3.5-5.1); SODIUM LEVEL 143 MEQ/L (136-145)
[2021-02-04] MEDS ORDERED: LIDOCAINE 2% 5ML JELLY UROJET TOP PRN (13:05)
[2021-02-04] MEDS: ACETAMINOPHEN TAB 650MG DOSE (2X325MG) PO PRN (14:59)
[2021-02-05 16:10] LABS: BODY FLUID CULTURE Not indicated. (.); ORGANISM ID Not indicated. (.); SPECIMEN SOURCE Urine (.); URINE STREP PNEUMONIAE ANTIGEN Negative (Negative)
[2021-02-05 17:07] LABS: LEGIONELLA ANTIGEN URINE Positive (Negative)
[2022-01-31] MEDS ORDERED: PHENAZOPYRIDINE 100 MG TAB PO SCH (21:00)
== END 2021-02-04 15:55 | disposition home health service (06) | DRG 699 ==
LOC: M ED 08:07 → M ED INP 15:39 → ENRESERV 19:50 → M MS5PR 21:00
PROVIDERS: ADMIT Internal Medicine Nephrology; ATTEND General Practice
DX: T83.021A Displacement of indwelling urethral catheter, initial encounter (principal); F02.81 Dementia in other diseases classified elsewhere, unspecified severity, with behavioral disturbance; E87.0 Hyperosmolality and hypernatremia; J98.11 Atelectasis; D62 Acute posthemorrhagic anemia; R31.9 Hematuria, unspecified; F10.96 Alcohol use, unspecified with alcohol-induced persisting amnestic disorder; I48.0 Paroxysmal atrial fibrillation; R33.9 Retention of urine, unspecified; I95.1 Orthostatic hypotension; Z86.73 Personal history of transient ischemic attack (TIA), and cerebral infarction without residual deficits; I10 Essential (primary) hypertension; Z86.718 Personal history of other venous thrombosis and embolism; Z86.711 Personal history of pulmonary embolism; Z79.899 Other long term (current) drug therapy; Z79.01 Long term (current) use of anticoagulants; E53.8 Deficiency of other specified B group vitamins; Y84.6 Urinary catheterization as the cause of abnormal reaction of the patient, or of later complication, without mention of misadventure at the time of the procedure

== ENCOUNTER 2021-02-11 22:26 | Emergency (ER) | payer MEDICARE, BC, OTHER ==
[~2021-02-11] VITALS: Ht 175.3 cm; Wt 75.0 kg
[2021-02-11 22:45] LABS: BASO # 0.1 10^3/uL (0.0-0.2); EOS # 0.3 10^3/uL (0.0-0.5); EOS % 3.5 % (0.0-3.0); HEMATOCRIT 31.8 % (42.0-52.0); HEMOGLOBIN 9.9 g/dl (13.5-17.5); LYMPH % 27.8 % (24.0-44.0); MEAN CORPUSCULAR HEMOGLOBIN 31.9 pg (27.0-33.0); MEAN CORPUSCULAR HGB CONC 31.1 g/dl (32.0-36.5); MEAN CORPUSCULAR VOLUME 102.6 fl (80.0-96.0); MONO # 0.9 10^3/uL (0.0-0.8); MONO % 12.1 % (2.0-8.0); NEUTROPHILS # 3.8 10^3/uL (1.5-8.5); PLATELET COUNT, AUTOMATED 288 10^3/uL (150-450); WHITE BLOOD COUNT 7.2 10^3/uL (4.0-10.0)
[2021-02-11 23:08] LABS: CK-MB VALUE MASS < 1.0 NG/ML (<3.6); CPK CREATINE PHOSPHOKINASE 31 U/L (39-308); MB/CK RELATIVE INDEX 3.23 (< OR =4)
[2021-02-11 23:27] LABS: ALBUMIN 3.2 GM/DL (3.2-5.2); ALT/SGPT 27 U/L (12-78); BILIRUBIN,DIRECT < 0.1 MG/DL (0.0-0.2); BILIRUBIN,TOTAL 0.3 MG/DL (0.2-1.0); BLOOD UREA NITROGEN 25 MG/DL (7-18); CALCIUM LEVEL 8.7 MG/DL (8.8-10.2); CARBON DIOXIDE LEVEL 26 MEQ/L (21-32); CHLORIDE LEVEL 115 MEQ/L (98-107); CREATININE FOR GFR 1.33 MG/DL (0.70-1.30); FREE T4 1.14 NG/DL (0.76-1.46); GLOMERULAR FILTRATION RATE 55.4 (>42); GLUCOSE, FASTING 117 MG/DL (70-100); LIPASE 196 U/L (73-393); POTASSIUM SERUM 4.5 MEQ/L (3.5-5.1); SODIUM LEVEL 147 MEQ/L (136-145); TOTAL PROTEIN 5.9 GM/DL (6.4-8.2)
--- NOTE | 2021-02-11 23:50 | REPVR ---
PROCEDURE INFORMATION: Exam: XR Chest Exam date and time: 02/11/2021 10:42 PM Age: 80 years old Clinical indication: Chest pain TECHNIQUE: Imaging protocol: XR of the chest. Views: 1 view. COMPARISON: CR PORTABLE CHEST X-RAY 02/01/2021 10:35 AM FINDINGS: Lungs: Unremarkable. No consolidation. No pulmonary edema. Pleural spaces: Unremarkable. No pleural effusion. No pneumothorax. Heart/Mediastinum: Unremarkable. No cardiomegaly. Bones/joints: There is a mild dextroscoliosis of the thoracic spine. Osteoarthritis of the acromioclavicular joints is present. IMPRESSION: No acute findings. Electronically signed by: Curt Hernandez On 02/11/2021 23:50:26 PM
[2021-02-12 00:12] LABS: CK-MB VALUE MASS 1.1 NG/ML (<3.6); MB/CK RELATIVE INDEX 4.07 (< OR =4)
[2021-02-12 02:01] VITALS: BP 114/65
--- NOTE | 2021-02-12 16:05 | ECGEPIP ---
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
--- NOTE | 2021-02-12 16:06 | ECGEPIP ---
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
== END 2021-02-12 02:16 | disposition home or self-care (01) ==
LOC: M ED 22:26
DX: R07.9 Chest pain, unspecified (principal); R94.31 Abnormal electrocardiogram [ECG] [EKG]; I48.91 Unspecified atrial fibrillation; Z86.73 Personal history of transient ischemic attack (TIA), and cerebral infarction without residual deficits; Z87.891 Personal history of nicotine dependence; Z79.01 Long term (current) use of anticoagulants; Z86.59 Personal history of other mental and behavioral disorders

== ENCOUNTER 2021-02-14 08:49 | Emergency (ER) | payer MEDICARE, BC, OTHER ==
[~2021-02-14] VITALS: Ht 182.9 cm; Wt 75.3 kg
[2021-02-14] MEDS ORDERED: LIDOCAINE 2% 5ML JELLY UROJET TOP ONE (09:30)
[2021-02-14 10:46] VITALS: BP 168/83
== END 2021-02-14 10:47 | disposition home or self-care (01) ==
LOC: M ED 08:49
DX: T83.098A Other mechanical complication of other urinary catheter, initial encounter (principal); I10 Essential (primary) hypertension; N40.1 Benign prostatic hyperplasia with lower urinary tract symptoms; F03.91 Unspecified dementia, unspecified severity, with behavioral disturbance; G93.41 Metabolic encephalopathy; Z79.01 Long term (current) use of anticoagulants; Z79.899 Other long term (current) drug therapy

== ENCOUNTER 2021-02-16 10:34 | Inpatient (IN) | payer MEDICARE, BC, OTHER, MEDICAID ==
[~2021-02-16] VITALS: Ht 182.9 cm; Wt 78.3 kg
[2021-02-16 12:16] LABS: BASO # 0.1 10^3/uL (0.0-0.2); BASO % 0.5 % (0.0-1.0); EOS # 0.2 10^3/uL (0.0-0.5); EOS % 1.6 % (0.0-3.0); HEMOGLOBIN 10.3 g/dl (13.5-17.5); LYMPH # 1.8 10^3/uL (1.5-5.0); LYMPH % 19.1 % (24.0-44.0); MEAN CORPUSCULAR HEMOGLOBIN 32.2 pg (27.0-33.0); MEAN CORPUSCULAR HGB CONC 32.2 g/dl (32.0-36.5); MONO # 0.8 10^3/uL (0.0-0.8); NEUTROPHILS # 6.7 10^3/uL (1.5-8.5); NEUTROPHILS % 70.2 % (36.0-66.0); PLATELET COUNT, AUTOMATED 243 10^3/uL (150-450); WHITE BLOOD COUNT 9.5 10^3/uL (4.0-10.0)
[2021-02-16 12:26] LABS: INR 1.08; PROTHROMBIN TIME 14.5 SECONDS (12.7-14.5)
[2021-02-16 12:27] LABS: PARTIAL THROMBOPLASTIN TIME 33.9 SECONDS (25.9-37.0)
[2021-02-16] MEDS ORDERED: LIDOCAINE 2% 5ML JELLY UROJET TOP ONE (13:10)
[2021-02-16 13:53] LABS: BLOOD UREA NITROGEN 24 MG/DL (7-18); CALCIUM LEVEL 8.6 MG/DL (8.8-10.2); CARBON DIOXIDE LEVEL 24 MEQ/L (21-32); CHLORIDE LEVEL 116 MEQ/L (98-107); CREATININE FOR GFR 1.11 MG/DL (0.70-1.30); GLOMERULAR FILTRATION RATE > 60.0 (>42); GLUCOSE, FASTING 94 MG/DL (70-100); POTASSIUM SERUM 3.9 MEQ/L (3.5-5.1); SODIUM LEVEL 147 MEQ/L (136-145)
[2021-02-16] MEDS ORDERED: ISOVUE-370 76% 100ML VIAL As Ordered ONE (14:10)
[2021-02-16] MEDS ORDERED: FINA5TAB2 PO (16:00)
[2021-02-16 16:37] LABS: RSV AMPLIFICATION NEGATIVE (NEGATIVE)
[2021-02-16] MEDS ORDERED: VITA500T41 PO (17:05)
[2021-02-16] MEDS ORDERED: QUET1TAB17 PO (17:05)
[2021-02-16] MEDS ORDERED: HOME MED LIST COMPLETE! XX SCH (17:10)
[2021-02-16] MEDS ORDERED: PILL CUTTER 1 EACH XX PRN (17:50)
[2021-02-16 18:35] VITALS: BP 125/82
[2021-02-16] MEDS: PYRIDOSTIGMINE 60MG TABLET PO SCH (20:00)
[2021-02-16] MEDS: IRON POLYSAC (NIFEREX) 150 MG CAP PO SCH (20:00)
[2021-02-16] MEDS: QUEtiapine FUMARATE 12.5 MG HALF-TAB PO SCH (20:00)
[2021-02-17 05:12] VITALS: BP 120/72
[2021-02-17 06:05] LABS: BASO # 0.1 10^3/uL (0.0-0.2); BASO % 1.2 % (0.0-1.0); EOS # 0.3 10^3/uL (0.0-0.5); EOS % 5.6 % (0.0-3.0); HEMATOCRIT 25.9 % (42.0-52.0); LYMPH # 1.5 10^3/uL (1.5-5.0); LYMPH % 28.6 % (24.0-44.0); MEAN CORPUSCULAR HEMOGLOBIN 31.9 pg (27.0-33.0); MEAN CORPUSCULAR HGB CONC 31.7 g/dl (32.0-36.5); MEAN CORPUSCULAR VOLUME 100.8 fl (80.0-96.0); MONO # 0.6 10^3/uL (0.0-0.8); NEUTROPHILS # 2.8 10^3/uL (1.5-8.5); PLATELET COUNT, AUTOMATED 189 10^3/uL (150-450); RED BLOOD COUNT 2.57 10^6/uL (4.30-6.10); WHITE BLOOD COUNT 5.2 10^3/uL (4.0-10.0)
[2021-02-17 06:11] LABS: HEMOGLOBIN 8.2 g/dl (13.5-17.5)
[2021-02-17 06:27] LABS: CALCIUM LEVEL 8.5 MG/DL (8.8-10.2); CREATININE FOR GFR 1.24 MG/DL (0.70-1.30)
[2021-02-17] MEDS: THIAMINE 100 MG TAB PO SCH (09:38)
[2021-02-17] MEDS: PYRIDOSTIGMINE 60MG TABLET PO SCH ×3 (09:38→21:59)
[2021-02-17] MEDS: QUEtiapine FUMARATE 12.5 MG HALF-TAB PO SCH ×2 (09:38→21:59)
[2021-02-17] MEDS: IRON POLYSAC (NIFEREX) 150 MG CAP PO SCH ×2 (09:38→21:59)
[2021-02-17] MEDS: CYANOCOBALAMIN 500 MCG TAB PO SCH (09:38)
[2021-02-17] MEDS: FOLIC ACID 1 MG TAB PO SCH (09:39)
[2021-02-17] MEDS: MIDODRINE 5 MG TAB PO SCH ×3 (09:39→16:55)
[2021-02-17] MEDS: FINASTERIDE 5 MG TAB PO SCH (09:40)
[2021-02-17 10:05] VITALS: BP 108/60
[2021-02-17] MEDS: ACETAMINOPHEN TAB 650MG DOSE (2X325MG) PO PRN ×2 (12:13→22:00)
[2021-02-17 14:00] VITALS: BP 111/78
[2021-02-17 19:45] VITALS: BP 107/78
[2021-02-17] MEDS ORDERED: oxyBUTYnin 5 MG TAB PO ONE (23:00)
[2021-02-18] VITALS (10 sets, daily range): BP systolic 103–125; BP diastolic 63–81
[2021-02-18 08:57] LABS: BASO # 0.1 10^3/uL (0.0-0.2); EOS # 0.2 10^3/uL (0.0-0.5); EOS % 4.2 % (0.0-3.0); HEMATOCRIT 21.2 % (42.0-52.0); LYMPH # 1.4 10^3/uL (1.5-5.0); LYMPH % 27.4 % (24.0-44.0); MEAN CORPUSCULAR HEMOGLOBIN 32.2 pg (27.0-33.0); MEAN CORPUSCULAR HGB CONC 32.1 g/dl (32.0-36.5); MEAN CORPUSCULAR VOLUME 100.5 fl (80.0-96.0); MONO # 0.5 10^3/uL (0.0-0.8); MONO % 9.6 % (2.0-8.0); NEUTROPHILS % 57.2 % (36.0-66.0); PLATELET COUNT, AUTOMATED 184 10^3/uL (150-450); RED BLOOD COUNT 2.11 10^6/uL (4.30-6.10); WHITE BLOOD COUNT 5.2 10^3/uL (4.0-10.0)
[2021-02-18 08:59] LABS: HEMOGLOBIN 6.8 g/dl (13.5-17.5)
[2021-02-18 09:22] LABS: BLOOD UREA NITROGEN 24 MG/DL (7-18); CALCIUM LEVEL 8.4 MG/DL (8.8-10.2); CARBON DIOXIDE LEVEL 23 MEQ/L (21-32); CHLORIDE LEVEL 117 MEQ/L (98-107); CREATININE FOR GFR 1.19 MG/DL (0.70-1.30); GLOMERULAR FILTRATION RATE > 60.0 (>42); GLUCOSE, FASTING 96 MG/DL (70-100); POTASSIUM SERUM 4.3 MEQ/L (3.5-5.1); SODIUM LEVEL 147 MEQ/L (136-145)
[2021-02-18] MEDS: MIDODRINE 5 MG TAB PO SCH ×3 (10:00→16:58)
[2021-02-18] MEDS: FOLIC ACID 1 MG TAB PO SCH (10:01)
[2021-02-18] MEDS: PYRIDOSTIGMINE 60MG TABLET PO SCH ×3 (10:01→20:42)
[2021-02-18] MEDS: CYANOCOBALAMIN 500 MCG TAB PO SCH (10:01)
[2021-02-18] MEDS: QUEtiapine FUMARATE 12.5 MG HALF-TAB PO SCH ×2 (10:01→20:42)
[2021-02-18] MEDS: IRON POLYSAC (NIFEREX) 150 MG CAP PO SCH ×2 (10:01→20:42)
[2021-02-18] MEDS: FINASTERIDE 5 MG TAB PO SCH (10:01)
[2021-02-18] MEDS: THIAMINE 100 MG TAB PO SCH (10:01)
[2021-02-18] MEDS: MIRALAX *UNIT DOSE* 17GM PACKET PO SCH (12:40)
[2021-02-18] MEDS: LevoFLOXacin 750 MG TABLET PO SCH (12:40)
[2021-02-18] MEDS: SENOKOT S TAB PO SCH ×2 (12:40→20:42)
[2021-02-18] MEDS: ACETAMINOPHEN TAB 650MG DOSE (2X325MG) PO PRN (20:43)
[2021-02-19] MEDS: LevoFLOXacin 750 MG TABLET PO SCH (06:03)
[2021-02-19 06:39] LABS: BASO % 0.7 % (0.0-1.0); EOS # 0.2 10^3/uL (0.0-0.5); EOS % 4.3 % (0.0-3.0); HEMOGLOBIN 8.4 g/dl (13.5-17.5); LYMPH # 1.4 10^3/uL (1.5-5.0); LYMPH % 30.2 % (24.0-44.0); MEAN CORPUSCULAR HEMOGLOBIN 31.1 pg (27.0-33.0); MEAN CORPUSCULAR HGB CONC 32.3 g/dl (32.0-36.5); MEAN CORPUSCULAR VOLUME 96.3 fl (80.0-96.0); MONO # 0.5 10^3/uL (0.0-0.8); MONO % 11.7 % (2.0-8.0); NEUTROPHILS # 2.4 10^3/uL (1.5-8.5); NEUTROPHILS % 52.2 % (36.0-66.0); PLATELET COUNT, AUTOMATED 162 10^3/uL (150-450); WHITE BLOOD COUNT 4.6 10^3/uL (4.0-10.0)
[2021-02-19 07:07] LABS: BLOOD UREA NITROGEN 20 MG/DL (7-18); CALCIUM LEVEL 8.5 MG/DL (8.8-10.2); CARBON DIOXIDE LEVEL 24 MEQ/L (21-32); CHLORIDE LEVEL 112 MEQ/L (98-107); CREATININE FOR GFR 1.16 MG/DL (0.70-1.30); GLOMERULAR FILTRATION RATE > 60.0 (>42); GLUCOSE, FASTING 93 MG/DL (70-100); SODIUM LEVEL 143 MEQ/L (136-145)
[2021-02-19] MEDS: QUEtiapine FUMARATE 12.5 MG HALF-TAB PO SCH ×2 (09:00→20:26)
[2021-02-19] MEDS: IRON POLYSAC (NIFEREX) 150 MG CAP PO SCH ×2 (09:00→20:27)
[2021-02-19] MEDS: FOLIC ACID 1 MG TAB PO SCH (09:00)
[2021-02-19] MEDS: MIRALAX *UNIT DOSE* 17GM PACKET PO SCH (09:00)
[2021-02-19] MEDS: THIAMINE 100 MG TAB PO SCH (09:00)
[2021-02-19] MEDS: SENOKOT S TAB PO SCH ×2 (09:00→20:27)
[2021-02-19] MEDS: CYANOCOBALAMIN 500 MCG TAB PO SCH (09:00)
[2021-02-19] MEDS: MIDODRINE 5 MG TAB PO SCH ×3 (09:01→17:18)
[2021-02-19] MEDS: FINASTERIDE 5 MG TAB PO SCH (09:01)
[2021-02-19] MEDS: PYRIDOSTIGMINE 60MG TABLET PO SCH ×3 (09:01→20:26)
[2021-02-19 14:00] VITALS: BP 125/74
[2021-02-19] MEDS: ACETAMINOPHEN TAB 650MG DOSE (2X325MG) PO PRN (20:27)
[2021-02-19 22:00] VITALS: BP 142/83
[2021-02-20] MEDS: oxyBUTYnin 5 MG TAB PO PRN (00:23)
[2021-02-20 06:47] VITALS: BP 146/74
[2021-02-20] MEDS: LevoFLOXacin 750 MG TABLET PO SCH (06:51)
[2021-02-20 07:11] LABS: BASO % 0.7 % (0.0-1.0); EOS # 0.2 10^3/uL (0.0-0.5); EOS % 3.6 % (0.0-3.0); HEMATOCRIT 28.3 % (42.0-52.0); HEMOGLOBIN 9.1 g/dl (13.5-17.5); LYMPH # 1.4 10^3/uL (1.5-5.0); LYMPH % 31.6 % (24.0-44.0); MEAN CORPUSCULAR HEMOGLOBIN 31.1 pg (27.0-33.0); MEAN CORPUSCULAR HGB CONC 32.2 g/dl (32.0-36.5); MEAN CORPUSCULAR VOLUME 96.6 fl (80.0-96.0); MONO # 0.5 10^3/uL (0.0-0.8); MONO % 11.1 % (2.0-8.0); NEUTROPHILS # 2.3 10^3/uL (1.5-8.5); NEUTROPHILS % 52.1 % (36.0-66.0); PLATELET COUNT, AUTOMATED 186 10^3/uL (150-450); RED BLOOD COUNT 2.93 10^6/uL (4.30-6.10); WHITE BLOOD COUNT 4.5 10^3/uL (4.0-10.0)
[2021-02-20 07:30] LABS: BLOOD UREA NITROGEN 21 MG/DL (7-18); CALCIUM LEVEL 8.9 MG/DL (8.8-10.2); CARBON DIOXIDE LEVEL 27 MEQ/L (21-32); CHLORIDE LEVEL 112 MEQ/L (98-107); CREATININE FOR GFR 1.22 MG/DL (0.70-1.30); GLOMERULAR FILTRATION RATE > 60.0 (>42); GLUCOSE, FASTING 86 MG/DL (70-100); POTASSIUM SERUM 4.3 MEQ/L (3.5-5.1); SODIUM LEVEL 144 MEQ/L (136-145)
[2021-02-20] MEDS: FINASTERIDE 5 MG TAB PO SCH (08:43)
[2021-02-20] MEDS: MIRALAX *UNIT DOSE* 17GM PACKET PO SCH (08:43)
[2021-02-20] MEDS: SENOKOT S TAB PO SCH ×2 (08:43→20:10)
[2021-02-20] MEDS: CYANOCOBALAMIN 500 MCG TAB PO SCH (08:44)
[2021-02-20] MEDS: PYRIDOSTIGMINE 60MG TABLET PO SCH ×3 (08:44→20:09)
[2021-02-20] MEDS: QUEtiapine FUMARATE 12.5 MG HALF-TAB PO SCH ×2 (08:44→20:09)
[2021-02-20] MEDS: IRON POLYSAC (NIFEREX) 150 MG CAP PO SCH ×2 (08:44→20:09)
[2021-02-20] MEDS: THIAMINE 100 MG TAB PO SCH (08:45)
[2021-02-20] MEDS: MIDODRINE 5 MG TAB PO SCH ×3 (08:45→16:00)
[2021-02-20] MEDS: FOLIC ACID 1 MG TAB PO SCH (08:45)
[2021-02-20 14:00] VITALS: BP 133/85
[2021-02-20] MEDS: OLANZapine 2.5MG TABLET PO PRN (21:16)
[2021-02-20] MEDS: RAMELTEON 8 MG TAB (ROZEREM) PO PRN (21:17)
[2021-02-20 22:00] VITALS: BP 126/79
[2021-02-20] MEDS: OLANZapine INTRAMUSCULAR 10MG VIAL IM PRN (23:30)
[2021-02-21 06:00] VITALS: BP 108/63
[2021-02-21] MEDS: LevoFLOXacin 750 MG TABLET PO SCH (06:13)
[2021-02-21 06:34] LABS: BASO % 0.7 % (0.0-1.0); EOS # 0.2 10^3/uL (0.0-0.5); EOS % 3.6 % (0.0-3.0); HEMATOCRIT 28.4 % (42.0-52.0); LYMPH # 1.2 10^3/uL (1.5-5.0); LYMPH % 26.1 % (24.0-44.0); MEAN CORPUSCULAR HEMOGLOBIN 30.9 pg (27.0-33.0); MEAN CORPUSCULAR HGB CONC 31.7 g/dl (32.0-36.5); MEAN CORPUSCULAR VOLUME 97.6 fl (80.0-96.0); MONO # 0.6 10^3/uL (0.0-0.8); MONO % 12.5 % (2.0-8.0); NEUTROPHILS # 2.5 10^3/uL (1.5-8.5); NEUTROPHILS % 56.4 % (36.0-66.0); PLATELET COUNT, AUTOMATED 200 10^3/uL (150-450); RED BLOOD COUNT 2.91 10^6/uL (4.30-6.10); WHITE BLOOD COUNT 4.5 10^3/uL (4.0-10.0)
[2021-02-21 07:02] LABS: CALCIUM LEVEL 8.9 MG/DL (8.8-10.2); CREATININE FOR GFR 1.39 MG/DL (0.70-1.30); GLOMERULAR FILTRATION RATE 52.6 (>42)
[2021-02-21] MEDS: FOLIC ACID 1 MG TAB PO SCH (08:43)
[2021-02-21] MEDS: FINASTERIDE 5 MG TAB PO SCH (08:43)
[2021-02-21] MEDS: MIDODRINE 5 MG TAB PO SCH ×3 (08:43→15:59)
[2021-02-21] MEDS: QUEtiapine FUMARATE 12.5 MG HALF-TAB PO SCH ×2 (08:43→20:33)
[2021-02-21] MEDS: MIRALAX *UNIT DOSE* 17GM PACKET PO SCH (08:43)
[2021-02-21] MEDS: SENOKOT S TAB PO SCH ×2 (08:43→20:33)
[2021-02-21] MEDS: IRON POLYSAC (NIFEREX) 150 MG CAP PO SCH ×2 (08:43→20:33)
[2021-02-21] MEDS: THIAMINE 100 MG TAB PO SCH (08:43)
[2021-02-21] MEDS: PYRIDOSTIGMINE 60MG TABLET PO SCH ×3 (08:43→20:33)
[2021-02-21] MEDS: CYANOCOBALAMIN 500 MCG TAB PO SCH (08:44)
[2021-02-21 14:00] VITALS: BP 125/67
[2021-02-21] MEDS: ACETAMINOPHEN TAB 650MG DOSE (2X325MG) PO PRN (16:55)
[2021-02-21 18:00] LABS: CK-MB VALUE MASS < 1.0 NG/ML (<3.6); CPK CREATINE PHOSPHOKINASE 74 U/L (39-308); MB/CK RELATIVE INDEX 1.35 (< OR =4)
[2021-02-21] MEDS: RAMELTEON 8 MG TAB (ROZEREM) PO PRN (20:34)
[2021-02-21 22:00] VITALS: BP 115/63
[2021-02-22 05:55] VITALS: BP 100/70
[2021-02-22 06:16] LABS: BASO % 0.8 % (0.0-1.0); EOS # 0.2 10^3/uL (0.0-0.5); EOS % 5.5 % (0.0-3.0); HEMATOCRIT 27.9 % (42.0-52.0); HEMOGLOBIN 8.8 g/dl (13.5-17.5); LYMPH # 1.2 10^3/uL (1.5-5.0); LYMPH % 32.7 % (24.0-44.0); MEAN CORPUSCULAR HEMOGLOBIN 31.2 pg (27.0-33.0); MEAN CORPUSCULAR HGB CONC 31.5 g/dl (32.0-36.5); MEAN CORPUSCULAR VOLUME 98.9 fl (80.0-96.0); MONO # 0.5 10^3/uL (0.0-0.8); MONO % 12.7 % (2.0-8.0); NEUTROPHILS # 1.8 10^3/uL (1.5-8.5); NEUTROPHILS % 47.5 % (36.0-66.0); PLATELET COUNT, AUTOMATED 190 10^3/uL (150-450); RED BLOOD COUNT 2.82 10^6/uL (4.30-6.10); WHITE BLOOD COUNT 3.8 10^3/uL (4.0-10.0)
[2021-02-22] MEDS: LevoFLOXacin 750 MG TABLET PO SCH (06:28)
[2021-02-22 06:42] LABS: BLOOD UREA NITROGEN 25 MG/DL (7-18); CALCIUM LEVEL 8.7 MG/DL (8.8-10.2); CARBON DIOXIDE LEVEL 26 MEQ/L (21-32); CHLORIDE LEVEL 112 MEQ/L (98-107); CREATININE FOR GFR 1.22 MG/DL (0.70-1.30); GLOMERULAR FILTRATION RATE > 60.0 (>42); GLUCOSE, FASTING 89 MG/DL (70-100); POTASSIUM SERUM 4.1 MEQ/L (3.5-5.1); SODIUM LEVEL 144 MEQ/L (136-145)
[2021-02-22] MEDS: MIRALAX *UNIT DOSE* 17GM PACKET PO SCH (09:51)
[2021-02-22] MEDS: QUEtiapine FUMARATE 12.5 MG HALF-TAB PO SCH ×2 (09:51→20:30)
[2021-02-22] MEDS: SENOKOT S TAB PO SCH ×2 (09:51→20:30)
[2021-02-22] MEDS: FINASTERIDE 5 MG TAB PO SCH (09:51)
[2021-02-22] MEDS: THIAMINE 100 MG TAB PO SCH (09:51)
[2021-02-22] MEDS: FOLIC ACID 1 MG TAB PO SCH (09:51)
[2021-02-22] MEDS: CYANOCOBALAMIN 500 MCG TAB PO SCH (09:51)
[2021-02-22] MEDS: IRON POLYSAC (NIFEREX) 150 MG CAP PO SCH ×2 (09:51→20:30)
[2021-02-22] MEDS: MIDODRINE 5 MG TAB PO SCH ×3 (09:51→16:13)
[2021-02-22] MEDS: PYRIDOSTIGMINE 60MG TABLET PO SCH ×3 (09:51→20:30)
[2021-02-22 14:00] VITALS: BP 123/68
[2021-02-22] MEDS: ACETAMINOPHEN TAB 650MG DOSE (2X325MG) PO PRN ×2 (14:35→20:31)
[2021-02-22 20:22] VITALS: BP 118/70
[2021-02-22] MEDS: RAMELTEON 8 MG TAB (ROZEREM) PO PRN (20:30)
[2021-02-22] MEDS: OLANZapine 2.5MG TABLET PO PRN (20:40)
[2021-02-23] MEDS: oxyBUTYnin 5 MG TAB PO PRN (02:30)
[2021-02-23] MEDS: ACETAMINOPHEN TAB 650MG DOSE (2X325MG) PO PRN ×2 (02:31→20:24)
[2021-02-23] MEDS ORDERED: traMADol 50 MG TAB PO ONE (02:50)
[2021-02-23 06:45] VITALS: BP 106/62
[2021-02-23] MEDS: LevoFLOXacin 750 MG TABLET PO SCH (06:50)
[2021-02-23 07:21] LABS: EOS # 0.2 10^3/uL (0.0-0.5); EOS % 5.8 % (0.0-3.0); HEMATOCRIT 28.7 % (42.0-52.0); HEMOGLOBIN 9.2 g/dl (13.5-17.5); LYMPH # 1.4 10^3/uL (1.5-5.0); MEAN CORPUSCULAR HEMOGLOBIN 31.4 pg (27.0-33.0); MEAN CORPUSCULAR HGB CONC 32.1 g/dl (32.0-36.5); MONO # 0.4 10^3/uL (0.0-0.8); MONO % 10.5 % (2.0-8.0); NEUTROPHILS # 1.9 10^3/uL (1.5-8.5); NEUTROPHILS % 47.2 % (36.0-66.0); PLATELET COUNT, AUTOMATED 199 10^3/uL (150-450); RED BLOOD COUNT 2.93 10^6/uL (4.30-6.10)
[2021-02-23 07:45] LABS: CALCIUM LEVEL 8.9 MG/DL (8.8-10.2); CREATININE FOR GFR 1.36 MG/DL (0.70-1.30); POTASSIUM SERUM 4.2 MEQ/L (3.5-5.1)
[2021-02-23] MEDS: FINASTERIDE 5 MG TAB PO SCH (08:11)
[2021-02-23] MEDS: MIRALAX *UNIT DOSE* 17GM PACKET PO SCH (08:11)
[2021-02-23] MEDS: IRON POLYSAC (NIFEREX) 150 MG CAP PO SCH ×2 (08:12→20:23)
[2021-02-23] MEDS: PYRIDOSTIGMINE 60MG TABLET PO SCH ×3 (08:12→20:23)
[2021-02-23] MEDS: QUEtiapine FUMARATE 12.5 MG HALF-TAB PO SCH ×2 (08:12→20:23)
[2021-02-23] MEDS: THIAMINE 100 MG TAB PO SCH (08:13)
[2021-02-23] MEDS: FOLIC ACID 1 MG TAB PO SCH (08:13)
[2021-02-23] MEDS: CYANOCOBALAMIN 500 MCG TAB PO SCH (08:14)
[2021-02-23] MEDS: MIDODRINE 5 MG TAB PO SCH ×3 (08:14→16:00)
[2021-02-23] MEDS: SENOKOT S TAB PO SCH ×2 (08:14→20:23)
[2021-02-23 14:00] VITALS: BP 120/69
[2021-02-23 19:45] VITALS: BP 114/73
[2021-02-23] MEDS: RAMELTEON 8 MG TAB (ROZEREM) PO PRN (20:25)
[2021-02-24] MEDS: LevoFLOXacin 750 MG TABLET PO SCH (06:32)
[2021-02-24 06:35] VITALS: BP 114/70
[2021-02-24] MEDS: MIRALAX *UNIT DOSE* 17GM PACKET PO SCH (08:05)
[2021-02-24] MEDS: QUEtiapine FUMARATE 12.5 MG HALF-TAB PO SCH ×2 (08:05→20:23)
[2021-02-24] MEDS: SENOKOT S TAB PO SCH ×2 (08:05→20:23)
[2021-02-24] MEDS: CYANOCOBALAMIN 500 MCG TAB PO SCH (08:05)
[2021-02-24] MEDS: FINASTERIDE 5 MG TAB PO SCH (08:05)
[2021-02-24] MEDS: MIDODRINE 5 MG TAB PO SCH ×3 (08:06→16:48)
[2021-02-24] MEDS: THIAMINE 100 MG TAB PO SCH (08:06)
[2021-02-24] MEDS: PYRIDOSTIGMINE 60MG TABLET PO SCH ×3 (08:06→20:23)
[2021-02-24] MEDS: IRON POLYSAC (NIFEREX) 150 MG CAP PO SCH ×2 (08:06→20:23)
[2021-02-24] MEDS: FOLIC ACID 1 MG TAB PO SCH (08:06)
[2021-02-24] MEDS ORDERED: NS 1,000 ML IV SCH (08:25)
[2021-02-24 08:54] LABS: HEMATOCRIT 33.9 % (42.0-52.0); HEMOGLOBIN 10.6 g/dl (13.5-17.5); MEAN CORPUSCULAR HEMOGLOBIN 30.9 pg (27.0-33.0); MEAN CORPUSCULAR HGB CONC 31.3 g/dl (32.0-36.5); MEAN CORPUSCULAR VOLUME 98.8 fl (80.0-96.0); PLATELET COUNT, AUTOMATED 242 10^3/uL (150-450); RED BLOOD COUNT 3.43 10^6/uL (4.30-6.10); WHITE BLOOD COUNT 5.9 10^3/uL (4.0-10.0)
[2021-02-24 09:24] LABS: CREATININE FOR GFR 1.58 MG/DL (0.70-1.30); GLOMERULAR FILTRATION RATE 45.4 (>42); POTASSIUM SERUM 4.2 MEQ/L (3.5-5.1)
[2021-02-24 14:00] VITALS: BP 129/74
[2021-02-24] MEDS: RAMELTEON 8 MG TAB (ROZEREM) PO PRN (20:23)
[2021-02-24] MEDS: ACETAMINOPHEN TAB 650MG DOSE (2X325MG) PO PRN (20:24)
[2021-02-24 22:00] VITALS: BP 119/71
[2021-02-25 06:00] VITALS: BP 111/64
[2021-02-25 06:18] LABS: HEMATOCRIT 30.6 % (42.0-52.0); HEMOGLOBIN 9.8 g/dl (13.5-17.5); MEAN CORPUSCULAR HEMOGLOBIN 31.5 pg (27.0-33.0); MEAN CORPUSCULAR VOLUME 98.4 fl (80.0-96.0); PLATELET COUNT, AUTOMATED 212 10^3/uL (150-450); RED BLOOD COUNT 3.11 10^6/uL (4.30-6.10); WHITE BLOOD COUNT 4.5 10^3/uL (4.0-10.0)
[2021-02-25 06:44] LABS: CALCIUM LEVEL 8.8 MG/DL (8.8-10.2); CREATININE FOR GFR 1.44 MG/DL (0.70-1.30); GLOMERULAR FILTRATION RATE 50.5 (>42); POTASSIUM SERUM 3.9 MEQ/L (3.5-5.1)
[2021-02-25] MEDS: MIRALAX *UNIT DOSE* 17GM PACKET PO SCH (09:00)
[2021-02-25] MEDS: FINASTERIDE 5 MG TAB PO SCH (10:14)
[2021-02-25] MEDS: QUEtiapine FUMARATE 12.5 MG HALF-TAB PO SCH ×2 (10:14→19:45)
[2021-02-25] MEDS: FOLIC ACID 1 MG TAB PO SCH (10:15)
[2021-02-25] MEDS: THIAMINE 100 MG TAB PO SCH (10:15)
[2021-02-25] MEDS: MIDODRINE 5 MG TAB PO SCH ×3 (10:15→16:58)
[2021-02-25] MEDS: PYRIDOSTIGMINE 60MG TABLET PO SCH ×3 (10:15→19:45)
[2021-02-25] MEDS: CYANOCOBALAMIN 500 MCG TAB PO SCH (10:15)
[2021-02-25] MEDS: IRON POLYSAC (NIFEREX) 150 MG CAP PO SCH ×2 (10:15→19:44)
[2021-02-25] MEDS: SENOKOT S TAB PO SCH ×2 (10:16→19:44)
[2021-02-25 14:00] VITALS: BP 114/73
[2021-02-25] MEDS: RAMELTEON 8 MG TAB (ROZEREM) PO PRN (19:45)
[2021-02-25 22:00] VITALS: BP 119/70
[2021-02-26 06:00] VITALS: BP 108/61
[2021-02-26 06:17] LABS: HEMATOCRIT 30.9 % (42.0-52.0); HEMOGLOBIN 9.9 g/dl (13.5-17.5); MEAN CORPUSCULAR HEMOGLOBIN 31.4 pg (27.0-33.0); MEAN CORPUSCULAR VOLUME 98.1 fl (80.0-96.0); PLATELET COUNT, AUTOMATED 196 10^3/uL (150-450); RED BLOOD COUNT 3.15 10^6/uL (4.30-6.10); WHITE BLOOD COUNT 4.3 10^3/uL (4.0-10.0)
[2021-02-26 06:59] LABS: CALCIUM LEVEL 9.2 MG/DL (8.8-10.2); CREATININE FOR GFR 1.27 MG/DL (0.70-1.30); GLOMERULAR FILTRATION RATE 58.4 (>42); POTASSIUM SERUM 3.9 MEQ/L (3.5-5.1)
[2021-02-26] MEDS: THIAMINE 100 MG TAB PO SCH (08:48)
[2021-02-26] MEDS: IRON POLYSAC (NIFEREX) 150 MG CAP PO SCH ×2 (08:48→20:06)
[2021-02-26] MEDS: FOLIC ACID 1 MG TAB PO SCH (08:48)
[2021-02-26] MEDS: SENOKOT S TAB PO SCH ×2 (08:48→20:08)
[2021-02-26] MEDS: PYRIDOSTIGMINE 60MG TABLET PO SCH ×3 (08:48→20:08)
[2021-02-26] MEDS: CYANOCOBALAMIN 500 MCG TAB PO SCH (08:48)
[2021-02-26] MEDS: MIRALAX *UNIT DOSE* 17GM PACKET PO SCH (08:48)
[2021-02-26] MEDS: QUEtiapine FUMARATE 12.5 MG HALF-TAB PO SCH ×2 (08:48→20:06)
[2021-02-26] MEDS: FINASTERIDE 5 MG TAB PO SCH (08:48)
[2021-02-26] MEDS: MIDODRINE 5 MG TAB PO SCH ×3 (08:49→15:15)
[2021-02-26 14:00] VITALS: BP 122/67
[2021-02-26] MEDS: RAMELTEON 8 MG TAB (ROZEREM) PO PRN (20:06)
[2021-02-27 06:00] VITALS: BP 113/67
[2021-02-27 06:44] LABS: HEMATOCRIT 30.1 % (42.0-52.0); HEMOGLOBIN 9.6 g/dl (13.5-17.5); MEAN CORPUSCULAR HEMOGLOBIN 30.9 pg (27.0-33.0); MEAN CORPUSCULAR HGB CONC 31.9 g/dl (32.0-36.5); MEAN CORPUSCULAR VOLUME 96.8 fl (80.0-96.0); PLATELET COUNT, AUTOMATED 197 10^3/uL (150-450); RED BLOOD COUNT 3.11 10^6/uL (4.30-6.10); WHITE BLOOD COUNT 4.1 10^3/uL (4.0-10.0)
[2021-02-27 07:02] LABS: BLOOD UREA NITROGEN 23 MG/DL (7-18); CALCIUM LEVEL 8.6 MG/DL (8.8-10.2); CARBON DIOXIDE LEVEL 26 MEQ/L (21-32); CHLORIDE LEVEL 113 MEQ/L (98-107); CREATININE FOR GFR 1.21 MG/DL (0.70-1.30); GLOMERULAR FILTRATION RATE > 60.0 (>42); GLUCOSE, FASTING 89 MG/DL (70-100); POTASSIUM SERUM 3.8 MEQ/L (3.5-5.1); SODIUM LEVEL 143 MEQ/L (136-145)
[2021-02-27] MEDS: MIRALAX *UNIT DOSE* 17GM PACKET PO SCH (09:00)
[2021-02-27] MEDS: FINASTERIDE 5 MG TAB PO SCH (09:46)
[2021-02-27] MEDS: IRON POLYSAC (NIFEREX) 150 MG CAP PO SCH ×2 (09:46→20:55)
[2021-02-27] MEDS: THIAMINE 100 MG TAB PO SCH (09:46)
[2021-02-27] MEDS: PYRIDOSTIGMINE 60MG TABLET PO SCH ×3 (09:46→20:55)
[2021-02-27] MEDS: QUEtiapine FUMARATE 12.5 MG HALF-TAB PO SCH ×2 (09:46→20:56)
[2021-02-27] MEDS: SENOKOT S TAB PO SCH ×2 (09:46→20:56)
[2021-02-27] MEDS: FOLIC ACID 1 MG TAB PO SCH (09:46)
[2021-02-27] MEDS: CYANOCOBALAMIN 500 MCG TAB PO SCH (09:46)
[2021-02-27] MEDS: MIDODRINE 5 MG TAB PO SCH ×3 (09:46→16:05)
[2021-02-27] MEDS: oxyBUTYnin 5 MG TAB PO PRN (11:27)
[2021-02-27] MEDS: ACETAMINOPHEN TAB 650MG DOSE (2X325MG) PO PRN ×2 (12:11→20:56)
[2021-02-27] MEDS: OLANZapine 2.5MG TABLET PO PRN ×2 (12:13→20:56)
[2021-02-27] MEDS: RAMELTEON 8 MG TAB (ROZEREM) PO PRN (20:56)
[2021-02-27 20:59] VITALS: BP 121/64
[2021-02-27] MEDS ORDERED: CALCIUM CARBONATE 500 MG CHEW U/D PO PRN (21:10)
[2021-02-27] MEDS: OLANZapine INTRAMUSCULAR 10MG VIAL IM PRN (22:17)
[2021-02-28] MEDS: ACETAMINOPHEN TAB 650MG DOSE (2X325MG) PO PRN (02:58)
[2021-02-28 05:39] VITALS: BP 122/68
[2021-02-28 06:20] LABS: HEMATOCRIT 29.6 % (42.0-52.0); HEMOGLOBIN 9.4 g/dl (13.5-17.5); MEAN CORPUSCULAR HEMOGLOBIN 30.9 pg (27.0-33.0); MEAN CORPUSCULAR HGB CONC 31.8 g/dl (32.0-36.5); MEAN CORPUSCULAR VOLUME 97.4 fl (80.0-96.0); PLATELET COUNT, AUTOMATED 186 10^3/uL (150-450); RED BLOOD COUNT 3.04 10^6/uL (4.30-6.10)
[2021-02-28 06:34] LABS: BLOOD UREA NITROGEN 27 MG/DL (7-18); CALCIUM LEVEL 8.7 MG/DL (8.8-10.2); CARBON DIOXIDE LEVEL 26 MEQ/L (21-32); CHLORIDE LEVEL 116 MEQ/L (98-107); CREATININE FOR GFR 1.15 MG/DL (0.70-1.30); GLOMERULAR FILTRATION RATE > 60.0 (>42); GLUCOSE, FASTING 94 MG/DL (70-100); POTASSIUM SERUM 3.9 MEQ/L (3.5-5.1); SODIUM LEVEL 146 MEQ/L (136-145)
[2021-02-28] MEDS: QUEtiapine FUMARATE 12.5 MG HALF-TAB PO SCH ×2 (09:45→20:01)
[2021-02-28] MEDS: FOLIC ACID 1 MG TAB PO SCH (09:45)
[2021-02-28] MEDS: THIAMINE 100 MG TAB PO SCH (09:46)
[2021-02-28] MEDS: FINASTERIDE 5 MG TAB PO SCH (09:46)
[2021-02-28] MEDS: IRON POLYSAC (NIFEREX) 150 MG CAP PO SCH ×2 (09:46→20:02)
[2021-02-28] MEDS: CYANOCOBALAMIN 500 MCG TAB PO SCH (09:46)
[2021-02-28] MEDS: SENOKOT S TAB PO SCH ×2 (09:46→20:01)
[2021-02-28] MEDS: PYRIDOSTIGMINE 60MG TABLET PO SCH ×3 (09:46→20:01)
[2021-02-28] MEDS: MIRALAX *UNIT DOSE* 17GM PACKET PO SCH (09:47)
[2021-02-28] MEDS: MIDODRINE 5 MG TAB PO SCH ×4 (09:47→16:00)
[2021-02-28 14:00] VITALS: BP 123/76
[2021-02-28] MEDS: OLANZapine 2.5MG TABLET PO PRN (14:21)
[2021-02-28] MEDS: OLANZapine INTRAMUSCULAR 10MG VIAL IM PRN ×2 (17:09→18:11)
[2021-02-28] MEDS: RAMELTEON 8 MG TAB (ROZEREM) PO PRN (20:02)
[2021-02-28] MEDS ORDERED: MORPHINE 4 MG/ML 1ML VIAL/SYRINGE (J2270) IV ONE (22:40)
[2021-02-28] MEDS ORDERED: MORPHINE 30 MG TAB **MSIR PO ONE (22:50)
[2021-03-01 06:43] LABS: HEMATOCRIT 31.1 % (42.0-52.0); MEAN CORPUSCULAR HEMOGLOBIN 31.5 pg (27.0-33.0); MEAN CORPUSCULAR HGB CONC 32.2 g/dl (32.0-36.5); MEAN CORPUSCULAR VOLUME 98.1 fl (80.0-96.0); PLATELET COUNT, AUTOMATED 180 10^3/uL (150-450); RED BLOOD COUNT 3.17 10^6/uL (4.30-6.10)
[2021-03-01 07:04] LABS: BLOOD UREA NITROGEN 25 MG/DL (7-18); CALCIUM LEVEL 8.8 MG/DL (8.8-10.2); CARBON DIOXIDE LEVEL 27 MEQ/L (21-32); CHLORIDE LEVEL 112 MEQ/L (98-107); CREATININE FOR GFR 1.01 MG/DL (0.70-1.30); GLOMERULAR FILTRATION RATE > 60.0 (>42); GLUCOSE, FASTING 88 MG/DL (70-100); POTASSIUM SERUM 4.4 MEQ/L (3.5-5.1); SODIUM LEVEL 146 MEQ/L (136-145)
[2021-03-01] MEDS: MIDODRINE 5 MG TAB PO SCH ×3 (08:00→16:20)
[2021-03-01] MEDS: FINASTERIDE 5 MG TAB PO SCH (08:17)
[2021-03-01] MEDS: FOLIC ACID 1 MG TAB PO SCH (08:17)
[2021-03-01] MEDS: MIRALAX *UNIT DOSE* 17GM PACKET PO SCH (08:17)
[2021-03-01] MEDS: CYANOCOBALAMIN 500 MCG TAB PO SCH (08:18)
[2021-03-01] MEDS: IRON POLYSAC (NIFEREX) 150 MG CAP PO SCH ×2 (08:18→20:29)
[2021-03-01] MEDS: THIAMINE 100 MG TAB PO SCH (08:18)
[2021-03-01] MEDS: PYRIDOSTIGMINE 60MG TABLET PO SCH ×3 (08:18→20:29)
[2021-03-01] MEDS: SENOKOT S TAB PO SCH ×2 (08:18→20:29)
[2021-03-01] MEDS: QUEtiapine FUMARATE 12.5 MG HALF-TAB PO SCH ×2 (08:18→20:29)
[2021-03-01] MEDS: OLANZapine 2.5MG TABLET PO PRN (14:41)
[2021-03-01] MEDS: RAMELTEON 8 MG TAB (ROZEREM) PO PRN (20:29)
[2021-03-02 06:00] VITALS: BP 129/71
[2021-03-02] MEDS: MIDODRINE 5 MG TAB PO SCH ×3 (08:00→16:00)
[2021-03-02] MEDS: CYANOCOBALAMIN 500 MCG TAB PO SCH (09:13)
[2021-03-02] MEDS: THIAMINE 100 MG TAB PO SCH (09:13)
[2021-03-02] MEDS: SENOKOT S TAB PO SCH ×2 (09:13→20:07)
[2021-03-02] MEDS: QUEtiapine FUMARATE 12.5 MG HALF-TAB PO SCH ×2 (09:13→20:07)
[2021-03-02] MEDS: IRON POLYSAC (NIFEREX) 150 MG CAP PO SCH ×2 (09:13→20:07)
[2021-03-02] MEDS: MIRALAX *UNIT DOSE* 17GM PACKET PO SCH (09:13)
[2021-03-02] MEDS: FOLIC ACID 1 MG TAB PO SCH (09:13)
[2021-03-02] MEDS: FINASTERIDE 5 MG TAB PO SCH (09:13)
[2021-03-02] MEDS: PYRIDOSTIGMINE 60MG TABLET PO SCH ×3 (09:14→20:08)
[2021-03-02] MEDS: OLANZapine 2.5MG TABLET PO PRN (11:33)
[2021-03-02] MEDS: RAMELTEON 8 MG TAB (ROZEREM) PO PRN (20:07)
[2021-03-03 06:00] VITALS: BP 125/66
[2021-03-03] MEDS: FINASTERIDE 5 MG TAB PO SCH (09:22)
[2021-03-03] MEDS: MIDODRINE 5 MG TAB PO SCH ×3 (09:22→16:00)
[2021-03-03] MEDS: MIRALAX *UNIT DOSE* 17GM PACKET PO SCH (09:22)
[2021-03-03] MEDS: IRON POLYSAC (NIFEREX) 150 MG CAP PO SCH ×2 (09:22→23:23)
[2021-03-03] MEDS: THIAMINE 100 MG TAB PO SCH (09:22)
[2021-03-03] MEDS: PYRIDOSTIGMINE 60MG TABLET PO SCH ×3 (09:22→23:26)
[2021-03-03] MEDS: CYANOCOBALAMIN 500 MCG TAB PO SCH (09:23)
[2021-03-03] MEDS: QUEtiapine FUMARATE 12.5 MG HALF-TAB PO SCH ×2 (09:23→23:27)
[2021-03-03] MEDS: FOLIC ACID 1 MG TAB PO SCH (09:23)
[2021-03-03] MEDS: SENOKOT S TAB PO SCH ×2 (09:23→23:28)
[2021-03-03] MEDS ORDERED: ALBUTEROL 90 MCG/ACT 8GM HFA INHALER INH PRN (14:00)
[2021-03-03] MEDS ORDERED: methylPREDNISolone 125MG 2ML VIAL IV PRN (14:00)
[2021-03-03] MEDS ORDERED: NS 1,000 ML IV SCH (14:00)
[2021-03-03] MEDS ORDERED: diphenhydrAMINE 50MG/ML VIAL (J1200) IV PRN (14:00)
[2021-03-03] MEDS ORDERED: ALBUTEROL SULFATE 2.5 MG/0.5 ML INH NEB SOLN INH PRN (14:00)
[2021-03-03] MEDS ORDERED: EPINEPHrine INJ 1 MG/ML 1ML AMP IM PRN (14:00)
[2021-03-03] MEDS ORDERED: BAMLANIVIMAB 700 MG, ETESEVIMAB 1,400 MG in NS 250 ML IV ONE (14:00)
[2021-03-03] MEDS: guaiFENesin ER 600 MG TAB PO SCH ×2 (14:06→23:24)
[2021-03-03 15:51] VITALS: BP 104/56
[2021-03-03] MEDS: OLANZapine 2.5MG TABLET PO PRN (16:19)
[2021-03-03] MEDS: ACETAMINOPHEN TAB 650MG DOSE (2X325MG) PO PRN (16:19)
[2021-03-03] MEDS: RAMELTEON 8 MG TAB (ROZEREM) PO PRN (23:34)
[2021-03-03 23:49] VITALS: BP 120/70; O2SAT 89
[2021-03-03 23:58] VITALS: BP 120/70
[2021-03-04] MEDS: ACETAMINOPHEN TAB 650MG DOSE (2X325MG) PO PRN ×2 (00:07→09:52)
[2021-03-04] MEDS ORDERED: COMBIVENT RESPIMAT 100-20MCG INHALER 4GM INH PRN (01:10)
[2021-03-04] MEDS ORDERED: REMDESIVIR 200 MG in NS 250 ML IV ONE (04:00)
[2021-03-04 06:00] VITALS: BP 119/55
[2021-03-04] MEDS ORDERED: SODIUM CHLORIDE 0.9% INJ 10 ML SYR IV ONE (06:00)
[2021-03-04 08:00] VITALS: BP 107/58
[2021-03-04] MEDS: MIDODRINE 5 MG TAB PO SCH ×3 (08:00→17:46)
[2021-03-04] MEDS: PYRIDOSTIGMINE 60MG TABLET PO SCH ×3 (09:52→20:23)
[2021-03-04] MEDS: OLANZapine 2.5MG TABLET PO PRN (09:52)
[2021-03-04] MEDS: guaiFENesin ER 600 MG TAB PO SCH ×2 (09:53→20:23)
[2021-03-04] MEDS: CYANOCOBALAMIN 500 MCG TAB PO SCH (09:53)
[2021-03-04] MEDS: FOLIC ACID 1 MG TAB PO SCH (09:53)
[2021-03-04] MEDS: SENOKOT S TAB PO SCH ×2 (09:53→20:23)
[2021-03-04] MEDS: IRON POLYSAC (NIFEREX) 150 MG CAP PO SCH ×2 (09:53→21:00)
[2021-03-04] MEDS: MIRALAX *UNIT DOSE* 17GM PACKET PO SCH (09:53)
[2021-03-04] MEDS: FINASTERIDE 5 MG TAB PO SCH (09:53)
[2021-03-04] MEDS: THIAMINE 100 MG TAB PO SCH (09:53)
[2021-03-04] MEDS: QUEtiapine FUMARATE 12.5 MG HALF-TAB PO SCH ×2 (09:53→20:24)
[2021-03-04] MEDS: dexameTHASONE 4 MG/ML 1ML VIAL (J1100 PER 1MG) IV SCH (09:54)
[2021-03-04] MEDS ORDERED: FUROSEMIDE 40MG/4ML VIAL (J1940) IV ONE (11:45)
[2021-03-04] MEDS: oxyBUTYnin 5 MG TAB PO PRN ×2 (12:16→17:47)
[2021-03-04 12:24] VITALS: BP 109/62
[2021-03-04] MEDS: SODIUM CHLORIDE HYPERTONIC 3% 15ML NEB SOL INH SCH ×2 (13:36→20:00)
[2021-03-04] MEDS: ALBUTEROL SULFATE 2.5 MG/0.5 ML INH NEB SOLN NEB SCH ×2 (13:36→20:00)
[2021-03-04 19:21] VITALS: BP 102/61
[2021-03-05] MEDS: SODIUM CHLORIDE HYPERTONIC 3% 15ML NEB SOL INH SCH ×4 (01:04→19:44)
[2021-03-05] MEDS: ALBUTEROL SULFATE 2.5 MG/0.5 ML INH NEB SOLN NEB SCH ×4 (01:04→19:44)
[2021-03-05 04:00] VITALS: BP 105/62
[2021-03-05] MEDS: SODIUM CHLORIDE 0.9% INJ 10 ML SYR IV SCH (04:24)
[2021-03-05] MEDS: REMDESIVIR 100 MG in NS 250 ML IV SCH (04:24)
[2021-03-05 08:21] LABS: BASO % 0.4 % (0.0-1.0); HEMOGLOBIN 10.2 g/dl (13.5-17.5); LYMPH # 1.5 10^3/uL (1.5-5.0); LYMPH % 26.8 % (24.0-44.0); MEAN CORPUSCULAR HEMOGLOBIN 30.8 pg (27.0-33.0); MEAN CORPUSCULAR HGB CONC 31.9 g/dl (32.0-36.5); MEAN CORPUSCULAR VOLUME 96.7 fl (80.0-96.0); MONO # 0.6 10^3/uL (0.0-0.8); MONO % 10.7 % (2.0-8.0); NEUTROPHILS # 3.5 10^3/uL (1.5-8.5); NEUTROPHILS % 61.7 % (36.0-66.0); PLATELET COUNT, AUTOMATED 188 10^3/uL (150-450); RED BLOOD COUNT 3.31 10^6/uL (4.30-6.10); WHITE BLOOD COUNT 5.6 10^3/uL (4.0-10.0)
[2021-03-05 08:49] VITALS: BP 110/60
[2021-03-05] MEDS: FOLIC ACID 1 MG TAB PO SCH (08:50)
[2021-03-05] MEDS: QUEtiapine FUMARATE 12.5 MG HALF-TAB PO SCH ×2 (08:50→20:31)
[2021-03-05] MEDS: THIAMINE 100 MG TAB PO SCH (08:51)
[2021-03-05] MEDS: FINASTERIDE 5 MG TAB PO SCH (08:51)
[2021-03-05] MEDS: MIRALAX *UNIT DOSE* 17GM PACKET PO SCH (08:51)
[2021-03-05] MEDS: dexameTHASONE 4 MG/ML 1ML VIAL (J1100 PER 1MG) IV SCH (08:51)
[2021-03-05] MEDS: guaiFENesin ER 600 MG TAB PO SCH ×2 (08:51→20:31)
[2021-03-05] MEDS: SENOKOT S TAB PO SCH ×2 (08:52→20:31)
[2021-03-05] MEDS: CYANOCOBALAMIN 500 MCG TAB PO SCH (08:52)
[2021-03-05] MEDS: MIDODRINE 5 MG TAB PO SCH ×3 (08:52→16:57)
[2021-03-05] MEDS: PYRIDOSTIGMINE 60MG TABLET PO SCH ×3 (08:52→20:31)
[2021-03-05 09:05] LABS: BLOOD UREA NITROGEN 30 MG/DL (7-18); CALCIUM LEVEL 8.6 MG/DL (8.8-10.2); CARBON DIOXIDE LEVEL 24 MEQ/L (21-32); CHLORIDE LEVEL 110 MEQ/L (98-107); CREATININE FOR GFR 1.23 MG/DL (0.70-1.30); GLOMERULAR FILTRATION RATE > 60.0 (>42); GLUCOSE, FASTING 97 MG/DL (70-100); POTASSIUM SERUM 3.8 MEQ/L (3.5-5.1); SODIUM LEVEL 143 MEQ/L (136-145)
[2021-03-05] MEDS: IRON POLYSAC (NIFEREX) 150 MG CAP PO SCH ×2 (10:30→16:58)
[2021-03-05 12:24] VITALS: BP 112/69
[2021-03-05] MEDS: cefTRIAXone SOD 1 GM in D5W MINI-BAG PLUS 50 ML IV SCH (13:47)
[2021-03-05] MEDS: DOXYCYCLINE HYCLATE 100MG TABLET PO SCH ×2 (14:14→20:31)
[2021-03-05 14:17] VITALS: BP 113/71
[2021-03-05 16:45] VITALS: BP 114/82
[2021-03-05 20:00] VITALS: BP 110/61
[2021-03-06] VITALS (7 sets, daily range): BP systolic 108–130; BP diastolic 62–73; O2SAT 95
[2021-03-06] MEDS: SODIUM CHLORIDE HYPERTONIC 3% 15ML NEB SOL INH SCH ×4 (01:40→20:09)
[2021-03-06] MEDS: ALBUTEROL SULFATE 2.5 MG/0.5 ML INH NEB SOLN NEB SCH ×4 (01:40→20:09)
[2021-03-06] MEDS: SODIUM CHLORIDE 0.9% INJ 10 ML SYR IV SCH (04:51)
[2021-03-06] MEDS: REMDESIVIR 100 MG in NS 250 ML IV SCH (04:51)
[2021-03-06] MEDS: IRON POLYSAC (NIFEREX) 150 MG CAP PO SCH ×2 (06:00→18:00)
[2021-03-06 06:17] LABS: HEMATOCRIT 31.8 % (42.0-52.0); HEMOGLOBIN 10.2 g/dl (13.5-17.5); LYMPH # 1.2 10^3/uL (1.5-5.0); LYMPH % 20.5 % (24.0-44.0); MEAN CORPUSCULAR HEMOGLOBIN 30.8 pg (27.0-33.0); MEAN CORPUSCULAR HGB CONC 32.1 g/dl (32.0-36.5); MEAN CORPUSCULAR VOLUME 96.1 fl (80.0-96.0); MONO # 0.6 10^3/uL (0.0-0.8); MONO % 10.2 % (2.0-8.0); NEUTROPHILS # 3.9 10^3/uL (1.5-8.5); NEUTROPHILS % 68.9 % (36.0-66.0); PLATELET COUNT, AUTOMATED 208 10^3/uL (150-450); RED BLOOD COUNT 3.31 10^6/uL (4.30-6.10); WHITE BLOOD COUNT 5.6 10^3/uL (4.0-10.0)
[2021-03-06 06:45] LABS: BLOOD UREA NITROGEN 34 MG/DL (7-18); CALCIUM LEVEL 8.5 MG/DL (8.8-10.2); CARBON DIOXIDE LEVEL 24 MEQ/L (21-32); CHLORIDE LEVEL 110 MEQ/L (98-107); CREATININE FOR GFR 1.13 MG/DL (0.70-1.30); GLOMERULAR FILTRATION RATE > 60.0 (>42); GLUCOSE, FASTING 96 MG/DL (70-100); POTASSIUM SERUM 4.1 MEQ/L (3.5-5.1); SODIUM LEVEL 143 MEQ/L (136-145)
[2021-03-06] MEDS: THIAMINE 100 MG TAB PO SCH (09:09)
[2021-03-06] MEDS: MIRALAX *UNIT DOSE* 17GM PACKET PO SCH (09:09)
[2021-03-06] MEDS: FOLIC ACID 1 MG TAB PO SCH (09:09)
[2021-03-06] MEDS: CYANOCOBALAMIN 500 MCG TAB PO SCH (09:09)
[2021-03-06] MEDS: PYRIDOSTIGMINE 60MG TABLET PO SCH ×3 (09:09→22:00)
[2021-03-06] MEDS: DOXYCYCLINE HYCLATE 100MG TABLET PO SCH ×2 (09:09→22:00)
[2021-03-06] MEDS: dexameTHASONE 4 MG/ML 1ML VIAL (J1100 PER 1MG) IV SCH (09:10)
[2021-03-06] MEDS: guaiFENesin ER 600 MG TAB PO SCH ×2 (09:10→22:00)
[2021-03-06] MEDS: FINASTERIDE 5 MG TAB PO SCH (09:10)
[2021-03-06] MEDS: MIDODRINE 5 MG TAB PO SCH ×4 (09:10→16:00)
[2021-03-06] MEDS: SENOKOT S TAB PO SCH ×2 (09:10→22:00)
[2021-03-06] MEDS: QUEtiapine FUMARATE 12.5 MG HALF-TAB PO SCH ×2 (09:10→22:00)
[2021-03-06] MEDS: cefTRIAXone SOD 1 GM in D5W MINI-BAG PLUS 50 ML IV SCH (12:44)
[2021-03-06] MEDS: OLANZapine 2.5MG TABLET PO PRN (14:14)
[2021-03-06] MEDS ORDERED: HALOPERIDOL 5MG/ML VIAL (J1630 PER 1) IV ONE (15:25)
[2021-03-06] MEDS ORDERED: LORazepam 2 MG/ML VIAL IV ONE (16:55)
[2021-03-07] MEDS: SODIUM CHLORIDE HYPERTONIC 3% 15ML NEB SOL INH SCH ×3 (02:00→14:42)
[2021-03-07] MEDS: ALBUTEROL SULFATE 2.5 MG/0.5 ML INH NEB SOLN NEB SCH ×4 (02:00→19:52)
[2021-03-07 04:00] VITALS: BP 122/57
[2021-03-07] MEDS: REMDESIVIR 100 MG in NS 250 ML IV SCH (05:00)
[2021-03-07] MEDS: IRON POLYSAC (NIFEREX) 150 MG CAP PO SCH ×2 (05:53→18:27)
[2021-03-07] MEDS: SODIUM CHLORIDE 0.9% INJ 10 ML SYR IV SCH (05:53)
[2021-03-07 06:34] LABS: EOS % 0.1 % (0.0-3.0); HEMATOCRIT 31.5 % (42.0-52.0); HEMOGLOBIN 10.1 g/dl (13.5-17.5); LYMPH # 1.7 10^3/uL (1.5-5.0); MEAN CORPUSCULAR HEMOGLOBIN 30.4 pg (27.0-33.0); MEAN CORPUSCULAR HGB CONC 32.1 g/dl (32.0-36.5); MEAN CORPUSCULAR VOLUME 94.9 fl (80.0-96.0); MONO # 0.8 10^3/uL (0.0-0.8); NEUTROPHILS # 4.3 10^3/uL (1.5-8.5); NEUTROPHILS % 62.6 % (36.0-66.0); PLATELET COUNT, AUTOMATED 231 10^3/uL (150-450); RED BLOOD COUNT 3.32 10^6/uL (4.30-6.10); WHITE BLOOD COUNT 6.9 10^3/uL (4.0-10.0)
[2021-03-07 07:03] LABS: BLOOD UREA NITROGEN 31 MG/DL (7-18); CALCIUM LEVEL 8.8 MG/DL (8.8-10.2); CARBON DIOXIDE LEVEL 26 MEQ/L (21-32); CHLORIDE LEVEL 112 MEQ/L (98-107); CREATININE FOR GFR 1.15 MG/DL (0.70-1.30); GLOMERULAR FILTRATION RATE > 60.0 (>42); GLUCOSE, FASTING 90 MG/DL (70-100); POTASSIUM SERUM 4.1 MEQ/L (3.5-5.1); SODIUM LEVEL 143 MEQ/L (136-145)
[2021-03-07 08:00] VITALS: O2SAT 95
[2021-03-07] MEDS: MIDODRINE 5 MG TAB PO SCH ×3 (08:00→15:55)
[2021-03-07] MEDS: MIRALAX *UNIT DOSE* 17GM PACKET PO SCH (08:18)
[2021-03-07] MEDS: CYANOCOBALAMIN 500 MCG TAB PO SCH (08:18)
[2021-03-07] MEDS: DOXYCYCLINE HYCLATE 100MG TABLET PO SCH ×2 (08:18→20:37)
[2021-03-07] MEDS: guaiFENesin ER 600 MG TAB PO SCH ×2 (08:18→20:37)
[2021-03-07] MEDS: QUEtiapine FUMARATE 12.5 MG HALF-TAB PO SCH (08:18)
[2021-03-07] MEDS: FINASTERIDE 5 MG TAB PO SCH (08:18)
[2021-03-07] MEDS: PYRIDOSTIGMINE 60MG TABLET PO SCH ×3 (08:18→20:37)
[2021-03-07] MEDS: FOLIC ACID 1 MG TAB PO SCH (08:18)
[2021-03-07] MEDS: dexameTHASONE 4 MG/ML 1ML VIAL (J1100 PER 1MG) IV SCH (08:18)
[2021-03-07] MEDS: SENOKOT S TAB PO SCH ×2 (08:18→20:37)
[2021-03-07] MEDS: THIAMINE 100 MG TAB PO SCH (08:18)
[2021-03-07 12:00] VITALS: O2SAT 95
[2021-03-07 12:45] VITALS: BP 113/76
[2021-03-07] MEDS: cefTRIAXone SOD 1 GM in D5W MINI-BAG PLUS 50 ML IV SCH (12:49)
[2021-03-07 15:48] VITALS: BP 135/68
[2021-03-07 19:16] VITALS: BP 116/72
[2021-03-07] MEDS: QUEtiapine FUMARATE 25 MG TAB PO SCH (20:37)
[2021-03-08] MEDS: ALBUTEROL SULFATE 2.5 MG/0.5 ML INH NEB SOLN NEB SCH ×4 (02:00→20:15)
[2021-03-08] MEDS: REMDESIVIR 100 MG in NS 250 ML IV SCH (04:06)
[2021-03-08 04:12] VITALS: BP 143/75
[2021-03-08] MEDS: SODIUM CHLORIDE 0.9% INJ 10 ML SYR IV SCH (05:47)
[2021-03-08] MEDS: IRON POLYSAC (NIFEREX) 150 MG CAP PO SCH ×2 (05:51→17:22)
[2021-03-08 08:05] LABS: HEMOGLOBIN 9.9 g/dl (13.5-17.5); PLATELET COUNT, AUTOMATED 246 10^3/uL (150-450); RED BLOOD COUNT 3.19 10^6/uL (4.30-6.10); WHITE BLOOD COUNT 5.3 10^3/uL (4.0-10.0)
[2021-03-08 08:12] LABS: ALBUMIN 2.8 GM/DL (3.2-5.2); ALT/SGPT 106 U/L (12-78); BILIRUBIN,TOTAL 0.2 MG/DL (0.2-1.0); BLOOD UREA NITROGEN 28 MG/DL (7-18); CALCIUM LEVEL 8.4 MG/DL (8.8-10.2); CARBON DIOXIDE LEVEL 24 MEQ/L (21-32); CHLORIDE LEVEL 112 MEQ/L (98-107); CREATININE FOR GFR 1.01 MG/DL (0.70-1.30); GLOMERULAR FILTRATION RATE > 60.0 (>42); GLUCOSE, FASTING 87 MG/DL (70-100); POTASSIUM SERUM 3.8 MEQ/L (3.5-5.1); SODIUM LEVEL 144 MEQ/L (136-145); TOTAL PROTEIN 5.3 GM/DL (6.4-8.2)
[2021-03-08] MEDS: guaiFENesin ER 600 MG TAB PO SCH ×2 (08:58→19:50)
[2021-03-08] MEDS: SENOKOT S TAB PO SCH ×2 (08:58→19:50)
[2021-03-08] MEDS: QUEtiapine FUMARATE 25 MG TAB PO SCH ×2 (08:58→19:50)
[2021-03-08] MEDS: DOXYCYCLINE HYCLATE 100MG TABLET PO SCH ×2 (08:58→19:50)
[2021-03-08] MEDS: PYRIDOSTIGMINE 60MG TABLET PO SCH ×3 (08:58→19:50)
[2021-03-08] MEDS: MIDODRINE 5 MG TAB PO SCH ×3 (08:59→17:22)
[2021-03-08] MEDS: dexameTHASONE 4 MG/ML 1ML VIAL (J1100 PER 1MG) IV SCH (08:59)
[2021-03-08] MEDS: CYANOCOBALAMIN 500 MCG TAB PO SCH (08:59)
[2021-03-08] MEDS: FINASTERIDE 5 MG TAB PO SCH (08:59)
[2021-03-08] MEDS: FOLIC ACID 1 MG TAB PO SCH (08:59)
[2021-03-08] MEDS: MIRALAX *UNIT DOSE* 17GM PACKET PO SCH (08:59)
[2021-03-08] MEDS: THIAMINE 100 MG TAB PO SCH (08:59)
[2021-03-08 14:00] VITALS: BP 123/77
[2021-03-08] MEDS: cefTRIAXone SOD 1 GM in D5W MINI-BAG PLUS 50 ML IV SCH (14:32)
[2021-03-08] MEDS: RAMELTEON 8 MG TAB (ROZEREM) PO PRN (19:50)
[2021-03-08] MEDS: ACETAMINOPHEN TAB 650MG DOSE (2X325MG) PO PRN (19:51)
[2021-03-08 20:00] VITALS: BP 124/72
[2021-03-08 21:49] VITALS: O2SAT 95
[2021-03-09] MEDS: ALBUTEROL SULFATE 2.5 MG/0.5 ML INH NEB SOLN NEB SCH ×3 (01:45→13:23)
[2021-03-09 04:00] VITALS: BP 124/64
[2021-03-09] MEDS: IRON POLYSAC (NIFEREX) 150 MG CAP PO SCH ×2 (05:01→17:04)
[2021-03-09] MEDS: MIDODRINE 5 MG TAB PO SCH ×3 (07:41→16:00)
[2021-03-09] MEDS: MIRALAX *UNIT DOSE* 17GM PACKET PO SCH (08:19)
[2021-03-09] MEDS: guaiFENesin ER 600 MG TAB PO SCH ×2 (08:19→21:46)
[2021-03-09] MEDS: dexameTHASONE 4 MG/ML 1ML VIAL (J1100 PER 1MG) IV SCH (08:19)
[2021-03-09] MEDS: CYANOCOBALAMIN 500 MCG TAB PO SCH (08:20)
[2021-03-09] MEDS: DOXYCYCLINE HYCLATE 100MG TABLET PO SCH ×2 (08:20→21:46)
[2021-03-09] MEDS: FOLIC ACID 1 MG TAB PO SCH (08:20)
[2021-03-09] MEDS: FINASTERIDE 5 MG TAB PO SCH (08:20)
[2021-03-09] MEDS: SENOKOT S TAB PO SCH ×2 (08:20→21:46)
[2021-03-09] MEDS: PYRIDOSTIGMINE 60MG TABLET PO SCH ×3 (08:20→21:46)
[2021-03-09] MEDS: QUEtiapine FUMARATE 25 MG TAB PO SCH ×2 (08:20→21:46)
[2021-03-09] MEDS: THIAMINE 100 MG TAB PO SCH (08:20)
[2021-03-09 08:42] LABS: BASO % 0.4 % (0.0-1.0); EOS # 0.1 10^3/uL (0.0-0.5); EOS % 1.1 % (0.0-3.0); HEMATOCRIT 34.8 % (42.0-52.0); LYMPH # 1.8 10^3/uL (1.5-5.0); LYMPH % 31.7 % (24.0-44.0); MEAN CORPUSCULAR HEMOGLOBIN 30.5 pg (27.0-33.0); MEAN CORPUSCULAR HGB CONC 31.6 g/dl (32.0-36.5); MEAN CORPUSCULAR VOLUME 96.4 fl (80.0-96.0); MONO # 0.7 10^3/uL (0.0-0.8); MONO % 11.8 % (2.0-8.0); NEUTROPHILS % 52.4 % (36.0-66.0); PLATELET COUNT, AUTOMATED 291 10^3/uL (150-450); RED BLOOD COUNT 3.61 10^6/uL (4.30-6.10); WHITE BLOOD COUNT 5.7 10^3/uL (4.0-10.0)
[2021-03-09 09:06] LABS: BLOOD UREA NITROGEN 29 MG/DL (7-18); CARBON DIOXIDE LEVEL 24 MEQ/L (21-32); CHLORIDE LEVEL 112 MEQ/L (98-107); CREATININE FOR GFR 1.21 MG/DL (0.70-1.30); GLOMERULAR FILTRATION RATE > 60.0 (>42); GLUCOSE, FASTING 88 MG/DL (70-100); POTASSIUM SERUM 3.9 MEQ/L (3.5-5.1); SODIUM LEVEL 144 MEQ/L (136-145)
[2021-03-09] MEDS: cefTRIAXone SOD 1 GM in D5W MINI-BAG PLUS 50 ML IV SCH (13:17)
[2021-03-09 14:00] VITALS: BP 129/61
[2021-03-09] MEDS: ALBUTEROL 90 MCG/ACT 8GM HFA INHALER INH SCH ×2 (14:00→19:38)
[2021-03-09] MEDS: oxyBUTYnin 5 MG TAB PO PRN (16:58)
[2021-03-09] MEDS: RAMELTEON 8 MG TAB (ROZEREM) PO PRN (21:46)
[2021-03-09] MEDS: ACETAMINOPHEN TAB 650MG DOSE (2X325MG) PO PRN (21:47)
[2021-03-10 04:00] VITALS: BP 102/58
[2021-03-10] MEDS: IRON POLYSAC (NIFEREX) 150 MG CAP PO SCH ×2 (05:46→18:20)
[2021-03-10] MEDS: ALBUTEROL 90 MCG/ACT 8GM HFA INHALER INH SCH ×3 (08:27→20:00)
[2021-03-10] MEDS: PYRIDOSTIGMINE 60MG TABLET PO SCH ×3 (09:16→20:20)
[2021-03-10] MEDS: CYANOCOBALAMIN 500 MCG TAB PO SCH (09:16)
[2021-03-10] MEDS: QUEtiapine FUMARATE 25 MG TAB PO SCH ×2 (09:16→20:20)
[2021-03-10] MEDS: FINASTERIDE 5 MG TAB PO SCH (09:16)
[2021-03-10] MEDS: THIAMINE 100 MG TAB PO SCH (09:16)
[2021-03-10] MEDS: MIDODRINE 5 MG TAB PO SCH ×3 (09:16→18:21)
[2021-03-10] MEDS: DOXYCYCLINE HYCLATE 100MG TABLET PO SCH ×2 (09:16→20:20)
[2021-03-10] MEDS: guaiFENesin ER 600 MG TAB PO SCH ×2 (09:16→20:20)
[2021-03-10] MEDS: MIRALAX *UNIT DOSE* 17GM PACKET PO SCH (09:16)
[2021-03-10] MEDS: FOLIC ACID 1 MG TAB PO SCH (09:16)
[2021-03-10] MEDS: SENOKOT S TAB PO SCH ×2 (09:16→20:18)
[2021-03-11 04:00] VITALS: BP 102/60
[2021-03-11] MEDS: IRON POLYSAC (NIFEREX) 150 MG CAP PO SCH ×2 (06:11→16:38)
[2021-03-11 06:56] LABS: HEMATOCRIT 33.9 % (42.0-52.0); MEAN CORPUSCULAR HEMOGLOBIN 30.5 pg (27.0-33.0); MEAN CORPUSCULAR HGB CONC 32.4 g/dl (32.0-36.5); MEAN CORPUSCULAR VOLUME 93.9 fl (80.0-96.0); PLATELET COUNT, AUTOMATED 295 10^3/uL (150-450); RED BLOOD COUNT 3.61 10^6/uL (4.30-6.10); WHITE BLOOD COUNT 7.1 10^3/uL (4.0-10.0)
[2021-03-11 07:21] LABS: ATYPICAL LYMPH 9 % (0-5); EOSINOPHILS 3 % (0-3); LYMPHOCYTES 24 % (16-44); MONOCYTES 7 % (0-5); MYELOCYTES 2 % (0-0); NEUTROPHILS 55 % (28-66); PLATELET ESTIMATE NORMAL (NORMAL); POLYCHROMASIA 1+
[2021-03-11 07:22] LABS: ANISOCYTOSIS 1+; POIKILOCYTOSIS 1+
[2021-03-11 07:29] LABS: CALCIUM LEVEL 8.9 MG/DL (8.8-10.2); CREATININE FOR GFR 1.28 MG/DL (0.70-1.30); GLOMERULAR FILTRATION RATE 57.9 (>42); POTASSIUM SERUM 4.5 MEQ/L (3.5-5.1)
[2021-03-11] MEDS: ALBUTEROL 90 MCG/ACT 8GM HFA INHALER INH SCH ×3 (07:30→19:46)
[2021-03-11] MEDS: guaiFENesin ER 600 MG TAB PO SCH ×2 (10:20→20:41)
[2021-03-11] MEDS: SENOKOT S TAB PO SCH ×2 (10:20→20:41)
[2021-03-11] MEDS: MIRALAX *UNIT DOSE* 17GM PACKET PO SCH (10:20)
[2021-03-11] MEDS: PYRIDOSTIGMINE 60MG TABLET PO SCH ×3 (10:20→20:41)
[2021-03-11] MEDS: MIDODRINE 5 MG TAB PO SCH ×3 (10:21→16:39)
[2021-03-11] MEDS: THIAMINE 100 MG TAB PO SCH (10:21)
[2021-03-11] MEDS: FOLIC ACID 1 MG TAB PO SCH (10:21)
[2021-03-11] MEDS: DOXYCYCLINE HYCLATE 100MG TABLET PO SCH ×2 (10:21→20:41)
[2021-03-11] MEDS: QUEtiapine FUMARATE 25 MG TAB PO SCH ×2 (10:21→20:42)
[2021-03-11] MEDS: CYANOCOBALAMIN 500 MCG TAB PO SCH (10:21)
[2021-03-11] MEDS: FINASTERIDE 5 MG TAB PO SCH (10:21)
[2021-03-11] MEDS: OLANZapine 5 MG TAB PO PRN (16:42)
[2021-03-11] MEDS: RAMELTEON 8 MG TAB (ROZEREM) PO PRN (20:41)
[2021-03-12 04:00] VITALS: BP 110/65
[2021-03-12] MEDS: IRON POLYSAC (NIFEREX) 150 MG CAP PO SCH ×2 (04:47→16:52)
[2021-03-12] MEDS: ALBUTEROL 90 MCG/ACT 8GM HFA INHALER INH SCH ×3 (08:00→20:14)
[2021-03-12] MEDS: SENOKOT S TAB PO SCH ×2 (11:53→20:01)
[2021-03-12] MEDS: MIDODRINE 5 MG TAB PO SCH ×3 (11:53→16:52)
[2021-03-12] MEDS: CYANOCOBALAMIN 500 MCG TAB PO SCH (11:53)
[2021-03-12] MEDS: THIAMINE 100 MG TAB PO SCH (11:53)
[2021-03-12] MEDS: FINASTERIDE 5 MG TAB PO SCH (11:53)
[2021-03-12] MEDS: FOLIC ACID 1 MG TAB PO SCH (11:54)
[2021-03-12] MEDS: PYRIDOSTIGMINE 60MG TABLET PO SCH ×3 (11:54→20:02)
[2021-03-12] MEDS: MIRALAX *UNIT DOSE* 17GM PACKET PO SCH (11:54)
[2021-03-12] MEDS: DOXYCYCLINE HYCLATE 100MG TABLET PO SCH ×2 (11:54→20:01)
[2021-03-12] MEDS: QUEtiapine FUMARATE 25 MG TAB PO SCH ×2 (11:54→20:01)
[2021-03-12] MEDS: guaiFENesin ER 600 MG TAB PO SCH ×2 (11:55→20:01)
[2021-03-12 16:40] VITALS: BP 108/67
[2021-03-12] MEDS: RAMELTEON 8 MG TAB (ROZEREM) PO PRN (20:01)
[2021-03-13 04:00] VITALS: BP 90/50
[2021-03-13] MEDS: IRON POLYSAC (NIFEREX) 150 MG CAP PO SCH ×2 (05:42→20:18)
[2021-03-13] MEDS: ALBUTEROL 90 MCG/ACT 8GM HFA INHALER INH SCH ×3 (08:37→20:17)
[2021-03-13] MEDS: FINASTERIDE 5 MG TAB PO SCH (09:14)
[2021-03-13] MEDS: MIRALAX *UNIT DOSE* 17GM PACKET PO SCH (09:14)
[2021-03-13] MEDS: MIDODRINE 5 MG TAB PO SCH ×3 (09:14→16:00)
[2021-03-13] MEDS: QUEtiapine FUMARATE 25 MG TAB PO SCH ×2 (09:14→20:17)
[2021-03-13] MEDS: THIAMINE 100 MG TAB PO SCH (09:14)
[2021-03-13] MEDS: FOLIC ACID 1 MG TAB PO SCH (09:14)
[2021-03-13] MEDS: guaiFENesin ER 600 MG TAB PO SCH ×2 (09:14→20:17)
[2021-03-13] MEDS: SENOKOT S TAB PO SCH ×2 (09:14→20:18)
[2021-03-13] MEDS: CYANOCOBALAMIN 500 MCG TAB PO SCH (09:14)
[2021-03-13] MEDS: DOXYCYCLINE HYCLATE 100MG TABLET PO SCH ×2 (09:14→20:18)
[2021-03-13] MEDS: PYRIDOSTIGMINE 60MG TABLET PO SCH ×3 (09:14→20:19)
[2021-03-13] MEDS: RAMELTEON 8 MG TAB (ROZEREM) PO PRN (20:17)
[2021-03-14 05:15] VITALS: BP 131/59
[2021-03-14] MEDS: IRON POLYSAC (NIFEREX) 150 MG CAP PO SCH ×2 (05:15→16:59)
[2021-03-14 08:13] VITALS: BP 117/64
[2021-03-14] MEDS: QUEtiapine FUMARATE 25 MG TAB PO SCH ×2 (08:14→21:36)
[2021-03-14] MEDS: SENOKOT S TAB PO SCH ×2 (08:14→21:36)
[2021-03-14] MEDS: PYRIDOSTIGMINE 60MG TABLET PO SCH ×3 (08:14→21:36)
[2021-03-14] MEDS: FOLIC ACID 1 MG TAB PO SCH (08:14)
[2021-03-14] MEDS: guaiFENesin ER 600 MG TAB PO SCH ×2 (08:14→21:36)
[2021-03-14] MEDS: THIAMINE 100 MG TAB PO SCH (08:14)
[2021-03-14] MEDS: FINASTERIDE 5 MG TAB PO SCH (08:14)
[2021-03-14] MEDS: DOXYCYCLINE HYCLATE 100MG TABLET PO SCH ×2 (08:14→21:36)
[2021-03-14] MEDS: MIRALAX *UNIT DOSE* 17GM PACKET PO SCH (08:14)
[2021-03-14] MEDS: MIDODRINE 5 MG TAB PO SCH ×3 (08:14→16:58)
[2021-03-14] MEDS: CYANOCOBALAMIN 500 MCG TAB PO SCH (08:15)
[2021-03-14] MEDS: ALBUTEROL 90 MCG/ACT 8GM HFA INHALER INH SCH ×3 (08:32→19:34)
[2021-03-14 15:30] VITALS: BP 119/70
[2021-03-15 05:47] VITALS: BP 104/60
[2021-03-15] MEDS: IRON POLYSAC (NIFEREX) 150 MG CAP PO SCH ×2 (06:58→17:00)
[2021-03-15] MEDS: ALBUTEROL 90 MCG/ACT 8GM HFA INHALER INH SCH ×3 (07:52→19:31)
[2021-03-15] MEDS: MIDODRINE 5 MG TAB PO SCH ×3 (08:00→16:00)
[2021-03-15] MEDS: QUEtiapine FUMARATE 25 MG TAB PO SCH ×2 (08:08→20:26)
[2021-03-15] MEDS: FINASTERIDE 5 MG TAB PO SCH (08:09)
[2021-03-15] MEDS: SENOKOT S TAB PO SCH ×2 (08:09→20:26)
[2021-03-15] MEDS: CYANOCOBALAMIN 500 MCG TAB PO SCH (08:09)
[2021-03-15] MEDS: FOLIC ACID 1 MG TAB PO SCH (08:09)
[2021-03-15] MEDS: THIAMINE 100 MG TAB PO SCH (08:10)
[2021-03-15] MEDS: MIRALAX *UNIT DOSE* 17GM PACKET PO SCH (08:10)
[2021-03-15] MEDS: guaiFENesin ER 600 MG TAB PO SCH ×2 (08:10→20:25)
[2021-03-15] MEDS: PYRIDOSTIGMINE 60MG TABLET PO SCH ×3 (08:10→20:26)
[2021-03-15 08:11] VITALS: BP 122/71
[2021-03-15 16:18] VITALS: BP 124/77
[2021-03-16] MEDS: IRON POLYSAC (NIFEREX) 150 MG CAP PO SCH ×2 (05:03→17:00)
[2021-03-16 06:00] VITALS: BP 125/75
[2021-03-16 07:08] VITALS: BP 125/77
[2021-03-16] MEDS: ALBUTEROL 90 MCG/ACT 8GM HFA INHALER INH SCH ×3 (07:37→19:20)
[2021-03-16] MEDS: MIDODRINE 5 MG TAB PO SCH ×3 (07:45→16:00)
[2021-03-16] MEDS: MIRALAX *UNIT DOSE* 17GM PACKET PO SCH (08:39)
[2021-03-16] MEDS: PYRIDOSTIGMINE 60MG TABLET PO SCH ×3 (08:40→21:25)
[2021-03-16] MEDS: guaiFENesin ER 600 MG TAB PO SCH ×2 (08:40→21:24)
[2021-03-16] MEDS: FOLIC ACID 1 MG TAB PO SCH (08:40)
[2021-03-16] MEDS: THIAMINE 100 MG TAB PO SCH (08:40)
[2021-03-16] MEDS: SENOKOT S TAB PO SCH ×2 (08:40→21:24)
[2021-03-16] MEDS: QUEtiapine FUMARATE 25 MG TAB PO SCH ×2 (08:40→21:25)
[2021-03-16] MEDS: FINASTERIDE 5 MG TAB PO SCH (08:40)
[2021-03-16] MEDS: CYANOCOBALAMIN 500 MCG TAB PO SCH (08:40)
[2021-03-16 11:33] VITALS: BP 123/85
[2021-03-16] MEDS: OLANZapine 5 MG TAB PO PRN ×2 (11:53→18:20)
[2021-03-16 16:31] VITALS: BP 135/87
[2021-03-16] MEDS: RAMELTEON 8 MG TAB (ROZEREM) PO PRN (22:18)
[2021-03-17 06:00] VITALS: BP 106/71
[2021-03-17] MEDS: IRON POLYSAC (NIFEREX) 150 MG CAP PO SCH ×2 (06:51→17:00)
[2021-03-17 07:16] LABS: BASO % 0.6 % (0.0-1.0); EOS # 0.2 10^3/uL (0.0-0.5); EOS % 3.6 % (0.0-3.0); HEMATOCRIT 33.9 % (42.0-52.0); HEMOGLOBIN 11.2 g/dl (13.5-17.5); LYMPH # 1.3 10^3/uL (1.5-5.0); LYMPH % 25.3 % (24.0-44.0); MEAN CORPUSCULAR HEMOGLOBIN 30.9 pg (27.0-33.0); MEAN CORPUSCULAR VOLUME 93.6 fl (80.0-96.0); MONO # 0.6 10^3/uL (0.0-0.8); NEUTROPHILS # 2.9 10^3/uL (1.5-8.5); NEUTROPHILS % 58.9 % (36.0-66.0); PLATELET COUNT, AUTOMATED 200 10^3/uL (150-450); RED BLOOD COUNT 3.62 10^6/uL (4.30-6.10)
[2021-03-17] MEDS: ALBUTEROL 90 MCG/ACT 8GM HFA INHALER INH SCH ×3 (07:33→20:55)
[2021-03-17 07:41] LABS: ALT/SGPT 21 U/L (12-78); BILIRUBIN,TOTAL 0.3 MG/DL (0.2-1.0); BLOOD UREA NITROGEN 22 MG/DL (7-18); CALCIUM LEVEL 8.9 MG/DL (8.8-10.2); CARBON DIOXIDE LEVEL 26 MEQ/L (21-32); CHLORIDE LEVEL 112 MEQ/L (98-107); CREATININE FOR GFR 1.18 MG/DL (0.70-1.30); GLOMERULAR FILTRATION RATE > 60.0 (>42); GLUCOSE, FASTING 93 MG/DL (70-100); MAGNESIUM LEVEL 2.6 MG/DL (1.8-2.4); POTASSIUM SERUM 4.1 MEQ/L (3.5-5.1); SODIUM LEVEL 142 MEQ/L (136-145); TOTAL PROTEIN 5.6 GM/DL (6.4-8.2)
[2021-03-17 07:45] VITALS: BP 99/68
[2021-03-17] MEDS: THIAMINE 100 MG TAB PO SCH (08:13)
[2021-03-17] MEDS: guaiFENesin ER 600 MG TAB PO SCH ×2 (08:13→20:57)
[2021-03-17] MEDS: SENOKOT S TAB PO SCH ×2 (08:13→20:57)
[2021-03-17] MEDS: MIRALAX *UNIT DOSE* 17GM PACKET PO SCH (08:13)
[2021-03-17] MEDS: QUEtiapine FUMARATE 25 MG TAB PO SCH ×2 (08:13→20:57)
[2021-03-17] MEDS: FINASTERIDE 5 MG TAB PO SCH (08:13)
[2021-03-17] MEDS: CYANOCOBALAMIN 500 MCG TAB PO SCH (08:13)
[2021-03-17] MEDS: MIDODRINE 5 MG TAB PO SCH ×3 (08:13→16:58)
[2021-03-17] MEDS: FOLIC ACID 1 MG TAB PO SCH (08:14)
[2021-03-17] MEDS: PYRIDOSTIGMINE 60MG TABLET PO SCH ×3 (08:14→20:58)
[2021-03-17 12:35] VITALS: BP 98/51
[2021-03-17] MEDS: RAMELTEON 8 MG TAB (ROZEREM) PO PRN (23:09)
[2021-03-17] MEDS: ACETAMINOPHEN TAB 650MG DOSE (2X325MG) PO PRN (23:10)
[2021-03-18 06:00] VITALS: BP 113/76
[2021-03-18] MEDS: IRON POLYSAC (NIFEREX) 150 MG CAP PO SCH ×2 (06:10→17:12)
[2021-03-18] MEDS: ALBUTEROL 90 MCG/ACT 8GM HFA INHALER INH SCH ×3 (07:32→18:29)
[2021-03-18] MEDS: FINASTERIDE 5 MG TAB PO SCH (08:39)
[2021-03-18] MEDS: guaiFENesin ER 600 MG TAB PO SCH ×2 (08:39→20:50)
[2021-03-18] MEDS: MIRALAX *UNIT DOSE* 17GM PACKET PO SCH (08:39)
[2021-03-18] MEDS: THIAMINE 100 MG TAB PO SCH (08:40)
[2021-03-18] MEDS: QUEtiapine FUMARATE 25 MG TAB PO SCH ×2 (08:40→20:50)
[2021-03-18] MEDS: FOLIC ACID 1 MG TAB PO SCH (08:40)
[2021-03-18] MEDS: MIDODRINE 5 MG TAB PO SCH ×3 (08:40→17:14)
[2021-03-18] MEDS: CYANOCOBALAMIN 500 MCG TAB PO SCH (08:40)
[2021-03-18] MEDS: PYRIDOSTIGMINE 60MG TABLET PO SCH ×3 (08:40→20:50)
[2021-03-18] MEDS: SENOKOT S TAB PO SCH ×2 (08:40→20:49)
[2021-03-18] MEDS: RAMELTEON 8 MG TAB (ROZEREM) PO PRN (20:49)
[2021-03-18 21:13] VITALS: BP 120/73
[2021-03-19] MEDS: OLANZapine 5 MG TAB PO PRN (02:04)
[2021-03-19 06:00] VITALS: BP 112/68
[2021-03-19] MEDS: IRON POLYSAC (NIFEREX) 150 MG CAP PO SCH ×2 (06:27→17:33)
[2021-03-19] MEDS: ALBUTEROL 90 MCG/ACT 8GM HFA INHALER INH SCH ×3 (07:10→19:45)
[2021-03-19] MEDS: SENOKOT S TAB PO SCH ×2 (08:04→19:45)
[2021-03-19] MEDS: guaiFENesin ER 600 MG TAB PO SCH (08:04)
[2021-03-19] MEDS: MIRALAX *UNIT DOSE* 17GM PACKET PO SCH (08:04)
[2021-03-19] MEDS: FINASTERIDE 5 MG TAB PO SCH (08:04)
[2021-03-19] MEDS: THIAMINE 100 MG TAB PO SCH (08:04)
[2021-03-19] MEDS: FOLIC ACID 1 MG TAB PO SCH (08:04)
[2021-03-19] MEDS: MIDODRINE 5 MG TAB PO SCH ×3 (08:05→16:45)
[2021-03-19] MEDS: CYANOCOBALAMIN 500 MCG TAB PO SCH (08:05)
[2021-03-19] MEDS: QUEtiapine FUMARATE 25 MG TAB PO SCH ×2 (08:05→19:45)
[2021-03-19] MEDS: PYRIDOSTIGMINE 60MG TABLET PO SCH ×3 (08:05→19:45)
[2021-03-19 08:25] LABS: HEMATOCRIT 38.7 % (42.0-52.0); HEMOGLOBIN 12.2 g/dl (13.5-17.5); MEAN CORPUSCULAR HEMOGLOBIN 30.3 pg (27.0-33.0); MEAN CORPUSCULAR HGB CONC 31.5 g/dl (32.0-36.5); PLATELET COUNT, AUTOMATED 187 10^3/uL (150-450); RED BLOOD COUNT 4.03 10^6/uL (4.30-6.10); WHITE BLOOD COUNT 6.3 10^3/uL (4.0-10.0)
[2021-03-19 09:04] LABS: ALBUMIN 3.3 GM/DL (3.2-5.2); ALT/SGPT 385 U/L (12-78); BILIRUBIN,TOTAL 0.3 MG/DL (0.2-1.0); BLOOD UREA NITROGEN 17 MG/DL (7-18); CALCIUM LEVEL 9.4 MG/DL (8.8-10.2); CARBON DIOXIDE LEVEL 25 MEQ/L (21-32); CHLORIDE LEVEL 111 MEQ/L (98-107); CREATININE FOR GFR 1.13 MG/DL (0.70-1.30); GLOMERULAR FILTRATION RATE > 60.0 (>42); GLUCOSE, FASTING 136 MG/DL (70-100); POTASSIUM SERUM 4.1 MEQ/L (3.5-5.1); SODIUM LEVEL 142 MEQ/L (136-145); TOTAL PROTEIN 6.3 GM/DL (6.4-8.2)
[2021-03-19 12:00] VITALS: BP 112/66
[2021-03-19] MEDS: ACETAMINOPHEN TAB 650MG DOSE (2X325MG) PO PRN (17:33)
[2021-03-19 18:43] LABS: HEPATITIS B CORE ANTIBODY IGM NEGATIVE (NEGATIVE); HEPATITIS B SURFACE ANTIGEN NEGATIVE (NEGATIVE); HEPATITIS C VIRUS ABY INDEX < 0.0 INDEX (<0.8)
[2021-03-19] MEDS: RAMELTEON 8 MG TAB (ROZEREM) PO PRN (19:44)
[2021-03-19] MEDS ORDERED: APIXABAN 5 MG TAB (ELIQUIS) PO SCH (21:00)
[2021-03-19] MEDS ORDERED: diphenhydrAMINE 50MG/ML VIAL (J1200) IV ONE (22:00)
[2021-03-19] MEDS ORDERED: diphenhydrAMINE 50MG CAP PO ONE (22:00)
[2021-03-20 06:00] VITALS: BP 113/73
[2021-03-20] MEDS: IRON POLYSAC (NIFEREX) 150 MG CAP PO SCH ×2 (06:17→17:00)
[2021-03-20 06:39] LABS: HEMATOCRIT 34.3 % (42.0-52.0); MEAN CORPUSCULAR HEMOGLOBIN 30.5 pg (27.0-33.0); MEAN CORPUSCULAR HGB CONC 32.1 g/dl (32.0-36.5); PLATELET COUNT, AUTOMATED 181 10^3/uL (150-450); RED BLOOD COUNT 3.61 10^6/uL (4.30-6.10); WHITE BLOOD COUNT 5.8 10^3/uL (4.0-10.0)
[2021-03-20 07:25] LABS: ALBUMIN 2.8 GM/DL (3.2-5.2); ALT/SGPT 223 U/L (12-78); BILIRUBIN,TOTAL 0.2 MG/DL (0.2-1.0); BLOOD UREA NITROGEN 20 MG/DL (7-18); CALCIUM LEVEL 8.8 MG/DL (8.8-10.2); CARBON DIOXIDE LEVEL 22 MEQ/L (21-32); CHLORIDE LEVEL 116 MEQ/L (98-107); CREATININE FOR GFR 1.12 MG/DL (0.70-1.30); GLOMERULAR FILTRATION RATE > 60.0 (>42); GLUCOSE, FASTING 91 MG/DL (70-100); POTASSIUM SERUM 4.3 MEQ/L (3.5-5.1); SODIUM LEVEL 143 MEQ/L (136-145); TOTAL PROTEIN 5.8 GM/DL (6.4-8.2)
[2021-03-20] MEDS: ALBUTEROL 90 MCG/ACT 8GM HFA INHALER INH SCH ×3 (07:31→17:39)
[2021-03-20] MEDS: MIDODRINE 5 MG TAB PO SCH ×3 (08:00→17:01)
[2021-03-20 08:15] VITALS: BP 122/75
[2021-03-20] MEDS: CYANOCOBALAMIN 500 MCG TAB PO SCH (08:39)
[2021-03-20] MEDS: FINASTERIDE 5 MG TAB PO SCH (08:39)
[2021-03-20] MEDS: SENOKOT S TAB PO SCH ×2 (08:39→19:43)
[2021-03-20] MEDS: QUEtiapine FUMARATE 25 MG TAB PO SCH ×2 (08:39→19:43)
[2021-03-20] MEDS: THIAMINE 100 MG TAB PO SCH (08:39)
[2021-03-20] MEDS: MIRALAX *UNIT DOSE* 17GM PACKET PO SCH (08:39)
[2021-03-20] MEDS: FOLIC ACID 1 MG TAB PO SCH (08:39)
[2021-03-20] MEDS: PYRIDOSTIGMINE 60MG TABLET PO SCH ×3 (08:39→19:43)
[2021-03-20 12:00] VITALS: BP 107/64
[2021-03-20 13:37] LABS: INR 0.9; PROTHROMBIN TIME 12.5 SECONDS (12.7-14.5)
[2021-03-20] MEDS: RAMELTEON 8 MG TAB (ROZEREM) PO PRN (19:43)
[2021-03-21] MEDS: IRON POLYSAC (NIFEREX) 150 MG CAP PO SCH ×2 (05:21→18:17)
[2021-03-21] MEDS: ALBUTEROL 90 MCG/ACT 8GM HFA INHALER INH SCH ×3 (07:28→17:30)
[2021-03-21 08:00] VITALS: BP 107/67
[2021-03-21] MEDS: MIDODRINE 5 MG TAB PO SCH ×3 (08:38→15:57)
[2021-03-21] MEDS: FINASTERIDE 5 MG TAB PO SCH (08:38)
[2021-03-21] MEDS: FOLIC ACID 1 MG TAB PO SCH (08:39)
[2021-03-21] MEDS: CYANOCOBALAMIN 500 MCG TAB PO SCH (08:39)
[2021-03-21] MEDS: QUEtiapine FUMARATE 25 MG TAB PO SCH ×2 (08:39→20:08)
[2021-03-21] MEDS: PYRIDOSTIGMINE 60MG TABLET PO SCH ×3 (08:39→20:09)
[2021-03-21] MEDS: MIRALAX *UNIT DOSE* 17GM PACKET PO SCH (08:39)
[2021-03-21] MEDS: SENOKOT S TAB PO SCH ×2 (08:39→20:08)
[2021-03-21] MEDS: ENOXAPARIN 100MG/1ML SYRINGE (J1650 PER 10MG) SC SCH ×2 (08:39→20:10)
[2021-03-21] MEDS: THIAMINE 100 MG TAB PO SCH (08:39)
[2021-03-21 08:54] LABS: ALBUMIN 2.8 GM/DL (3.2-5.2); ALT/SGPT 154 U/L (12-78); BILIRUBIN,TOTAL 0.2 MG/DL (0.2-1.0); BLOOD UREA NITROGEN 19 MG/DL (7-18); CALCIUM LEVEL 8.8 MG/DL (8.8-10.2); CARBON DIOXIDE LEVEL 25 MEQ/L (21-32); CHLORIDE LEVEL 115 MEQ/L (98-107); CREATININE FOR GFR 1.11 MG/DL (0.70-1.30); GLOMERULAR FILTRATION RATE > 60.0 (>42); GLUCOSE, FASTING 88 MG/DL (70-100); POTASSIUM SERUM 4.1 MEQ/L (3.5-5.1); SODIUM LEVEL 147 MEQ/L (136-145); TOTAL PROTEIN 5.8 GM/DL (6.4-8.2)
[2021-03-21 14:00] VITALS: BP 129/77
[2021-03-21] MEDS: RAMELTEON 8 MG TAB (ROZEREM) PO PRN (20:08)
[2021-03-22 06:00] VITALS: BP 115/70
[2021-03-22] MEDS: IRON POLYSAC (NIFEREX) 150 MG CAP PO SCH ×2 (06:22→17:37)
[2021-03-22 06:43] LABS: ALBUMIN 2.8 GM/DL (3.2-5.2); ALT/SGPT 121 U/L (12-78); BILIRUBIN,TOTAL 0.3 MG/DL (0.2-1.0); BLOOD UREA NITROGEN 20 MG/DL (7-18); CALCIUM LEVEL 8.6 MG/DL (8.8-10.2); CARBON DIOXIDE LEVEL 24 MEQ/L (21-32); CHLORIDE LEVEL 113 MEQ/L (98-107); CREATININE FOR GFR 1.06 MG/DL (0.70-1.30); GLOMERULAR FILTRATION RATE > 60.0 (>42); GLUCOSE, FASTING 82 MG/DL (70-100); POTASSIUM SERUM 4.1 MEQ/L (3.5-5.1); SODIUM LEVEL 146 MEQ/L (136-145); TOTAL PROTEIN 5.6 GM/DL (6.4-8.2)
[2021-03-22] MEDS: ALBUTEROL 90 MCG/ACT 8GM HFA INHALER INH SCH ×2 (07:36→14:00)
[2021-03-22] MEDS: FOLIC ACID 1 MG TAB PO SCH (09:45)
[2021-03-22] MEDS: MIRALAX *UNIT DOSE* 17GM PACKET PO SCH (09:45)
[2021-03-22] MEDS: THIAMINE 100 MG TAB PO SCH (09:45)
[2021-03-22] MEDS: SENOKOT S TAB PO SCH ×2 (09:46→20:35)
[2021-03-22] MEDS: FINASTERIDE 5 MG TAB PO SCH (09:46)
[2021-03-22] MEDS: QUEtiapine FUMARATE 25 MG TAB PO SCH ×2 (09:46→20:35)
[2021-03-22] MEDS: CYANOCOBALAMIN 500 MCG TAB PO SCH (09:46)
[2021-03-22] MEDS: PYRIDOSTIGMINE 60MG TABLET PO SCH ×3 (09:46→20:36)
[2021-03-22] MEDS: ENOXAPARIN 100MG/1ML SYRINGE (J1650 PER 10MG) SC SCH ×2 (09:47→20:39)
[2021-03-22] MEDS: MIDODRINE 5 MG TAB PO SCH ×3 (09:48→16:00)
[2021-03-22 13:38] VITALS: BP 112/70
[2021-03-22 17:38] VITALS: BP 127/74
[2021-03-23 06:00] VITALS: BP 103/58
[2021-03-23 06:51] LABS: HEMATOCRIT 34.2 % (42.0-52.0); HEMOGLOBIN 11.1 g/dl (13.5-17.5); MEAN CORPUSCULAR HEMOGLOBIN 30.4 pg (27.0-33.0); MEAN CORPUSCULAR HGB CONC 32.5 g/dl (32.0-36.5); MEAN CORPUSCULAR VOLUME 93.7 fl (80.0-96.0); PLATELET COUNT, AUTOMATED 166 10^3/uL (150-450); RED BLOOD COUNT 3.65 10^6/uL (4.30-6.10); WHITE BLOOD COUNT 3.7 10^3/uL (4.0-10.0)
[2021-03-23] MEDS: IRON POLYSAC (NIFEREX) 150 MG CAP PO SCH ×2 (07:07→17:49)
[2021-03-23 07:14] LABS: ALBUMIN 2.7 GM/DL (3.2-5.2); ALT/SGPT 94 U/L (12-78); BILIRUBIN,TOTAL 0.2 MG/DL (0.2-1.0); BLOOD UREA NITROGEN 19 MG/DL (7-18); CALCIUM LEVEL 8.8 MG/DL (8.8-10.2); CARBON DIOXIDE LEVEL 26 MEQ/L (21-32); CHLORIDE LEVEL 114 MEQ/L (98-107); CREATININE FOR GFR 1.19 MG/DL (0.70-1.30); GLOMERULAR FILTRATION RATE > 60.0 (>42); GLUCOSE, FASTING 93 MG/DL (70-100); POTASSIUM SERUM 4.1 MEQ/L (3.5-5.1); SODIUM LEVEL 144 MEQ/L (136-145); TOTAL PROTEIN 5.5 GM/DL (6.4-8.2)
[2021-03-23] MEDS: MIDODRINE 5 MG TAB PO SCH ×3 (08:00→16:00)
[2021-03-23] MEDS: SENOKOT S TAB PO SCH ×2 (08:39→20:17)
[2021-03-23] MEDS: FINASTERIDE 5 MG TAB PO SCH (08:39)
[2021-03-23] MEDS: QUEtiapine FUMARATE 25 MG TAB PO SCH ×2 (08:39→20:17)
[2021-03-23] MEDS: CYANOCOBALAMIN 500 MCG TAB PO SCH (08:39)
[2021-03-23] MEDS: FOLIC ACID 1 MG TAB PO SCH (08:39)
[2021-03-23] MEDS: ENOXAPARIN 100MG/1ML SYRINGE (J1650 PER 10MG) SC SCH ×2 (08:39→20:18)
[2021-03-23] MEDS: THIAMINE 100 MG TAB PO SCH (08:39)
[2021-03-23] MEDS: PYRIDOSTIGMINE 60MG TABLET PO SCH ×3 (08:39→20:17)
[2021-03-23 08:40] VITALS: BP 126/69
[2021-03-23] MEDS: MIRALAX *UNIT DOSE* 17GM PACKET PO SCH (08:41)
[2021-03-23 14:02] VITALS: BP 125/68
[2021-03-23 17:49] VITALS: BP 132/91
[2021-03-24 05:33] VITALS: BP 112/82
[2021-03-24] MEDS: IRON POLYSAC (NIFEREX) 150 MG CAP PO SCH ×2 (06:42→17:00)
[2021-03-24 07:42] LABS: ALBUMIN 2.9 GM/DL (3.2-5.2); BILIRUBIN,TOTAL 0.3 MG/DL (0.2-1.0); CALCIUM LEVEL 8.8 MG/DL (8.8-10.2); CREATININE FOR GFR 1.25 MG/DL (0.70-1.30); GLOMERULAR FILTRATION RATE 59.5 (>42); TOTAL PROTEIN 5.7 GM/DL (6.4-8.2)
[2021-03-24 08:15] VITALS: BP 114/79
[2021-03-24] MEDS: FINASTERIDE 5 MG TAB PO SCH (09:01)
[2021-03-24] MEDS: MIDODRINE 5 MG TAB PO SCH ×3 (09:01→16:58)
[2021-03-24] MEDS: CYANOCOBALAMIN 500 MCG TAB PO SCH (09:01)
[2021-03-24] MEDS: ENOXAPARIN 100MG/1ML SYRINGE (J1650 PER 10MG) SC SCH ×2 (09:01→20:03)
[2021-03-24] MEDS: THIAMINE 100 MG TAB PO SCH (09:01)
[2021-03-24] MEDS: MIRALAX *UNIT DOSE* 17GM PACKET PO SCH (09:01)
[2021-03-24] MEDS: PYRIDOSTIGMINE 60MG TABLET PO SCH ×3 (09:02→20:02)
[2021-03-24] MEDS: QUEtiapine FUMARATE 25 MG TAB PO SCH ×2 (09:02→20:02)
[2021-03-24] MEDS: SENOKOT S TAB PO SCH ×2 (09:02→20:01)
[2021-03-24] MEDS: FOLIC ACID 1 MG TAB PO SCH (09:02)
[2021-03-24] MEDS: QUEtiapine FUMARATE 12.5 MG HALF-TAB PO PRN (11:27)
[2021-03-24 11:40] VITALS: BP 131/87
[2021-03-24] MEDS: RAMELTEON 8 MG TAB (ROZEREM) PO PRN (20:02)
[2021-03-25 06:23] LABS: ALBUMIN 2.7 GM/DL (3.2-5.2); BILIRUBIN,TOTAL 0.2 MG/DL (0.2-1.0); CALCIUM LEVEL 8.6 MG/DL (8.8-10.2); CREATININE FOR GFR 1.29 MG/DL (0.70-1.30); GLOMERULAR FILTRATION RATE 57.3 (>42); TOTAL PROTEIN 5.4 GM/DL (6.4-8.2)
[2021-03-25 06:48] VITALS: BP 110/70
[2021-03-25] MEDS: IRON POLYSAC (NIFEREX) 150 MG CAP PO SCH ×2 (06:54→17:04)
[2021-03-25] MEDS: MIDODRINE 5 MG TAB PO SCH ×3 (08:00→17:04)
[2021-03-25] MEDS: MIRALAX *UNIT DOSE* 17GM PACKET PO SCH (09:26)
[2021-03-25] MEDS: ENOXAPARIN 100MG/1ML SYRINGE (J1650 PER 10MG) SC SCH ×2 (09:27→20:17)
[2021-03-25] MEDS: SENOKOT S TAB PO SCH ×2 (09:28→20:16)
[2021-03-25] MEDS: FOLIC ACID 1 MG TAB PO SCH (09:28)
[2021-03-25] MEDS: FINASTERIDE 5 MG TAB PO SCH (09:28)
[2021-03-25] MEDS: CYANOCOBALAMIN 500 MCG TAB PO SCH (09:29)
[2021-03-25] MEDS: QUEtiapine FUMARATE 25 MG TAB PO SCH ×2 (09:29→20:16)
[2021-03-25] MEDS: THIAMINE 100 MG TAB PO SCH (09:30)
[2021-03-25] MEDS: PYRIDOSTIGMINE 60MG TABLET PO SCH ×3 (09:30→20:16)
[2021-03-25] MEDS: RAMELTEON 8 MG TAB (ROZEREM) PO PRN (20:16)
[2021-03-26 06:00] VITALS: BP 102/47
[2021-03-26] MEDS: IRON POLYSAC (NIFEREX) 150 MG CAP PO SCH ×2 (06:08→17:13)
[2021-03-26 06:43] LABS: HEMATOCRIT 35.1 % (42.0-52.0); HEMOGLOBIN 11.2 g/dl (13.5-17.5); MEAN CORPUSCULAR HGB CONC 31.9 g/dl (32.0-36.5); MEAN CORPUSCULAR VOLUME 94.1 fl (80.0-96.0); PLATELET COUNT, AUTOMATED 157 10^3/uL (150-450); RED BLOOD COUNT 3.73 10^6/uL (4.30-6.10); WHITE BLOOD COUNT 3.8 10^3/uL (4.0-10.0)
[2021-03-26 07:09] LABS: ALBUMIN 2.9 GM/DL (3.2-5.2); ALT/SGPT 52 U/L (12-78); BILIRUBIN,TOTAL 0.2 MG/DL (0.2-1.0); BLOOD UREA NITROGEN 20 MG/DL (7-18); CALCIUM LEVEL 8.8 MG/DL (8.8-10.2); CARBON DIOXIDE LEVEL 26 MEQ/L (21-32); CHLORIDE LEVEL 112 MEQ/L (98-107); CREATININE FOR GFR 1.16 MG/DL (0.70-1.30); GLOMERULAR FILTRATION RATE > 60.0 (>42); GLUCOSE, FASTING 87 MG/DL (70-100); POTASSIUM SERUM 4.1 MEQ/L (3.5-5.1); SODIUM LEVEL 143 MEQ/L (136-145); TOTAL PROTEIN 5.5 GM/DL (6.4-8.2)
[2021-03-26] MEDS: CYANOCOBALAMIN 500 MCG TAB PO SCH (07:57)
[2021-03-26] MEDS: MIDODRINE 5 MG TAB PO SCH ×3 (07:57→16:13)
[2021-03-26] MEDS: PYRIDOSTIGMINE 60MG TABLET PO SCH ×3 (07:57→21:08)
[2021-03-26] MEDS: SENOKOT S TAB PO SCH ×2 (07:57→21:08)
[2021-03-26] MEDS: QUEtiapine FUMARATE 25 MG TAB PO SCH ×2 (07:57→21:08)
[2021-03-26] MEDS: FINASTERIDE 5 MG TAB PO SCH (07:57)
[2021-03-26] MEDS: MIRALAX *UNIT DOSE* 17GM PACKET PO SCH (07:58)
[2021-03-26] MEDS: THIAMINE 100 MG TAB PO SCH (07:58)
[2021-03-26] MEDS: FOLIC ACID 1 MG TAB PO SCH (07:58)
[2021-03-26] MEDS: ENOXAPARIN 100MG/1ML SYRINGE (J1650 PER 10MG) SC SCH ×2 (08:02→21:07)
[2021-03-26] MEDS: RAMELTEON 8 MG TAB (ROZEREM) PO PRN (22:24)
[2021-03-26] MEDS: QUEtiapine FUMARATE 12.5 MG HALF-TAB PO PRN (23:12)
[2021-03-27 05:30] VITALS: BP 100/58
[2021-03-27] MEDS: IRON POLYSAC (NIFEREX) 150 MG CAP PO SCH ×2 (06:07→17:03)
[2021-03-27 07:12] LABS: ALBUMIN 2.8 GM/DL (3.2-5.2); ALT/SGPT 44 U/L (12-78); BILIRUBIN,TOTAL 0.2 MG/DL (0.2-1.0); BLOOD UREA NITROGEN 19 MG/DL (7-18); CALCIUM LEVEL 8.9 MG/DL (8.8-10.2); CARBON DIOXIDE LEVEL 27 MEQ/L (21-32); CHLORIDE LEVEL 114 MEQ/L (98-107); GLOMERULAR FILTRATION RATE > 60.0 (>42); GLUCOSE, FASTING 84 MG/DL (70-100); POTASSIUM SERUM 3.9 MEQ/L (3.5-5.1); SODIUM LEVEL 143 MEQ/L (136-145); TOTAL PROTEIN 5.4 GM/DL (6.4-8.2)
[2021-03-27] MEDS: PYRIDOSTIGMINE 60MG TABLET PO SCH ×3 (09:07→20:10)
[2021-03-27] MEDS: FOLIC ACID 1 MG TAB PO SCH (09:07)
[2021-03-27] MEDS: QUEtiapine FUMARATE 25 MG TAB PO SCH ×2 (09:07→20:10)
[2021-03-27] MEDS: THIAMINE 100 MG TAB PO SCH (09:07)
[2021-03-27] MEDS: SENOKOT S TAB PO SCH ×2 (09:07→20:10)
[2021-03-27] MEDS: FINASTERIDE 5 MG TAB PO SCH (09:07)
[2021-03-27] MEDS: MIRALAX *UNIT DOSE* 17GM PACKET PO SCH (09:08)
[2021-03-27] MEDS: ENOXAPARIN 100MG/1ML SYRINGE (J1650 PER 10MG) SC SCH (09:08)
[2021-03-27] MEDS: CYANOCOBALAMIN 500 MCG TAB PO SCH (09:08)
[2021-03-27] MEDS: MIDODRINE 5 MG TAB PO SCH ×3 (09:10→16:00)
[2021-03-27] MEDS: CIPROFLOXACIN 400 MG in IV 1 EA IV SCH (17:03)
[2021-03-27] MEDS: RAMELTEON 8 MG TAB (ROZEREM) PO PRN (20:10)
[2021-03-28] VITALS (9 sets, daily range): BP systolic 111–129; BP diastolic 65–76
[2021-03-28] MEDS: CIPROFLOXACIN 400 MG in IV 1 EA IV SCH (04:35)
[2021-03-28] MEDS: IRON POLYSAC (NIFEREX) 150 MG CAP PO SCH ×2 (06:00→19:54)
[2021-03-28] MEDS ORDERED: fentaNYL 100 MCG/2 ML INJECTION As Ordered ONE (08:14)
[2021-03-28] MEDS ORDERED: LIDOCAINE 2% 100MG/5ML SDV (FOR ANES.) As Ordered ONE (08:14)
[2021-03-28] MEDS ORDERED: propofoL 200 MG/20 ML VIAL As Ordered ONE (08:14)
[2021-03-28] MEDS: QUEtiapine FUMARATE 25 MG TAB PO SCH ×2 (09:00→19:54)
[2021-03-28] MEDS: SENOKOT S TAB PO SCH ×2 (09:00→19:55)
[2021-03-28] MEDS: PYRIDOSTIGMINE 60MG TABLET PO SCH ×3 (09:00→19:54)
[2021-03-28] MEDS: MIDODRINE 5 MG TAB PO SCH ×3 (09:00→16:42)
[2021-03-28] MEDS ORDERED: ROCURONIUM BROMIDE 50 MG/5 ML VIAL As Ordered ONE (09:26)
[2021-03-28] MEDS ORDERED: GLYCOPYRROLATE INJ 0.2 MG/ML 2 ML VIAL As Ordered ONE (10:11)
[2021-03-28] MEDS ORDERED: SUGAMMADEX SODIUM 500 MG/5 ML VIAL (BRIDION) As Ordered ONE (10:50)
[2021-03-28] MEDS ORDERED: dexameTHASONE 4 MG/ML 1ML VIAL (J1100 PER 1MG) As Ordered ONE (10:51)
[2021-03-28] MEDS ORDERED: ONDANSETRON 4MG/2ML VIAL As Ordered ONE (10:51)
[2021-03-28] MEDS ORDERED: LR 1,000 ML IV SCH (11:35)
[2021-03-28] MEDS ORDERED: ONDANSETRON 4MG/2ML VIAL IV PRN (11:35)
[2021-03-28] MEDS ORDERED: oxyCODONE 5MG TAB PO PRN (11:35)
[2021-03-28] MEDS ORDERED: fentaNYL 100 MCG/2 ML INJECTION IV PRN (11:35)
[2021-03-28] MEDS: MIRALAX *UNIT DOSE* 17GM PACKET PO SCH (13:05)
[2021-03-28] MEDS: FINASTERIDE 5 MG TAB PO SCH (13:06)
[2021-03-28] MEDS: THIAMINE 100 MG TAB PO SCH (13:07)
[2021-03-28] MEDS: CYANOCOBALAMIN 500 MCG TAB PO SCH (13:07)
[2021-03-28] MEDS: FOLIC ACID 1 MG TAB PO SCH (13:07)
[2021-03-28] MEDS: QUEtiapine FUMARATE 12.5 MG HALF-TAB PO PRN ×2 (16:42→23:31)
[2021-03-28] MEDS: CIPROFLOXACIN 500MG TABLET PO SCH (17:39)
[2021-03-28] MEDS: RAMELTEON 8 MG TAB (ROZEREM) PO PRN (19:54)
[2021-03-29 02:00] VITALS: BP 112/65
[2021-03-29] MEDS: ACETAMINOPHEN TAB 650MG DOSE (2X325MG) PO PRN ×2 (03:41→20:14)
[2021-03-29] MEDS: IRON POLYSAC (NIFEREX) 150 MG CAP PO SCH ×2 (05:24→20:13)
[2021-03-29] MEDS: CIPROFLOXACIN 500MG TABLET PO SCH ×2 (05:24→16:46)
[2021-03-29] MEDS: MIRALAX *UNIT DOSE* 17GM PACKET PO SCH (08:41)
[2021-03-29] MEDS: PYRIDOSTIGMINE 60MG TABLET PO SCH ×3 (08:42→20:14)
[2021-03-29] MEDS: FINASTERIDE 5 MG TAB PO SCH (08:42)
[2021-03-29 08:43] VITALS: BP 119/67
[2021-03-29] MEDS: CYANOCOBALAMIN 500 MCG TAB PO SCH (08:43)
[2021-03-29] MEDS: SENOKOT S TAB PO SCH ×2 (08:43→20:13)
[2021-03-29] MEDS: QUEtiapine FUMARATE 25 MG TAB PO SCH ×2 (08:43→20:14)
[2021-03-29] MEDS: FOLIC ACID 1 MG TAB PO SCH (08:43)
[2021-03-29] MEDS: MIDODRINE 5 MG TAB PO SCH ×3 (08:43→16:00)
[2021-03-29] MEDS: THIAMINE 100 MG TAB PO SCH (08:43)
[2021-03-29 09:23] LABS: HEMATOCRIT 36.6 % (42.0-52.0); HEMOGLOBIN 11.5 g/dl (13.5-17.5); MEAN CORPUSCULAR HGB CONC 31.4 g/dl (32.0-36.5); MEAN CORPUSCULAR VOLUME 95.6 fl (80.0-96.0); PLATELET COUNT, AUTOMATED 167 10^3/uL (150-450); RED BLOOD COUNT 3.83 10^6/uL (4.30-6.10); WHITE BLOOD COUNT 5.2 10^3/uL (4.0-10.0)
[2021-03-29 09:34] LABS: CALCIUM LEVEL 9.2 MG/DL (8.8-10.2); CREATININE FOR GFR 1.4 MG/DL (0.70-1.30); GLOMERULAR FILTRATION RATE 52.2 (>42); POTASSIUM SERUM 3.7 MEQ/L (3.5-5.1)
[2021-03-29 12:25] VITALS: BP 117/60
[2021-03-29] MEDS: QUEtiapine FUMARATE 12.5 MG HALF-TAB PO PRN (13:38)
[2021-03-29 16:45] VITALS: BP 121/69
[2021-03-29 19:41] LABS: MAGNESIUM LEVEL 1.9 MG/DL (1.7-2.2)
[2021-03-30] MEDS: CIPROFLOXACIN 500MG TABLET PO SCH ×2 (05:52→18:10)
[2021-03-30 06:00] VITALS: BP 117/68
[2021-03-30 06:57] LABS: HEMATOCRIT 34.8 % (42.0-52.0); HEMOGLOBIN 11.1 g/dl (13.5-17.5); MEAN CORPUSCULAR HEMOGLOBIN 30.6 pg (27.0-33.0); MEAN CORPUSCULAR HGB CONC 31.9 g/dl (32.0-36.5); MEAN CORPUSCULAR VOLUME 95.9 fl (80.0-96.0); PLATELET COUNT, AUTOMATED 174 10^3/uL (150-450); RED BLOOD COUNT 3.63 10^6/uL (4.30-6.10)
[2021-03-30 07:22] LABS: CALCIUM LEVEL 8.7 MG/DL (8.8-10.2); CREATININE FOR GFR 1.32 MG/DL (0.70-1.30); GLOMERULAR FILTRATION RATE 55.8 (>42); POTASSIUM SERUM 4.1 MEQ/L (3.5-5.1)
[2021-03-30 08:51] VITALS: BP 112/73
[2021-03-30] MEDS: QUEtiapine FUMARATE 25 MG TAB PO SCH ×2 (08:51→20:24)
[2021-03-30] MEDS: THIAMINE 100 MG TAB PO SCH (08:51)
[2021-03-30] MEDS: SENOKOT S TAB PO SCH ×2 (08:51→20:23)
[2021-03-30] MEDS: MIRALAX *UNIT DOSE* 17GM PACKET PO SCH (08:51)
[2021-03-30] MEDS: FINASTERIDE 5 MG TAB PO SCH (08:52)
[2021-03-30] MEDS: MIDODRINE 5 MG TAB PO SCH ×3 (08:52→18:10)
[2021-03-30] MEDS: IRON POLYSAC (NIFEREX) 150 MG CAP PO SCH ×2 (08:52→20:24)
[2021-03-30] MEDS: CYANOCOBALAMIN 500 MCG TAB PO SCH (08:52)
[2021-03-30] MEDS: FOLIC ACID 1 MG TAB PO SCH (08:52)
[2021-03-30] MEDS: PYRIDOSTIGMINE 60MG TABLET PO SCH ×3 (08:52→20:24)
[2021-03-30 11:38] VITALS: BP 108/59
[2021-03-30] MEDS: QUEtiapine FUMARATE 12.5 MG HALF-TAB PO PRN (13:27)
[2021-03-30 16:00] LABS: MAGNESIUM LEVEL 2.1 MG/DL (1.7-2.2)
[2021-03-30 18:10] VITALS: BP 110/62
[2021-03-31 06:00] VITALS: BP 114/64
[2021-03-31] MEDS: CIPROFLOXACIN 500MG TABLET PO SCH (06:18)
[2021-03-31 08:12] LABS: HEMATOCRIT 35.9 % (42.0-52.0); HEMOGLOBIN 11.5 g/dl (13.5-17.5); MEAN CORPUSCULAR HEMOGLOBIN 30.3 pg (27.0-33.0); MEAN CORPUSCULAR VOLUME 94.5 fl (80.0-96.0); PLATELET COUNT, AUTOMATED 175 10^3/uL (150-450); WHITE BLOOD COUNT 5.1 10^3/uL (4.0-10.0)
[2021-03-31 08:27] LABS: CALCIUM LEVEL 8.9 MG/DL (8.8-10.2); CREATININE FOR GFR 1.3 MG/DL (0.70-1.30); GLOMERULAR FILTRATION RATE 56.8 (>42); POTASSIUM SERUM 3.9 MEQ/L (3.5-5.1)
[2021-03-31 09:10] VITALS: BP 111/67
[2021-03-31] MEDS: CYANOCOBALAMIN 500 MCG TAB PO SCH (09:11)
[2021-03-31] MEDS: IRON POLYSAC (NIFEREX) 150 MG CAP PO SCH ×2 (09:11→20:20)
[2021-03-31] MEDS: SENOKOT S TAB PO SCH ×2 (09:11→20:20)
[2021-03-31] MEDS: MIRALAX *UNIT DOSE* 17GM PACKET PO SCH (09:11)
[2021-03-31] MEDS: THIAMINE 100 MG TAB PO SCH (09:12)
[2021-03-31] MEDS: FOLIC ACID 1 MG TAB PO SCH (09:12)
[2021-03-31] MEDS: QUEtiapine FUMARATE 25 MG TAB PO SCH ×2 (09:12→20:20)
[2021-03-31] MEDS: FINASTERIDE 5 MG TAB PO SCH (09:12)
[2021-03-31] MEDS: PYRIDOSTIGMINE 60MG TABLET PO SCH ×3 (09:12→20:20)
[2021-03-31] MEDS: MIDODRINE 5 MG TAB PO SCH ×3 (09:12→16:00)
[2021-03-31] MEDS: ACETAMINOPHEN TAB 650MG DOSE (2X325MG) PO PRN (11:14)
[2021-03-31] MEDS: QUEtiapine FUMARATE 12.5 MG HALF-TAB PO PRN (11:14)
[2021-03-31 13:21] VITALS: BP 121/89
[2021-03-31 16:59] VITALS: BP 125/85
[2021-03-31] MEDS: TAMSULOSIN 0.4 MG CAP PO SCH (20:20)
[2021-03-31] MEDS: RAMELTEON 8 MG TAB (ROZEREM) PO PRN (20:20)
[2021-03-31] MEDS: APIXABAN 5 MG TAB (ELIQUIS) PO SCH (20:21)
[2021-04-01 08:28] LABS: HEMATOCRIT 37.1 % (42.0-52.0); MEAN CORPUSCULAR HEMOGLOBIN 30.7 pg (27.0-33.0); MEAN CORPUSCULAR HGB CONC 32.3 g/dl (32.0-36.5); MEAN CORPUSCULAR VOLUME 94.9 fl (80.0-96.0); PLATELET COUNT, AUTOMATED 199 10^3/uL (150-450); RED BLOOD COUNT 3.91 10^6/uL (4.30-6.10); WHITE BLOOD COUNT 4.6 10^3/uL (4.0-10.0)
[2021-04-01 09:00] LABS: CALCIUM LEVEL 9.1 MG/DL (8.8-10.2); CREATININE FOR GFR 1.31 MG/DL (0.70-1.30); GLOMERULAR FILTRATION RATE 56.3 (>42); POTASSIUM SERUM 3.7 MEQ/L (3.5-5.1)
[2021-04-01] MEDS: CYANOCOBALAMIN 500 MCG TAB PO SCH (09:19)
[2021-04-01] MEDS: MIDODRINE 5 MG TAB PO SCH ×3 (09:19→16:10)
[2021-04-01] MEDS: MIRALAX *UNIT DOSE* 17GM PACKET PO SCH (09:19)
[2021-04-01] MEDS: ACETAMINOPHEN TAB 650MG DOSE (2X325MG) PO PRN (09:19)
[2021-04-01] MEDS: SENOKOT S TAB PO SCH ×2 (09:19→20:48)
[2021-04-01] MEDS: IRON POLYSAC (NIFEREX) 150 MG CAP PO SCH ×2 (09:19→20:49)
[2021-04-01] MEDS: FINASTERIDE 5 MG TAB PO SCH (09:20)
[2021-04-01] MEDS: PYRIDOSTIGMINE 60MG TABLET PO SCH ×3 (09:20→20:48)
[2021-04-01] MEDS: APIXABAN 5 MG TAB (ELIQUIS) PO SCH ×2 (09:20→20:48)
[2021-04-01] MEDS: THIAMINE 100 MG TAB PO SCH (09:20)
[2021-04-01] MEDS: QUEtiapine FUMARATE 25 MG TAB PO SCH ×2 (09:20→20:48)
[2021-04-01] MEDS: FOLIC ACID 1 MG TAB PO SCH (09:20)
[2021-04-01 09:24] VITALS: BP 111/72
[2021-04-01] MEDS: QUEtiapine FUMARATE 12.5 MG HALF-TAB PO PRN (12:52)
[2021-04-01 16:10] VITALS: BP 118/69
[2021-04-01] MEDS: TAMSULOSIN 0.4 MG CAP PO SCH (20:48)
[2021-04-02 05:20] VITALS: BP 117/70
[2021-04-02 06:25] LABS: HEMATOCRIT 34.5 % (42.0-52.0); HEMOGLOBIN 11.4 g/dl (13.5-17.5); MEAN CORPUSCULAR HEMOGLOBIN 30.8 pg (27.0-33.0); MEAN CORPUSCULAR VOLUME 93.2 fl (80.0-96.0); PLATELET COUNT, AUTOMATED 194 10^3/uL (150-450); WHITE BLOOD COUNT 4.8 10^3/uL (4.0-10.0)
[2021-04-02 06:54] LABS: CALCIUM LEVEL 8.8 MG/DL (8.8-10.2); CREATININE FOR GFR 1.25 MG/DL (0.70-1.30); GLOMERULAR FILTRATION RATE 59.5 (>42)
[2021-04-02] MEDS: CYANOCOBALAMIN 500 MCG TAB PO SCH (08:21)
[2021-04-02] MEDS: MIDODRINE 5 MG TAB PO SCH ×3 (08:21→16:27)
[2021-04-02] MEDS: THIAMINE 100 MG TAB PO SCH (08:21)
[2021-04-02] MEDS: QUEtiapine FUMARATE 25 MG TAB PO SCH ×2 (08:21→20:09)
[2021-04-02] MEDS: FINASTERIDE 5 MG TAB PO SCH (08:21)
[2021-04-02] MEDS: FOLIC ACID 1 MG TAB PO SCH (08:21)
[2021-04-02] MEDS: APIXABAN 5 MG TAB (ELIQUIS) PO SCH ×2 (08:21→20:09)
[2021-04-02] MEDS: SENOKOT S TAB PO SCH ×2 (08:21→20:09)
[2021-04-02] MEDS: IRON POLYSAC (NIFEREX) 150 MG CAP PO SCH ×2 (08:21→20:09)
[2021-04-02] MEDS: MIRALAX *UNIT DOSE* 17GM PACKET PO SCH (08:21)
[2021-04-02] MEDS: PYRIDOSTIGMINE 60MG TABLET PO SCH ×3 (08:22→20:12)
[2021-04-02 12:06] VITALS: BP 111/67
[2021-04-02] MEDS: RAMELTEON 8 MG TAB (ROZEREM) PO PRN (20:09)
[2021-04-02] MEDS: TAMSULOSIN 0.4 MG CAP PO SCH (20:09)
[2021-04-02] MEDS: QUEtiapine FUMARATE 12.5 MG HALF-TAB PO PRN (21:28)
[2021-04-02] MEDS ORDERED: hydrOXYzine 25 MG TAB PO PRN (22:45)
[2021-04-02] MEDS ORDERED: OLANZapine 2.5MG TABLET PO ONE (23:00)
[2021-04-03 05:10] LABS: HEMATOCRIT 33.8 % (42.0-52.0); HEMOGLOBIN 10.8 g/dl (13.5-17.5); MEAN CORPUSCULAR HEMOGLOBIN 30.1 pg (27.0-33.0); MEAN CORPUSCULAR VOLUME 94.2 fl (80.0-96.0); PLATELET COUNT, AUTOMATED 201 10^3/uL (150-450); RED BLOOD COUNT 3.59 10^6/uL (4.30-6.10); WHITE BLOOD COUNT 5.3 10^3/uL (4.0-10.0)
[2021-04-03 05:30] LABS: CREATININE FOR GFR 1.28 MG/DL (0.70-1.30); GLOMERULAR FILTRATION RATE 57.9 (>42)
[2021-04-03 07:50] VITALS: BP 106/64
[2021-04-03] MEDS: MIDODRINE 5 MG TAB PO SCH ×3 (07:58→16:00)
[2021-04-03 08:39] VITALS: BP 116/74
[2021-04-03] MEDS: MIRALAX *UNIT DOSE* 17GM PACKET PO SCH (09:14)
[2021-04-03] MEDS: PYRIDOSTIGMINE 60MG TABLET PO SCH ×3 (09:15→20:04)
[2021-04-03] MEDS: THIAMINE 100 MG TAB PO SCH (09:16)
[2021-04-03] MEDS: IRON POLYSAC (NIFEREX) 150 MG CAP PO SCH ×2 (09:16→20:03)
[2021-04-03] MEDS: FOLIC ACID 1 MG TAB PO SCH (09:16)
[2021-04-03] MEDS: APIXABAN 5 MG TAB (ELIQUIS) PO SCH ×2 (09:16→20:03)
[2021-04-03] MEDS: SENOKOT S TAB PO SCH ×2 (09:16→20:03)
[2021-04-03] MEDS: FINASTERIDE 5 MG TAB PO SCH (09:16)
[2021-04-03] MEDS: CYANOCOBALAMIN 500 MCG TAB PO SCH (09:17)
[2021-04-03] MEDS: QUEtiapine FUMARATE 25 MG TAB PO SCH ×2 (09:17→20:04)
[2021-04-03 11:52] VITALS: BP 115/73
[2021-04-03 15:59] VITALS: BP 120/82
[2021-04-03 16:35] VITALS: BP 138/77
[2021-04-03] MEDS ORDERED: QUET1TAB17 PO (17:35)
[2021-04-03] MEDS ORDERED: FLOM0.4C39 PO (17:35)
[2021-04-03] MEDS: TAMSULOSIN 0.4 MG CAP PO SCH (20:03)
[2021-04-03] MEDS: QUEtiapine FUMARATE 12.5 MG HALF-TAB PO PRN (20:55)
[2021-04-03] MEDS: RAMELTEON 8 MG TAB (ROZEREM) PO PRN (21:59)
[2021-04-03] MEDS ORDERED: OLANZapine INTRAMUSCULAR 10MG VIAL IM ONE (23:00)
[2021-04-04 06:00] VITALS: BP 106/57
[2021-04-04 06:21] LABS: HEMATOCRIT 35.6 % (42.0-52.0); HEMOGLOBIN 11.5 g/dl (13.5-17.5); MEAN CORPUSCULAR HEMOGLOBIN 30.3 pg (27.0-33.0); MEAN CORPUSCULAR HGB CONC 32.3 g/dl (32.0-36.5); MEAN CORPUSCULAR VOLUME 93.9 fl (80.0-96.0); PLATELET COUNT, AUTOMATED 202 10^3/uL (150-450); RED BLOOD COUNT 3.79 10^6/uL (4.30-6.10); WHITE BLOOD COUNT 4.7 10^3/uL (4.0-10.0)
[2021-04-04 06:40] LABS: BLOOD UREA NITROGEN 20 MG/DL (7-18); CALCIUM LEVEL 8.6 MG/DL (8.8-10.2); CARBON DIOXIDE LEVEL 26 MEQ/L (21-32); CHLORIDE LEVEL 115 MEQ/L (98-107); CREATININE FOR GFR 1.19 MG/DL (0.70-1.30); GLOMERULAR FILTRATION RATE > 60.0 (>42); GLUCOSE, FASTING 86 MG/DL (70-100); POTASSIUM SERUM 4.1 MEQ/L (3.5-5.1); SODIUM LEVEL 147 MEQ/L (136-145)
[2021-04-04] MEDS: SENOKOT S TAB PO SCH (09:00)
[2021-04-04] MEDS: MIRALAX *UNIT DOSE* 17GM PACKET PO SCH (09:00)
[2021-04-04] MEDS: IRON POLYSAC (NIFEREX) 150 MG CAP PO SCH (09:08)
[2021-04-04] MEDS: FINASTERIDE 5 MG TAB PO SCH (09:08)
[2021-04-04] MEDS: FOLIC ACID 1 MG TAB PO SCH (09:08)
[2021-04-04] MEDS: CYANOCOBALAMIN 500 MCG TAB PO SCH (09:08)
[2021-04-04] MEDS: MIDODRINE 5 MG TAB PO SCH (09:09)
[2021-04-04] MEDS: APIXABAN 5 MG TAB (ELIQUIS) PO SCH (09:09)
[2021-04-04] MEDS: QUEtiapine FUMARATE 25 MG TAB PO SCH (09:09)
[2021-04-04] MEDS: THIAMINE 100 MG TAB PO SCH (09:09)
[2021-04-04] MEDS: PYRIDOSTIGMINE 60MG TABLET PO SCH (09:09)
== END 2021-04-04 10:01 | DRG 665 ==
LOC: M ED 10:34 → M ED INP 15:47 → ENRESERV 16:42 → M MSPAV 18:36 → M 4MAIN 03-03 15:05 → M MSPAV 03-14 15:17
PROVIDERS: ADMIT Internal Medicine Nephrology; ATTEND Internal Medicine
PROC: 30233N1 Transfusion of Nonautologous Red Blood Cells into Peripheral Vein, Percutaneous Approach (ICD-10-PCS; 2021-02-18)
PROC: 0VB08ZZ Excision of Prostate, Via Natural or Artificial Opening Endoscopic (ICD-10-PCS; principal; 2021-03-28 09:00)
DX: T83.83XA Hemorrhage due to genitourinary prosthetic devices, implants and grafts, initial encounter (principal); U07.1 COVID-19; J15.9 Unspecified bacterial pneumonia; D62 Acute posthemorrhagic anemia; N39.0 Urinary tract infection, site not specified; I48.0 Paroxysmal atrial fibrillation; I95.1 Orthostatic hypotension; E87.70 Fluid overload, unspecified; R74.01 Elevation of levels of liver transaminase levels; N40.1 Benign prostatic hyperplasia with lower urinary tract symptoms; F10.26 Alcohol dependence with alcohol-induced persisting amnestic disorder; Z86.73 Personal history of transient ischemic attack (TIA), and cerebral infarction without residual deficits; Z79.01 Long term (current) use of anticoagulants; Z86.711 Personal history of pulmonary embolism; Z86.718 Personal history of other venous thrombosis and embolism; K57.30 Diverticulosis of large intestine without perforation or abscess without bleeding; Z79.899 Other long term (current) drug therapy; K80.20 Calculus of gallbladder without cholecystitis without obstruction; E53.8 Deficiency of other specified B group vitamins; Y84.6 Urinary catheterization as the cause of abnormal reaction of the patient, or of later complication, without mention of misadventure at the time of the procedure

== ENCOUNTER → 2021-11-13 | Outpatient (REF) | payer MEDICARE, BC, OTHER, MEDICAID ==
[~2021-11-13] MED LIST changes: +ACET-683 PO; +BISA10SU27 PR; +BUSP10TA PO; +FINA5TAB2 PO; +FLOM0.4C39 PO; +LEXA1TAB PO; +PANT40TA29 PO; +SERO1TAB3 PO; +TAMS1CAP17 PO; +VITA500T41 PO; +VITMTA PO
== END ==
LOC: SKLAB8 14:00
PROVIDERS: ATTEND Internal Medicine
DX: I44.0 Atrioventricular block, first degree (principal)

== ENCOUNTER → 2021-11-14 | Outpatient (REF) | payer MEDICARE, BC, OTHER, MEDICAID ==
[2021-11-14 16:24] LABS: THYROID STIMULATING HORMONE 1.21 uIU/ML (0.358-3.740)
== END ==
LOC: SKLAB8 14:35
PROVIDERS: ATTEND Internal Medicine
DX: R00.1 Bradycardia, unspecified (principal)

== ENCOUNTER 2021-11-15 12:57 | Observation (INO) | payer MEDICARE, BC, OTHER ==
[~2021-11-15] VITALS: Ht 182.9 cm; Wt 84.4 kg
[~2021-11-15 12:57] MED LIST changes: -ACET-683 PO; -BISA10SU27 PR; -BUSP10TA PO; -LEXA1TAB PO; -PANT40TA29 PO; -SERO1TAB3 PO; -TAMS1CAP17 PO; -VITMTA PO
[2021-11-15] MEDS ORDERED: ISOVUE-370 76% 100ML VIAL As Ordered ONE (13:47)
[2021-11-15 13:55] LABS: BASO % 0.4 % (0.0-1.0); EOS # 0.2 10^3/uL (0.0-0.5); EOS % 2.1 % (0.0-3.0); HEMATOCRIT 39.3 % (42.0-52.0); HEMOGLOBIN 13.1 g/dl (13.5-17.5); LYMPH # 1.4 10^3/uL (1.5-5.0); LYMPH % 19.5 % (24.0-44.0); MEAN CORPUSCULAR HEMOGLOBIN 30.9 pg (27.0-33.0); MEAN CORPUSCULAR HGB CONC 33.3 g/dl (32.0-36.5); MEAN CORPUSCULAR VOLUME 92.7 fl (80.0-96.0); MONO # 0.7 10^3/uL (0.0-0.8); MONO % 9.4 % (2.0-8.0); NEUTROPHILS # 4.9 10^3/uL (1.5-8.5); PLATELET COUNT, AUTOMATED 162 10^3/uL (150-450); RED BLOOD COUNT 4.24 10^6/uL (4.30-6.10); WHITE BLOOD COUNT 7.2 10^3/uL (4.0-10.0)
[2021-11-15 14:08] LABS: INR 0.92; PROTHROMBIN TIME 12.8 SECONDS (12.7-14.5)
[2021-11-15 14:09] LABS: PARTIAL THROMBOPLASTIN TIME 38.6 SECONDS (25.9-37.0)
[2021-11-15] MEDS ORDERED: LEXA1TAB PO (14:14)
[2021-11-15] MEDS ORDERED: VITMTA PO (14:14)
[2021-11-15] MEDS ORDERED: TAMS1CAP17 PO (14:14)
[2021-11-15] MEDS ORDERED: BISA10SU27 PR (14:14)
[2021-11-15] MEDS ORDERED: BUSP10TA PO (14:14)
[2021-11-15] MEDS ORDERED: SERO1TAB3 PO (14:14)
[2021-11-15] MEDS ORDERED: ACET-683 PO (14:14)
[2021-11-15] MEDS ORDERED: HOME MED LIST COMPLETE! XX SCH (14:15)
[2021-11-15 14:27] LABS: CK-MB VALUE MASS < 1.0 NG/ML (<3.6); CPK CREATINE PHOSPHOKINASE 60 U/L (39-308); MB/CK RELATIVE INDEX 1.67 (< OR =4); RSV AMPLIFICATION NEGATIVE (NEGATIVE)
[2021-11-15 14:32] LABS: ALBUMIN 3.5 GM/DL (3.2-5.2); BILIRUBIN,DIRECT 0.2 MG/DL (0.0-0.2); BILIRUBIN,TOTAL 0.5 MG/DL (0.2-1.0); FREE T4 1.16 NG/DL (0.76-1.46); THYROID STIMULATING HORMONE 1.45 uIU/ML (0.358-3.740); TOTAL PROTEIN 6.1 GM/DL (6.4-8.2)
[2021-11-15 15:11] LABS: CK-MB VALUE MASS < 1.0 NG/ML (<3.6); CPK CREATINE PHOSPHOKINASE 119 U/L (39-308); MB/CK RELATIVE INDEX 0.84 (< OR =4)
[2021-11-15] MEDS ORDERED: fentaNYL 100 MCG/2 ML INJECTION IV ONE (16:25)
[2021-11-15] MEDS ORDERED: KETOROLAC 30 MG/ML 1ML VIAL IV ONE (16:25)
[2021-11-15 17:32] LABS: CK-MB VALUE MASS < 1.0 NG/ML (<3.6); CPK CREATINE PHOSPHOKINASE 104 U/L (39-308); MB/CK RELATIVE INDEX 0.96 (< OR =4)
[2021-11-15] MEDS ORDERED: KETOROLAC 30 MG/ML 1ML VIAL IV PRN (18:20)
[2021-11-15] MEDS ORDERED: ACETAMINOPHEN 500 MG TAB PO PRN (18:20)
[2021-11-15] MEDS ORDERED: PANTOPRAZOLE 40MG VIAL IV SCH (20:00)
[2021-11-15] MEDS: QUEtiapine FUMARATE 25 MG TAB PO SCH (20:17)
[2021-11-15] MEDS: TAMSULOSIN 0.4 MG CAP PO SCH (20:17)
[2021-11-15] MEDS: MIDODRINE 5 MG TAB PO SCH (20:18)
[2021-11-16] MEDS ORDERED: OLANZapine INTRAMUSCULAR 10MG VIAL IM ONE (03:00)
[2021-11-16 05:43] VITALS: BP 132/68
[2021-11-16 06:59] LABS: ALBUMIN 3.2 GM/DL (3.2-5.2); ALT/SGPT 56 U/L (12-78); BILIRUBIN,DIRECT < 0.1 MG/DL (0.0-0.2); BILIRUBIN,TOTAL 0.4 MG/DL (0.2-1.0); TOTAL PROTEIN 5.7 GM/DL (6.4-8.2)
[2021-11-16 07:55] LABS: BASO % 0.6 % (0.0-1.0); EOS # 0.2 10^3/uL (0.0-0.5); EOS % 3.2 % (0.0-3.0); HEMATOCRIT 37.2 % (42.0-52.0); HEMOGLOBIN 12.2 g/dl (13.5-17.5); LYMPH # 1.4 10^3/uL (1.5-5.0); MEAN CORPUSCULAR HEMOGLOBIN 30.7 pg (27.0-33.0); MEAN CORPUSCULAR HGB CONC 32.8 g/dl (32.0-36.5); MEAN CORPUSCULAR VOLUME 93.7 fl (80.0-96.0); MONO # 0.6 10^3/uL (0.0-0.8); NEUTROPHILS # 3.1 10^3/uL (1.5-8.5); NEUTROPHILS % 58.4 % (36.0-66.0); PLATELET COUNT, AUTOMATED 164 10^3/uL (150-450); RED BLOOD COUNT 3.97 10^6/uL (4.30-6.10); WHITE BLOOD COUNT 5.3 10^3/uL (4.0-10.0)
[2021-11-16 07:58] LABS: BLOOD UREA NITROGEN 28 MG/DL (7-18); CALCIUM LEVEL 8.6 MG/DL (8.8-10.2); CARBON DIOXIDE LEVEL 25 MEQ/L (21-32); CHLORIDE LEVEL 110 MEQ/L (98-107); CREATININE FOR GFR 1.42 MG/DL (0.70-1.30); GLOMERULAR FILTRATION RATE 51.3 (>42); GLUCOSE, FASTING 88 MG/DL (70-100); POTASSIUM SERUM 4.5 MEQ/L (3.5-5.1); SODIUM LEVEL 140 MEQ/L (136-145)
[2021-11-16] MEDS: QUEtiapine FUMARATE 25 MG TAB PO SCH ×2 (08:50→16:52)
[2021-11-16] MEDS: FINASTERIDE 5MG TAB PO SCH (08:50)
[2021-11-16] MEDS: MIDODRINE 5 MG TAB PO SCH ×3 (08:50→20:00)
[2021-11-16] MEDS: APIXABAN 5 MG TAB (ELIQUIS) PO SCH ×2 (08:50→20:33)
[2021-11-16] MEDS: ESCITALOPRAM OXALATE 10 MG TAB (LEXAPRO) PO SCH (08:50)
[2021-11-16 14:00] VITALS: BP 125/60
[2021-11-16] MEDS ORDERED: OLANZapine INTRAMUSCULAR 10MG VIAL IM PRN (20:20)
[2021-11-16] MEDS ORDERED: RAMELTEON 8 MG TAB (ROZEREM) PO PRN (20:20)
[2021-11-16 20:28] VITALS: BP 130/80
[2021-11-16] MEDS: TAMSULOSIN 0.4 MG CAP PO SCH (20:33)
[2021-11-17 06:30] VITALS: BP 101/64
[2021-11-17 06:55] VITALS: BP 110/64
[2021-11-17 07:16] LABS: BASO % 0.8 % (0.0-1.0); EOS # 0.1 10^3/uL (0.0-0.5); EOS % 2.5 % (0.0-3.0); HEMATOCRIT 36.4 % (42.0-52.0); HEMOGLOBIN 12.1 g/dl (13.5-17.5); LYMPH # 1.4 10^3/uL (1.5-5.0); LYMPH % 27.8 % (24.0-44.0); MEAN CORPUSCULAR HEMOGLOBIN 30.8 pg (27.0-33.0); MEAN CORPUSCULAR HGB CONC 33.2 g/dl (32.0-36.5); MEAN CORPUSCULAR VOLUME 92.6 fl (80.0-96.0); MONO # 0.6 10^3/uL (0.0-0.8); MONO % 11.3 % (2.0-8.0); NEUTROPHILS # 2.9 10^3/uL (1.5-8.5); NEUTROPHILS % 56.8 % (36.0-66.0); PLATELET COUNT, AUTOMATED 181 10^3/uL (150-450); RED BLOOD COUNT 3.93 10^6/uL (4.30-6.10); WHITE BLOOD COUNT 5.2 10^3/uL (4.0-10.0)
[2021-11-17] MEDS ORDERED: PANT40TA29 PO (07:42)
[2021-11-17 07:51] LABS: CALCIUM LEVEL 8.8 MG/DL (8.8-10.2); CREATININE FOR GFR 1.28 MG/DL (0.70-1.30); GLOMERULAR FILTRATION RATE 57.9 (>42); POTASSIUM SERUM 4.5 MEQ/L (3.5-5.1)
[2021-11-17] MEDS: FINASTERIDE 5MG TAB PO SCH (08:37)
[2021-11-17] MEDS: MIDODRINE 5 MG TAB PO SCH (08:37)
[2021-11-17] MEDS: QUEtiapine FUMARATE 25 MG TAB PO SCH (08:37)
[2021-11-17] MEDS: APIXABAN 5 MG TAB (ELIQUIS) PO SCH (08:37)
[2021-11-17] MEDS: ESCITALOPRAM OXALATE 10 MG TAB (LEXAPRO) PO SCH (08:37)
[2021-11-17] MEDS ORDERED: PANTOPRAZOLE 40MG TAB (PROTONIX) PO SCH (09:00)
== END 2021-11-17 10:00 ==
LOC: EDBD 12:57 → M ED 12:57 → M ED INP 12:58 → M MSPAV 11-16 05:39
PROVIDERS: ADMIT Internal Medicine Nephrology; ATTEND Internal Medicine Nephrology
DX: K80.51 Calculus of bile duct without cholangitis or cholecystitis with obstruction (principal); R00.1 Bradycardia, unspecified; F03.90 Unspecified dementia, unspecified severity, without behavioral disturbance, psychotic disturbance, mood disturbance, and anxiety; Z86.73 Personal history of transient ischemic attack (TIA), and cerebral infarction without residual deficits; I95.1 Orthostatic hypotension; I82.502 Chronic embolism and thrombosis of unspecified deep veins of left lower extremity; I26.99 Other pulmonary embolism without acute cor pulmonale; D51.0 Vitamin B12 deficiency anemia due to intrinsic factor deficiency; I48.0 Paroxysmal atrial fibrillation; R62.7 Adult failure to thrive; E46 Unspecified protein-calorie malnutrition; D35.01 Benign neoplasm of right adrenal gland; H81.10 Benign paroxysmal vertigo, unspecified ear; G43.909 Migraine, unspecified, not intractable, without status migrainosus; Z86.16 Personal history of COVID-19; N40.0 Benign prostatic hyperplasia without lower urinary tract symptoms; H91.92 Unspecified hearing loss, left ear; I71.6 Thoracoabdominal aortic aneurysm, without rupture; F10.96 Alcohol use, unspecified with alcohol-induced persisting amnestic disorder; F41.9 Anxiety disorder, unspecified; F32.A Depression, unspecified; Z79.01 Long term (current) use of anticoagulants; Z79.899 Other long term (current) drug therapy; Z87.891 Personal history of nicotine dependence
CPT/HCPCS: 36415; 71045; 71275; 74177; 76705; 80047; 80048; 80076; 82550; 82553; 83690; 83880; 84439; 84443; 84484; 85025; 85610; 85730; 87040; 87631; 93005; 93041; 94760; 96372; 96374; 96375; 99285; C9113; G0378; J1885; J3010; Q9967

== ENCOUNTER 2021-11-20 16:10 | Emergency (ER) | payer MEDICARE, BC, OTHER ==
[~2021-11-20 16:10] MED LIST changes: +ACET-683 PO; +BISA10SU27 PR; +BUSP10TA PO; +LEXA1TAB PO; +PANT40TA29 PO; +SERO1TAB3 PO; +TAMS1CAP17 PO; +VITMTA PO
[2021-11-20 17:22] LABS: CALCIUM LEVEL 8.4 MG/DL (8.8-10.2); CREATININE FOR GFR 1.39 MG/DL (0.70-1.30); GLOMERULAR FILTRATION RATE 52.6 (>42); MAGNESIUM LEVEL 2.6 MG/DL (1.8-2.4); POTASSIUM SERUM 4.6 MEQ/L (3.5-5.1)
[2021-11-20 18:03] VITALS: BP 136/84
== END 2021-11-20 18:06 | disposition home or self-care (01) ==
LOC: M ED 16:10
DX: R00.1 Bradycardia, unspecified (principal); K21.9 Gastro-esophageal reflux disease without esophagitis; F03.90 Unspecified dementia, unspecified severity, without behavioral disturbance, psychotic disturbance, mood disturbance, and anxiety; I72.2 Aneurysm of renal artery; Z86.79 Personal history of other diseases of the circulatory system; Z86.73 Personal history of transient ischemic attack (TIA), and cerebral infarction without residual deficits; Z79.01 Long term (current) use of anticoagulants; Z79.899 Other long term (current) drug therapy

== ENCOUNTER → 2021-11-25 | Outpatient (REF) | payer MEDICARE, BC, OTHER ==
[2021-11-25 07:59] LABS: FREE T4 1.02 NG/DL (0.76-1.46); THYROID STIMULATING HORMONE 2.96 uIU/ML (0.358-3.740)
== END ==
LOC: SKLAB3 07:00
PROVIDERS: ATTEND Internal Medicine
DX: R00.1 Bradycardia, unspecified (principal)

== ENCOUNTER → 2021-11-28 | Outpatient (REF) | LOC: SKLAB3 22:11 | PROVIDERS: ATTEND Internal Medicine | DX: R00.1 Bradycardia, unspecified (principal); I44.0 Atrioventricular block, first degree; R07.9 Chest pain, unspecified ==

== ENCOUNTER → 2021-11-29 | Outpatient (REF) | payer MEDICARE, BC, OTHER ==
[2021-11-29 01:04] LABS: ALBUMIN 3.3 GM/DL (3.2-5.2); BILIRUBIN,TOTAL 0.4 MG/DL (0.2-1.0); CALCIUM LEVEL 8.3 MG/DL (8.8-10.2); CREATININE FOR GFR 1.35 MG/DL (0.70-1.30); GLOMERULAR FILTRATION RATE 54.4 (>42); MAGNESIUM LEVEL 2.3 MG/DL (1.8-2.4); PHOSPHORUS LEVEL 4.2 MG/DL (2.5-4.9); POTASSIUM SERUM 4.1 MEQ/L (3.5-5.1); TOTAL PROTEIN 5.5 GM/DL (6.4-8.2)
== END ==
LOC: SKLAB3 11-28 23:36
PROVIDERS: ATTEND Internal Medicine
DX: R07.9 Chest pain, unspecified (principal)

== ENCOUNTER → 2021-12-30 | Outpatient (REF) | payer MEDICARE, BC, OTHER | LOC: M SFHCDERM 14:21 | PROVIDERS: ATTEND Dermatology | DX: C44.619 Basal cell carcinoma of skin of left upper limb, including shoulder (principal) ==

== ENCOUNTER → 2022-04-22 | Outpatient (REF) | payer MEDICARE, BC, OTHER ==
[2022-04-22 16:06] LABS: HEMATOCRIT 40.2 % (42.0-52.0); HEMOGLOBIN 13.5 g/dl (13.5-17.5); MEAN CORPUSCULAR HEMOGLOBIN 31.2 pg (27.0-33.0); MEAN CORPUSCULAR HGB CONC 33.6 g/dl (32.0-36.5); MEAN CORPUSCULAR VOLUME 92.8 fl (80.0-96.0); PLATELET COUNT, AUTOMATED 170 10^3/uL (150-450); RED BLOOD COUNT 4.33 10^6/uL (4.30-6.10); WHITE BLOOD COUNT 6.6 10^3/uL (4.0-10.0)
[2022-04-22 16:27] LABS: CALCIUM LEVEL 9.1 MG/DL (8.3-10.6); CREATININE FOR GFR 1.26 MG/DL (0.70-1.30); GLOMERULAR FILTRATION RATE 58.8 (>42); POTASSIUM SERUM 4.4 MMOL/L (3.5-5.1)
== END ==
LOC: SKLAB3 15:27
PROVIDERS: ATTEND Nurse Practitioner
DX: I44.0 Atrioventricular block, first degree (principal)

== ENCOUNTER → 2022-06-09 | Outpatient (REF) | payer MEDICARE, MEDICAID ==
[~2022-06-09] MED LIST changes: +ASPI-655 PO; -ASPI1CHW3 PO
[2022-06-09 08:05] LABS: ALBUMIN 3.4 G/DL (3.2-5.2); BILIRUBIN,TOTAL 0.6 MG/DL (0.3-1.2); CALCIUM LEVEL 8.5 MG/DL (8.3-10.6); CREATININE FOR GFR 1.35 MG/DL (0.70-1.30); GLOMERULAR FILTRATION RATE 54.3 (>42); POTASSIUM SERUM 4.4 MMOL/L (3.5-5.1); TOTAL PROTEIN 5.3 G/DL (5.7-8.2)
== END ==
LOC: SKLAB3 11:40
PROVIDERS: ATTEND Nurse Practitioner
DX: I95.9 Hypotension, unspecified (principal)

== ENCOUNTER → 2022-09-23 | Outpatient (REF) | LOC: SKLAB3 16:57 | PROVIDERS: ATTEND Internal Medicine | DX: R68.84 Jaw pain (principal) ==

== ENCOUNTER → 2022-09-24 | Outpatient (CLI) | payer MEDICARE, MEDICAID | LOC: M RAD 08:22 | PROVIDERS: ATTEND Nurse Practitioner | DX: R68.84 Jaw pain (principal); J33.1 Polypoid sinus degeneration; J34.2 Deviated nasal septum ==

== ENCOUNTER → 2022-12-01 | Outpatient (REF) | payer MEDICARE, MEDICAID ==
[2022-12-01 08:03] LABS: PHOSPHORUS LEVEL 3.5 MG/DL (2.4-5.1); PTH INTACT 73.3 PG/ML (18.5-88.0)
[2022-12-01 08:04] LABS: TOTAL 25(OH) VITAMIN D 39.2 NG/ML (20.0-100.0)
== END ==
LOC: SKLAB3 07:00
PROVIDERS: ATTEND Nurse Practitioner Adult Health
DX: Z13.29 Encounter for screening for other suspected endocrine disorder (principal); Z79.899 Other long term (current) drug therapy

== ENCOUNTER → 2022-12-08 | Outpatient (REF) | payer MEDICARE, MEDICAID ==
[2022-12-08 10:01] LABS: ALBUMIN 3.4 G/DL (3.2-5.2); BILIRUBIN,TOTAL 0.8 MG/DL (0.3-1.2); CALCIUM LEVEL 8.6 MG/DL (8.3-10.6); CREATININE FOR GFR 1.41 MG/DL (0.70-1.30); GLOMERULAR FILTRATION RATE 51.6 (>42); PHOSPHORUS LEVEL 3.7 MG/DL (2.4-5.1); POTASSIUM SERUM 4.2 MMOL/L (3.5-5.1); PTH INTACT 34.8 PG/ML (18.5-88.0); TOTAL 25(OH) VITAMIN D 30.4 NG/ML (20.0-100.0); TOTAL PROTEIN 5.6 G/DL (5.7-8.2)
== END ==
LOC: SKLAB3 07:00
PROVIDERS: ATTEND Nurse Practitioner
DX: Z13.228 Encounter for screening for other metabolic disorders (principal); Z79.899 Other long term (current) drug therapy

== ENCOUNTER → 2023-02-04 | Outpatient (REF) | payer MEDICARE, MEDICAID | LOC: SKLAB3 13:01 | PROVIDERS: ATTEND Internal Medicine | DX: J06.9 Acute upper respiratory infection, unspecified (principal) ==

== ENCOUNTER → 2023-05-11 | Outpatient (REF) | payer MEDICARE, MEDICAID ==
[2023-05-11 07:36] LABS: HEMATOCRIT 42.1 % (42.0-52.0); HEMOGLOBIN 14.1 g/dl (13.5-17.5); MEAN CORPUSCULAR HEMOGLOBIN 30.7 pg (27.0-33.0); MEAN CORPUSCULAR HGB CONC 33.5 g/dl (32.0-36.5); MEAN CORPUSCULAR VOLUME 91.5 fl (80.0-96.0); PLATELET COUNT, AUTOMATED 194 10^3/uL (150-450); WHITE BLOOD COUNT 9.2 10^3/uL (4.0-10.0)
== END ==
LOC: SKLAB3 10:24
PROVIDERS: ATTEND Nurse Practitioner
DX: I95.9 Hypotension, unspecified (principal)

== ENCOUNTER → 2023-05-13 | Outpatient (REF) | payer MEDICARE, MEDICAID ==
[2023-05-13 09:48] LABS: HEMATOCRIT 43.8 % (42.0-52.0); HEMOGLOBIN 14.7 g/dl (13.5-17.5); MEAN CORPUSCULAR HEMOGLOBIN 31.2 pg (27.0-33.0); MEAN CORPUSCULAR HGB CONC 33.6 g/dl (32.0-36.5); PLATELET COUNT, AUTOMATED 181 10^3/uL (150-450); RED BLOOD COUNT 4.71 10^6/uL (4.30-6.10); WHITE BLOOD COUNT 7.6 10^3/uL (4.0-10.0)
[2023-05-13 10:20] LABS: CALCIUM LEVEL 8.9 MG/DL (8.3-10.6); CREATININE FOR GFR 1.33 MG/DL (0.70-1.30); GLOMERULAR FILTRATION RATE 55.1 (>35); POTASSIUM SERUM 4.3 MMOL/L (3.5-5.1)
== END ==
LOC: SKLAB3 08:43
PROVIDERS: ATTEND Nurse Practitioner
DX: R41.82 Altered mental status, unspecified (principal)

== ENCOUNTER → 2023-06-16 | Outpatient (REF) | payer MEDICARE, MEDICAID ==
[2023-06-16 10:32] LABS: ALBUMIN 3.8 G/DL (3.2-5.2); ALKALINE PHOSPHATASE 64 U/L (46-116); ALT/SGPT < 9 U/L (7.0-40); AST/SGOT 9 U/L (<34); BILIRUBIN,TOTAL 0.5 MG/DL (0.3-1.2); BLOOD UREA NITROGEN 20 MG/DL (9-23); CALCIUM LEVEL 8.7 MG/DL (8.3-10.6); CARBON DIOXIDE LEVEL 26 MMOL/L (20-31); CHLORIDE LEVEL 111 MMOL/L (98-107); CREATININE FOR GFR 1.33 MG/DL (0.70-1.30); GLOMERULAR FILTRATION RATE 55.1 (>35); GLUCOSE, FASTING 87 MG/DL (74-106); POTASSIUM SERUM 4.5 MMOL/L (3.5-5.1); SODIUM LEVEL 145 MMOL/L (136-145); TOTAL PROTEIN 5.7 G/DL (5.7-8.2)
== END ==
LOC: SKLAB3 07:00
PROVIDERS: ATTEND Nurse Practitioner
DX: I10 Essential (primary) hypertension (principal)

== ENCOUNTER → 2023-11-09 | Outpatient (REF) | payer MEDICARE, MEDICAID ==
[~2023-11-09] MED LIST changes: +ONDA-282 PO; -ONDA4TAB6 PO
[2023-11-09 16:02] LABS: HEMATOCRIT 39.7 % (42.0-52.0); HEMOGLOBIN 13.4 g/dl (13.5-17.5); MEAN CORPUSCULAR HEMOGLOBIN 32.1 pg (27.0-33.0); MEAN CORPUSCULAR HGB CONC 33.8 g/dl (32.0-36.5); PLATELET COUNT, AUTOMATED 156 10^3/uL (150-450); RED BLOOD COUNT 4.18 10^6/uL (4.30-6.10); WHITE BLOOD COUNT 6.2 10^3/uL (4.0-10.0)
== END ==
LOC: SKLAB3 07:00
PROVIDERS: ATTEND Internal Medicine
DX: I95.9 Hypotension, unspecified (principal)

== ENCOUNTER → 2023-12-16 | Outpatient (REF) | payer MEDICARE, MEDICAID ==
[2023-12-16 09:09] LABS: ALBUMIN 3.4 G/DL (3.2-5.2); ALKALINE PHOSPHATASE 78 U/L (46-116); ALT/SGPT 12 U/L (7.0-40); AST/SGOT < 8 U/L (<34); BILIRUBIN,TOTAL 0.5 MG/DL (0.3-1.2); BLOOD UREA NITROGEN 25 MG/DL (9-23); CALCIUM LEVEL 9.2 MG/DL (8.3-10.6); CARBON DIOXIDE LEVEL 24 MMOL/L (20-31); CHLORIDE LEVEL 116 MMOL/L (98-107); CREATININE FOR GFR 1.18 MG/DL (0.70-1.30); GLOMERULAR FILTRATION RATE > 60.0 (>35); GLUCOSE, FASTING 90 MG/DL (74-106); PHOSPHORUS LEVEL 2.7 MG/DL (2.4-5.1); POTASSIUM SERUM 4.2 MMOL/L (3.5-5.1); PTH INTACT 67.6 PG/ML (18.5-88.0); SODIUM LEVEL 146 MMOL/L (136-145); TOTAL 25(OH) VITAMIN D 42.9 NG/ML (20.0-100.0); TOTAL PROTEIN 5.6 G/DL (5.7-8.2)
== END ==
LOC: SKLAB3 07:00
PROVIDERS: ATTEND Internal Medicine
DX: E21.3 Hyperparathyroidism, unspecified (principal)

== ENCOUNTER → 2024-05-09 | Outpatient (REF) | payer MEDICARE, MEDICAID ==
[2024-05-09 07:44] LABS: HEMATOCRIT 40.8 % (42.0-52.0); HEMOGLOBIN 13.4 g/dl (13.5-17.5); MEAN CORPUSCULAR HEMOGLOBIN 30.7 pg (27.0-33.0); MEAN CORPUSCULAR HGB CONC 32.8 g/dl (32.0-36.5); MEAN CORPUSCULAR VOLUME 93.6 fl (80.0-96.0); PLATELET COUNT, AUTOMATED 171 10^3/uL (150-450); RED BLOOD COUNT 4.36 10^6/uL (4.30-6.10)
== END ==
LOC: SKLAB3 07:00
PROVIDERS: ATTEND Internal Medicine
DX: I95.9 Hypotension, unspecified (principal)

== ENCOUNTER → 2024-06-13 | Outpatient (REF) | payer MEDICARE, MEDICAID ==
[~2024-06-13] MED LIST changes: -FLOM0.4C39 PO; +TAMS-18 PO
[2024-06-13 08:16] LABS: ALBUMIN 3.3 G/DL (3.2-5.2); BILIRUBIN,TOTAL 0.3 MG/DL (0.3-1.2); CALCIUM LEVEL 8.4 MG/DL (8.3-10.6); CREATININE FOR GFR 1.19 MG/DL (0.70-1.30); GLOMERULAR FILTRATION RATE 61.4 (>35); POTASSIUM SERUM 4.2 MMOL/L (3.5-5.1); TOTAL PROTEIN 5.3 G/DL (5.7-8.2)
== END ==
LOC: SKLAB3 07:00
PROVIDERS: ATTEND Internal Medicine
DX: I95.9 Hypotension, unspecified (principal)

== ENCOUNTER → 2024-09-18 | Outpatient (REF) | payer MEDICARE, MEDICAID | LOC: SKLAB3 08:00 | PROVIDERS: ATTEND Nurse Practitioner Adult Health | DX: M79.661 Pain in right lower leg (principal); W19.XXXA Unspecified fall, initial encounter; Y92.129 Unspecified place in nursing home as the place of occurrence of the external cause; Y93.9 Activity, unspecified ==

== ENCOUNTER → 2024-09-23 | Outpatient (REF) | payer MEDICARE, MEDICAID ==
[2024-09-23 07:33] LABS: BASO # 0.1 10^3/uL (0.0-0.2); BASO % 0.9 % (0.0-1.0); EOS # 0.2 10^3/uL (0.0-0.5); EOS % 2.8 % (0.0-3.0); LYMPH # 1.5 10^3/uL (1.5-5.0); LYMPH % 23.1 % (24.0-44.0); MONO # 0.7 10^3/uL (0.0-0.8); MONO % 10.9 % (2.0-8.0); NEUTROPHILS # 4.0 10^3/uL (1.5-8.5); NEUTROPHILS % 61.5 % (36.0-66.0); PLATELET COUNT, AUTOMATED 171 10^3/uL (150-450)
[2024-09-23 07:37] LABS: ERYTHROCYTE SEDIMENTATION RATE 5 mm/hr (0-20)
[2024-09-23 07:56] LABS: ALT/SGPT 12.0 U/L (7.0-40); AST/SGOT 14.0 U/L (<34); C REACTIVE PROTEIN QUANTITATIV 0.76 MG/DL (<1.0); CALCIUM LEVEL 8.8 MG/DL (8.3-10.6); CARBON DIOXIDE LEVEL 23.0 MMOL/L (20-31); CHLORIDE LEVEL 110.0 MMOL/L (98-107); CREATININE FOR GFR 1.4 MG/DL (0.70-1.30); GLOMERULAR FILTRATION RATE 50.5 (>35); POTASSIUM SERUM 4.0 MMOL/L (3.5-5.1); SODIUM LEVEL 145.0 MMOL/L (136-145)
== END ==
LOC: SKLAB3 01:14
PROVIDERS: ATTEND Internal Medicine
DX: L03.115 Cellulitis of right lower limb (principal)

== ENCOUNTER → 2024-09-25 | Outpatient (CLI) | payer MEDICARE, MEDICAID | LOC: M RAD 13:19 | PROVIDERS: ATTEND Nurse Practitioner | DX: M79.89 Other specified soft tissue disorders (principal); M79.671 Pain in right foot; M19.071 Primary osteoarthritis, right ankle and foot ==

== ENCOUNTER → 2024-10-02 | Outpatient (REF) | payer MEDICARE, MEDICAID ==
[2024-10-02 11:38] LABS: PLATELET COUNT, AUTOMATED 191 10^3/uL (150-450)
[2024-10-02 12:03] LABS: CALCIUM LEVEL 9.1 MG/DL (8.3-10.6); CARBON DIOXIDE LEVEL 22.0 MMOL/L (20-31); CHLORIDE LEVEL 112.0 MMOL/L (98-107); CREATININE FOR GFR 1.42 MG/DL (0.70-1.30); GLOMERULAR FILTRATION RATE 49.6 (>35); POTASSIUM SERUM 4.3 MMOL/L (3.5-5.1); SODIUM LEVEL 144.0 MMOL/L (136-145)
== END ==
LOC: SKLAB3 09:02
PROVIDERS: ATTEND Internal Medicine
DX: R50.9 Fever, unspecified (principal)

== ENCOUNTER 2024-10-26 07:50 | Emergency (ER) | payer MEDICARE, MEDICAID ==
[~2024-10-26] VITALS: Ht 182.9 cm; Wt 89.9 kg
[~2024-10-26 07:50] MED LIST changes: -ASPI-655 PO; +ASPI-737 PO
[2024-10-26 08:05] VITALS: TEMP 97
[2024-10-26 08:24] LABS: BASO # 0.1 10^3/uL (0.0-0.2); BASO % 0.8 % (0.0-1.0); EOS # 0.1 10^3/uL (0.0-0.5); EOS % 2.2 % (0.0-3.0); LYMPH # 1.6 10^3/uL (1.5-5.0); LYMPH % 27.3 % (24.0-44.0); MONO # 0.6 10^3/uL (0.0-0.8); MONO % 10.5 % (2.0-8.0); NEUTROPHILS # 3.5 10^3/uL (1.5-8.5); NEUTROPHILS % 58.7 % (36.0-66.0); PLATELET COUNT, AUTOMATED 184 10^3/uL (150-450)
[2024-10-26] MEDS ORDERED: FLEEENE12 PR (08:47)
[2024-10-26] MEDS ORDERED: TRAM50TA2 PO (08:47)
[2024-10-26] MEDS ORDERED: MILKSUS3 PO (08:47)
[2024-10-26] MEDS ORDERED: NITR0.4S14 SL (08:47)
[2024-10-26] MEDS ORDERED: ACET-897 PO (08:47)
[2024-10-26] MEDS ORDERED: ACET1TAB55 PO (08:48)
[2024-10-26 08:50] LABS: CK-MB VALUE MASS 1.1 NG/ML (<3.6)
[2024-10-26] MEDS ORDERED: HOME MED LIST COMPLETE! XX SCH (08:50)
[2024-10-26 08:52] LABS: ALT/SGPT 13.0 U/L (7.0-40); AST/SGOT 14.0 U/L (<34); CALCIUM LEVEL 9.0 MG/DL (8.3-10.6); CARBON DIOXIDE LEVEL 23.0 MMOL/L (20-31); CHLORIDE LEVEL 111.0 MMOL/L (98-107); CREATININE FOR GFR 1.36 MG/DL (0.70-1.30); GLOMERULAR FILTRATION RATE 52.3 (>35); POTASSIUM SERUM 4.4 MMOL/L (3.5-5.1); SODIUM LEVEL 147.0 MMOL/L (136-145)
[2024-10-26 08:58] LABS: CPK CREATINE PHOSPHOKINASE 47.0 U/L (46-171); MB/CK RELATIVE INDEX 2.34 (< OR =4)
[2024-10-26 09:50] LABS: CK-MB VALUE MASS 1.2 NG/ML (<3.6)
[2024-10-26 09:51] LABS: CPK CREATINE PHOSPHOKINASE 47.0 U/L (46-171); MB/CK RELATIVE INDEX 2.55 (< OR =4)
[2024-10-26] MEDS ORDERED: ISOVUE-370 76% 100 ML VIAL As Ordered ONE (11:05)
[2024-10-26 12:30] VITALS: BP 152/68; O2SAT 93
== END 2024-10-26 12:50 | disposition home or self-care (01) ==
LOC: EDBD 07:50 → M ED 07:50
DX: R07.9 Chest pain, unspecified (principal); F03.90 Unspecified dementia, unspecified severity, without behavioral disturbance, psychotic disturbance, mood disturbance, and anxiety; F41.9 Anxiety disorder, unspecified; N18.30 Chronic kidney disease, stage 3 unspecified; Z86.79 Personal history of other diseases of the circulatory system; Z86.73 Personal history of transient ischemic attack (TIA), and cerebral infarction without residual deficits; Z86.711 Personal history of pulmonary embolism; Z79.1 Long term (current) use of non-steroidal anti-inflammatories (NSAID); Z79.899 Other long term (current) drug therapy; Z79.01 Long term (current) use of anticoagulants
CPT/HCPCS: 36415; 71045; 71275; 80048; 80076; 82550; 82553; 83690; 84443; 84484; 85025; 87486; 87581; 87633; 87798; 93005; 93041; 94760; 99285; Q9967

== ENCOUNTER → 2024-11-21 | Outpatient (REF) | payer MEDICARE, MEDICAID ==
[~2024-11-21] MED LIST changes: +ACET-897 PO; +ACET1TAB55 PO; +FLEEENE12 PR; +MILKSUS3 PO; +NITR0.4S14 SL; +TRAM50TA2 PO
[2024-11-21 14:42] LABS: PLATELET COUNT, AUTOMATED 192 10^3/uL (150-450)
[2024-11-21 15:11] LABS: ALT/SGPT 10.0 U/L (7.0-40); AST/SGOT 12.0 U/L (<34); CALCIUM LEVEL 8.4 MG/DL (8.3-10.6); CARBON DIOXIDE LEVEL 21.0 MMOL/L (20-31); CHLORIDE LEVEL 111.0 MMOL/L (98-107); CREATININE FOR GFR 1.2 MG/DL (0.70-1.30); GLOMERULAR FILTRATION RATE 60.8 (>35); POTASSIUM SERUM 4.5 MMOL/L (3.5-5.1); SODIUM LEVEL 142.0 MMOL/L (136-145)
== END ==
LOC: SKLAB3 07:00
PROVIDERS: ATTEND Family Medicine
DX: I95.9 Hypotension, unspecified (principal)

== ENCOUNTER → 2024-12-19 | Outpatient (REF) | payer MEDICARE, MEDICAID ==
[2024-12-19 08:45] LABS: PHOSPHORUS LEVEL 3.3 MG/DL (2.4-5.1)
[2024-12-19 08:46] LABS: PTH INTACT 61.6 PG/ML (18.5-88.0); TOTAL 25(OH) VITAMIN D 35.0 NG/ML (20.0-100.0)
== END ==
LOC: SKLAB3 07:00
PROVIDERS: ATTEND Family Medicine
DX: E21.3 Hyperparathyroidism, unspecified (principal)

== ENCOUNTER 2024-12-23 20:52 | Emergency (ER) | payer MEDICARE, MEDICAID ==
[~2024-12-23] VITALS: Ht 177.8 cm; Wt 95.0 kg
[2024-12-23 21:24] LABS: BASO # 0.1 10^3/uL (0.0-0.2); BASO % 0.8 % (0.0-1.0); EOS # 0.1 10^3/uL (0.0-0.5); EOS % 2.1 % (0.0-3.0); LYMPH # 2.2 10^3/uL (1.5-5.0); LYMPH % 33.2 % (24.0-44.0); MONO # 0.8 10^3/uL (0.0-0.8); MONO % 11.4 % (2.0-8.0); NEUTROPHILS # 3.4 10^3/uL (1.5-8.5); NEUTROPHILS % 51.9 % (36.0-66.0); PLATELET COUNT, AUTOMATED 165 10^3/uL (150-450)
[2024-12-23 21:38] VITALS: BP 122/77; TEMP 98.5; O2SAT 94
[2024-12-23 21:45] LABS: INR 1.1
[2024-12-23 21:55] LABS: CK-MB VALUE MASS < 1.0 NG/ML (<3.6)
[2024-12-23 21:56] LABS: CPK CREATINE PHOSPHOKINASE 49 U/L (46-171)
[2024-12-23 21:57] LABS: ALT/SGPT 12 U/L (7.0-40); AST/SGOT 15 U/L (<34); CALCIUM LEVEL 8.2 MG/DL (8.3-10.6); CARBON DIOXIDE LEVEL 22 MMOL/L (20-31); CHLORIDE LEVEL 112 MMOL/L (98-107); CREATININE FOR GFR 1.19 MG/DL (0.70-1.30); GLOMERULAR FILTRATION RATE 61.0 (>35); POTASSIUM SERUM 4.4 MMOL/L (3.5-5.1); SODIUM LEVEL 146 MMOL/L (136-145)
[2024-12-23 23:23] LABS: CK-MB VALUE MASS < 1.0 NG/ML (<3.6)
[2024-12-23 23:25] LABS: CPK CREATINE PHOSPHOKINASE 52 U/L (46-171)
== END 2024-12-23 23:54 | disposition home or self-care (01) ==
LOC: M ED 20:52 → EDBD 20:52 → M ED 23:54
DX: R07.9 Chest pain, unspecified (principal); I44.4 Left anterior fascicular block; J98.11 Atelectasis; I51.7 Cardiomegaly; N40.0 Benign prostatic hyperplasia without lower urinary tract symptoms; Z86.711 Personal history of pulmonary embolism; Z86.718 Personal history of other venous thrombosis and embolism; Z79.1 Long term (current) use of non-steroidal anti-inflammatories (NSAID); Z79.01 Long term (current) use of anticoagulants; Z79.899 Other long term (current) drug therapy